=== PATIENT | male | born 2000 | race African-American/Black ===

== ENCOUNTER 2023-04-14 23:00 | Emergency (ER) | payer OTHER ==
--- OUTSIDE RECORDS SUMMARY | 2023-04-14 23:26 | XMS REPORT | Continuity of Care Document ---
:2000 Author Organization [facility] [place] [facility] t Address [address] [facility]. [address] [place] [address] Care Team Providers Name Role Phone Latia Gates PA-C Primary Care Physician [phone] LAURY CHAVEZ Attending Clinician Unavailable Laury Chavez MD Attending Clinician GALE WINCHESTER Attending Clinician Unavailable YOLY JACOBO Attending Clinician Unavailable Yoly Worrell Attending Clinician TALI HAMILTON Attending Clinician Unavailable Tali Hamilton NP Attending Clinician Gale Hinojosa Attending Clinician Lab, Ang - Db Attending Clinician Unavailable Doctor Unassigned, [place] Attending Clinician Unavailable RICARDO MONREAL Attending Clinician Unavailable Ricardo Monreal MD Attending Clinician LATIA GATES Attending Clinician Unavailable Kody MIRANDA, Latia Bermudez Attending Clinician Samir Recio Attending Clinician Tyler Sanders MD Attending Clinician Augusto Aviles DO Attending Clinician ANDRAE THOMAS Attending Clinician Unavailable Lisa BOND, Danii Ozuna Attending Clinician Vega MASTERS, Davon Ronquillo Attending Clinician Colby BOND, Landy Attending Clinician Latoya Pacheco MD Attending Clinician Aj Maldonado DO Attending Clinician CHERYLE ALVAREZ Attending Clinician Unavailable Provider, [facility] Attending Clinician Unavailable LANDY QUIGLEY Attending Clinician Unavailable Provider, Urgent Care Day Attending Clinician Unavailable Pob, [facility] Main Attending Clinician Unavailable LIANA PAIGE Attending Clinician Unavailable Liana Paige MD Attending Clinician Pob1, Acute [facility] Attending Clinician Unavailable New DUNN, Kwadwo Attending Clinician Unavailable Sandra Hopper PA-C Attending Clinician María Davis Attending Clinician MARÍA JEREZ Attending Clinician Unavailable NINA BAUMAN Attending Clinician Unavailable TALI HAMILTON Admitting Clinician Unavailable GALE WINCHESTER Admitting Clinician Unavailable RICARDO MONREAL Admitting Clinician Unavailable Tyler Sanders MD Admitting Clinician Payers Payer Name Policy Type Policy Number Effective Date Expiration Date Marysol MIRAMONTES [id number] 2019 HEALTH 00:00:00 Problems Condition Condition Condition Status Onset Resolution Last Treating Co mments Source Name Details Category Date Date Treatment Clinician Date Irritable Irritable Disease Active 2021-06 Uni vers bowel bowel 2-29 [place] syndrome[place] 00 Me dical d type d type Branch Pneumomedi Pneumomedi Disease Active U nivers astinum astinum 7- ity of 00:00: Medical Branch Obesity Obesity Disease Active Univers (BMI (BMI 7-20 ity of 30-39.9) 30-39.9) 00:00: Medical Branch Smoker Smoker Disease Active Overview: Univer s 12-21 Formattin ity of 00:00: g of this note Medical might be Branch different from the original. Smokes cigarette s and vapes Asthma Asthma Disease Active Univers 3 ity of 00:00: Medical Branch GERD GERD Disease Active Univers (gastroeso (gastroeso 08-22 it y of phageal phageal 00:00: [place] reflux reflux 00 Medical disease) disease) Branch Constipati Constipati Disease Active U nivers on on 08-22 ity of 00:00: Medical Branch Allergic Allergic Disease Active Unive rs rhinitis rhinitis 08-22 ity of 00:00: Medical Branch ADHD ADHD Disease Active Univers (attention (attention 3 it y of deficit deficit 00:00: [place] hyperactiv hyperactiv 00 Me dical ity ity Branch disorder), disorder), combined combined type type Allergies, Adverse Reactions, Alerts Allergy Allergy Status Severity Reaction(s) Onset Inactive Treating Comm ents Source Name Type Date Date Clinician NO KNOWN Drug Active Univers ALLERGIE Class ity of S [facility] Social History Social Habit Start Date Stop Date Quantity Comments Source History of tobacco 2018-11-30 Cigarette Smoker University of use 00:00:00 [facility] History SDOH University o f Alcohol Binge [place] [facility] History SDOH University o f Alcohol Comment [place] Med ical [facility] Gender identity Universit y of [facility] Sexual orientation Univer sity of [facility] Exposure to 2022-08-13 2022-08-23 Not sure University of SARS-CoV-2 (event) 00:00:00 19:38:00 [place] [facility] History of Social 2022-05-30 2022-05-30 Univers ity of function 00:00:00 00:00:00 [facility] Cigarettes smoked 2020-12-19 2020-12-19 Univers ity of current (pack per 00:00:00 00:00:00 [facility] ) - Reported Branch Tobacco use and 2020-12-19 2020-12-19 Smokeless Universit y of exposure 00:00:00 00:00:00 tobacco non-user [facility] dical Branch Alcohol intake 2020-12-19 2020-12-19 Current University of 00:00:00 00:00:00 non-drinker of [facility] alcohol Branch (finding) History SDOH 2020-12-19 2020-12-19 2 University o f Alcohol Frequency 00:00:00 [facility]:00:00 [facility] SDOH 2020-12-19 2020-12-19 98 University o f Alcohol Std Drinks 00:00:00 00:00:00 [facility] Education 2020-12-19 2020-12-19 10 University of 00:00:00 00:00:00 [facility] Sex Assigned At [birth year] Universit y of 00:00:00 00:00:00 [facility] Smoking Status Start Date Stop Date Source Smokes tobacco daily 2020-12-19 00:00:00 [facility] ity of [facility] Medications Ordered Filled Start Stop Current Ordering Indication Dosage Frequency Signature Comments Components Source Medication Medication Date Date Medication? Clinician (SIG) Name Name NaCl 0.9% 2022- No 1000mL at 999 Uni vers (NS) IV 08-24 03-25 mL/hr, ity of infusion 01:45[place] 02:20 [place] 1,000 mL 00 :00 s, ONCE, 1 Medic al dose, On Branch 08/23/22 at 2045, CATHERINE iopamidol 2022- No [id number] 100mL 100 mL, Univers (ISOVUE 08-24-24 Intravenou ity o f 370-500 mL) 00:30: 23:22 s, ONCE, 1 [place] injection 00 :00 dose, On Medica l 100 mL Fri Branch 08/23/22 at 1930, Routine ketorolac 2022- No 30mg 30 mg, Unive rs (TORADOL) 08-23 Slow IV ity of injection 23:45: 23:05 Push, [place] 30 mg 00 :00 ONCE, 1 Medical dose, On Branch 08/23/22 at 1845, Routine dicyclomine 2022-0 2022- No 20mg 20 mg, Uni vers (BENTYL) 08-23 Intramuscu ity of injection 23:45: 23:14 lar, ONCE, [place] 20 mg 00 :00 1 dose, On Medical Fri Branch 08/23/22 at 1845, Routine pantoprazol 2022- No 40mg 40 mg, Uni vers e 08-23 Slow IV ity of (PROTONIX) 22:45: 23:06 Push, [place] injection 00 :00 ONCE, 1 Medical 40 mg dose, On Branch 08/23/22 at 1745 dicyclomine 3-0 Yes [id number] 20mg Take 1 Univers 20 mg 3-24 tablet by ity of tablet 00:00: mouth 4 (four) Medical times Branch daily as needed for Abdominal pain. ondansetron 3-0 Yes [id number] 4mg Take 1 Univers 4 mg 3-24 tablet by ity of disintegrat 00:00: mouth [place] ing tablet 00 every 8 Medica l (eight) Branch hours as needed for Nausea and Vomiting (N/V). dicyclomine 2023-0 Yes [id number] 20mg Take 1 Univers 20 mg 3-24 tablet by ity of tablet 00:00: mouth 4 (four) Medical times Branch daily as needed for Abdominal pain. ondansetron 2023-0 Yes [id number] 4mg Take 1 Univers 4 mg 3-24 tablet by ity of disintegrat 00:00: mouth [place] ing tablet 00 every 8 Medica l (eight) Branch hours as needed for Nausea and Vomiting (N/V). dicyclomine 2023-0 Yes [id number] 20mg Take 1 Univers 20 mg 3-24 tablet by ity of tablet 00:00: mouth 4 [place] 00 (four) Medical times Branch daily as needed for Abdominal pain. ondansetron 2023-0 Yes [id number] 4mg Take 1 Univers 4 mg 3-24 tablet by ity of disintegrat 00:00: mouth [place] ing tablet 00 every 8 Medica l (eight) Branch hours as needed for Nausea and Vomiting (N/V). dicyclomine 3-0 Yes [id number] 10mg Take 1 Univers 10 mg 1-24 capsule by ity of capsule 00:00: mouth in [place] 00 the Medical morning Branch and 1 capsule at noon and 1 capsule in the evening. dicyclomine 3-0 Yes [id number] 10mg Take 1 Univers 10 mg 1-24 capsule by ity of capsule 00:00: mouth in [place] 00 the Medical morning Branch and 1 capsule at noon and 1 capsule in the evening. dicyclomine 3-0 Yes [id number] 10mg Take 1 Univers 10 mg 1-24 capsule by ity of capsule 00:00: mouth in [place] 00 the Medical morning Branch and 1 capsule at noon and 1 capsule in the evening. dicyclomine 3-0 Yes [id number] 10mg Take 1 Univers 10 mg 1-24 capsule by ity of capsule 00:00: mouth in [place] 00 the Medical morning Branch and 1 capsule at noon and 1 capsule in the evening. cetirizine 2021-06 Yes [id number] 10mg Take 1 Univers (ZYRTEC) 10 2-29 tablet by [facility] mg tablet [facility] Branch albuterol 2021-06 Yes [id number] 2{puff} Inhale 2 Univers 90 2-29 Puffs ity of mcg/actuati 00:00: every 6 [place] on inhaler 00 (six) Medical hours as Branch needed for Wheezing or Shortness of Breath. fluticasone 2021-06 Yes [id number] 2{puff} Inhale 2 Univers propionate 2-29 Puffs ity of 110 00:00: every 12 [place] mcg/actuati 00 (twelve) Medi luiz on inhaler hours. Branch hydrOXYzine 2021-06 Yes [id number] 50mg Take 1 Univers 50 mg 2-29 tablet by ity of tablet 00:00: mouth 3 [place] 00 (three) Medical times Branch daily as needed for Itching. cetirizine 2021-06 Yes [id number] 10mg Take 1 Univers (ZYRTEC) 10 2-29 tablet by ity of mg tablet 00:00: mouth [place] 00 the Medical morning. Branch albuterol 2021-06 Yes [id number] 2{puff} Inhale 2 Univers 90 2-29 Puffs ity of mcg/actuati 00:00: every 6 [place] on inhaler 00 (six) Medical hours as Branch needed for Wheezing or Shortness of Breath. fluticasone 2021-06 Yes [id number] 2{puff} Inhale 2 Univers propionate 2-29 Puffs ity of 110 00:00: every 12 [place] mcg/actuati 00 (twelve) Medi luiz on inhaler hours. Branch hydrOXYzine 2021-06 Yes [id number] 50mg Take 1 Univers 50 mg 2-29 tablet by ity of tablet 00:00: mouth 3 00 (three) Medical times Branch daily as needed for Itching. cetirizine 2021-06 Yes [id number] 10mg Take 1 Univers (ZYRTEC) 10 2-29 tablet by ity of mg tablet 00:00: [place] 00 the Medical morning. Branch albuterol 2021-06 Yes [id number] 2{puff} Inhale 2 Univers 90 2-29 Puffs ity of mcg/actuati 00:00: every 6 [place] on inhaler 00 (six) Medical hours as Branch needed for Wheezing or Shortness of Breath. fluticasone 2021-06 Yes [id number] 2{puff} Inhale 2 Univers propionate 2-29 Puffs ity of 110 00:00: every 12 [place] mcg/actuati 00 (twelve) Medi luiz on inhaler hours. Branch hydrOXYzine 2021-06 Yes [id number] 50mg Take 1 Univers 50 mg 2-29 tablet by ity of tablet 00:00: mouth 3 [place] 00 (three) Medical times Branch daily as needed for Itching. cetirizine 2021-06 Yes [id number] 10mg Take 1 Univers (ZYRTEC) 10 2-29 tablet by ity of mg tablet 00:00: mouth [place] 00 the Medical morning. Branch albuterol 2021-06 Yes [id number] 2{puff} Inhale 2 Univers 90 2-29 Puffs ity of mcg/actuati 00:00: every 6 [place] on inhaler 00 (six) Medical hours as Branch needed for Wheezing or Shortness of Breath. fluticasone 2021-06 Yes [id number] 2{puff} Inhale 2 Univers propionate 2-29 Puffs ity of 110 00:00: every 12 [place] mcg/actuati 00 (twelve) Medi luiz on inhaler hours. Branch hydrOXYzine 2021-06 Yes [id number] 50mg Take 1 Univers 50 mg 2-29 tablet by ity of tablet 00:00: mouth 3 [place] 00 (three) Medical times Branch daily as needed for Itching. cetirizine 2021-06 Yes [id number] 10mg Take 1 Univers (ZYRTEC) 10 2-29 tablet by ity of mg tablet 00:00: mouth [place] 00 the Medical morning. Branch albuterol 2021-06 Yes [id number] 2{puff} Inhale 2 Univers 90 2-29 Puffs ity of mcg/actuati 00:00: every 6 [place] on inhaler 00 (six) Medical hours as Branch needed for Wheezing or Shortness of Breath. fluticasone 2021-06 Yes [id number] 2{puff} Inhale 2 Univers propionate 2-29 Puffs ity of 110 00:00: every 12 [place] mcg/actuati 00 (twelve) Medi luiz on inhaler hours. Branch hydrOXYzine 2021-06 Yes [id number] 50mg Take 1 Univers 50 mg 2-29 tablet by ity of tablet 00:00: mouth 3 [place] 00 (three) Medical times Branch daily as needed for Itching. cetirizine 2021-06 Yes [id number] 10mg Take 1 Univers (ZYRTEC) 10 2-29 tablet by ity of mg tablet 00:00: mouth [place] 00 the Medical morning. Branch albuterol 2021-06 Yes [id number] 2{puff} Inhale 2 Univers 90 2-29 Puffs ity of mcg/actuati 00:00: every 6 [place] on inhaler 00 (six) Medical hours as Branch needed for Wheezing or Shortness of Breath. fluticasone 2021-06 Yes [id number] 2{puff} Inhale 2 Univers propionate 2-29 Puffs ity of 110 00:00: every 12 [place] mcg/actuati 00 (twelve) Medi luiz on inhaler hours. Branch hydrOXYzine 2021-06 Yes [id number] 50mg Take 1 Univers 50 mg 2-29 tablet by ity of tablet 00:00: mouth 3 00 (three) Medical times Branch daily as needed for Itching. cetirizine 2021-06 Yes [id number] 10mg Take 1 Univers (ZYRTEC) 10 2-29 tablet by ity of mg tablet 00:00: mouth [place] 00 the Medical morning. Branch albuterol 2021-06 Yes [id number] 2{puff} Inhale 2 Univers 90 2-29 Puffs ity of mcg/actuati 00:00: every 6 [place] on inhaler 00 (six) Medical hours as Branch needed for Wheezing or Shortness of Breath. fluticasone 2021-06 Yes [id number] 2{puff} Inhale 2 Univers propionate 2-29 Puffs ity of 110 00:00: every 12 [place] mcg/actuati 00 (twelve) Medi luiz on inhaler hours. Branch hydrOXYzine 2021-06 Yes [id number] 50mg Take 1 Univers 50 mg 2-29 tablet by ity of tablet 00:00: mouth 3 00 (three) Medical times Branch daily as needed for Itching. cetirizine 2021-06 Yes [id number] 10mg Take 1 Univers (ZYRTEC) 10 2-29 tablet by ity of mg tablet 00:00: mouth [place] 00 the Medical morning. Branch albuterol 2021-06 Yes [id number] 2{puff} Inhale 2 Univers 90 2-29 Puffs ity of mcg/actuati 00:00: every 6 [place] on inhaler 00 (six) Medical hours as Branch needed for Wheezing or Shortness of Breath. fluticasone 2021-06 Yes [id number] 2{puff} Inhale 2 Univers propionate 2-29 Puffs ity of 110 00:00: every 12 [place] mcg/actuati 00 (twelve) Medi luiz on inhaler hours. Branch hydrOXYzine 2021-06 Yes [id number] 50mg Take 1 Univers 50 mg 2-29 tablet by ity of tablet 00:00: mouth 3 00 (three) Medical times Branch daily as needed for Itching. amoxicillin 2021-06- No 1{tbl} 1 tablet, Univers -clavulanat 2-17 12-17 Oral, ONCE i ty of e 02:45: 02:13 NOW, 1 [place] (AUGMENTIN) 00 :00 dose, On Medi luiz 875-125 mg Fri Branch per tablet 05/17/22 1 tablet at 2044, Routine
Reason for Anti-Infec tive: Empiric Non-Surgic al Prophylaxi s
Durat ion of therapy: 72 hours ibuprofen 2021-06- No 800mg 800 mg, Uni vers (IBU) -17 05-18 Oral, ity of tablet 800 02:00: 02:13 ONCE, 1 [place] mg 00 :00 dose, On Medical Fri Branch 05/17/22 at 1999, CATHERINE amoxicillin 2021-06 Yes [id number] 1{tbl} Take 1 Univers -clavulanat 2-16 tablet by ity of e 875-125 00:00: mouth [place] mg per 00 every 12 Medical tablet (twelve) Branch hours. ibuprofen 2021-06 Yes [id number] 800mg Take 1 Univers 800 mg 2-16 tablet by ity of tablet 00:00: mouth [place] 00 every 8 Medical (eight) Branch hours as needed for Pain (scale 4-6). amoxicillin 2021-06 Yes [id number] 1{tbl} Take 1 Univers -clavulanat 2-16 tablet by ity of e 875-125 00:00: mouth [place] mg per 00 every 12 Medical tablet (twelve) Branch hours. ibuprofen 2021-06 Yes [id number] 800mg Take 1 Univers 800 mg 2-16 tablet by ity of tablet 00:00: mouth [place] 00 every 8 Medical (eight) Branch hours as needed for Pain (scale 4-6). ibuprofen 2021-06 Yes [id number] 800mg Take 1 Univers 800 mg 2-16 tablet by ity of tablet 00:00: mouth [place] 00 every 8 Medical (eight) Branch hours as needed for Pain (scale 4-6). ibuprofen 2021-06 Yes [id number] 800mg Take 1 Univers 800 mg 2-16 tablet by ity of tablet 00:00: mouth [place] 00 every 8 Medical (eight) Branch hours as needed for Pain (scale 4-6). ibuprofen 2021-06 Yes [id number] 800mg Take 1 Univers 800 mg 2-16 tablet by ity of tablet 00:00: mouth [place] 00 every 8 Medical (eight) Branch hours as needed for Pain (scale 4-6). ibuprofen 2021-06 Yes [id number] 800mg Take 1 Univers 800 mg 2-16 tablet by ity of tablet 00:00: mouth [place] 00 every 8 Medical (eight) Branch hours as needed for Pain (scale 4-6). ibuprofen 2021-06 Yes [id number] 800mg Take 1 Univers 800 mg 2-16 tablet by ity of tablet 00:00: mouth [place] 00 every 8 Medical (eight) Branch hours as needed for Pain (scale 4-6). ibuprofen 2021-06 Yes [id number] 800mg Take 1 Univers 800 mg 2-16 tablet by ity of tablet 00:00: mouth [place] 00 every 8 Medical (eight) Branch hours as needed for Pain (scale 4-6). ibuprofen 2021-06 Yes [id number] 800mg Take 1 Univers 800 mg 2-16 tablet by ity of tablet 00:00: mouth [place] 00 every 8 Medical (eight) Branch hours as needed for Pain (scale 4-6). ibuprofen 2021-06 Yes [id number] 800mg Take 1 Univers 800 mg 2-16 tablet by ity of tablet 00:00: mouth [place] 00 every 8 Medical (eight) Branch hours as needed for Pain (scale 4-6). amoxicillin 2021-06- No [id number] 1{tbl} Take 1 Univers -clavulanat 2-16 12-29 tablet by it y of e 875-125 00:00: 00:00 mouth [place] mg per 00 :00 every 12 Medical tablet (twelve) Branch hours. amoxicillin 2021-06- No [id number] 1{tbl} Take 1 Univers -clavulanat 2-16 12-29 tablet by it y of e 875-125 00:00: 00:00 mouth [place] mg per 00 :00 every 12 Medical tablet (twelve) Branch hours. fluticasone Yes [id number] 2{puff} Inhale 2 Univers propionate 9-29 Puffs ity of 110 00:00: every 12 [place] mcg/actuati 00 (twelve) Medi luiz on inhaler hours. Branch dicyclomine Yes [id number] 10mg Take 1 Univers 10 mg 9-29 capsule by ity of capsule 00:00: mouth 3 [place] 00 (three) Medical times Branch daily. albuterol Yes [id number] 2{puff} Inhale 2 Univers 90 9-29 Puffs ity of mcg/actuati 00:00: every 6 [place] on inhaler 00 (six) Medical hours as Branch needed for Wheezing or Shortness of Breath. cetirizine Yes [id number] 10mg Take 1 U nivers (ZYRTEC) 10 9-29 tablet by ity of mg tablet 00:00: mouth 00 daily. Medical Branch fluticasone Yes [id number] 2{puff} Inhale 2 Univers propionate 9-29 Puffs ity of 110 00:00: every 12 [place] mcg/actuati 00 (twelve) Medi luiz on inhaler hours. Branch dicyclomine Yes [id number] 10mg Take 1 Univers 10 mg 9-29 capsule by ity of capsule 00:00: mouth (three) Medical times Branch daily. albuterol Yes [id number] 2{puff} Inhale 2 Univers 90 9-29 Puffs ity of mcg/actuati 00:00: every 6 [place] on inhaler 00 (six) Medical hours as Branch needed for Wheezing or Shortness of Breath. cetirizine Yes [id number] 10mg Take 1 U nivers (ZYRTEC) 10 9-29 tablet by ity of mg tablet 00:00: mouth daily. Medical Branch fluticasone Yes [id number] 2{puff} Inhale 2 Univers propionate 9-29 Puffs ity of 110 00:00: every 12 [place] mcg/actuati 00 (twelve) Medi luiz on inhaler hours. Branch dicyclomine Yes [id number] 10mg Take 1 Univers 10 mg 9-29 capsule by ity of capsule 00:00: mouth 3 (three) Medical times Branch daily. albuterol Yes [id number] 2{puff} Inhale 2 Univers 90 9-29 Puffs ity of mcg/actuati 00:00: every 6 [place] on inhaler 00 (six) Medical hours as Branch needed for Wheezing or Shortness of Breath. cetirizine Yes [id number] 10mg Take 1 U nivers (ZYRTEC) 10 9-29 tablet by ity of mg tablet 00:00: mouth [place] 00 daily. Medical Branch fluticasone Yes [id number] 2{puff} Inhale 2 Univers propionate 9-29 Puffs ity of 110 00:00: every 12 [place] mcg/actuati 00 (twelve) Medi luiz on inhaler hours. Branch dicyclomine Yes [id number] 10mg Take 1 Univers 10 mg 9-29 capsule by ity of capsule 00:00: mouth 3 [place] 00 (three) Medical times Branch daily. albuterol Yes [id number] 2{puff} Inhale 2 Univers 90 9-29 Puffs ity of mcg/actuati 00:00: every 6 [place] on inhaler 00 (six) Medical hours as Branch needed for Wheezing or Shortness of Breath. cetirizine Yes [id number] 10mg Take 1 U nivers (ZYRTEC) 10 9-29 tablet by ity of mg tablet 00:00: mouth [place] 00 daily. Medical Branch dicyclomine Yes [id number] 10mg Take 1 Univers 10 mg 9-29 capsule by ity of capsule 00:00: mouth 3 [place] 00 (three) Medical times Branch daily. dicyclomine Yes [id number] 10mg Take 1 Univers 10 mg 9-29 capsule by ity of capsule 00:00: mouth 3 [place] 00 (three) Medical times Branch daily. dicyclomine Yes [id number] 10mg Take 1 Univers 10 mg 9-29 capsule by ity of capsule 00:00: mouth 3 [place] 00 (three) Medical times Branch daily. dicyclomine Yes [id number] 10mg Take 1 Univers 10 mg 9-29 capsule by ity of capsule 00:00: mouth 3 [place] 00 (three) Medical times Branch daily. dicyclomine 2022- No [id number] 10mg Take 1 Univers 10 mg 9-29 01-24 capsule by ity of capsule 00:00: 00:00 mouth 3 [place] 00 :00 (three) Medical times Branch daily. fluticasone 2021- No [id number] 2{puff} Inhale 2 Univers propionate 9-29 12-29 Puffs ity of 110 00:00: 00:00 every 12 [place] mcg/actuati 00 :00 (twelve) Medi luiz on inhaler hours. Branch albuterol 2021- No [id number] 2{puff} Inhale 2 Univers 90 9-29 12-29 Puffs ity of mcg/actuati 00:00: 00:00 every 6 [place] on inhaler 00 :00 (six) Medical hours as Branch needed for Wheezing or Shortness of Breath. cetirizine 2021- No [id number] 10mg Take 1 Univers (ZYRTEC) 10 9- 12-29 tablet by it y of mg tablet 00:00: 00:00 mouth [place] 00 :00 daily. Medical Branch fluticasone 2021- No [id number] 2{puff} Inhale 2 Univers propionate 9- 12-29 Puffs ity of 110 00:00: 00:00 every 12 [place] mcg/actuati 00 :00 (twelve) Medi luiz on inhaler hours. Branch albuterol 2021- No [id number] 2{puff} Inhale 2 Univers 90 9- 12-29 Puffs ity of mcg/actuati 00:00: 00:00 every 6 [place] on inhaler 00 :00 (six) Medical hours as Branch needed for Wheezing or Shortness of Breath. cetirizine 2021- No [id number] 10mg Take 1 Univers (ZYRTEC) 10 9- 12-29 tablet by it y of mg tablet 00:00: 00:00 mouth [place] 00 :00 daily. Medical Branch polyethylen Yes [id number] Give 1-2 Univers e glycol 9-07 capfuls ity of 3350 00:00: once to [place] (MIRALAX) 00 twice Medical 17 daily with Branch gram/dose 8-16 oz of powder water to produce soft BM polyethylen Yes [id number] Give 1-2 Univers e glycol 9-07 capfuls ity of 3350 00:00: once to [place] (MIRALAX) 00 twice Medical 17 daily with Branch gram/dose 8-16 oz of powder water to produce soft BM polyethylen Yes [id number] Give 1-2 Univers e glycol 9-07 capfuls ity of 3350 00:00: once to [place] (MIRALAX) 00 twice Medical 17 daily with Branch gram/dose 8-16 oz of powder water to produce soft BM polyethylen 2021-0 Yes [id number] Give 1-2 Univers e glycol 9-07 capfuls ity of 3350 00:00: once to [place] (MIRALAX) 00 twice Medical 17 daily with Branch gram/dose 8-16 oz of powder water to produce soft BM polyethylen 2021-0 Yes [id number] Give 1-2 Univers e glycol 9-07 capfuls ity of 3350 00:00: once to [place] (MIRALAX) 00 twice Medical 17 daily with Branch gram/dose 8-16 oz of powder water to produce soft BM polyethylen 2021-0 Yes [id number] Give 1-2 Univers e glycol 9-07 capfuls ity of 3350 00:00: once to [place] (MIRALAX) 00 twice Medical 17 daily with Branch gram/dose 8-16 oz of powder water to produce soft BM polyethylen 2021-0 Yes [id number] Give 1-2 Univers e glycol 9-07 capfuls ity of 3350 00:00: once to [place] (MIRALAX) 00 twice Medical 17 daily with Branch gram/dose 8-16 oz of powder water to produce soft BM polyethylen 2021-0 Yes [id number] Give 1-2 Univers e glycol 9-07 capfuls ity of 3350 00:00: once to [place] (MIRALAX) 00 twice Medical 17 daily with Branch gram/dose 8-16 oz of powder water to produce soft BM polyethylen 2021-0 Yes [id number] Give 1-2 Univers e glycol 9-07 capfuls ity of 3350 00:00: once to [place] (MIRALAX) 00 twice Medical 17 daily with Branch gram/dose 8-16 oz of powder water to produce soft BM polyethylen 2021-0 Yes [id number] Give 1-2 Univers e glycol 9-07 capfuls ity of 3350 00:00: once to [place] (MIRALAX) 00 twice Medical 17 daily with Branch gram/dose 8-16 oz of powder water to produce soft BM polyethylen 2021-0 Yes [id number] Give 1-2 Univers e glycol 9-07 capfuls ity of 3350 00:00: once to [place] (MIRALAX) 00 twice Medical 17 daily with Branch gram/dose 8-16 oz of powder water to produce soft BM polyethylen Yes [id number] Give 1-2 Univers e glycol 02-06 capfuls ity of 3350 00:00: once to [place] (MIRALAX) 00 twice Medical 17 daily with Branch gram/dose 8-16 oz of powder water to produce soft BM fluticasone 2020- No [id number] 2{puff} Inhale 2 [facility] propionate 02-06 Puffs ity of 110 00:00: 00:00 every 12 [place] mcg/actuati 00 :00 (twelve) Medi luiz on inhaler hours. Branch dicyclomine 2020- No [id number] 10mg Take 1 [facility] 10 mg 02-06 capsule by ity of capsule 00:00: 00:00 mouth 3 [place] 00 :00 (three) Medical times Branch daily. cetirizine 2020- No [id number] 10mg Take 1 Univers (ZYRTEC) 10 02-06 tablet by it y of mg tablet 00:00: 00:00 mouth [place] 00 :00 daily. Medical Branch albuterol 2020- No [id number] 2{puff} Inhale 2 [facility] 90 02-06 Puffs ity of mcg/actuati 00:00: 00:00 every 6 [place] on inhaler 00 :00 (six) Medical hours as Branch needed for Wheezing or Shortness of Breath. fluticasone 2020- No [id number] 2{puff} Inhale 2 [facility] propionate 02-06 Puffs ity of 110 00:00: 00:00 every 12 [place] mcg/actuati 00 :00 (twelve) Medi luiz on inhaler hours. Branch dicyclomine 2020- No [id number] 10mg Take 1 [facility] 10 mg 02-06 capsule by ity of capsule 00:00: 00:00 mouth 3 [place] 00 :00 (three) Medical times Branch daily. cetirizine 2020- No [id number] 10mg Take 1 [facility] (ZYRTEC) 10 02-06 tablet by it y of mg tablet 00:00: 00:00 mouth [place] 00 :00 daily. Medical Branch albuterol 2020- No [id number] 2{puff} Inhale 2 [facility] 90 02-06 Puffs ity of mcg/actuati 00:00: 00:00 every 6 [place] inhaler 00 :00 (six) Medical hours as Branch needed for Wheezing or Shortness of Breath. bisacodyL Yes [id number] Take 1-2 [facility] (DULCOLAX, 7-22 tabs once ity of BISACODYL,) 00:00: to twice [place] 5 mg EC 00 daily for Medical tablet constipati Branch on bisacodyL Yes [id number] Take 1-2 [facility] (DULCOLAX, 7-22 tabs once ity of BISACODYL,) 00:00: to twice [place] 5 mg EC 00 daily for Medical tablet constipati Branch on bisacodyL Yes [id number] Take 1-2 [facility] (DULCOLAX, 7-22 tabs once ity of BISACODYL,) 00:00: to twice [place] 5 mg EC 00 daily for Medical tablet constipati Branch on bisacodyL Yes [id number] Take 1-2 [facility] (DULCOLAX, 7-22 tabs once ity of BISACODYL,) 00:00: to twice [place] 5 mg EC 00 daily for Medical tablet constipati Branch on bisacodyL Yes [id number] Take 1-2 [facility] (DULCOLAX, 7-22 tabs once ity of BISACODYL,) 00:00: to twice [place] 5 mg EC 00 daily for Medical tablet constipati Branch on bisacodyL Yes [id number] Take 1-2 [facility] (DULCOLAX, 7-22 tabs once ity of BISACODYL,) 00:00: to twice [place] 5 mg EC 00 daily for Medical tablet constipati Branch on bisacodyL Yes [id number] Take 1-2 [facility] (DULCOLAX, 7-22 tabs once ity of BISACODYL,) 00:00: to twice [place] 5 mg EC 00 daily for Medical tablet constipati Branch on bisacodyL Yes [id number] Take 1-2 [facility] (DULCOLAX, 7-22 tabs once ity of BISACODYL,) 00:00: to twice [place] 5 mg EC 00 daily for Medical tablet constipati Branch on bisacodyL Yes [id number] Take 1-2 [facility] (DULCOLAX, 7-22 tabs once ity of BISACODYL,) 00:00: to twice [place] 5 mg EC 00 daily for Medical tablet constipati Branch on bisacodyL Yes [id number] Take 1-2 [facility] (DULCOLAX, 7-22 tabs once ity of BISACODYL,) 00:00: to twice [place] 5 mg EC 00 daily for Medical tablet constipati Branch on bisacodyL Yes [id number] Take 1-2 [facility] (DULCOLAX, 7-22 tabs once ity of BISACODYL,) 00:00: to twice [place] 5 mg EC 00 daily for Medical tablet constipati Branch on bisacodyL Yes [id number] Take 1-2 [facility] (DULCOLAX, 7-22 tabs once ity of BISACODYL,) 00:00: to twice [place] 5 mg EC 00 daily for Medical tablet constipati Branch on bisacodyL Yes [id number] Take 1-2 [facility] (DULCOLAX, 7-22 tabs once ity of BISACODYL,) 00:00: to twice [place] 5 mg EC 00 daily for Medical tablet constipati Branch on Immunizations Ordered Immunization Filled Date Status Comments Sour ce Name Immunization Name Td 2022-05-17 Completed University of 00:00:00 [facility] TD, NOS 2022-05-17 Completed University of 00:00:00 [facility] TD, NOS 2022-05-17 Completed University of 00:00:00 [facility] TD, NOS 2022-05-17 Completed University of 00:00:00 [facility] TD, NOS 2022-05-17 Completed University of 00:00:00 [facility] TD, NOS 2022-05-17 Completed University of 00:00:00 [facility] TD, NOS 2022-05-17 Completed University of 00:00:00 [facility] TD, NOS 2022-05-17 Completed University of 00:00:00 [facility] TD, NOS 2022-05-17 Completed University of 00:00:00 [facility] TD, NOS 2022-05-17 Completed University of 00:00:00 [facility] Influenza Virus 2018-03-16 Completed Universit y of Vaccine Quad .5 mL 00:00:00 [facility] 6+ MO Branch Influenza Virus 2018-03-16 Completed Universit y of Vaccine 00:00:00 [facility] Influenza Virus 2018-03-16 Completed Universit y of Vaccine Quad .5 mL 00:00:00 [facility] 6+ MO Branch Influenza Virus 2018-03-16 Completed Universit y of Vaccine 00:00:00 [facility] Influenza Virus 2018-03-16 Completed Universit y of Vaccine Quad .5 mL 00:00:00 [facility] 6+ MO Branch Influenza Virus 2018-03-16 Completed Universit y of Vaccine 00:00:00 [facility] Influenza Virus 2018-03-16 Completed Universit y of Vaccine Quad .5 mL 00:00:00 [facility] 6+ MO Branch Influenza Virus 2018-03-16 Completed Universit y of Vaccine 00:00:00 [facility] Influenza Virus 2018-03-16 Completed Universit y of Vaccine Quad .5 mL 00:00:00 [facility] 6+ MO Branch Influenza Virus 2018-03-16 Completed Universit y of Vaccine 00:00:00 [facility] Influenza Virus 2018-03-16 Completed Universit y of Vaccine Quad .5 mL 00:00:00 [facility] 6+ MO Branch Influenza Virus 2018-03-16 Completed Universit y of Vaccine 00:00:00 [facility] Influenza Virus 2018-03-16 Completed Universit y of Vaccine Quad .5 mL 00:00:00 [facility] 6+ MO Branch Influenza Virus 2018-03-16 Completed Universit y of Vaccine 00:00:00 [facility] Influenza Virus 2018-03-16 Completed Universit y of Vaccine Quad .5 mL 00:00:00 [facility] 6+ MO Branch Influenza Virus 2018-03-16 Completed Universit y of Vaccine 00:00:00 [facility] Influenza Virus 2018-03-16 Completed Universit y of Vaccine Quad .5 mL 00:00:00 [facility] IM 6+ MO Branch Influenza Virus 2018-03-16 Completed Universit y of Vaccine 00:00:00 [facility] Influenza Virus 2018-03-16 Completed Universit y of Vaccine Quad .5 mL 00:00:00 [place] [facility] 6+ MO Branch Influenza Virus 2018-03-16 Completed Universit y of Vaccine 00:00:00 [facility] Influenza Virus 2018-03-16 Completed Universit y of Vaccine Quad .5 mL 00:00:00 [place] [facility] 6+ MO Branch Influenza Virus 2018-03-16 Completed Universit y of Vaccine 00:00:00 [facility] Influenza Virus 2018-03-16 Completed Universit y of Vaccine Quad .5 mL 00:00:00 [facility] 6+ MO Branch Influenza Virus 2018-03-16 Completed Universit y of Vaccine 00:00:00 [facility] Branch HPV9 2017-11-03 Completed University of 00:00:00 [facility] Branch HPV9 2017-11-03 Completed University of 00:00:00 [facility] Branch HPV9 2017-11-03 Completed University of 00:00:00 [place] [facility] HPV9 2017-11-03 Completed University of 00:00:00 [facility] Branch HPV9 2017-11-03 Completed University of 00:00:00 [place] [facility] HPV9 2017-11-03 Completed University of 00:00:00 [place] [facility] HPV9 2017-11-03 Completed University of 00:00:00 [place] [facility] HPV9 2017-11-03 Completed University of 00:00:00 [place] [facility] HPV9 2017-11-03 Completed University of 00:00:00 [place] [facility] HPV9 2017-11-03 Completed University of 00:00:00 [place] [facility] HPV9 2017-11-03 Completed University of 00:00:00 [place] [facility] HPV9 2017-11-03 Completed University of 00:00:00 [facility] Branch HPV 2017-01-16 Completed University of 00:00:00 [place] [facility] HPV 2017-01-16 Completed University of 00:00:00 [place] [facility] HPV 2017-01-16 Completed University of 00:00:00 [place] [facility] HPV 2017-01-16 Completed University of 00:00:00 [place] [facility] HPV 2017-01-16 Completed University of 00:00:00 [place] [facility] HPV9 2017-01-16 Completed University of 00:00:00 [facility] Branch HPV 2017-01-16 Completed University of 00:00:00 [place] [facility] HPV9 2017-01-16 Completed University of 00:00:00 [place] [facility] HPV 2017-01-16 Completed University of 00:00:00 [place] [facility] HPV9 2017-01-16 Completed University of 00:00:00 [facility] Branch HPV 2017-01-16 Completed University of 00:00:00 [place] [facility] HPV9 2017-01-16 Completed University of 00:00:00 [place] [facility] HPV 2017-01-16 Completed University of 00:00:00 [place] [facility] HPV9 2017-01-16 Completed University of 00:00:00 [place] [facility] HPV 2017-01-16 Completed University of 00:00:00 [place] [facility] HPV9 2017-01-16 Completed University of 00:00:00 [facility] Branch HPV 2017-01-16 Completed University of 00:00:00 [facility] Branch HPV9 2017-01-16 Completed University of 00:00:00 [facility] Branch HPV 2017-01-16 Completed University of 00:00:00 [facility] Branch HPV9 2017-01-16 Completed University of 00:00:00 [facility] Meningococcal 2015-01-16 Completed University of Vaccine 00:00:00 [facility] Meningococcal 2015-01-16 Completed University of Vaccine 00:00:00 [facility] Meningococcal 2015-01-16 Completed University of Vaccine 00:00:00 [facility] Meningococcal 2015-01-16 Completed University of Vaccine 00:00:00 [facility] Meningococcal 2015-01-16 Completed University of Vaccine 00:00:00 [facility] Meningococcal 2015-01-16 Completed University of Polysaccharide 00:00:00 [place] [facility] (groups A, C, Y and Branc h W-135) conjugate vaccine (MCV4P) Meningococcal 2015-01-16 Completed University of Vaccine 00:00:00 [facility] Branch Meningococcal 2015-01-16 Completed University of Polysaccharide 00:00:00 [place] [facility] (groups A, C, Y and Branc h W-135) conjugate vaccine (MCV4P) Meningococcal 2015-01-16 Completed University of Vaccine 00:00:00 [facility] Branch Meningococcal 2015-01-16 Completed University of Polysaccharide 00:00:00 [place] [facility] (groups A, C, Y and Branc h W-135) conjugate vaccine (MCV4P) Meningococcal 2015-01-16 Completed University of Vaccine 00:00:00 [facility] Meningococcal 2015-01-16 Completed University of Polysaccharide 00:00:00 [place] [facility] (groups A, C, Y and Branc h W-135) conjugate vaccine (MCV4P) Meningococcal 2015-01-16 Completed University of Vaccine 00:00:00 [facility] Meningococcal 2015-01-16 Completed University of Polysaccharide 00:00:00 [place] [facility] (groups A, C, Y and Branc h W-135) conjugate vaccine (MCV4P) Meningococcal 2015-01-16 Completed University of Vaccine 00:00:00 [facility] Meningococcal 2015-01-16 Completed University of Polysaccharide 00:00:00 [place] [facility] (groups A, C, Y and Branc h W-135) conjugate vaccine (MCV4P) Meningococcal 2015-01-16 Completed University of Vaccine 00:00:00 [facility] Meningococcal 2015-01-16 Completed University of Polysaccharide 00:00:00 [place] [facility] (groups A, C, Y and Branc h W-135) conjugate vaccine (MCV4P) Meningococcal 2015-01-16 Completed University of Vaccine 00:00:00 [facility] Meningococcal 2015-01-16 Completed University of Polysaccharide 00:00:00 [place] [facility] (groups A, C, Y and Branc h W-135) conjugate vaccine (MCV4P) TDAP (ADACEL) 2014-06-08 Completed University of VACCINE 00:00:00 [facility] TDAP (ADACEL) 2014-06-08 Completed University of VACCINE 00:00:00 [facility] TDAP (ADACEL) 2014-06-08 Completed University of VACCINE 00:00:00 [facility] TDAP (ADACEL) 2014-06-08 Completed University of VACCINE 00:00:00 [facility] TDAP (ADACEL) 2014-06-08 Completed University of VACCINE 00:00:00 [facility] TDAP (ADACEL) 2014-06-08 Completed University of VACCINE 00:00:00 [facility] TDAP (ADACEL) 2014-06-08 Completed University of VACCINE 00:00:00 [facility] TDAP (ADACEL) 2014-06-08 Completed University of VACCINE 00:00:00 [facility] TDAP (ADACEL) 2014-06-08 Completed University of VACCINE 00:00:00 [facility] TDAP (ADACEL) 2014-06-08 Completed University of VACCINE 00:00:00 [facility] TDAP (ADACEL) 2014-06-08 Completed University of VACCINE 00:00:00 [facility] TDAP (ADACEL) 2014-06-08 Completed University of VACCINE 00:00:00 [facility] Influenza Virus 2013-03-31 Completed Universit y of Vaccine 00:00:00 [facility] Influenza Virus 2013-03-31 Completed Universit y of Vaccine 00:00:00 [facility] Influenza Virus 2013-03-31 Completed Universit y of Vaccine 00:00:00 [facility] Influenza Virus 2013-03-31 Completed Universit y of Vaccine 00:00:00 [facility] Influenza Virus 2013-03-31 Completed Universit y of Vaccine 00:00:00 [facility] Influenza Virus 2013-03-31 Completed Universit y of Vaccine Quad .5 mL 00:00:00 [facility] 6+ MO Branch Influenza Virus 2013-03-31 Completed Universit y of Vaccine 00:00:00 [facility] Influenza Virus 2013-03-31 Completed Universit y of Vaccine Quad .5 mL 00:00:00 [facility] 6+ MO Branch Influenza Virus 2013-03-31 Completed Universit y of Vaccine 00:00:00 [facility] Influenza Virus 2013-03-31 Completed Universit y of Vaccine Quad .5 mL 00:00:00 [facility] 6+ MO Branch Influenza Virus 2013-03-31 Completed Universit y of Vaccine 00:00:00 [facility] Influenza Virus 2013-03-31 Completed Universit y of Vaccine Quad .5 mL 00:00:00 [facility] 6+ MO Branch Influenza Virus 2013-03-31 Completed Universit y of Vaccine 00:00:00 [facility] Influenza Virus 2013-03-31 Completed Universit y of Vaccine Quad .5 mL 00:00:00 [place] [facility] 6+ MO Branch Influenza Virus 2013-03-31 Completed Universit y of Vaccine 00:00:00 [facility] Influenza Virus 2013-03-31 Completed Universit y of Vaccine Quad .5 mL 00:00:00 [facility] 6+ MO Branch Influenza Virus 2013-03-31 Completed Universit y of Vaccine 00:00:00 [facility] Influenza Virus 2013-03-31 Completed Universit y of Vaccine Quad .5 mL 00:00:00 [facility] 6+ MO Branch Influenza Virus 2013-03-31 Completed Universit y of Vaccine 00:00:00 [facility] Influenza Virus 2013-03-31 Completed Universit y of Vaccine Quad .5 mL 00:00:00 [facility] 6+ MO Branch Influenza Virus 2012-05-04 Completed Universit y of Vaccine 00:00:00 [facility] Influenza Virus 2012-05-04 Completed Universit y of Vaccine 00:00:00 [facility] Influenza Virus 2012-05-04 Completed Universit y of Vaccine 00:00:00 [facility] Influenza Virus 2012-05-04 Completed Universit y of Vaccine 00:00:00 [facility] Influenza Virus 2012-05-04 Completed Universit y of Vaccine 00:00:00 [facility] Influenza Virus 2012-05-04 Completed Universit y of Vaccine - Whole 00:00:00 [facility] Influenza Virus 2012-05-04 Completed Universit y of Vaccine 00:00:00 [facility] Influenza Virus 2012-05-04 Completed Universit y of Vaccine - Whole 00:00:00 [facility] Influenza Virus 2012-05-04 Completed Universit y of Vaccine 00:00:00 [facility] Influenza Virus 2012-05-04 Completed Universit y of Vaccine - Whole 00:00:00 [facility] Influenza Virus 2012-05-04 Completed Universit y of Vaccine 00:00:00 [facility] Influenza Virus 2012-05-04 Completed Universit y of Vaccine - Whole 00:00:00 [facility] Influenza Virus 2012-05-04 Completed Universit y of Vaccine 00:00:00 [facility] Influenza Virus 2012-05-04 Completed Universit y of Vaccine - Whole 00:00:00 [facility] Influenza Virus 2012-05-04 Completed Universit y of Vaccine 00:00:00 [facility] Influenza Virus 2012-05-04 Completed Universit y of Vaccine - Whole 00:00:00 [facility] Influenza Virus 2012-05-04 Completed Universit y of Vaccine 00:00:00 [facility] Influenza Virus 2012-05-04 Completed Universit y of Vaccine - Whole 00:00:00 [facility] Influenza Virus 2012-05-04 Completed Universit y of Vaccine 00:00:00 [facility] Influenza Virus 2012-05-04 Completed Universit y of Vaccine - Whole 00:00:00 [facility] Influenza Virus 2008-03-16 Completed Universit y of Vaccine 00:00:00 [facility] Influenza Virus 2008-03-16 Completed Universit y of Vaccine 00:00:00 [facility] Influenza Virus 2008-03-16 Completed Universit y of Vaccine 00:00:00 [facility] Influenza Virus 2008-03-16 Completed Universit y of Vaccine 00:00:00 [facility] Influenza Virus 2008-03-16 Completed Universit y of Vaccine 00:00:00 [facility] Influenza Virus 2008-03-16 Completed Universit y of Vaccine - Whole 00:00:00 [facility] Influenza Virus 2008-03-16 Completed Universit y of Vaccine 00:00:00 [facility] Influenza Virus 2008-03-16 Completed Universit y of Vaccine - Whole 00:00:00 [facility] Influenza Virus 2008-03-16 Completed Universit y of Vaccine 00:00:00 [facility] Influenza Virus 2008-03-16 Completed Universit y of Vaccine - Whole 00:00:00 [facility] Influenza Virus 2008-03-16 Completed Universit y of Vaccine 00:00:00 [facility] Influenza Virus 2008-03-16 Completed Universit y of Vaccine - Whole 00:00:00 [facility] Influenza Virus 2008-03-16 Completed Universit y of Vaccine 00:00:00 [facility] Influenza Virus 2008-03-16 Completed Universit y of Vaccine - Whole 00:00:00 [facility] Influenza Virus 2008-03-16 Completed Universit y of Vaccine 00:00:00 [facility] Influenza Virus 2008-03-16 Completed Universit y of Vaccine - Whole 00:00:00 [facility] Influenza Virus 2008-03-16 Completed Universit y of Vaccine 00:00:00 [facility] Influenza Virus 2008-03-16 Completed Universit y of Vaccine - Whole 00:00:00 [facility] Influenza Virus 2008-03-16 Completed Universit y of Vaccine 00:00:00 [facility] Influenza Virus 2008-03-16 Completed Universit y of Vaccine - Whole 00:00:00 [facility] DTAP 2006-09-22 Completed University of 00:00:00 [facility] MMR 2006-09-22 Completed University of 00:00:00 [place] [facility] Polio (IPV/OPV) 2006-09-22 Completed Universit y of 00:00:00 [facility] Varicella 2006-09-22 Completed University of (varivax)(chicken 00:00:00 [place] [facility] pox) Branch DTAP 2006-09-22 Completed University of 00:00:00 [facility] MMR 2006-09-22 Completed University of 00:00:00 [facility] Polio (IPV/OPV) 2006-09-22 Completed Universit y of 00:00:00 [facility] Varicella 2006-09-22 Completed University of (varivax)(chicken 00:00:00 [place] [facility] ed[facility] pox) Branch DTAP 2006-09-22 Completed University of 00:00:00 [facility] MMR 2006-09-22 Completed University of 00:00:00 [facility] Polio (IPV/OPV) 2006-09-22 Completed Universit y of 00:00:00 [facility] Varicella 2006-09-22 Completed University of (varivax)(chicken 00:00:00 [place] [facility] pox) Branch DTAP 2006-09-22 Completed University of 00:00:00 [facility] MMR 2006-09-22 Completed University of 00:00:00 [facility] Polio (IPV/OPV) 2006-09-22 Completed Universit y of 00:00:00 [facility] Varicella 2006-09-22 Completed University of (varivax)(chicken 00:00:00 [place] [facility] pox) Branch DTAP 2006-09-22 Completed University of 00:00:00 [facility] MMR 2006-09-22 Completed University of 00:00:00 [facility] Polio (IPV/OPV) 2006-09-22 Completed Universit y of 00:00:00 [facility] Varicella 2006-09-22 Completed University of (varivax)(chicken 00:00:00 [place] [facility] pox) Branch DTaP, Unspecified 2006-09-22 Completed Univers ity of Formulation 00:00:00 [facility] Proquad 2006-09-22 Completed University of (MMR/VARICELLA) 00:00:00 [facility] ical Branch IPV 2006-09-22 Completed University of 00:00:00 [facility] DTAP 2006-09-22 Completed University of 00:00:00 [facility] MMR 2006-09-22 Completed University of 00:00:00 [facility] Polio (IPV/OPV) 2006-09-22 Completed Universit y of 00:00:00 [facility] Varicella 2006-09-22 Completed University of (varivax)(chicken 00:00:00 [place] [facility] pox) Branch DTaP, Unspecified 2006-09-22 Completed Univers ity of Formulation 00:00:00 [facility] Proquad 2006-09-22 Completed University of (MMR/VARICELLA) 00:00:00 [facility]V 2006-09-22 Completed University of 00:00:00 [facility] DTAP 2006-09-22 Completed University of 00:00:00 [facility] MMR 2006-09-22 Completed University of 00:00:00 [facility] Polio (IPV/OPV) 2006-09-22 Completed Universit y of 00:00:00 [facility] Varicella 2006-09-22 Completed University of (varivax)(chicken 00:00:00 [place] [facility] ed[facility] pox) Branch DTaP, Unspecified 2006-09-22 Completed Univers ity of Formulation 00:00:00 [facility] Proquad 2006-09-22 Completed University of (MMR/VARICELLA) 00:00:00 [facility] Branch IPV 2006-09-22 Completed University of 00:00:00 [facility] DTAP 2006-09-22 Completed University of 00:00:00 [facility] MMR 2006-09-22 Completed University of 00:00:00 [facility] Polio (IPV/OPV) 2006-09-22 Completed Universit y of 00:00:00 [facility] Varicella 2006-09-22 Completed University of (varivax)(chicken 00:00:00 [place] [facility] pox) Branch DTaP, Unspecified 2006-09-22 Completed Univers ity of Formulation 00:00:00 [facility] Proquad 2006-09-22 Completed University of (MMR/VARICELLA) 00:00:00 [facility] Branch IPV 2006-09-22 Completed University of 00:00:00 [facility] DTAP 2006-09-22 Completed University of 00:00:00 [facility] MMR 2006-09-22 Completed [facility] 00:00:00 [facility] Polio (IPV/OPV) 2006-09-22 Completed [facility]it [facility] 00:00:00 [facility] Varicella 2006-09-22 Completed University of (varivax)(chicken 00:00:00 [place] [facility] pox) [facility] DTaP, Unspecified 2006-09-22 Completed Univers ity of Formulation 00:00:00 [facility] Proquad 2006-09-22 Completed University of (MMR/VARICELLA) 00:00:00 [facility] IPV 2006-09-22 Completed [facility] of 00:00:00 [facility] DTAP 2006-09-22 Completed [facility] of 00:00:00 [facility] MMR 2006-09-22 Completed [facility] of 00:00:00 [facility] Polio (IPV/OPV) 2006-09-22 Completed [facility]it [facility] of 00:00:00 [facility] Varicella 2006-09-22 Completed [facility] of (varivax)(chicken 00:00:00 [place] [facility] pox) [facility] DTaP, Unspecified 2006-09-22 Completed Univers ity of Formulation 00:00:00 [facility] Proquad 2006-09-22 Completed University of (MMR/VARICELLA) 00:00:00 [facility] IPV 2006-09-22 Completed [facility] of 00:00:00 [facility] DTAP 2006-09-22 Completed [facility] of 00:00:00 [facility] MMR 2006-09-22 Completed [facility] of 00:00:00 [facility] Polio (IPV/OPV) 2006-09-22 Completed [facility]it [facility] of 00:00:00 [facility] Varicella 2006-09-22 Completed [facility] of (varivax)(chicken 00:00:00 [place] [facility] pox) [facility] DTaP, Unspecified 2006-09-22 Completed Univers ity of Formulation 00:00:00 [facility] Proquad 2006-09-22 Completed [facility] of (MMR/VARICELLA) 00:00:00 [facility] IPV 2006-09-22 Completed [facility] of 00:00:00 [facility] DTAP 2006-09-22 Completed [facility] of 00:00:00 [facility] MMR 2006-09-22 Completed [facility] of 00:00:00 [facility] Polio (IPV/OPV) 2006-09-22 Completed [facility]it [facility] 00:00:00 [facility] Varicella 2006-09-22 Completed [facility] of (varivax)(chicken 00:00:00 [place] [facility] pox) [facility] DTaP, Unspecified 2006-09-22 Completed Univers ity of Formulation 00:00:00 [facility] Proquad 2006-09-22 Completed [facility] of (MMR/VARICELLA) 00:00:00 [facility] ical Branch IPV 2006-09-22 Completed University of 00:00:00 [facility] HEPATITIS A 2005-01-28 Completed [facility] of 00:00:00 [facility] HEPATITIS A 2005-01-28 Completed [facility] of 00:00:00 [facility] HEPATITIS A 2005-01-28 Completed [facility] of 00:00:00 [facility] HEPATITIS A 2005-01-28 Completed [facility] of 00:00:00 [facility] HEPATITIS A 2005-01-28 Completed [facility] of 00:00:00 [facility] HEPATITIS A 2005-01-28 Completed [facility] of 00:00:00 [facility] HEPATITIS A 2005-01-28 Completed [facility] of 00:00:00 [facility] HEPATITIS A 2005-01-28 Completed [facility] of 00:00:00 [facility] HEPATITIS A 2005-01-28 Completed [facility] of 00:00:00 [facility] HEPATITIS A 2005-01-28 Completed [facility] of 00:00:00 [facility] HEPATITIS A 2005-01-28 Completed [facility] of 00:00:00 [facility] HEPATITIS A 2005-01-28 Completed [facility] of 00:00:00 [facility] DTAP 2004-03-05 Completed [facility] of 00:00:00 [facility] HIB 4 Dose Schedule 2004-03-05 Completed Unive rsity of 00:00:00 [facility] Polio (IPV/OPV) 2004-03-05 Completed [facility]it [facility] of 00:00:00 [facility] DTAP 2004-03-05 Completed [facility] of 00:00:00 [facility] HIB 4 Dose Schedule 2004-03-05 Completed Unive rsity of 00:00:00 [facility] Polio (IPV/OPV) 2004-03-05 Completed [facility]it [facility] of 00:00:00 [facility] DTAP 2004-03-05 Completed [facility] of 00:00:00 [facility] HIB 4 Dose Schedule 2004-03-05 Completed Unive rsity of 00:00:00 [facility] Polio (IPV/OPV) 2004-03-05 Completed [facility]it [facility] of 00:00:00 [facility] DTAP 2004-03-05 Completed [facility] of 00:00:00 [facility] HIB 4 Dose Schedule 2004-03-05 Completed Unive rsity of 00:00:00 [facility] Polio (IPV/OPV) 2004-03-05 Completed Universit [facility] of 00:00:00 [facility] Branch DTAP 2004-03-05 Completed [facility] of 00:00:00 [facility] HIB 4 Dose Schedule 2004-03-05 Completed Unive rsity of 00:00:00 [facility] Polio (IPV/OPV) 2004-03-05 Completed [facility]it [facility] of 00:00:00 [facility] Branch DTaP, Unspecified 2004-03-05 Completed Univers ity of Formulation 00:00:00 [facility] IPV 2004-03-05 Completed [facility] of 00:00:00 [facility] DTAP 2004-03-05 Completed [facility] of 00:00:00 [facility] HIB 4 Dose Schedule 2004-03-05 Completed Unive rsity of 00:00:00 [facility] Polio (IPV/OPV) 2004-03-05 Completed [facility] of 00:00:00 [facility] DTaP, Unspecified 2004-03-05 Completed Univers ity of Formulation 00:00:00 [facility] IPV 2004-03-05 Completed [facility] of 00:00:00 [facility] DTAP 2004-03-05 Completed [facility] of 00:00:00 [facility] HIB 4 Dose Schedule 2004-03-05 Completed Unive rsity of 00:00:00 [facility] Polio (IPV/OPV) 2004-03-05 Completed [facility]it [facility] of 00:00:00 [facility] DTaP, Unspecified 2004-03-05 Completed Univers ity of Formulation 00:00:00 [facility] IPV 2004-03-05 Completed [facility] of 00:00:00 [facility] DTAP 2004-03-05 Completed [facility] of 00:00:00 [facility] HIB 4 Dose Schedule 2004-03-05 Completed Unive rsity of 00:00:00 [facility] Polio (IPV/OPV) 2004-03-05 Completed [facility] of 00:00:00 [facility] Branch DTaP, Unspecified 2004-03-05 Completed Univers ity of Formulation 00:00:00 [facility] IPV 2004-03-05 Completed [facility] of 00:00:00 [facility] DTAP 2004-03-05 Completed [facility] of 00:00:00 [facility] HIB 4 Dose Schedule 2004-03-05 Completed Unive rsity of 00:00:00 [facility] Polio (IPV/OPV) 2004-03-05 Completed [facility]it [facility] of 00:00:00 [facility] DTaP, Unspecified 2004-03-05 Completed Univers ity of Formulation 00:00:00 [facility] IPV 2004-03-05 Completed [facility] of 00:00:00 [facility] DTAP 2004-03-05 Completed [facility] of 00:00:00 [facility] HIB 4 Dose Schedule 2004-03-05 Completed Unive rsity of 00:00:00 [facility] Polio (IPV/OPV) 2004-03-05 Completed [facility] of 00:00:00 [facility] DTaP, Unspecified 2004-03-05 Completed Univers ity of Formulation 00:00:00 [facility] IPV 2004-03-05 Completed [facility] of 00:00:00 [facility] DTAP 2004-03-05 Completed [facility] of 00:00:00 [facility] HIB 4 Dose Schedule 2004-03-05 Completed Unive rsity of 00:00:00 [facility] Polio (IPV/OPV) 2004-03-05 Completed [facility]it [facility] of 00:00:00 [facility] DTaP, Unspecified 2004-03-05 Completed Univers ity of Formulation 00:00:00 [facility] IPV 2004-03-05 Completed [facility] of 00:00:00 [facility] DTAP 2004-03-05 Completed [facility] of 00:00:00 [facility] HIB 4 Dose Schedule 2004-03-05 Completed Unive rsity of 00:00:00 [facility] Polio (IPV/OPV) 2004-03-05 Completed [facility]it [facility] of 00:00:00 [facility] DTaP, Unspecified 2004-03-05 Completed Univers ity of Formulation 00:00:00 [facility] IPV 2004-03-05 Completed [facility] of 00:00:00 [facility] Influenza Virus 2003-05-04 Completed Universit y of Vaccine 00:00:00 [facility] Influenza Virus 2003-05-04 Completed Universit y of Vaccine 00:00:00 [facility] Influenza Virus 2003-05-04 Completed Universit y of Vaccine 00:00:00 [facility] Influenza Virus 2003-05-04 Completed [facility]it y of Vaccine 00:00:00 [facility] Influenza Virus 2003-05-04 Completed [facility]it y of Vaccine 00:00:00 [facility] Influenza Virus 2003-05-04 Completed Universit y of Vaccine - Whole 00:00:00 [facility] Influenza Virus 2003-05-04 Completed Universit y of Vaccine 00:00:00 [facility] Influenza Virus 2003-05-04 Completed Universit y of Vaccine - Whole 00:00:00 [facility] Influenza Virus 2003-05-04 Completed Universit y of Vaccine 00:00:00 [facility] Influenza Virus 2003-05-04 Completed Universit y of Vaccine - Whole 00:00:00 [facility] Influenza Virus 2003-05-04 Completed Universit y of Vaccine 00:00:00 [facility] Influenza Virus 2003-05-04 Completed Universit y of Vaccine - Whole 00:00:00 [facility] Influenza Virus 2003-05-04 Completed Universit y of Vaccine 00:00:00 [facility] Influenza Virus 2003-05-04 Completed Universit y of Vaccine - Whole 00:00:00 [facility] Influenza Virus 2003-05-04 Completed Universit y of Vaccine 00:00:00 [facility] Influenza Virus 2003-05-04 Completed Universit y of Vaccine - Whole 00:00:00 [facility] Influenza Virus 2003-05-04 Completed Universit y of Vaccine 00:00:00 [facility] Influenza Virus 2003-05-04 Completed Universit y of Vaccine - Whole 00:00:00 [facility] Influenza Virus 2003-05-04 Completed [facility]it y of Vaccine 00:00:00 [facility] Influenza Virus 2003-05-04 Completed Universit y of Vaccine - Whole 00:00:00 [facility] Influenza Virus 2003-04-07 Completed Universit y of Vaccine 00:00:00 [facility] MMR 2003-04-07 Completed [facility] of 00:00:00 [facility] Varicella 2003-04-07 Completed [facility] of (varivax)(chicken 00:00:00 [place] [facility] pox) [facility] Influenza Virus 2003-04-07 Completed Universit [facility] of Vaccine 00:00:00 [facility] MMR 2003-04-07 Completed [facility] of 00:00:00 [facility] Varicella 2003-04-07 Completed [facility] of (varivax)(chicken 00:00:00 [place] [facility] pox) [facility] Influenza Virus 2003-04-07 Completed Universit [facility] of Vaccine 00:00:00 [facility] MMR 2003-04-07 Completed [facility] of 00:00:00 [facility] Varicella 2003-04-07 Completed [facility] of (varivax)(chicken 00:00:00 [place] [facility] pox) [facility] Influenza Virus 2003-04-07 Completed Universit [facility] of Vaccine 00:00:00 [facility] MMR 2003-04-07 Completed [facility] of 00:00:00 [facility] Varicella 2003-04-07 Completed [facility] of (varivax)(chicken 00:00:00 [place] [facility] pox) [place] Influenza Virus 2003-04-07 Completed Universit y of Vaccine 00:00:00 [facility] MMR 2003-04-07 Completed [facility] of 00:00:00 [facility] Varicella 2003-04-07 Completed [facility] of (varivax)(chicken 00:00:00 [place] [facility] pox) [place] Flu Trivalent 2003-04-07 Completed University of 00:00:00 [facility] Pneumococcal 7 2003-04-07 Completed University of Conjugate, PCV7 00:00:00 [place] [facility] (Prevnar7) [place] Influenza Virus 2003-04-07 Completed Universit [facility] of Vaccine 00:00:00 [facility] MMR 2003-04-07 Completed University of 00:00:00 [facility] Varicella 2003-04-07 Completed University of (varivax)(chicken 00:00:00 [facility] edical pox) [place] Flu Trivalent 2003-04-07 Completed University of 00:00:00 [facility] Pneumococcal 7 2003-04-07 Completed University of Conjugate, PCV7 00:00:00 [place] [facility] (Prevnar7) Branch Influenza Virus 2003-04-07 Completed Universit y of Vaccine 00:00:00 [facility] MMR 2003-04-07 Completed University of 00:00:00 [facility] Varicella 2003-04-07 Completed University of (varivax)(chicken 00:00:00 [facility] edical pox) [place] Flu Trivalent 2003-04-07 Completed University of 00:00:00 [facility] Pneumococcal 7 2003-04-07 Completed University of Conjugate, PCV7 00:00:00 [place] [facility] (Prevnar7) [place] Influenza Virus 2003-04-07 Completed Universit y of Vaccine 00:00:00 [facility] MMR 2003-04-07 Completed [facility] of 00:00:00 [facility] Varicella 2003-04-07 Completed [facility] of (varivax)(chicken 00:00:00 [place] [facility] pox) Branch Flu Trivalent 2003-04-07 Completed [facility] of 00:00:00 [facility] Pneumococcal 7 2003-04-07 Completed University of Conjugate, PCV7 00:00:00 [place] [facility] (Prevnar7) Branch Influenza Virus 2003-04-07 Completed Universit y of Vaccine 00:00:00 [facility] MMR 2003-04-07 Completed University of 00:00:00 [facility] Varicella 2003-04-07 Completed [facility] of (varivax)(chicken 00:00:00 [place] [facility] pox) Branch Flu Trivalent 2003-04-07 Completed [facility] of 00:00:00 [facility] Pneumococcal 7 2003-04-07 Completed University of Conjugate, PCV7 00:00:00 [place] [facility] (Prevnar7) [place] Influenza Virus 2003-04-07 Completed Universit [facility] of Vaccine 00:00:00 [facility] MMR 2003-04-07 Completed [facility] of 00:00:00 [facility] Varicella 2003-04-07 Completed [facility] of (varivax)(chicken 00:00:00 [place] [facility] pox) Branch Flu Trivalent 2003-04-07 Completed [facility] of 00:00:00 [facility] Pneumococcal 7 2003-04-07 Completed University of Conjugate, PCV7 00:00:00 [place] [facility] (Prevnar7) Branch Influenza Virus 2003-04-07 Completed Universit [facility] of Vaccine 00:00:00 [facility] MMR 2003-04-07 Completed [facility] of 00:00:00 [facility] Varicella 2003-04-07 Completed [facility] of (varivax)(chicken 00:00:00 [place] [facility] pox) Branch Flu Trivalent 2003-04-07 Completed [facility] of 00:00:00 [facility] Pneumococcal 7 2003-04-07 Completed University of Conjugate, PCV7 00:00:00 [place] [facility] (Prevnar7) Branch Influenza Virus 2003-04-07 Completed Universit [facility] of Vaccine 00:00:00 [facility] MMR 2003-04-07 Completed [facility] of 00:00:00 [facility] Varicella 2003-04-07 Completed [facility] of (varivax)(chicken 00:00:00 [place] [facility] pox) Branch Flu Trivalent 2003-04-07 Completed [facility] of 00:00:00 [facility] Pneumococcal 7 2003-04-07 Completed University of Conjugate, PCV7 00:00:00 [place] [facility] (Prevnar7) Branch DTAP 2002 Completed University of 00:00:00 [facility] HIB 4 Dose Schedule 2002 Completed Unive rsity of 00:00:00 [facility] Hep B, Adol or Pedi 2002 Completed Unive rsity of Dosage 00:00:00 [facility] DTAP 2002 Completed [facility] of 00:00:00 [facility] HIB 4 Dose Schedule 2002 Completed Unive rsity of 00:00:00 [facility] Hep B, Adol or Pedi 2002 Completed Unive rsity of Dosage 00:00:00 [facility] DTAP 2002 Completed [facility] of 00:00:00 [facility] HIB 4 Dose Schedule 2002 Completed Unive rsity of 00:00:00 [facility] Hep B, Adol or Pedi 2002 Completed Unive rsity of Dosage 00:00:00 [facility] DTAP 2002 Completed University of 00:00:00 [facility] HIB 4 Dose Schedule 2002 Completed Unive rsity of 00:00:00 [facility] Hep B, Adol or Pedi 2002 Completed Unive rsity of Dosage 00:00:00 [facility] DTAP 2002 Completed [facility] of 00:00:00 [facility] HIB 4 Dose Schedule 2002 Completed Unive rsity of 00:00:00 [facility] Hep B, Adol or Pedi 2002 Completed Unive rsity of Dosage 00:00:00 [facility] DTaP, Unspecified 2002 Completed Univers ity of Formulation 00:00:00 [facility] Hib-HbOC 2002 Completed University of 00:00:00 [facility] Pneumococcal 7 2002 Completed University of Conjugate, PCV7 00:00:00 [place] [facility] (Prevnar7) Branch DTAP 2002 Completed [facility] of 00:00:00 [facility] HIB 4 Dose Schedule 2002 Completed Unive rsity of 00:00:00 [facility] Hep B, Adol or Pedi 2002 Completed Unive rsity of Dosage 00:00:00 [facility] DTaP, Unspecified 2002 Completed Univers ity of Formulation 00:00:00 [facility] Hib-HbOC 2002 Completed [facility] of 00:00:00 [facility] Pneumococcal 7 2002 Completed University of Conjugate, PCV7 00:00:00 [place] [facility] (Prevnar7) Branch DTAP 2002 Completed [facility] of 00:00:00 [facility] HIB 4 Dose Schedule 2002 Completed Unive rsity of 00:00:00 [facility] Hep B, Adol or Pedi 2002 Completed Unive rsity of Dosage 00:00:00 [facility] DTaP, Unspecified 2002 Completed Univers ity of Formulation 00:00:00 [facility] Hib-HbOC 2002 Completed University of 00:00:00 [facility] Pneumococcal 7 2002 Completed University of Conjugate, PCV7 00:00:00 [place] [facility] (Prevnar7) Branch DTAP 2002 Completed [facility] of 00:00:00 [facility] HIB 4 Dose Schedule 2002 Completed Unive rsity of 00:00:00 [facility] Hep B, Adol or Pedi 2002 Completed Unive rsity of Dosage 00:00:00 [facility] DTaP, Unspecified 2002 Completed Univers ity of Formulation 00:00:00 [facility] Hib-HbOC 2002 Completed [facility] of 00:00:00 [facility] Pneumococcal 7 2002 Completed University of Conjugate, PCV7 00:00:00 [place] [facility] (Prevnar7) Branch DTAP 2002 Completed [facility] of 00:00:00 [facility] HIB 4 Dose Schedule 2002 Completed Unive rsity of 00:00:00 [facility] Hep B, Adol or Pedi 2002 Completed Unive rsity of Dosage 00:00:00 [facility] DTaP, Unspecified 2002 Completed Univers ity of Formulation 00:00:00 [facility] Hib-HbOC 2002 Completed [facility] of 00:00:00 [facility] Pneumococcal 7 2002 Completed [facility] of Conjugate, PCV7 00:00:00 [place] [facility] (Prevnar7) Branch DTAP 2002 Completed [facility] of 00:00:00 [facility] HIB 4 Dose Schedule 2002 Completed Unive rsity of 00:00:00 [facility] Hep B, Adol or Pedi 2002 Completed Unive rsity of Dosage 00:00:00 [facility] DTaP, Unspecified 2002 Completed Univers ity of Formulation 00:00:00 [facility] Hib-HbOC 2002 Completed [facility] of 00:00:00 [facility] Pneumococcal 7 2002 Completed [facility] of Conjugate, PCV7 00:00:00 [place] [facility] (Prevnar7) Branch DTAP 2002 Completed [facility] 00:00:00 [facility] HIB 4 Dose Schedule 2002 Completed Unive rsity of 00:00:00 [facility] Hep B, Adol or Pedi 2002 Completed Unive rsity of Dosage 00:00:00 [facility] DTaP, Unspecified 2002 Completed Univers ity of Formulation 00:00:00 [facility] Hib-HbOC 2002 Completed [facility] of 00:00:00 [facility] Pneumococcal 7 2002 Completed University of Conjugate, PCV7 00:00:00 [place] [facility] (Prevnar7) Branch DTAP 2002 Completed [facility] of 00:00:00 [facility] HIB 4 Dose Schedule 2002 Completed Unive rsity of 00:00:00 [facility] Hep B, Adol or Pedi 2002 Completed Unive rsity of Dosage 00:00:00 [facility] DTaP, Unspecified 2002 Completed Univers ity of Formulation 00:00:00 [facility] Hib-HbOC 2002 Completed [facility] of 00:00:00 [facility] Pneumococcal 7 2002 Completed University of Conjugate, PCV7 00:00:00 [place] [facility] (Prevnar7) Branch DTAP 2002 Completed [facility] of 00:00:00 [facility] HIB 4 Dose Schedule 2002 Completed Unive rsity of 00:00:00 [facility] Polio (IPV/OPV) 2002 Completed Univers[facility] of 00:00:00 [facility] DTAP 2002 Completed [facility] of 00:00:00 [facility] HIB 4 Dose Schedule 2002 Completed Unive rsity of 00:00:00 [facility] Polio (IPV/OPV) 2002 Completed Univers[facility] of 00:00:00 [facility] DTAP 2002 Completed [facility] of 00:00:00 [facility] HIB 4 Dose Schedule 2002 Completed Unive rsity of 00:00:00 [facility] Polio (IPV/OPV) 2002 Completed Univers[facility] of 00:00:00 [facility] DTAP 2002 Completed [facility] of 00:00:00 [facility] HIB 4 Dose Schedule 2002 Completed Unive rsity of 00:00:00 [facility] Polio (IPV/OPV) 2002 Completed [facility] 00:00:00 [facility] DTAP 2002 Completed [facility] of 00:00:00 [facility] HIB 4 Dose Schedule 2002 Completed Unive rsity of 00:00:00 [facility] Polio (IPV/OPV) 2002 Completed [facility] of 00:00:00 [facility] DTaP, Unspecified 2002 Completed Univers ity of Formulation 00:00:00 [facility] Hib-HbOC 2002 Completed [facility] of 00:00:00 [facility] Pneumococcal 7 2002 Completed [facility] of Conjugate, PCV7 00:00:00 [place] [facility] (Prevnar7) Branch IPV 2002 Completed [facility] 00:00:00 [facility] DTAP 2002 Completed [facility] of 00:00:00 [facility] HIB 4 Dose Schedule 2002 Completed Unive rsity of 00:00:00 [facility] Polio (IPV/OPV) 2002 Completed [facility] 00:00:00 [facility] DTaP, Unspecified 2002 Completed Univers ity of Formulation 00:00:00 [facility] Hib-HbOC 2002 Completed [facility] of 00:00:00 [facility] Pneumococcal 7 2002 Completed [facility] of Conjugate, PCV7 00:00:00 [place] [facility] (Prevnar7) Branch IPV 2002 Completed [facility] 00:00:00 [facility] DTAP 2002 Completed [facility] of 00:00:00 [facility] HIB 4 Dose Schedule 2002 Completed Unive rsity of 00:00:00 [facility] Polio (IPV/OPV) 2002 Completed Universit y of 00:00:00 [facility] DTaP, Unspecified 2002 Completed Univers ity of Formulation 00:00:00 [facility] Hib-HbOC 2002 Completed University of 00:00:00 [facility] Pneumococcal 7 2002 Completed University of Conjugate, PCV7 00:00:00 [place] [facility] (Prevnar7) [facility] IPV 2002 Completed University of 00:00:00 [facility] DTAP 2002 Completed University of 00:00:00 [facility] HIB 4 Dose Schedule 2002 Completed Unive rsity of 00:00:00 [facility] Polio (IPV/OPV) 2002 Completed Universit y of 00:00:00 [facility] DTaP, Unspecified 2002 Completed Univers ity of Formulation 00:00:00 [facility] Hib-HbOC 2002 Completed University of 00:00:00 [facility] Pneumococcal 7 2002 Completed University of Conjugate, PCV7 00:00:00 [place] [facility] (Prevnar7) [facility] IPV 2002 Completed University of 00:00:00 [facility] DTAP 2002 Completed University of 00:00:00 [facility] HIB 4 Dose Schedule 2002 Completed Unive rsity of 00:00:00 [facility] Polio (IPV/OPV) 2002 Completed Universit y of 00:00:00 [facility] DTaP, Unspecified 2002 Completed Univers ity of Formulation 00:00:00 [facility] Hib-HbOC 2002 Completed University of 00:00:00 [facility] Pneumococcal 7 2002 Completed University of Conjugate, PCV7 00:00:00 [place] [facility] (Prevnar7) [facility] IPV 2002 Completed University of 00:00:00 [facility] DTAP 2002 Completed University of 00:00:00 [facility] HIB 4 Dose Schedule 2002 Completed Unive rsity of 00:00:00 [facility] Polio (IPV/OPV) 2002 Completed Universit y of 00:00:00 [facility] DTaP, Unspecified 2002 Completed Univers ity of Formulation 00:00:00 [facility] Hib-HbOC 2002 Completed University of 00:00:00 [facility] Pneumococcal 7 2002 Completed University of Conjugate, PCV7 00:00:00 [place] [facility] (Prevnar7) [facility] IPV 2002 Completed University of 00:00:00 [facility] DTAP 2002 Completed University of 00:00:00 [facility] HIB 4 Dose Schedule 2002 Completed Unive rsity of 00:00:00 [facility] Polio (IPV/OPV) 2002 Completed Universit y of 00:00:00 [facility] DTaP, Unspecified 2002 Completed Univers ity of Formulation 00:00:00 [facility] Hib-HbOC 2002 Completed University of 00:00:00 [facility] Pneumococcal 7 2002 Completed University of Conjugate, PCV7 00:00:00 [place] [facility] (Prevnar7) [facility] IPV 2002 Completed University of 00:00:00 [facility] DTAP 2002 Completed University of 00:00:00 [facility] HIB 4 Dose Schedule 2002 Completed Unive rsity of 00:00:00 [facility] Polio (IPV/OPV) 2002 Completed Universit y of 00:00:00 [facility] DTaP, Unspecified 2002 Completed Univers ity of Formulation 00:00:00 [facility] Hib-HbOC 2002 Completed University of 00:00:00 [facility] Pneumococcal 7 2002 Completed University of Conjugate, PCV7 00:00:00 [place] [facility] (Prevnar7) [facility] IPV 2002 Completed University of 00:00:00 [facility] Hib-HbOC 2002 Completed University of 00:00:00 [facility] Pneumococcal 7 2002 Completed University of Conjugate, PCV7 00:00:00 [place] [facility] (Prevnar7) [facility] IPV 2002 Completed University of 00:00:00 [facility] DTAP 2002 Completed University of 00:00:00 [facility] HIB 4 Dose Schedule 2002 Completed Unive rsity of 00:00:00 [facility] Hep B, Adol or Pedi 2002 Completed Unive rsity of Dosage 00:00:00 [facility] Polio (IPV/OPV) 2002 Completed Universit y of 00:00:00 [facility] DTaP, Unspecified 2002 Completed Univers ity of Formulation 00:00:00 [facility] Hib-HbOC 2002 Completed University of 00:00:00 [facility] Pneumococcal 7 2002 Completed University of Conjugate, PCV7 00:00:00 [place] [facility] (Prevnar7) [facility] IPV 2002 Completed University of 00:00:00 [facility] DTAP 2002 Completed University of 00:00:00 [facility] HIB 4 Dose Schedule 2002 Completed Unive rsity of 00:00:00 [facility] Hep B, Adol or Pedi 2002 Completed Unive rsity of Dosage 00:00:00 [facility] Polio (IPV/OPV) 2002 Completed Universit y of 00:00:00 [facility] DTaP, Unspecified 2002 Completed Univers ity of Formulation 00:00:00 [facility] Hib-HbOC 2002 Completed University of 00:00:00 [facility] Pneumococcal 7 2002 Completed University of Conjugate, PCV7 00:00:00 [place] [facility] (Prevnar7) [facility] IPV 2002 Completed University of 00:00:00 [facility] DTAP 2002 Completed University of 00:00:00 [facility] HIB 4 Dose Schedule 2002 Completed Unive rsity of 00:00:00 [facility] Hep B, Adol or Pedi 2002 Completed Unive rsity of Dosage 00:00:00 [facility] Polio (IPV/OPV) 2002 Completed Universit y of 00:00:00 [facility] DTaP, Unspecified 2002 Completed Univers ity of Formulation 00:00:00 [facility] Hib-HbOC 2002 Completed University of 00:00:00 [facility] Pneumococcal 7 2002 Completed University of Conjugate, PCV7 00:00:00 [place] [facility] (Prevnar7) [facility] IPV 2002 Completed University of 00:00:00 [facility] DTAP 2002 Completed University of 00:00:00 [facility] HIB 4 Dose Schedule 2002 Completed Unive rsity of 00:00:00 [facility] Hep B, Adol or Pedi 2002 Completed Unive rsity of Dosage 00:00:00 [facility] Polio (IPV/OPV) 2002 Completed Universit y of 00:00:00 [facility] DTaP, Unspecified 2002 Completed Univers ity of Formulation 00:00:00 [facility] Hib-HbOC 2002 Completed University of 00:00:00 [facility] Pneumococcal 7 2002 Completed University of Conjugate, PCV7 00:00:00 [place] [facility] (Prevnar7) [facility] IPV 2002 Completed University of 00:00:00 [facility] DTAP 2002 Completed University of 00:00:00 [facility] HIB 4 Dose Schedule 2002 Completed Unive rsity of 00:00:00 [facility] Hep B, Adol or Pedi 2002 Completed Unive rsity of Dosage 00:00:00 [facility] Polio (IPV/OPV) 2002 Completed Universit y of 00:00:00 [facility] DTaP, Unspecified 2002 Completed Univers ity of Formulation 00:00:00 [facility] Hib-HbOC 2002 Completed University of 00:00:00 [facility] Pneumococcal 7 2002 Completed University of Conjugate, PCV7 00:00:00 [place] [facility] (Prevnar7) [facility] IPV 2002 Completed University of 00:00:00 [facility] DTAP 2002 Completed University of 00:00:00 [facility] HIB 4 Dose Schedule 2002 Completed Unive rsity of 00:00:00 [facility] Hep B, Adol or Pedi 2002 Completed Unive rsity of Dosage 00:00:00 [facility] Polio (IPV/OPV) 2002 Completed Universit y of 00:00:00 [facility] DTaP, Unspecified 2002 Completed Univers ity of Formulation 00:00:00 [facility] Hib-HbOC 2002 Completed University of 00:00:00 [facility] Pneumococcal 7 2002 Completed University of Conjugate, PCV7 00:00:00 [facility] ical (Prevnar7) Branch IPV 2002 Completed University of 00:00:00 [facility] DTAP 2002 Completed University of 00:00:00 [facility] HIB 4 Dose Schedule 2002 Completed Unive rsity of 00:00:00 [facility] Hep B, Adol or Pedi 2002 Completed Unive rsity of Dosage 00:00:00 [facility] Polio (IPV/OPV) 2002 Completed Universit y of 00:00:00 [facility] DTAP 2002 Completed University of 00:00:00 [facility] HIB 4 Dose Schedule 2002 Completed Unive rsity of 00:00:00 [facility] Hep B, Adol or Pedi 2002 Completed Unive rsity of Dosage 00:00:00 [facility] Polio (IPV/OPV) 2002 Completed Universit y of 00:00:00 [facility] DTAP 2002 Completed University of 00:00:00 [facility] HIB 4 Dose Schedule 2002 Completed Unive rsity of 00:00:00 [facility] Hep B, Adol or Pedi 2002 Completed Unive rsity of Dosage 00:00:00 [facility] Polio (IPV/OPV) 2002 Completed Universit y of 00:00:00 [facility] DTAP 2002 Completed University of 00:00:00 [facility] HIB 4 Dose Schedule 2002 Completed Unive rsity of 00:00:00 [facility] Hep B, Adol or Pedi 2002 Completed Unive rsity of Dosage 00:00:00 [facility] Polio (IPV/OPV) 2002 Completed Universit y of 00:00:00 [facility] DTAP 2002 Completed University of 00:00:00 [facility] HIB 4 Dose Schedule 2002 Completed Unive rsity of 00:00:00 [facility] Hep B, Adol or Pedi 2002 Completed Unive rsity of Dosage 00:00:00 [facility] Polio (IPV/OPV) 2002 Completed Universit y of 00:00:00 [facility] DTaP, Unspecified 2002 Completed Univers ity of Formulation 00:00:00 [facility] Hib-HbOC 2002 Completed University of 00:00:00 [facility] Pneumococcal 7 2002 Completed University of Conjugate, PCV7 00:00:00 [facility] ical (Prevnar7) Branch IPV 2002 Completed University of 00:00:00 [facility] DTAP 2002 Completed University of 00:00:00 [facility] HIB 4 Dose Schedule 2002 Completed Unive rsity of 00:00:00 [facility] Hep B, Adol or Pedi 2002 Completed Unive rsity of Dosage 00:00:00 [facility] Polio (IPV/OPV) 2002 Completed Universit y of 00:00:00 [facility] DTaP, Unspecified 2002 Completed Univers ity of Formulation 00:00:00 [facility] Hep B, Adol or Pedi 2002 Completed Unive rsity of Dosage 00:00:00 [facility] Hep B, Adol or Pedi 2002 Completed Unive rsity of Dosage 00:00:00 [facility] Hep B, Adol or Pedi 2002 Completed Unive rsity of Dosage 00:00:00 [facility] Hep B, Adol or Pedi 2002 Completed Unive rsity of Dosage 00:00:00 [facility] Hep B, Adol or Pedi 2002 Completed Unive rsity of Dosage 00:00:00 [facility] Hep B, Adol or Pedi 2002 Completed Unive rsity of Dosage 00:00:00 [facility] Hep B, Adol or Pedi 2002 Completed Unive rsity of Dosage 00:00:00 [facility] Hep B, Adol or Pedi 2002 Completed Unive rsity of Dosage 00:00:00 [facility] Hep B, Adol or Pedi 2002 Completed Unive rsity of Dosage 00:00:00 [facility] Hep B, Adol or Pedi 2002 Completed Unive rsity of Dosage 00:00:00 [facility] Hep B, Adol or Pedi 2002 Completed Unive rsity of Dosage 00:00:00 [facility] Hep B, Adol or Pedi 2002 Completed Unive rsity of Dosage 00:00:00 [facility] HPV9 Unknown Completed [facility] Influenza Virus Unknown Completed Universit y of Vaccine Quad .5 mL [facility] 6+ MO [place] (FLUZONE/FLULAVAL/FL UARIX) DTAP Unknown Completed [facility] HPV Unknown Completed [facility] TDAP (ADACEL) Unknown Completed [facility] DTAP Unknown Completed [facility] DTAP Unknown Completed [facility] DTAP Unknown Completed [facility] DTAP Unknown Completed [facility] HIB 4 Dose Schedule Unknown [facility] D[facility] D[facility] Dose [facility] HEPATITIS A Unknown Completed [facility] Hep B, Adol or Pedi Unknown Completed Unive rsity of Dosage [facility] Hep B, Adol or Pedi Unknown Completed Unive rsity of Dosage [facility] Hep B, Adol or Pedi Unknown Completed Unive rsity of Dosage [facility] Influenza Virus Unknown Completed Universit y of [facility] Influenza Virus Unknown Completed Universit y of [facility] Influenza Virus Unknown Completed Universit y of [facility] Influenza Virus Unknown Completed Universit y of Vaccine [facility] Influenza Virus Unknown Completed Universit y of Vaccine [facility] Influenza Virus Unknown Completed Universit y of Vaccine [facility] Meningococcal Unknown Completed University [facility] MMR Unknown Completed [facility] MMR Unknown Completed [facility] Polio (IPV/OPV) Unknown Completed Universit y [facility] Polio (IPV/OPV) Unknown Completed Universit y [facility] Polio (IPV/OPV) Unknown Completed Universit y [facility] Polio (IPV/OPV) Unknown Completed Universit y [facility] Varicella Unknown Completed University (varivax)(chicken [place] [facility] pox) Branch Varicella Unknown Completed University (varivax)(chicken [place] [facility] pox) Branch DTaP, Unspecified Unknown Completed Univers ity of Formulation [facility] DTaP, Unspecified Unknown Completed Univers ity of Formulation [facility] DTaP, Unspecified Unknown Completed Univers ity of Formulation [facility] DTaP, Unspecified Unknown Completed Univers ity of Formulation [facility] DTaP, Unspecified Unknown Completed Univers ity of Formulation [facility] Influenza Virus Unknown Completed Universit y of Vaccine Quad .5 mL [facility] 6+ MO Branch (FLUZONE/FLULAVAL/FL UARIX) Flu Trivalent Unknown Completed [facility] Influenza Virus Unknown Completed Universit y of Vaccine - Whole [facility] Influenza Virus Unknown Completed Universit y of Vaccine - Whole [facility] Influenza Virus Unknown Completed Universit y of Vaccine - Whole [facility] Hib-HbOC Unknown Completed [facility] Hib-HbOC Unknown Completed [facility] Hib-HbOC Unknown Completed [facility] HPV9 Unknown Completed [facility] Meningococcal Unknown Completed [facility] (groups A, C, Y and Branc h W-135) conjugate vaccine (MCV4P) Proquad Unknown Completed University (MMR/VARICELLA) [facility] Pneumococcal 7 Unknown Completed [facility] Conjugate, PCV7 [facility] (Prevnar7) Branch Pneumococcal 7 Unknown Completed [facility] Conjugate, PCV7 [facility] (Prevnar7) Branch Pneumococcal 7 Unknown Completed [facility] Conjugate, PCV7 [facility] (Prevnar7) Branch Pneumococcal 7 Unknown Completed [facility] Conjugate, PCV7 [facility] (Prevnar7) Branch IPV Unknown Completed [facility] IPV Unknown Completed [facility] IPV Unknown Completed [facility] IPV Unknown Completed [facility] Vital Signs Vital Name Observation Time Observation Value Comments Source Systolic blood 2023-01-24 00:57:00 142 mm[Hg] Univer sity of pressure [facility] Diastolic blood 2023-01-24 00:57:00 80 mm[Hg] Unive rsity of pressure [facility] Heart rate 2023-01-24 00:57:00 87 /min Universi ty of [facility] Body temperature 2023-01-24 00:57:00 37.72 Gladis Univ ers[facility] of [facility] Respiratory rate 2023-01-24 00:57:00 16 /min Univ ers[facility] of [facility] Body height 2023-01-24 00:57:00 185.4 cm [facility] Body weight 2023-01-24 00:57:00 80.287 kg [facility] BMI 2023-01-24 00:57:00 23.35 kg/m2 [facility] Oxygen saturation in 2023-01-24 00:57:00 100 /min University of Arterial blood by [place] [employer] Pulse oximetry Branch Systolic blood 2022-11-22 19:01:00 129 mm[Hg] Univer sity of pressure [facility] Diastolic blood 2022-11-22 19:01:00 77 mm[Hg] Unive rsity of pressure [facility] Heart rate 2022-11-22 19:01:00 57 /min [facility] Body temperature 2022-11-22 19:01:00 36.78 Gladis Univ [facility] Respiratory rate 2022-11-22 19:01:00 20 /min Univ [facility] Body height 2022-11-22 19:01:00 182.9 cm [facility] Body weight 2022-11-22 19:01:00 80.151 kg [facility] BMI 2022-11-22 19:01:00 23.96 kg/m2 [facility] Oxygen saturation in 2022-11-22 19:01:00 100 /min University of Arterial blood by [place] [employer] Pulse oxim[facility] Branch Systolic blood 2022-08-24 01:00:00 117 mm[Hg] Univer sity of pressure [facility] Diastolic blood 2022-08-24 01:00:00 69 mm[Hg] Unive rsity of pressure [facility] Heart rate 2022-08-24 01:00:00 58 /min [facility] Respiratory rate 2022-08-24 01:00:00 18 /min Univ ers[facility] of [facility] Oxygen saturation in 2022-08-24 01:00:00 100 /min University of Arterial blood by [facility] Pulse oximetry Branch Body temperature 2022-08-23 22:09:00 37.22 Gladis Univ [facility] Body height 2022-08-23 22:09:00 182.9 cm Universi ty [facility] Body weight 2022-08-23 22:09:00 83.915 kg [facility] BMI 2022-08-23 22:09:00 25.09 kg/m2 [facility] Systolic blood 2022-05-30 19:05:00 115 mm[Hg] Univer sity of pressure [facility] Diastolic blood 2022-05-30 19:05:00 68 mm[Hg] Unive rsity of pressure [facility] Heart rate 2022-05-30 19:05:00 64 /min [facility] Body height 2022-05-30 19:05:00 185.4 cm [facility] Body weight 2022-05-30 19:05:00 85.866 kg [facility] BMI 2022-05-30 19:05:00 24.98 kg/m2 [facility] Oxygen saturation in 2022-05-30 19:05:00 99 /min University of Arterial blood by [facility] Pulse oximetry Branch Systolic blood 2022-05-18 00:43:00 142 mm[Hg] Univer sity of pressure [facility] Diastolic blood 2022-05-18 00:43:00 84 mm[Hg] Unive rsity of pressure [facility] Heart rate 2022-05-18 00:43:00 71 /min [facility] Body temperature 2022-05-18 00:43:00 37.39 Gladis [facility] Respiratory rate 2022-05-18 00:43:00 16 /min Univ [facility] Body height 2022-05-18 00:43:00 185.4 cm [facility] Body weight 2022-05-18 00:43:00 86.183 kg Universi ty [facility] Branch BMI 2022-05-18 00:43:00 25.07 kg/m2 Universi ty [facility] Oxygen saturation in 2022-05-18 00:43:00 96 /min University of Arterial blood by [facility] Pulse oximetry Branch Systolic blood 2021-02-28 18:32:00 111 mm[Hg] Univer sity of pressure [facility] Diastolic blood 2021-02-28 18:32:00 71 mm[Hg] Unive rsity of pressure [facility] Heart rate 2021-02-28 18:32:00 61 /min Universi ty [facility] Body temperature 2021-02-28 18:32:00 36.33 Gladis [facility] 2021-02-28 18:32:00 17 /min [facility] Body weight 2021-02-28 18:32:00 107.502 kg Universi ty [facility] Oxygen saturation in 2021-02-28 18:32:00 99 /min University of Arterial blood by [facility] Pulse oximetry Branch Procedures Procedure Date / Time Performed Performing Clinician Sour e NOTICE OF PRIVACY 2023-01-24 00:53:33 [facility] CONSENT/REFUSAL FOR 2023-01-24 00:52:38 Doctor Unassigned, No [facility] [place] DI[facility]NOS[facility] AND Name Medical Branch TREATMENT CONSENT/REFUSAL FOR 2022-11-22 18:48:45 Doctor Unassigned, No [facility] [place] DI[facility]NOSIS AND Name Medical Branch TREATMENT CT ABDOMEN PELVIS W 2022-08-23 23:34:41 Tali Hamilton [facility] CONTRAST [facility] Branch LIPASE 2022-08-23 23:04:00 Tali Hamilton [facility] COMP. METABOLIC PANEL 2022-08-23 23:04:00 [facility] ([id number]) Medical Branch CBC WITH DIFF 2022-08-23 23:04:00 Tali Hamilton [facility] CONSENT/REFUSAL FOR 2022-08-23 22:05:15 Doctor Unassigned, No [facility] [place] DIAGNOSIS AND Name Medical Branch TREATMENT US ABDOMEN LIMITED 2022-06-10 19:33:16 Gale W[place]ster [facility] ASSIGNMENT OF BENEFITS 2022-05-30 18:53:18 Doctor Unassigned, No [facility] Branch XR ANKLE 3+ VW LEFT 2022-05-18 02:08:06 Ricardo Monreal [facility] NOTICE OF PRIVACY 2022-05-18 00:23:38 Doctor Unassigned, No Univ [facility] Name Medical Branch CONSENT/REFUSAL FOR 2022-05-18 00:23:11 [facility]igned, [facility] Name [facility] Branch TREATMENT Encounters Start End Encounter Admission Attending Care Care Encounter Source Date/Time Date/Time Type Type Clinicians Facility Department ID 2021-04-02 Emergency [facility] [id number] Univers 09:17:37 ity [facility] 2021-04-02 Emergency [facility] [id number] Univers 06:42:54 ity [facility] 2023-01-23 2023-01-23 Emergency X [facility] ERT [id number] Univers 20:01:00 21:14:00 LAURY [facility] 2023-01-23 2023-01-23 [facility] [id number] Univers 20:01:00 21:14:00 Laury HARTLEY [id number] i ty of [place] [id number] [facility] [id number] [place] [id number] Branch 2022-11-29 2022-11-29 Outpatient R ANNABELLA [facility] [id number] Univers 11:30:00 11:30:00 GALE [facility] 2022-11-22 2022-11-22 [facility] [id number] Univers 14:03:00 17:17:00 YOLY [facility] 2022-11-22 2022-11-22 [facility] [id number] Univers 14:03:00 17:17:00 Yoly HARTLEY [id number] i ty of [facility] 4.2.7.2.686 [facility] [phone] [place] 88[address]84 [place] 2022-10-16 2022-10-16 Outpatient SFA [facility] [id number] Price 14:39:30 14:39:30 0517 F Jai 2022-08-23 2022-08-23 Emergency X [facility] ERT [id number] Univers 17:11:00 21:25:00 TALI maciecristela [facility] 2022-08-23 2022-08-23 Emergency [place] 1.2.162.480 [id number] Univers 17:11:00 21:25:00 Tali Wilian ODILIA 350.1.13.10 ity of [place] 4.2.7.2.686 [facility] [phone] [place] 887584 [place] 2022-06-21 2022-06-21 [facility] 1.2.840.114 [id number] Univers 00:00:00 00:00:00 Gale HEALTH 350.1.13.10 it y of [facility] 4.2.7.2.686 Gilberto as TRES?BLEA [phone] Ar shala SCOTT [address] [place] [address] MEDICAL OFFICE BUILDING 2022-06-10 2022-06-10 [facility] [id number] Univers 12:23:58 23:59:00 GALE maciecristela [facility] 2022-06-10 2022-06-10 [facility] 1.2.840.114 [id number] Univers 12:23:58 23:59:00 Encounter Gale HARTLEY 350.1.13.10 ity of [facility] 4.2.7.2.686 [facility] [phone] [facility] [address] [place] 2022-05-30 2022-05-30 Piano Mover Lab, Ang - Brannon [facility] 1.2.840.1 14 [id number] Univers 14:00:00 14:15:00 Visit Gale [place] [facility] 350.1.13.10 ity of [facility] 4.2.7.2.686 Gilberto as TRES?BLEA [phone] Ar shala SCOTT [address] MEDICAL OFFICE BUILDING 2022-05-30 2022-05-30 [facility] [id number] Univers 13:00:00 13:56:17 GALE quijanoy of [facility] 2022-05-30 2022-05-30 Office [facility] 1.2.840.114 [id number] Univers 13:00:00 13:56:17 Visit Gale [facility] 350.1.13.10 it y of [place] 4.2.7.2.686 Gilberto as TRES?BLEA [phone] Ar shala [facility] [address] [place] MEDICAL OFFICE BUILDING 2022-05-30 2022-05-30 Orders Doctor VIRGILIO 1.2.840.114 [id number] Univers 00:00:00 00:00:00 Only Unassigned, MARYJANE 350.1.13.10 ity of [place] [facility] 4.2.7.2.686 Gilberto as [phone] [facility] [address] [place] 2022-05-17 2022-05-17 Emergency X [facility] ERT [id number] Univers 18:45:00 21:00:00 DCDIAZ ashby [facility] 2022-05-17 2022-05-17 Emergency [facility] 1.2.486.596 [id number] Univers 18:45:00 21:00:00 Ricardo HARTLEY 350.1.13.10 ity of [place] 4.2.7.2.686 [place] [id number] [facility] [address] [place] 2021-02-28 2021-02-28 Outpatient R [facility] [id number] Univers 13:30:00 14:18:46 , LATIA ashby of [facility] 2021-02-28 2021-02-28 Office [facility] 1.2.840.114 [id number] Univers 13:26:24 14:18:46 Visit , Latia Soto 350.1.13.10 it y of [facility] 4.2.7.2.686 [facility] [phone] [facility] [address] [place] 2021-02-06 2021-02-06 Office [facility] 1.2.840.114 [id number] Univers 12:52:59 13:41:58 Visit , Latia Soto 350.1.13.10 it y of Pediatric 4.2.7.2.686 [facility] [phone] [facility] [address] [place] 2021-02-06 2021-02-06 Outpatient R [facility] [id number] Univers 12:50:00 12:50:00 , LATIA ashby [facility] 2021-01-02 2021-01-02 Office [facility] 1.2.840.114 [id number] Univers 09:33:54 10:28:19 Visit , Latia Soto 350.1.13.10 it y of Pediatric 4.2.7.2.686 [facility] [phone] [address] 2021-01-02 2021-01-02 Outpatient R [facility] [id number] Univers 09:50:00 09:50:00 , LATIA ashby [facility] 2020-12-26 2020-12-26 Patient Doctor VIRGILIO 1.2.840.114 [id number] Univers 00:00:00 00:00:00 Secure Msg UnassMARYJANE mata 350.1.13.10 ity of [place] [facility] 4.2.7.2.686 Gilberto as [phone] [facility] [address] 2020-12-19 2020-12-21 [facility] Samir Suh 1.2.840.1 14 [id number] Univers 01:54:00 15:30:00 Encounter Tyler Sanders 350.1.13 .10 ity of [place] Ramana [facility] 4.2.7.2.68 6 [place] [phone] [facility] [address] 2020-12-19 2020-12-19 Outpatient [facility] [id number] Univers 09:20:00 09:20:00 ANDRAE ashby [facility] 2020-12-17 2020-12-17 Telephone [facility] 1.2.443.432 [id number] Univers 00:00:00 00:00:00 [facility] 350.1.13.10 ity of [place] 4.2.7.2.686 Gilberto as Professio [phone] [address] One 2020-12-17 2020-12-17 Telephone VIRGILIO Ferrari 1.2.535.712 [id number] Univers 00:00:00 00:00:00 Davon H MARYJANE 350.1.13.10 i ty of [facility] 4.2.7.2.686 Gilberto as [id number] [facility] [address] [place] 2020-12-17 2020-12-17 Refill Doctor [facility] 1.2.400.911 [id number] Univers 00:00:00 00:00:00 UnassCharles mata 350.1.13.10 ity of [place] [facility] 4.2.7.2.686 [facility] [phone] [address] 2020-12-17 2020-12-17 Refill Colby PADWIGHT 1.2.840.114 [id number] Univers 00:00:00 00:00:00 [facility] 350.1.13.10 it y of [place] 4.2.7.2.686 [place]to as Professio [phone] [address] One 2020-12-16 2020-12-16 Telephone Lisa PADWIGHT 1.2.184.889 [id number] Univers 00:00:00 00:00:00 [facility] 350.1.13.10 ity of [place] 4.2.7.2.686 [place]to as Professio [phone] [address] One 2020-12-16 2020-12-16 Refill Kody [facility] 1.2.840.114 [id number] Univers 00:00:00 00:00:00 , Latia Soto 350.1.13.10 it y of Pediatric 4.2.7.2.686 [facility] [phone] [address] 2020-12-15 2020-12-15 Urgent Danii Gonzalez [facility] 1.2.840 .114 [id number] Univers 16:47:03 17:07:03 Care Junior [facility] 350.1.13.10 ity of [place] 4.2.7.2.686 Gilberto as Professio [phone] [address] Office Building One 2020-12-15 2020-12-15 Outpatient R [facility] [id number] Univers 17:00:00 17:00:00 ity of [facility] 2020-12-15 2020-12-15 Orders Doctor VIRGILIO 1.2.840.114 [id number] Univers 00:00:00 00:00:00 Only Unassigned, MARYJANE 350.1.13.10 ity of [place] [facility] 4.2.7.2.686 Gilberto as [phone] [facility] [address] [place] 2020-12-06 2020-12-06 Emergency [facility] 1.2.927.297 [id number] Univers 20:21:00 22:35:00 Aj Hartley 350.1.13.10 i ty [facility] [place].2.7.2.686 [place] [phone] [facility] [address] [place] 2020-10-10 2020-10-10 Outpatient R KIM [facility] [id number] Univers 10:00:00 10:00:00 CHERYLE itcristela [facility] 2020-09-17 2020-09-17 Urgent Provider, [facility] Urgent Care [facility] 1.2.840.114 [id number] Univers 16:43:20 17:20:[address] [facility] 350.1.13.10 ity of [place] 4.2.7.2.686 [place] as Professio [phone] [address] Office Building One 2020-09-17 2020-09-17 Outpatient R COLBY [facility] [id number] Univers 16:40:00 16:40:00 [facility] 2020-09-17 2020-09-17 Letter Provider, [facility] 1.2.863.715 [id number] Univers 00:00:00 00:00:00 (Out) Urgent Care [facility] 350.1.13.10 ity of [place] 4.2.7.2.686 Gilberto as Professio [phone] Ar dical nal [address] Office Building One 2020-09-12 2020-09-12 Telephone [facility] 1.2.840.11 [id number] Univers 00:00:00 00:00:00 , Latia Soto 350.1.13.10 it y of Pediatric 4.2.7.2.686 [facility] [phone] [facility] [address] [place] 2020-09-08 2020-09-08 Outpatient R [facility] [id number] Univers 13:30:00 13:30:00 , LATIA ashby [facility] 2020-09-08 2020-09-08 Piano Mover Emiliana, [facility] Main [facility] 1.2.8 40.114 [id number] Univers 12:55:40 13:10:40 Visit Latia Gates 350.1.13.1 0 ity of [place].2.7.2.686 [place] [phone] Ar dical nal 353 [facility] 2020-09-08 2020-09-08 Orders Doctor VIRGILIO 1.2.840.114 [id number] Univers 00:00:00 00:00:00 Only Unassigned, MARYJANE 350.1.13.10 ity of [place] [facility] 4.2.7.2.686 Gilberto as [phone] [facility] [address] 2020-09-06 2020-09-06 Office [facility] 1.2.840.114 [id number] Univers 15:12:55 16:13:47 Visit , Latia Soto 350.1.13.10 it y of [place] 4.2.7.2.686 [facility] [phone] [facility] [address] 2020-09-06 2020-09-06 Outpatient R [facility] [id number] Univers 14:50:00 14:50:00 , LATIA ashby [facility] 2020-09-06 2020-09-06 Letter [facility] 1.2.840.114 [id number] Univers 00:00:00 00:00:00 (Out) , Latia Soto 350.1.13.10 it y of Pediatric 4.2.7.2.686 [facility] [phone] [facility] [address] 2020-08-25 2020-08-25 [facility] [id number] Univers 15:30:00 15:30:00 [facility] 2020-06-16 2020-06-16 Outpatient [facility] [id number] Univers 13:30:00 13:30:00 [facility] 2020-04-14 2020-04-14 [facility] 1.2.840.114 [id number] Univers 14:35:00 23:59:00 Encounter Liana Hartley 350.1.13.10 ity of [place] 4.2.7.2.686 [facility] [phone] [facility] [address] 2020-04-14 2020-04-14 [facility] [id number] Univers 13:00:00 13:00:00 [facility] 2020-04-14 2020-04-14 Outpatient [facility] [id number] Univers 00:00:00 00:00:00 [facility] 2020-04-14 2020-04-14 Orders Doctor POOLE 1.2.840.114 [id number] Univers 00:00:00 00:00:00 Only Unassigned, MARYJANE 350.1.13.10 ity of [place] [facility] 4.2.7.2.686 Gilberto [phone] [facility] [address] 2020-04-07 2020-04-07 Out[facility] [id number] Univers 14:00:00 14:00:00 [facility] 2020-03-10 2020-03-10 Office [facility] 1.2.840.114 [id number] Univers 15:04:54 15:45:36 Visit Liana MULTISPEC 350.1.13.10 ity of [place] 4.2.7.2.686 [facility] [phone] [facility] AND [address] [facility] 2020-03-10 2020-03-10 Outpatient [facility] [id number] Univers 15:00:00 15:00:00 SALTYR ity of [facility] 2020-03-10 2020-03-10 Letter [facility] 1.2.840.114 [id number] Univers 00:00:00 00:00:00 (Out) Liana MULTISPEC 350.1.13.10 ity of [place] 4.2.7.2.686 [facility] [phone] [address] [facility] 2020-03-01 2020-03-01 Office [facility] 1.2.840.114 [id number] Univers 13:10:02 14:00:30 Visit , Latia Soto 350.1.13.10 it y of [place] 4.2.7.2.686 [place] [facility] [phone] [facility] [address] 2020-03-01 2020-03-01 Outpatient R [facility] [id number] Univers 13:10:00 13:10:00 , LATIA ity of [facility] 2020-02-16 2020-02-16 Office [facility] 1.2.840.114 [id number] Univers 14:00:12 15:05:02 Visit , Latia Soto 350.1.13.10 it y of [place] 4.2.7.2.686 [place] [facility] [phone] [facility] [address] 2020-02-16 2020-02-16 Outpatient R [facility] [id number] Univers 13:50:00 13:50:00 , LATIA ity of [facility] 2020-01-24 2020-01-24 Urgent Pob1, Acute Care Clinic [facility] 1. 2.840.114 [id number] Univers 12:59:13 13:25:38 Martha Winchester Gale [facility] 350.1.13.10 ity of [place] 4.2.7.2.686 Gilberto as Professio [phone] [address] Office Building One 2020-01-24 2020-01-24 Outpatient R ANNABELLA, [facility] [id number] Univers 13:00:00 13:00:00 GALE ashby of [facility] 2020-01-18 2020-01-18 Telephone [facility] 1.2.840.11 [id number] [facility] 00:00:00 00:00:00 , Latia Soto 350.1.13.10 it y of [place] 4.2.7.2.686 [place] [facility] [phone] [address] 2020-01-18 2020-01-18 Refill [facility] 1.2.840.114 [id number] Univers 00:00:00 00:00:00 , Latia Soto 350.1.13.10 it y of Pediatric 4.2.7.2.686 Te [facility] [phone] [address] 2019-12-27 2019-12-27 Telephone VIRGILIO Wolff 1.2.840.114 [id number] Univers 00:00:00 00:00:00 Kwadwo WESLEY 350.1.13.10 it y of HOSPITAL 4.2.7.2.686 Gilberto as [phone] [address] 2019-12-24 2019-12-24 Telephone Sandra Hopper 1.2.840.114 [id number] Univers 00:00:00 00:00:00 Huyen WESLEY 350.1.13.10 it y of HOSPITAL 4.2.7.2.686 Gil[place]to as [phone] [address] 2019-12-24 2019-12-24 [facility] POOLE 1.2.840.114 [id number] Univers 00:00:00 00:00:00 , Latia WESLEY 350.1.13.10 it y of HOSPITAL 4.2.7.2.686 Gilberto as [phone] [address] 2019-12-22 2019-12-22 Urgent Pob1, Acute Care Clinic [facility] 1. 2.840.114 [id number] Univers 15:38:07 16:29:51 [facility] 350.1.13. 10 ity of [place] 4.2.7.2.686 Gilberto as Samia [phone] Ar dical [address] Office Building One 2019-12-22 2019-12-22 Office de [facility] 1.2.253.865 [id number] Univers 14:14:46 14:34:46 Visit Charles Michael 350.1.13.10 ity [facility] Pediatric 4.2.7.2.686 [facility] [phone] [address] 2019-12-22 2019-12-22 Outpatient R DE [facility] [id number] Univers 14:00:00 14:00:00 symone MICHAEL [facility] 2019-11-19 2019-11-19 Outpatient R MERNA, [facility] [id number] Univers 13:00:00 13:00:00 NINA ashby [facility] 2019-11-05 2019-11-05 Telephone [facility] 1.2.840.11 [id number] Univers 00:00:00 00:00:00 , Latia Soto 350.1.13.10 it y of Pediatric 4.2.7.2.686 [facility] [phone] [address] 2019-08-23 2019-08-23 Outpatient R LAIRD-RAMSAY [facility] [id number] Univers 13:10:00 13:10:00 , LATIA ashby [facility] 2019-08-05 2019-08-05 Outpatient R WILLIAM [facility] [id number] Univers 15:00:00 15:00:00 ANDRAE ashby [facility] 2019-08-02 2019-08-02 Outpatient R LAIRD-RAMSAY [facility] [id number] Univers 14:30:00 14:30:00 , LATIA ashby [facility] 2019-07-19 2019-07-19 Office [facility] 1.2.840.114 [id number] Univers 15:23:01 16:03:09 Visit , Latia Soto 350.1.13.10 it y of Pediatric 4.2.7.2.686 [facility] [id number] [address] 2019-07-19 2019-07-19 Orders Doctor POOLE 1.2.840.114 [id number] Univers 00:00:00 00:00:00 Only Unassigned, MARYJANE 350.1.13.10 ity of [place] HOSPITAL 4.2.7.2.686 Gilberto as [phone] [facility] [address] 2019-07-06 2019-07-06 Telephone [facility] 1.2.840.11 [id number] Univers 00:00:00 00:00:00 , Latia Soto 350.1.13.10 it y of Pediatric 4.2.7.2.686 [facility] [phone] [facility] [address] 2019-07-05 2019-07-05 Hospital [facility] 1.2.840.114 [id number] Univers 12:30:00 23:59:00 Encounter Latia 350.1.13.10 ity of [place].2.[place] [phone] [facility] [address] 2019-07-05 2019-07-05 Piano Mover Emiliana, Jose Lab Main [facility] 1.2.8 40.114 [id number] Univers 12:28:35 12:43:35 [facility] garcia 350.1.13.1 0 ity of [place].2.7.2.[place] [phone] Ar dical nal 353 [facility] 2019-07-05 2019-07-05 Orders Doctor VIRGILIO 1.2.840.114 [id number] Univers 00:00:00 00:00:00 Only Unassigned, MARYJANE 350.1.13.10 ity of [place] HOSPITAL 4.2.7.2.686 Gilberto as [phone] [facility] [address] 2019-06-18 2019-06-18 Emergency Samir Suh [facility] 1.2.840.114 [id number] Univers 19:26:54 21:07:00 Soo Hartley 350.1.13.10 i ty of [place] 4.2.7.2.686 [place] [phone] [facility] [address] 2019-06-15 2019-06-15 Office [facility] 1.2.840.114 [id number] Univers 11:04:09 11:50:23 Visit , Latia Soto 350.1.13.10 it y of Pediatric 4.2.7.2.686 [facility] [phone] [address] 2019-06-15 2019-06-15 Letter [facility] 1.2.840.114 [id number] Univers 00:00:00 00:00:00 (Out) , Latia Soto 350.1.13.10 it y of Pediatric 4.2.7.2.686 [facility] [phone] [address] 2019-05-31 2019-05-31 Orders Doctor VIRGILIO 1.2.840.114 [id number] Univers 00:00:00 00:00:00 Only Unassigned, MARYJANE 350.1.13.10 ity of [place] HOSPITAL 4.2.7.2.686 Gilberto as [phone] [address] 2019-02-09 2019-02-09 Office [facility] 1.2.840.114 [id number] [facility] 14:51:32 15:56:10 Visit , Latia Soto 350.1.13.10 it y of Pediatric 4.2.7.2.686 [facility] [phone] [address] 2019-02-09 2019-02-09 Telephone [facility] 1.2.840.11 [id number] Univers 00:00:00 00:00:00 , Latia Soto 350.1.13.10 it y of Pediatric 4.2.7.2.686 [facility] [phone] [address] 2019-02-09 2019-02-09 Orders Doctor VIRGILIO 1.2.840.114 [id number] Univers 00:00:00 00:00:00 Only Unassigned, MARYJANE 350.1.13.10 ity of [place] HOSPITAL 4.2.7.2.686 Gilberto as [phone] [address] 2019-02-09 2019-02-09 Letter [facility] 1.2.840.114 [id number] Univers 00:00:00 00:00:00 (Out) , Latia Soto 350.1.13.10 it y of Pediatric 4.2.7.2.686 Te [facility] [phone] [address] 2019-01-14 2019-01-14 Telephone [facility] 1.2.840.11 [id number] Univers 00:00:00 00:00:00 , Latia Bermudez Charles 350.1.13.10 it y of Pediatric 4.2.7.2.686 [facility] [phone] [address] 2019-01-01 2019-01-01 Telephone [facility] 1.2.840.11 [id number] Univers 00:00:00 00:00:00 , Latia Bermudez Charles 350.1.13.10 it y of Pediatric 4.2.7.2.686 [facility] [phone] [address] Results Test Description Test Time Test Comments Results Result Comments Source COMP. METABOLIC PANEL (61591) 2022-08-23 23:48:07 Test Item Value Reference Range Interpretation Comme nts NA (test code = 6413277648) 141 mmol/L 135-145 K (test code = 8852320661) 4.3 mmol/L 3.5-5.0 CL (test code = 4540329278) 106 mmol/L 98-108 CO2 TOTAL (test code = 26 mmol/L 23-31 1712358461) AGAP (test code = 1819420112) 9 2-16 BUN (test code = 7521919129) 12 mg/dL 7-23 GLUCOSE (test code = 8958412693) 80 mg/dL 70-110 CREATININE (test code = 0.83 mg/dL 0.60-1.25 1905297893) TOTAL BILI (test code = 0.6 mg/dL 0.1-1.0 0145055413) CALCIUM (test code = 8718855476) 9.2 mg/dL 8.6-10.6 T PROTEIN (test code = 7.7 g/dL 6.3-8.2 4466360797) ALBUMIN (test code = 9477350119) 4.6 g/dL 3.5-5.0 ALK PHOS (test code = 5996275559) 56 U/L 34-122 ALTv (test code = 1742-6) 34 U/L 5-50 AST(SGOT) (test code = 30 U/L 13-40 6339269061) eGFR (test code = 4764272728) 118.1 mL/min/1.73m2 KENNY (test code = KENNY) Association of Glomerular Filtration Rate (GFR) and Staging of Kidney Disease* + +--------- + ----+| GFR (mL/min/1.73 m2) ?| With Kidney Damage ?| ?Without Kidney Damage+ +--- + +| ?>90 ?| ?Stage one ?| ? Normal ?+ +-------- + -----+| ?60-89 ?| ?Stage two ?| ? Decreased GFR ? + +--------- + ----+| ?30-59 ?| ?Stage three ?| ? Stage three ? + +--------- + ----+| ?15-29 ?| ?Stage four ? | ? Stage four ?+ +-------- + -----+| ?<15 (or dialysis) ? ?| ?Stage five ? | ? Stage five ?+ +-------- + -----+ *Each stage assumes the associated GFR level has been in effect for at least three months. ?Stages 1 to 5, with or without kidney disease, indicate chronic kidney disease. Notes: Determination of stages one and two (with eGFR >59mL/min/1.73 m2) requires estimation of kidney damage for at least three months as defined by structural or functional abnormalities of the kidney, manifested by either:Pathological abnormalities or Markers of kidney damage (including abnormalities in the composition of the blood or urine or abnormalities in imaging tests). [facility]47[facility]26 Test Item Value Reference Range Interpretation Comments LIPASE (test code = 8396734021) 60 U/L 0-220 Lab Interpretation (test code = Normal 32690-5) [facility] [id number] 23:29:23 Test Item Value Reference Range Interpretation Comments WBC (test code = 12.00 See_Comment H [Automated 6490-2) message] The sy stem which generated this result transmitted reference range : 4.20 - 10.70 10*3/?L. The reference range was not used to interpret this result as normal/abnormal . RBC (test code = 5.31 See_Comment [Automated 789-8) message] The sy stem which generated this result transmitted reference range : 4.26 - 5.52 10*6/?L. The reference range was not used to interpret this result as normal/abnormal . HGB (test code = 14.8 g/dL 12.2-16.4 718-7) HCT (test code = 45.4 % 38.4-49.3 4544-3) MCV (test code = 85.5 fL 81.7-95.6 787-2) MCH (test code = 27.9 pg 26.1-32.7 785-6) MCHC (test code = 32.6 g/dL 31.2-35.0 786-4) RDW-SD (test code = 42.5 fL 38.5-51.6 31965-8) RDW-CV (test code = 13.6 % 12.1-15.4 788-0) PLT (test code = 269 See_Comment [Automated 777-3) message] The sy stem which generated this result transmitted reference range : 150 - 328 10*3/ ?L. The reference r danika was not used to interpret this result as normal/abnormal . MPV (test code = 10.3 fL 9.8-13.0 60050-5) NRBC/100 WBC (test 0.0 See_Comment [Automat ed code = [id number]) message] The system which generated this result transmitted reference range : 0.0 - 10.0 /100 WBCs. The refer ence range was not u sed to interpret th is result as normal/abnormal . NRBC x10^3 (test code See_Comment [Auto mated = [id number]) message] The s ystem which generated this result transmitted reference range : 10*3/?L. The reference range was not used to interpret this result as normal/abnormal . GRAN MAT (NEUT) % 72.2 % (test code = 770-8) IMM GRAN % (test code 0.70 % = [id number]) LYMPH % (test code = 18.6 % 736-9) MONO % (test code = 6.9 % 5905-5) EOS % (test code = 1.3 % 713-8) BASO % (test code = 0.3 % 706-2) GRAN MAT x10^3(ANC) 8.67 10*3/uL 1.99-6.95 H (test code = [id number]) IMM GRAN x10^3 (test 0.08 10*3/uL 0.00-0.06 H code = [id number]) LYMPH x10^3 (test code 2.23 10*3/uL 1.09-3.23 = 731-0) MONO x10^3 (test code 0.83 10*3/uL 0.36-1.02 = 742-7) EOS x10^3 (test code = 0.16 10*3/uL 0.06-0.53 711-2) BASO x10^3 (test code 0.03 10*3/uL 0.01-0.09 = 704-7) Lab Interpretation Abnormal (test code = 60466-7) [facility]"
[2023-04-14] MEDS ORDERED: KETOROLAC 30 MG/ML INJ ONE (23:58)
[2023-04-14] MEDS ORDERED: NA CHLORIDE 0.9% 1,000 ML ONE (23:58)
[2023-04-15 00:15] LABS: Absolute Lymphocytes (CBC) 3.4 K/uL (0.7-4.9); Hematocrit 44.7 % (39.6-49.0); Lymphocytes % 33.1 % (15.3-44.8); MCV 85.2 fL (80-100); MPV 8.7 fL (7.6-11.3); Platelets 235 thou/uL (152-406); RBC Red Blood Cell Count 5.24 M/uL (4.33-5.43)
[2023-04-15 00:24] LABS: Specific Gravity 1.028 (1.005-1.030); Urine Bilirubin NEGATIVE (Negative); Urine Blood Negative (Negative); Urine Clarity Clear (Clear); Urine Color Light-Yellow (Yellow); Urine Glucose NEGATIVE (Negative); Urine Protein NEGATIVE (Negative); Urine Urobilinogen Normal (Normal)
[2023-04-15 00:38] LABS: Albumin 4.4 g/dL (3.4-5.0); Bilirubin Total 0.6 mg/dL (0.2-1.0); Potassium 3.8 mEq/L (3.5-5.1); Protein, Total 8.4 g/dL (6.4-8.2)
--- NOTE | 2023-04-15 03:24 | ER ---
Nurse's Notes [facility] Name: Yoni Perry Age: 23 yrs Sex: Male : 2000 Arrival Date: 04/14/2023 Time: 23:00 Bed 11 Private MD: Diagnosis: Abdominal pain, unspecified Presentation: 04/14 23:24 Chief complaint: Patient states: Right lower and left upper abdominal pain. The right vc1 lower has been going on for a year. Coronavirus screen: Vaccine status: Patient reports being unvaccinated. At this time, the client does not indicate any symptoms associated with coronavirus-19. Ebola Screen: Patient negative for fever greater than or equal to 101.5 degrees Fahrenheit, and additional compatible Ebola Virus Disease symptoms Patient denies exposure to infectious person. Patient denies travel to an Ebola-affected area in the 21 days before illness onset. No symptoms or risks identified at this time. Initial Sepsis Screen: Does the patient meet any 2 criteria? No. Patient's initial sepsis screen is negative. Does the patient have a suspected source of infection? No. Patient's initial sepsis screen is negative. Risk Assessment: Do you want to hurt yourself or someone else? Patient reports no desire to harm self or others. Onset of symptoms is unknown. 23:24 Method Of Arrival: Ambulatory vc1 23:24 Acuity: MARIANA 3 vc1 Triage Assessment: 23:27 General: Appears in no apparent distress. Behavior is calm, cooperative, appropriate vc1 for age. Pain: Complains of pain in left upper quadrant and right lower quadrant Pain does not radiate. Pain currently is 5 out of 10 on a pain scale. at worst was 10 out of 10 on a pain scale. Quality of pain is described as sharp, stabbing, Aggravated by "sleeping". EENT: No deficits noted. No signs and/or symptoms were reported regarding the EENT system. Neuro: No deficits noted. Cardiovascular: No deficits noted. Respiratory: No deficits noted. GI: Reports lower abdominal pain, upper abdominal pain, nausea. Historical: - Allergies: 23:26 No Known Allergies; vc1 - Home Meds: 23:26 None [Active]; vc1 - PMHx: 23:26 scoliosis; Asthma; vc1 - PSHx: 23:26 None; vc1 - Immunization history:: Client reports having NOT received the Covid vaccine. - Social history:: Smoking status: Patient reports the use of cigarette tobacco products, denies chronic smoking, but will smoke occasionally, Reported history of juuling and/or vaping. Patient uses street drugs, marijuana. Screenin:59 [facility] ED Fall Risk Assessment (Adult) History of falling in the last 3 months, cm10 including since admission No falls in past 3 months (0 pts) Confusion or Disorientation No (0 pts) Intoxicated or Sedated No (0 pts) Impaired Gait No (0 pts) Mobility Assist Device Used No (0 pt) Altered Elimination No (0 pt) Score/Fall Risk Level 0 - 2 = Low Risk Oriented to surroundings, Maintained a safe environment, Hourly rounding (assess needs \\T\\ fall precautionary measures) done. Abuse screen: Denies threats or abuse. Denies injuries from another. Nutritional screening: No deficits noted. Tuberculosis screening: No symptoms or risk factors identified. Assessment: 04/15 00:00 General: Appears in no apparent distress. comfortable, Behavior is calm, cooperative. cm10 Pain: Complains of pain in abdomen and right lower quadrant and left upper quadrant. Neuro: No deficits noted. Farris Agitation-Sedation Scale (RASS): 0 - Alert and Calm Level of Consciousness is awake, alert, obeys commands, Oriented to person, place, time, situation. Cardiovascular: No deficits noted. Patient's skin is warm and dry. Respiratory: No deficits noted. Airway is patent Respiratory effort is even, unlabored, Respiratory pattern is regular, symmetrical. GI:. GI: Reports lower abdominal pain, upper abdominal pain. : No deficits noted. No signs and/or symptoms were reported regarding the genitourinary system. EENT: No deficits noted. No signs and/or symptoms were reported regarding the EENT system. Derm: No deficits noted. No signs and/or symptoms reported regarding the dermatologic system. Skin is intact, Skin is pink, warm \\T\\ dry. Musculoskeletal: No deficits noted. No signs and/or symptoms reported regarding the musculoskeletal system. Range of motion: intact in all extremities. 01:00 Reassessment: Patient appears in no apparent distress at this time. Patient is alert, kl oriented x 3, equal unlabored respirations, skin warm/dry/pink. Patient states feeling better. Patient states symptoms have improved. Vital Signs: 04/14 23:24 BP 131 / 74; Pulse 71; Resp 18; Temp 98.6; Pulse Ox 100% ; Weight 90.72 kg; Height 6 vc1 ft. 1 in. ; Pain 10/09; 04/15 02:34 BP 114 / 58; Pulse 60; Resp 15; Pulse Ox 98% on R/A; kl 04/14 23:24 Body Mass Index 26.39 (90.72 kg, 185.42 cm) vc1 04/14 23:24 Pain Scale: Adult vc1 ED Course: 04/14 23:03 Patient arrived in ED. [id number] 23:07 Kwadwo Elizalde PA is PHCP. cp 23:07 Tracie Elmore MD is Attending Physician. cp 23:26 Triage completed. vc1 23:26 Arm band placed on left wrist. vc1 23:53 CBC with Diff Sent. cm10 23:53 CMP Sent. cm10 23:53 Lipase Sent. cm10 23:53 Urinalysis w/ reflexes Sent. cm10 04/15 00:01 Patient has correct armband on for positive identification. Bed in low position. Call cm10 light in reach. Side rails up X 1. Provided Education on: ER process and procedures. . 00:01 Initial lab(s) drawn, by ED staff, sent to lab. Inserted saline lock: 20 gauge in right cm10 antecubital area, using aseptic technique. Blood collected. 02:00 No apparent distress. Resting quietly. Appears to be sleeping. kl 02:19 Grady De Paz MD is Referral Physician. cp 02:34 No provider procedures requiring assistance completed. IV discontinued, intact, kl bleeding controlled, No redness/swelling at site. Pressure dressing applied. 03:24 CT Abd/Pelvis - IV Contrast Only In Process Unspecified. EDMS 06:43 PHCP role handed off by Kwadwo Elizalde PA kl Administered Medications: 04/14 23:53 Drug: Ketorolac IVP 15 mg IVP once Route: IVP; Site: right antecubital; cm10 04/15 00:43 Follow up: Response: No adverse reaction 04/14 23:53 Drug: NS 0.9% IV 1000 ml IV at 1 bolus Per protocol; 1000 mL bolus Route: IV; Rate: 1 cm10 bolus; Site: right antecubital; 04/15 00:43 Follow up: IV Status: Completed infusion; IV Intake: 1000ml Medication: 04/14 23:59 VIS not applicable for this client. cm10 Intake: 04/15 00:43 IV: 1000ml; Total: 1000ml. kl Outcome: 02:20 Discharge ordered by MD. cp 02:35 Discharged to home ambulatory, kl 02:35 Condition: improved 02:35 Discharge instructions given to patient, Instructed on discharge instructions, follow up and referral plans. medication usage, Demonstrated understanding of instructions, follow-up care, medications, Prescriptions given X 2, 02:35 Patient left the ED. kl 06:44 Patient left the ED. kl Signatures: Dispatcher [employer] EDMS Danii Garza RN RN Kwadwo Claros PA PA cp Jeffries, Jennifer [id number] Karlene Lehman RN RN vc1 Lashon Kelly RN RN cm10
--- NOTE | 2023-04-15 03:24 | EDPHYS ---
Physician Documentation [facility] Name: Yoni Perry Age: 23 yrs Sex: Male : 2000 Arrival Date: 04/14/2023 Time: 23:00 Bed 11 Private MD: ED Physician Tracie Elmore HPI: 04/14 23:35 This 23 yrs old Black Male presents to ER via Ambulatory with complaints of Abdominal cp Pain. 23:35 The patient presents with abdominal pain right side of abdomen. Onset: The cp symptoms/episode began/occurred 1 year(s) ago, and became worse 1 week(s) ago. The symptoms do not radiate. Associated signs and symptoms: Pertinent negatives: blood in stools, constipation, diarrhea, dysuria, fever, testicular pain, vomiting. The symptoms are described as constant. Severity of pain: in the emergency department the pain is unchanged despite home interventions. Historical: - Allergies: 23:26 No Known Allergies; vc1 - Home Meds: 23:26 None [Active]; vc1 - PMHx: 23:26 scoliosis; Asthma; vc1 - PSHx: 23:26 None; vc1 - Immunization history:: Client reports having NOT received the Covid vaccine. - Social history:: Smoking status: Patient reports the use of cigarette tobacco products, denies chronic smoking, but will smoke occasionally, Reported history of juuling and/or vaping. Patient uses street drugs, marijuana. ROS: 23:40 Constitutional: Negative for body aches, chills, fever, poor PO intake, cp 23:40 Eyes: Negative for injury, pain, redness, and discharge, cp 23:40 Respiratory: Negative for cough, shortness of breath, wheezing, 23:40 Abdomen/GI: Positive for abdominal pain, Negative for vomiting, diarrhea, constipation, black/tarry stool, rectal bleeding, 23:40 Back: Negative for radiated pain, 23:40 : Negative for urinary symptoms, testicular pain 23:40 All other systems are negative, Exam: 23:45 Constitutional: The patient appears in no acute distress, alert, awake, non-toxic, well cp developed, well nourished, 23:45 Head/Face: Normocephalic, atraumatic. cp 23:45 Eyes: Periorbital structures: appear normal, Conjunctiva: normal, no exudate, no injection, Sclera: no appreciated abnormality, Lids and lashes: appear normal, bilaterally, 23:45 ENT: External ear(s): are unremarkable, Nose: is normal, Mouth: Lips: moist, Oral mucosa: pink and intact, moist, Posterior pharynx: Airway: no evidence of obstruction, patent, 23:45 Chest/axilla: Inspection: normal, 23:45 Cardiovascular: Rate: normal, Rhythm: regular, 23:45 Respiratory: the patient does not display signs of respiratory distress, Respirations: normal, no use of accessory muscles, no retractions, labored breathing, is not present, Breath sounds: are clear throughout, no decreased breath sounds, no stridor, no wheezing, 23:45 Abdomen/GI: Inspection: abdomen appears normal, Palpation: soft, in all quadrants, moderate abdominal tenderness, in the right upper quadrant and right lower quadrant, rebound tenderness, is not appreciated, involuntary guarding, is not appreciated, 23:45 Back: pain, is absent, ROM is normal, Vital Signs: 23:24 BP 131 / 74; Pulse 71; Resp 18; Temp 98.6; Pulse Ox 100% ; Weight 90.72 kg; Height 6 vc1 ft. 1 in. ; Pain /10; 04/15 02:34 BP 114 / 58; Pulse 60; Resp 15; Pulse Ox 98% on R/A; kl 04/14 23:24 Body Mass Index 26.39 (90.72 kg, 185.42 cm) vc1 04/14 23:24 Pain Scale: Adult vc1 MDM: 04/14 23:23 Patient medically screened. 04/15 00:00 Differential diagnosis: appendicitis, cholecystitis, Cholelithiasis, Pyelonephritis, cp Testicular Torsion, Ureterolithiasis, urinary tract infection, colitis. 03:00 Data reviewed: vital signs, nurses notes, lab test result(s), radiologic studies, CT cp scan, and as a result, I will discharge patient. 03:00 I considered the following discharge prescriptions or medication management in the emergency department Medications were administered in the Emergency Department. See MAR. Counseling: I had a detailed discussion with the patient and/or guardian regarding the historical points, exam findings, and any diagnostic results supporting the discharge/admit diagnosis, lab results, radiology results, the need for outpatient follow up, a blow off worker, to return to the emergency department if symptoms worsen or persist or if there are any questions or concerns that arise at home. Special discussion: Based on the patient's Hx, exam, and Dx evaluation, there is no indication for emergent surgery or inpatient Tx. It is understood by the patient/guardian that if the Sx's persist or worsen they need to return immediately for re-evaluation. 04/14 23:32 Order name: CBC with Diff; Complete Time: 00:48 04/15 00:48 Interpretation: Reviewed. 04/14 23:32 Order name: CMP cp 04/14 23:32 Order name: Lipase cp 04/14 23:32 Order name: Urinalysis w/ reflexes; Complete Time: 00:48 cp 04/15 00:48 Interpretation: Reviewed. 04/14 23:32 Order name: CT Abd/Pelvis - IV Contrast Only 04/14 23:32 Order name: IV Saline Lock; Complete Time: 23:53 04/14 23:32 Order name: Labs collected and sent; Complete Time: 23:53 cp Administered Medications: 04/14 23:53 Drug: Ketorolac IVP 15 mg IVP once Route: IVP; Site: right antecubital; cm10 04/15 00:43 Follow up: Response: No adverse reaction 04/14 23:53 Drug: NS 0.9% IV 1000 ml IV at 1 bolus Per protocol; 1000 mL bolus Route: IV; Rate: 1 cm10 bolus; Site: right antecubital; 04/15 00:43 Follow up: IV Status: Completed infusion; IV Intake: 1000ml Disposition Summary: 04/15/23 02:20 Discharge Ordered Notes: Location: Home cp Problem: an ongoing problem cp Symptoms: have improved cp Condition: Stable cp Diagnosis - Abdominal pain, unspecified cp Followup: cp - With: Grady De Paz MD - When: 2 - 3 days - Reason: Recheck today's complaints Discharge Instructions: - Discharge Summary Sheet cp - Abdominal Pain, Adult cp Forms: - Work release form kl - Medication Reconciliation Form cp - Thank You Letter cp - Antibiotic Education cp - Prescription Opioid Use cp - Patient Portal Instructions cp - Leadership Thank You Letter cp Prescriptions: - Zofran 4 mg Oral Tablet - take 1 tablet ORAL route every 12 hours As needed; 20 tablet; Refills: 0, cp Product Selection Permitted - dicyclomine 20 mg Oral tablet - take 1 tablet ORAL route 4 times per day; 30 tablet; Refills: 0, Product cp Selection Permitted Signatures: Dispatcher [employer] Kwadwo Jauregui PA PA cp Calcote, Vanessa RN RN vc1 Lashon Kelly RN RN cm10 Danii Garza RN kl
[2023-04-15 04:55] VITALS: TEMP 98.6
[2023-04-15 04:56] VITALS: BP 114/58; O2SAT 98
--- NOTE | 2023-04-15 13:17 | RAD REPORT ---
EXAM DESCRIPTION: CT - Abdomen Pelvis W Contrast - 04/15/2023 3:16 am CLINICAL HISTORY: The patient is 23 years old and is Male; right side abdomen pain TECHNIQUE: Axial computed tomography images of the abdomen and pelvis with intravenous contrast. S agittal and coronal reformatted images were created and reviewed. This CT exam was performed using one or more of the following dose reduction techniques: automated exposure control, adjustment of t he mA and/or kV according to patient size, and/or use of iterative reconstruction technique. COMPARISON: No relevant prior studies available. FINDINGS: Lung bases: Unremarkable. No mass. No consolidation. ABDOMEN: Liver: Unremarkable. No mass. Gallbladder and bile ducts: Unremarkable. No calcified stones. No ductal dilation. Pancreas: Unremarkable. No mass. No ductal dilation. Spleen: Unremarkable. No splenomegaly. Adrenals: Unremarkable. No mass. Kidneys and ureters: Unremarkable. No solid mass. No hydronephrosis. Stomach and bowel: Sigmoid diverticula. No obstruction. No mucosal thickening. PELVIS: Appendix: The appendix is normal. Bladder: Unremarkable. Reproductive: Unremarkable as visualized. ABDOMEN and PELVIS: Intraperitoneal space: Unremarkable. No free air. No significant fluid collection. Bones/joints: No acute fracture. No dislocation. Soft tissues: Unremarkable. Vasculature: Unremarkable. No abdominal aortic aneurysm. Lymph nodes: Unremarkable. No enlarged lymph nodes. IMPRESSION: No acute finding in the abdomen/pelvis. Electronically signed by: Brodie Seaman MD 04/15/2023 02:13 AM NURSE CARE MANAGER Due to temporary technical issues with the PACS/Fluency reporting system, reports are being signed by the in house radiologist without review as a courtesy to ensure prompt reporting. The interpreting r adiologist is fully responsible for the content of the report.
== END 2023-04-15 06:44 | disposition home or self-care (01) ==
LOC: ER 23:00
DX: R10.11 Right upper quadrant pain (principal); R10.31 Right lower quadrant pain; F17.210 Nicotine dependence, cigarettes, uncomplicated
CPT/HCPCS: 96361; 85025; 36415; 81003; 83690; 80053; 74177; 96374; 99284; Q9967; J7030

== ENCOUNTER → 2023-08-27 | Emergency (ER) | payer OTHER ==
--- OUTSIDE RECORDS SUMMARY | 2023-08-27 17:08 | XMS REPORT | Continuity of Care Document ---
Author Name Unknown Address [address] [place] [address] [facility] Address [address] [place] [address] Care Team Providers Care Tile Erector Name Role Phone Latia Gates PA-C Primary Care Physician + MIGDALIA STRONG Attending Clinician Unavailable HILARY CASTILLO Attending Clinician Unavailable UNIQUE HUANG Attending Clinician Unavailable LAURY CHAVEZ Attending Clinician Unavailable Laury Chavez MD Attending Clinician [phone] GALE WINCHESTER Attending Clinician Unavailable JACOBO, YOLY S Attending Clinician Unavailable Jacobo PAC, Yoly S Attending Clinician [phone] TALI HAMILTON Attending Clinician Unavailable [facility] TRANSPORTATION SOLUTIONS MANAGER, Tali Cedeno Attending Clinician [phone] Annabella TISSUE COORDINATOR, Gale Attending Clinician [phone] Lab, Ang - Db Attending Clinician Unavailable Doctor Unassigned, [place] Attending Clinician U navailable RICARDO MONREAL Attending Clinician Unavailable Ricardo Monreal MD Attending Clinician [phone] LATIA GATES Attending Clinician Unavailab Latia Martell PA-C Attending Clinician [phone] Samir Recio Attending Clinician [phone] Tyler Sanders MD Attending Clinician [phone] Augusto Aviles DO Attending Clinician [phone] ANDRAE THOMAS Attending Clinician Unavail able Danii Stringer Attending Clinician + [phone] Davon Ferrari MD Attending Clinician [phone] Landy Wilkinson Attending Clinician [phone] Latoya Pacheco MD Attending Clinician [phone] Aj Maldonado DO Attending Clinician [phone] CHERYLE ALVAREZ Attending Clinician Unavailable Provider, [facility] Attending Clinician Un available LANDY QUIGLEY Attending Clinician Unavailable Provider, Urgent Care Day Attending Clinician Un available Pob, Ad[facility] Main Attending Clinician UnavailLIANA Valle Attending Clinician Unavailpedro Paige MD, Liana Attending Clinician [phone] [facility], [facility] Attending Clinician Rossiv bairon Wolff RN, Kwadwo Attending Clinician Unavailab Sandra Dutton PA-C Attending Clinician [phone] María Davis Attending Clinician + [phone] MARÍA JEREZ Attending Clinician Unavail able NINA BAUMAN M Attending Clinician Unavailable TALI HAMILTON Admitting Clinician Unavailable GALE WINCHESTER Admitting Clinician Unavailable RICARDO MONREAL Admitting Clinician Unavailable Tyler Sanders MD Admitting Clinician [phone] Payers Payer Name Policy Type Policy Number Effective Date Expirati on Date Source [facility] [id number] 2019 00:00:00 [employer] 5 O SEXOLOGIST 94 ON 9 [id number] 2023 00:00:00 Problems Condition Name Condition Details Condition Category Status Onset Date Resolution Date Last Treatment Date Treating Clinician Comments Source Bipolar affective disorder, currently depressed, moderate (multi HCC) Bipolar affective disorder, currently depressed, moderate (multi HCC) Disease Active 07-14 00:00: 00 [facility] - Externdarrion l Irritable bowel syndrome, unspecifie d type Irritable bowel syndrome, unspecifie d type Disease Active 2021-06 00:00: 00 [facility] Pneumomedi astinum Pneumomedi astinum Disease Active 12-20 00:00: 00 [facility] Obesity (BMI 30-39.9) Obesity (BMI 30-39.9) Disease Active 12-19 00:00: 00 [facility] Smoker Smoker Disease Active 12-21 00:00: 00 Overview: Formattin g of this note might be different from the original. Smokes cigarette s and vapes [facility] Asthma Asthma Disease Active 08-22 00:00: 00 [facility] GERD (gastroeso phageal reflux disease) GERD (gastroeso phageal reflux disease) Disease Active 08-22 00:00: 00 [facility] Constipati on Constipati on Disease Active 08-22 00:00: 00 [facility] Allergic rhinitis Allergic rhinitis Disease Active 08-22 00:00: 00 [facility] ADHD (attention deficit hyperactiv ity disorder), combined type ADHD (attention deficit hyperactiv ity disorder), combined type Disease Active 08-22 00:00: 00 [facility] Allergies, Adverse Reactions, Alerts Allergy Name Allergy Type Status Severity Reaction(s) Onset Date Inactive Date Treating Clinician Comments Source NO KNOWN ALLERGIE S Drug Class Active [facility] Social History Social Habit Start Date Stop Date Quantity Comments Source History of tobacco use Cigarette Smoker [facility] shahid - External Sexual orientation Samir hui Garrett - External History SDOH Alcohol Binge [facility] Gender identity [facility] Alcohol intake 2023-07-25 00:00:00 2023-07-25 00:00:00 Current drinker of alcohol (finding) [facility] - External History of Social function 2023-07-25 00:00:00 2023-07-25 00:00:00 [facility] Tucker - External Alcohol Comment 2023-07-25 00:00:00 2023-07-25 00:00:00 socially [facility] Tucker - External Exposure to SARS-CoV-2 (event) 2022-08-13 00:00:00 2022-08-23 19:38:00 Not sure [facility] Cigarettes smoked current (pack per day) - Reported 2020-12-19 00:00:00 2020-12-19 00:00:00 [facility] Tobacco use and exposure 2020-12-19 00:00:00 2020-12-19 00:00:00 Smokeless tobacco non-user [facility] History SDOH Alcohol Frequency 2020-12-19 00:00:00 2020-12-19 00:00:00 2 [facility] History SDOH Alcohol Std Drinks 2020-12-19 00:00:00 2020-12-19 00:00:00 98 [facility] Education 2020-12-19 00:00:00 2020-12-19 00:00:00 10 [facility] Sex Assigned At 2002 00:00:00 2000 00:00:00 [facility] Tucker - External Smoking Status Start Date Stop Date Source Smokes tobacco daily 2023-07-25 00:00:00 [facility] Tucker - External Tobacco smoking consumption unknown [facility] Tucker - Ext ernal Medications Ordered Medication Name Filled Medication Name Start Date Stop Date Current Medication? Ordering Clinician Indication Dosage Frequency Signature (SIG) Comments Components Source Amoxicillin -Pot Clavulanate 875-125 MG oral Tablet 07-25 00:00: 00 Yes [id number] 1{tbl} Take 1 tablet by mouth 2 times daily. [facility] gordillo Guaifenesin (Mucinex) 600 MG oral Tablet 12 Hour Sustained Release 07-25 00:00: 00 Yes [id number] 1200mg Take 2 tablets (1,200 mg total) by mouth 2 times daily. [facility] gordillo Cetirizine HCl (ZyrTEC Allergy) 10 MG oral TABLET DISPERSIBLE 07-25 00:00: 00 Yes [id number] 1{tbl} Take 1 tablet by mouth daily. [facility] gordillo Rizatriptan Benzoate 10 MG oral TABLET DISPERSIBLE 07-25 00:00: 00 Yes [id number] 10mg Take 1 tablet (10 mg total) by mouth once as needed for migraine (May repeat in 2 hours if unresolved . Do not exceed 30 mg in 24 hours.). [facility] gordillo Rizatriptan Benzoate 10 MG oral TABLET DISPERSIBLE 07-25 00:00: 00 07-25 00:00 :00 No [id number] 10mg Take 1 tablet (10 mg total) by mouth once as needed for migraine (May repeat in 2 hours if unresolved . Do not exceed 30 mg in 24 hours.). [facility] gordillo Rizatriptan Benzoate 10 MG oral TABLET DISPERSIBLE 07-14 00:00: 00 Yes [id number] 10mg Take 1 tablet (10 mg total) by mouth once as needed for migraine (May repeat in 2 hours if unresolved . Do not exceed 30 mg in 24 hours.). [facility] gordillo Aripiprazol e 5 MG oral Tablet 07-14 00:00: 00 Yes [id number] 5mg Take 1 tablet (5 mg total) by mouth daily. [facility] gordillo Dicyclomine HCl 10 MG oral Capsule 2023-0 07-14 00:00: 00 Yes [id number] 20mg Take 2 capsules (20 mg total) by mouth 4 times daily (before meals and nightly). [facility] gordillo Albuterol HFA 108 (90 Base) MCG/ACT IN AERS 07-14 00:00: 00 Yes [id number] 2{puff} Q4H Inhale 2 puffs into the lungs every 4 hours as needed for wheezing. [facility] gordillo Aripiprazol e 5 MG oral Tablet 07-14 00:00: 00 Yes [id number] 5mg Take 1 tablet (5 mg total) by mouth daily. [facility] gordillo Dicyclomine HCl 10 MG oral Capsule 07-14 00:00: 00 Yes [id number] 20mg Take 2 capsules (20 mg total) by mouth 4 times daily (before meals and nightly). [facility] gordillo Albuterol HFA 108 (90 Base) MCG/ACT IN AERS 07-14 00:00: 00 Yes [id number] 2{puff} Q4H Inhale 2 puffs into the lungs every 4 hours as needed for wheezing. [facility] gordillo Rizatriptan Benzoate 10 MG oral TABLET DISPERSIBLE 07-14 00:00: 00 07-25 00:00 :00 No [id number] 10mg Take 1 tablet (10 mg total) by mouth once as needed for migraine (May repeat in 2 hours if unresolved . Do not exceed 30 mg in 24 hours.). [facility] gordillo NaCl 0.9% (NS) IV infusion 1,000 mL 08-24 01:45: 00 08-24 02:20 :00 No 1000mL at 999 mL/hr, Intravenou s, ONCE, 1 dose, On Fri08/23/22 at 2045, CATHERINE [facility] iopamidol (ISOVUE 370-500 mL) injection 100 mL 08-24 00:30: 00 08-23 23:22 :00 No [id number] 100mL 100 mL, Intravenou s, ONCE, 1 dose, On Fri08/23/22 at 1930, Routine [facility] ketorolac (TORADOL) injection 30 mg 08-23 23:45: 00 08-23 23:05 :00 No 30mg 30 mg, Slow IV Push, ONCE, 1 dose, On Fri08/23/22 at 1845, [facility]ine [facility] dicycl[facility] (BENTYL) injection 20 mg 08-23 23:45: 00 08-23 23:14 :00 No 20mg 20 mg, Intramuscu lar, ONCE, 1 dose, On Fri08/23/22 at 1845, Routine [facility] pantoprazol e (PROTONIX) injection 40 mg 08-23 22:45: 00 08-23 23:06 :00 No 40mg 40 mg, Slow IV Push, ONCE, 1 dose, On Fri08/23/22 at 1745 [facility] dicyclomine 20 mg tablet 08-23 00:00: 00 Yes [id number] 20mg Take 1 tablet by mouth 4 (four) times daily as needed for Abdominal pain. [facility] ondansetron 4 mg disintegrat ing tablet 08-23 00:00: 00 Yes [id number] 4mg Take 1 tablet by mouth every 8 (eight) hours as needed for Nausea and Vomiting (N/V). [facility] dicyclomine 20 mg tablet 08-23 00:00: 00 Yes [id number] 20mg Take 1 tablet by mouth 4 (four) times daily as needed for Abdominal pain. [facility] ondansetron 4 mg disintegrat ing tablet 08-23 00:00: 00 Yes [id number] 4mg Take 1 tablet by mouth every 8 (eight) hours as needed for Nausea and Vomiting (N/V). [facility] dicyclomine 20 mg tablet 08-23 00:00: 00 Yes [id number] 20mg Take 1 tablet by mouth 4 (four) times daily as needed for Abdominal pain. [facility] ondansetron 4 mg disintegrat ing tablet 08-23 00:00: 00 Yes [id number] 4mg Take 1 tablet by mouth every 8 (eight) hours as needed for Nausea and Vomiting (N/V). [facility] Dicyclomine HCl 20 MG oral Tablet 08-23 00:00: 00 07-14 00:00 :00 No 20mg Q.25D Take 1 tablet (20 mg total) by mouth 4 times daily as needed (IBS flare). [facility] gordillo dicyclomine 10 mg capsule 06-25 00:00: 00 Yes [id number] 10mg Take 1 capsule by mouth in the morning and 1 capsule at noon and 1 capsule in the evening. [facility] dicyclomine 10 mg capsule 06-25 00:00: 00 Yes [id number] 10mg Take 1 capsule by mouth in the morning and 1 capsule at noon and 1 capsule in the evening. [facility] dicyclomine 10 mg capsule 06-25 00:00: 00 Yes [id number] 10mg Take 1 capsule by mouth in the morning and 1 capsule at noon and 1 capsule in the evening. [facility] dicyclomine 10 mg capsule 06-25 00:00: 00 Yes [id number] 10mg Take 1 capsule by mouth in the morning and 1 capsule at noon and 1 capsule in the evening. [facility] cetirizine (ZYRTEC) 10 mg tablet 2021-06 00:00: 00 Yes [id number] 10mg Take 1 tablet by mouth in the morning. [facility] albuterol 90 mcg/actuati on inhaler 2021-06 00:00: 00 Yes [id number] 2{puff} Inhale 2 Puffs every 6 (six) hours as needed for Wheezing or Shortness of Breath. [facility] fluticasone propionate 110 mcg/actuati on inhaler 2021-06 00:00: 00 Yes [id number] 2{puff} Inhale 2 Puffs every 12 (twelve) hours. [facility] hydrOXYzine 50 mg tablet 2021-06 00:00: 00 Yes [id number] 50mg Take 1 tablet by mouth 3 (three) times daily as needed for Itching. [facility] cetirizine (ZYRTEC) 10 mg tablet 2021-06 00:00: 00 Yes [id number] 10mg Take 1 tablet by mouth in the morning. [facility] albuterol 90 mcg/actuati on inhaler 2021-06 00:00: 00 Yes [id number] 2{puff} Inhale 2 Puffs every 6 (six) hours as needed for Wheezing or Shortness of Breath. [facility] fluticasone propionate 110 mcg/actuati on inhaler 2021-06 00:00: 00 Yes [id number] 2{puff} Inhale 2 Puffs every 12 (twelve) hours. [facility] hydrOXYzine 50 mg tablet 2021-06 00:00: 00 Yes [id number] 50mg Take 1 tablet by mouth 3 (three) times daily as needed for Itching. [facility] cetirizine (ZYRTEC) 10 mg tablet 2021-06 00:00: 00 Yes [id number] 10mg Take 1 tablet by mouth in the morning. [facility] albuterol 90 mcg/actuati on inhaler 2021-06 00:00: 00 Yes [id number] 2{puff} Inhale 2 Puffs every 6 (six) hours as needed for Wheezing or Shortness of Breath. [facility] fluticasone propionate 110 mcg/actuati on inhaler 2021-06 00:00: 00 Yes [id number] 2{puff} Inhale 2 Puffs every 12 (twelve) hours. [facility] hydrOXYzine 50 mg tablet 2021-06 00:00: 00 Yes [id number] 50mg Take 1 tablet by mouth 3 (three) times daily as needed for Itching. [facility] cetirizine (ZYRTEC) 10 mg tablet 2021-06 00:00: 00 Yes [id number] 10mg Take 1 tablet by mouth in the morning. [facility] albuterol 90 mcg/actuati on inhaler 2021-06 00:00: 00 Yes [id number] 2{puff} Inhale 2 Puffs every 6 (six) hours as needed for Wheezing or Shortness of Breath. [facility] fluticasone propionate 110 mcg/actuati on inhaler 2021-06 00:00: 00 Yes [id number] 2{puff} Inhale 2 Puffs every 12 (twelve) hours. [facility] hydrOXYzine 50 mg tablet 2021-06 00:00: 00 Yes [id number] 50mg Take 1 tablet by mouth 3 (three) times daily as needed for Itching. [facility] cetirizine (ZYRTEC) 10 mg tablet 2021-06 00:00: 00 Yes [id number] 10mg Take 1 tablet by mouth in the morning. [facility] albuterol 90 mcg/actuati on inhaler 2021-06 00:00: 00 Yes [id number] 2{puff} Inhale 2 Puffs every 6 (six) hours as needed for Wheezing or Shortness of Breath. [facility] fluticasone propionate 110 mcg/actuati on inhaler 2021-06 00:00: 00 Yes [id number] 2{puff} Inhale 2 Puffs every 12 (twelve) hours. [facility] hydrOXYzine 50 mg tablet 2021-06 00:00: 00 Yes [id number] 50mg Take 1 tablet by mouth 3 (three) times daily as needed for Itching. [facility] cetirizine (ZYRTEC) 10 mg tablet 2021-06 00:00: 00 Yes [id number] 10mg Take 1 tablet by mouth in the morning. [facility] albuterol 90 mcg/actuati on inhaler 2021-06 00:00: 00 Yes [id number] 2{puff} Inhale 2 Puffs every 6 (six) hours as needed for Wheezing or Shortness of Breath. [facility] fluticasone propionate 110 mcg/actuati on inhaler 2021-06 00:00: 00 Yes [id number] 2{puff} Inhale 2 Puffs every 12 (twelve) hours. [facility] hydrOXYzine 50 mg tablet 2021-06 00:00: 00 Yes [id number] 50mg Take 1 tablet by mouth 3 (three) times daily as needed for Itching. [facility] cetirizine (ZYRTEC) 10 mg tablet 2021-06 00:00: 00 Yes [id number] 10mg Take 1 tablet by mouth in the morning. [facility] albuterol 90 mcg/actuati on inhaler 2021-06 00:00: 00 Yes [id number] 2{puff} Inhale 2 Puffs every 6 (six) hours as needed for Wheezing or Shortness of Breath. [facility] fluticasone propionate 110 mcg/actuati on inhaler 2021-06 00:00: 00 Yes [id number] 2{puff} Inhale 2 Puffs every 12 (twelve) hours. [facility] hydrOXYzine 50 mg tablet 2021-06 00:00: 00 Yes [id number] 50mg Take 1 tablet by mouth 3 (three) times daily as needed for Itching. [facility] cetirizine (ZYRTEC) 10 mg tablet 2021-06 00:00: 00 Yes [id number] 10mg Take 1 tablet by mouth in the morning. [facility] albuterol 90 mcg/actuati on inhaler 2021-06 00:00: 00 Yes [id number] 2{puff} Inhale 2 Puffs every 6 (six) hours as needed for Wheezing or Shortness of Breath. [facility] fluticasone propionate 110 mcg/actuati on inhaler 2021-06 00:00: 00 Yes [id number] 2{puff} Inhale 2 Puffs every 12 (twelve) hours. [facility] hydrOXYzine 50 mg tablet 2021-06 00:00: 00 Yes [id number] 50mg Take 1 tablet by mouth 3 (three) times daily as needed for Itching. [facility] amoxicillin -clavulanat e (AUGMENTIN) 875-125 mg per tablet 1 tablet 2021-06 02:45: 00 05-18 02:13 :00 No 1{tbl} 1 tablet, Oral, ONCE NOW, 1 dose, On Fri05/17/22 at 2045, Routine
Reason for Anti-Infec tive: Empiric Non-Surgic al Prophylaxi s
Durat ion of therapy: 72 hours [facility] ibuprofen (IBU) tablet 800 mg 2021-06 02:00: 00 05-18 02:13 :00 No 800mg 800 mg, Oral, ONCE, 1 dose, On Fri05/17/22 at 2000, CATHERINE [facility] amoxicillin -clavulanat e 875-125 mg per tablet 2021-06 00:00: 00 Yes [id number] 1{tbl} Take 1 tablet by mouth every 12 (twelve) hours. [facility] ibuprofen 800 mg tablet 2021-06 00:00: 00 Yes [id number] 800mg Take 1 tablet by mouth every 8 (eight) hours as needed for Pain (scale 4-6). [facility] amoxicillin -clavulanat e 875-125 mg per tablet 2021-06 00:00: 00 Yes [id number] 1{tbl} Take 1 tablet by mouth every 12 (twelve) hours. [facility] ibuprofen 800 mg tablet 2021-06 00:00: 00 Yes [id number] 800mg Take 1 tablet by mouth every 8 (eight) hours as needed for Pain (scale 4-6). [facility] ibuprofen 800 mg tablet 2021-06 00:00: 00 Yes [id number] 800mg Take 1 tablet by mouth every 8 (eight) hours as needed for Pain (scale 4-6). [facility] ibuprofen 800 mg tablet 2021-06 00:00: 00 Yes [id number] 800mg Take 1 tablet by mouth every 8 (eight) hours as needed for Pain (scale 4-6). [facility] ibuprofen 800 mg tablet 2022-1 2-16 00:00: 00 Yes [id number] 800mg Take 1 tablet by mouth every 8 (eight) hours as needed for Pain (scale 4-6). [facility] ibuprofen 800 mg tablet 2021-0616 00:00: 00 Yes [id number] 800mg Take 1 tablet by mouth every 8 (eight) hours as needed for Pain (scale 4-6). [facility] ibuprofen 800 mg tablet 2021-06 00:00: 00 Yes [id number] 800mg Take 1 tablet by mouth every 8 (eight) hours as needed for Pain (scale 4-6). [facility] ibuprofen 800 mg tablet 2021-06 00:00: 00 Yes [id number] 800mg Take 1 tablet by mouth every 8 (eight) hours as needed for Pain (scale 4-6). [facility] ibuprofen 800 mg tablet 2021-06 00:00: 00 Yes [id number] 800mg Take 1 tablet by mouth every 8 (eight) hours as needed for Pain (scale 4-6). [facility] ibuprofen 800 mg tablet 2021-06 00:00: 00 Yes [id number] 800mg Take 1 tablet by mouth every 8 (eight) hours as needed for Pain (scale 4-6). [facility] amoxicillin -clavulanat e 875-125 mg per tablet 2021-06 00:00: 00 05-30 00:00 :00 No [id number] 1{tbl} Take 1 tablet by mouth every 12 (twelve) hours. [facility] amoxicillin -clavulanat e 875-125 mg per tablet 2021-06 00:00: 00 05-30 00:00 :00 No [id number] 1{tbl} Take 1 tablet by mouth every 12 (twelve) hours. [facility] fluticasone propionate 110 mcg/actuati on inhaler 02-28 00:00: 00 Yes [id number] 2{puff} Inhale 2 Puffs every 12 (twelve) hours. [facility] dicyclomine 10 mg capsule 02-28 00:00: 00 Yes [id number] 10mg Take 1 capsule by mouth 3 (three) times daily. [facility] albuterol 90 mcg/actuati on inhaler 02-28 00:00: 00 Yes [id number] 2{puff} Inhale 2 Puffs every 6 (six) hours as needed for Wheezing or Shortness of Breath. [facility] cetirizine (ZYRTEC) 10 mg tablet 02-28 00:00: 00 Yes [id number] 10mg Take 1 tablet by mouth daily. [facility] fluticasone propionate 110 mcg/actuati on inhaler 02-28 00:00: 00 Yes [id number] 2{puff} Inhale 2 Puffs every 12 (twelve) hours. [facility] dicyclomine 10 mg capsule 02-28 00:00: 00 Yes [id number] 10mg Take 1 capsule by mouth 3 (three) times daily. [facility] albuterol 90 mcg/actuati on inhaler 02-28 00:00: 00 Yes [id number] 2{puff} Inhale 2 Puffs every 6 (six) hours as needed for Wheezing or Shortness of Breath. [facility] cetirizine (ZYRTEC) 10 mg tablet 02-28 00:00: 00 Yes [id number] 10mg Take 1 tablet by mouth daily. [facility] fluticasone propionate 110 mcg/actuati on inhaler 02-28 00:00: 00 Yes [id number] 2{puff} Inhale 2 Puffs every 12 (twelve) hours. [facility] dicyclomine 10 mg capsule 02-28 00:00: 00 Yes [id number] 10mg Take 1 capsule by mouth 3 (three) times daily. [facility] albuterol 90 mcg/actuati on inhaler 02-28 00:00: 00 Yes [id number] 2{puff} Inhale 2 Puffs every 6 (six) hours as needed for Wheezing or Shortness of Breath. [facility] cetirizine (ZYRTEC) 10 mg tablet 02-28 00:00: 00 Yes [id number] 10mg Take 1 tablet by mouth daily. [facility] fluticasone propionate 110 mcg/actuati on inhaler 02-28 00:00: 00 Yes [id number] 2{puff} Inhale 2 Puffs every 12 (twelve) hours. [facility] dicyclomine 10 mg capsule 02-28 00:00: 00 Yes [id number] 10mg Take 1 capsule by mouth 3 (three) times daily. [facility] albuterol 90 mcg/actuati on inhaler 02-28 00:00: 00 Yes [id number] 2{puff} Inhale 2 Puffs every 6 (six) hours as needed for Wheezing or Shortness of Breath. [facility] cetirizine (ZYRTEC) 10 mg tablet 02-28 00:00: 00 Yes [id number] 10mg Take 1 tablet by mouth daily. [facility] dicyclomine 10 mg capsule 02-28 00:00: 00 Yes [id number] 10mg Take 1 capsule by mouth 3 (three) times daily. [facility] dicyclomine 10 mg capsule 02-28 00:00: 00 Yes [id number] 10mg Take 1 capsule by mouth 3 (three) times daily. [facility] dicyclomine 10 mg capsule 02-28 00:00: 00 Yes [id number] 10mg Take 1 capsule by mouth 3 (three) times daily. [facility] dicyclomine 10 mg capsule 02-28 00:00: 00 Yes [id number] 10mg Take 1 capsule by mouth 3 (three) times daily. [facility] dicyclomine 10 mg capsule 02-28 00:00: 00 06-25 00:00 :00 No [id number] 10mg Take 1 capsule by mouth 3 (three) times daily. [facility] fluticasone propionate 110 mcg/actuati on inhaler 02-28 00:00: 05-30 00:00 :00 No [id number] 2{puff} Inhale 2 Puffs every 12 (twelve) hours. [facility] albuterol 90 mcg/actuati on inhaler 02-28 00:00: 00 05-30 00:00 :00 No [id number] 2{puff} Inhale 2 Puffs every 6 (six) hours as needed for Wheezing or Shortness of Breath. [facility] cetirizine (ZYRTEC) 10 mg tablet 02-28 00:00: 00 05-30 00:00 :00 No [id number] 10mg Take 1 tablet by mouth daily. [facility] fluticasone propionate 110 mcg/actuati on inhaler 02-28 00:00: 00 05-30 00:00 :00 No [id number] 2{puff} Inhale 2 Puffs every 12 (twelve) hours. [facility] albuterol 90 mcg/actuati on inhaler 02-28 00:00: 00 05-30 00:00 :00 No [id number] 2{puff} Inhale 2 Puffs every 6 (six) hours as needed for Wheezing or Shortness of Breath. [facility] cetirizine (ZYRTEC) 10 mg tablet 02-28 00:00: 00 05-30 00:00 :00 No [id number] 10mg Take 1 tablet by mouth daily. [facility] polyethylen e glycol 3350 (MIRALAX) 17 gram/dose powder 02-06 00:00: 00 Yes [id number] Give 1-2 capfuls once to twice daily with 8-16 oz of water to produce soft BM [facility] polyethylen e glycol 3350 (MIRALAX) 17 gram/dose powder 02-06 00:00: 00 Yes [id number] Give 1-2 capfuls once to twice daily with 8-16 oz of water to produce soft BM [facility] polyethylen e glycol 3350 (MIRALAX) 17 gram/dose powder 02-06 00:00: 00 Yes [id number] Give 1-2 capfuls once to twice daily with 8-16 oz of water to produce soft BM [facility] polyethylen e glycol 3350 (MIRALAX) 17 gram/dose powder 02-06 00:00: 00 Yes [id number] Give 1-2 capfuls once to twice daily with 8-16 oz of water to produce soft BM [facility] polyethylen e glycol 3350 (MIRALAX) 17 gram/dose powder 02-06 00:00: 00 Yes [id number] Give 1-2 capfuls once to twice daily with 8-16 oz of water to produce soft BM [facility] [facility] polyethylen e glycol 3350 (MIRALAX) 17 gram/dose powder 02-06 00:00: 00 Yes [id number] Give 1-2 capfuls once to twice daily with 8-16 oz of water to produce soft BM [facility] polyethylen e glycol 3350 (MIRALAX) 17 gram/dose powder 02-06 00:00: 00 Yes [id number] Give 1-2 capfuls once to twice daily with 8-16 oz of water to produce soft BM [facility] polyethylen e glycol 3350 (MIRALAX) 17 gram/dose powder 02-06 00:00: 00 Yes [id number] Give 1-2 capfuls once to twice daily with 8-16 oz of water to produce soft BM [facility] polyethylen e glycol 3350 (MIRALAX) 17 gram/dose powder 02-06 00:00: 00 Yes [id number] Give 1-2 capfuls once to twice daily with 8-16 oz of water to produce soft BM [facility] polyethylen e glycol 3350 (MIRALAX) 17 gram/dose powder 02-06 00:00: 00 Yes [id number] Give 1-2 capfuls once to twice daily with 8-16 oz of water to produce soft BM [facility] polyethylen e glycol 3350 (MIRALAX) 17 gram/dose powder 02-06 00:00: 00 Yes [id number] Give 1-2 capfuls once to twice daily with 8-16 oz of water to produce soft BM [facility] polyethylen e glycol 3350 (MIRALAX) 17 gram/dose powder 02-06 00:00: 00 Yes [id number] Give 1-2 capfuls once to twice daily with 8-16 oz of water to produce soft BM [facility] fluticasone propionate 110 mcg/actuati on inhaler 02-06 00:00: 00 02-28 00:00 :00 No [id number] 2{puff} Inhale 2 Puffs every 12 (twelve) hours. [facility] dicyclomine 10 mg capsule 02-06 00:00: 00 02-28 00:00 :00 No [id number] 10mg Take 1 capsule by mouth 3 (three) times daily. [facility] cetirizine (ZYRTEC) 10 mg tablet 02-06 00:00: 00 02-28 00:00 :00 No [id number] 10mg Take 1 tablet by mouth daily. [facility] albuterol 90 mcg/actuati on inhaler 02-06 00:00: 00 02-28 00:00 :00 No [id number] 2{puff} Inhale 2 Puffs every 6 (six) hours as needed for Wheezing or Shortness of Breath. [facility] fluticasone propionate 110 mcg/actuati on inhaler 02-06 00:00: 00 02-28 00:00 :00 No [id number] 2{puff} Inhale 2 Puffs every 12 (twelve) hours. [facility] dicyclomine 10 mg capsule 02-06 00:00: 00 02-28 00:00 :00 No [id number] 10mg Take 1 capsule by mouth 3 (three) times daily. [facility] cetirizine (ZYRTEC) 10 mg tablet 02-06 00:00: 00 02-28 00:00 :00 No [id number] 10mg Take 1 tablet by mouth daily. [facility] albuterol 90 mcg/actuati on inhaler 02-06 00:00: 00 02-28 00:00 :00 No [id number] 2{puff} Inhale 2 Puffs every 6 (six) hours as needed for Wheezing or Shortness of Breath. [facility] bisacodyL (DULCOLAX, BISACODYL,) 5 mg EC tablet 12-21 00:00: 00 Yes [id number] Take 1-2 tabs once to twice daily for constipati on [facility] bisacodyL (DULCOLAX, BISACODYL,) 5 mg EC tablet 12-21 00:00: 00 Yes [id number] Take 1-2 tabs once to twice daily for constipati on [facility] bisacodyL (DULCOLAX, BISACODYL,) 5 mg EC tablet 12-21 00:00: 00 Yes [id number] Take 1-2 tabs once to twice daily for constipati on [facility] bisacodyL (DULCOLAX, BISACODYL,) 5 mg EC tablet 12-21 00:00: 00 Yes [id number] Take 1-2 tabs once to twice daily for constipati on [facility] bisacodyL (DULCOLAX, BISACODYL,) 5 mg EC tablet 12-21 00:00: 00 Yes [id number] Take 1-2 tabs once to twice daily for constipati on [facility] bisacodyL (DULCOLAX, BISACODYL,) 5 mg EC tablet 12-21 00:00: 00 Yes [id number] Take 1-2 tabs once to twice daily for constipati on [facility] bisacodyL (DULCOLAX, BISACODYL,) 5 mg EC tablet 12-21 00:00: 00 Yes [id number] Take 1-2 tabs once to twice daily for constipati on [facility] bisacodyL (DULCOLAX, BISACODYL,) 5 mg EC tablet 12-21 00:00: 00 Yes [id number] Take 1-2 tabs once to twice daily for constipati on [facility] bisacodyL (DULCOLAX, BISACODYL,) 5 mg EC tablet 12-21 00:00: 00 Yes [id number] Take 1-2 tabs once to twice daily for constipati on [facility] bisacodyL (DULCOLAX, BISACODYL,) 5 mg EC tablet 12-21 00:00: 00 Yes [id number] Take 1-2 tabs once to twice daily for constipati on [facility] bisacodyL (DULCOLAX, BISACODYL,) 5 mg EC tablet 12-21 00:00: 00 Yes [id number] Take 1-2 tabs once to twice daily for constipati on [facility] bisacodyL (DULCOLAX, BISACODYL,) 5 mg EC tablet 12-21 00:00: 00 Yes [id number] Take 1-2 tabs once to twice daily for constipati on [facility] bisacodyL (DULCOLAX, BISACODYL,) 5 mg EC tablet 12-21 00:00: 00 Yes [id number] Take 1-2 tabs once to twice daily for constipati on [facility] Immunizations Ordered Immunization Name Filled Immunization Name Date Status Comments Source Td 2022-05-17 00:00:00 Completed [facility] TD, NOS 2022-05-17 00:00:00 Completed [facility] TD, NOS 2022-05-17 00:00:00 Completed [facility] TD, NOS 2022-05-17 00:00:00 Completed [facility] TD, NOS 2022-05-17 00:00:00 Completed [facility] TD, NOS 2022-05-17 00:00:00 Completed [facility] TD, NOS 2022-05-17 00:00:00 Completed [facility] TD, NOS 2022-05-17 00:00:00 Completed [facility] TD, NOS 2022-05-17 00:00:00 Completed [facility] TD, NOS 2022-05-17 00:00:00 Completed [facility] Influenza Virus Vaccine Quad .5 mL IM 6+ MO 2018-03-16 00:00:00 Completed [facility] Influenza Virus Vaccine 2018-03-16 00:00:00 Completed [facility] Influenza Virus Vaccine Quad .5 mL IM 6+ MO 2018-03-16 00:00:00 Completed [facility] Influenza Virus Vaccine 2018-03-16 00:00:00 Completed [facility] Influenza Virus Vaccine Quad .5 mL IM 6+ MO 2018-03-16 00:00:00 Completed [facility] Influenza Virus Vaccine 2018-03-16 00:00:00 Completed [facility] Influenza Virus Vaccine Quad .5 mL IM 6+ MO 2018-03-16 00:00:00 Completed [facility] Influenza Virus Vaccine 2018-03-16 00:00:00 Completed [facility] Influenza Virus Vaccine Quad .5 mL IM 6+ MO 2018-03-16 00:00:00 Completed [facility] Influenza Virus Vaccine 2018-03-16 00:00:00 Completed [facility] Influenza Virus Vaccine Quad .5 mL IM 6+ MO 2018-03-16 00:00:00 Completed [facility] Influenza Virus Vaccine 2018-03-16 00:00:00 Completed [facility] Influenza Virus Vaccine Quad .5 mL IM 6+ MO 2018-03-16 00:00:00 Completed [facility] Influenza Virus Vaccine 2018-03-16 00:00:00 Completed [facility] Influenza Virus Vaccine Quad .5 mL IM 6+ MO 2018-03-16 00:00:00 Completed [facility] Influenza Virus Vaccine 2018-03-16 00:00:00 Completed [facility] Influenza Virus Vaccine Quad .5 mL IM 6+ MO 2018-03-16 00:00:00 Completed [facility] Influenza Virus Vaccine 2018-03-16 00:00:00 Completed [facility] Influenza Virus Vaccine Quad .5 mL IM 6+ MO 2018-03-16 00:00:00 Completed [facility] Influenza Virus Vaccine 2018-03-16 00:00:00 Completed [facility] Influenza Virus Vaccine Quad .5 mL IM 6+ MO 2018-03-16 00:00:00 Completed [facility] Influenza Virus Vaccine 2018-03-16 00:00:00 Completed [facility] Influenza Virus Vaccine Quad .5 mL IM 6+ MO 2018-03-16 00:00:00 Completed [facility] Influenza Virus Vaccine 2018-03-16 00:00:00 Completed [facility] HPV9 2017-11-03 00:00:00 Completed [facility] HPV9 2017-11-03 00:00:00 Completed [facility] HPV9 2017-11-03 00:00:00 Completed [facility] HPV9 2017-11-03 00:00:00 Completed [facility] HPV9 2017-11-03 00:00:00 Completed [facility] HPV9 2017-11-03 00:00:00 Completed [facility] HPV9 2017-11-03 00:00:00 Completed [facility] HPV9 2017-11-03 00:00:00 Completed [facility] HPV9 2017-11-03 00:00:00 Completed [facility] HPV9 2017-11-03 00:00:00 Completed [facility] HPV9 2017-11-03 00:00:00 Completed [facility] HPV9 2017-11-03 00:00:00 Completed [facility] HPV 2017-01-16 00:00:00 Completed [facility] HPV 2017-01-16 00:00:00 Completed [facility] HPV 2017-01-16 00:00:00 Completed [facility] HPV 2017-01-16 00:00:00 Completed [facility] HPV 2017-01-16 00:00:00 Completed [facility] HPV9 2017-01-16 00:00:00 Completed [facility] HPV 2017-01-16 00:00:00 Completed [facility] HPV9 2017-01-16 00:00:00 Completed [facility] HPV 2017-01-16 00:00:00 Completed [facility] HPV9 2017-01-16 00:00:00 Completed [facility] HPV 2017-01-16 00:00:00 Completed [facility] HPV9 2017-01-16 00:00:00 Completed [facility] HPV 2017-01-16 00:00:00 Completed [facility] HPV9 2017-01-16 00:00:00 Completed [facility] HPV 2017-01-16 00:00:00 Completed [facility] HPV9 2017-01-16 00:00:00 Completed [facility] HPV 2017-01-16 00:00:00 Completed [facility] HPV9 2017-01-16 00:00:00 Completed [facility] HPV 2017-01-16 00:00:00 Completed [facility] HPV9 2017-01-16 00:00:00 Completed [facility] Meningococcal Vaccine 2015-01-16 00:00:00 Completed [facility] Meningococcal Vaccine 2015-01-16 00:00:00 Completed [facility] Meningococcal Vaccine 2015-01-16 00:00:00 Completed [facility] Meningococcal Vaccine 2015-01-16 00:00:00 Completed [facility] Meningococcal Vaccine 2015-01-16 00:00:00 Completed [facility] Meningococcal Polysaccharide (groups A, C, Y and W-135) conjugate vaccine (MCV4P) 2015-01-16 00:00:00 Completed [facility] Meningococcal Vaccine 2015-01-16 00:00:00 Completed [facility] Meningococcal Polysaccharide (groups A, C, Y and W-135) conjugate vaccine (MCV4P) 2015-01-16 00:00:00 Completed [facility] Meningococcal Vaccine 2015-01-16 00:00:00 Completed [facility] Meningococcal Polysaccharide (groups A, C, Y and W-135) conjugate vaccine (MCV4P) 2015-01-16 00:00:00 Completed [facility] Meningococcal Vaccine 2015-01-16 00:00:00 Completed [facility] Meningococcal Polysaccharide (groups A, C, Y and W-135) conjugate vaccine (MCV4P) 2015-01-16 00:00:00 Completed [facility] Meningococcal Vaccine 2015-01-16 00:00:00 Completed [facility] Meningococcal Polysaccharide (groups A, C, Y and W-135) conjugate vaccine (MCV4P) 2015-01-16 00:00:00 Completed [facility] Meningococcal Vaccine 2015-01-16 00:00:00 Completed [facility] Meningococcal Polysaccharide (groups A, C, Y and W-135) conjugate vaccine (MCV4P) 2015-01-16 00:00:00 Completed [facility] Meningococcal Vaccine 2015-01-16 00:00:00 Completed [facility] Meningococcal Polysaccharide (groups A, C, Y and W-135) conjugate vaccine (MCV4P) 2015-01-16 00:00:00 Completed [facility] Meningococcal Vaccine 2015-01-16 00:00:00 Completed [facility] Meningococcal Polysaccharide (groups A, C, Y and W-135) conjugate vaccine (MCV4P) 2015-01-16 00:00:00 Completed [facility] TDAP (ADACEL) VACCINE 2014-06-08 00:00:00 Completed [facility] TDAP (ADACEL) VACCINE 2014-06-08 00:00:00 Completed [facility] TDAP (ADACEL) VACCINE 2014-06-08 00:00:00 Completed [facility] TDAP (ADACEL) VACCINE 2014-06-08 00:00:00 Completed [facility] TDAP (ADACEL) VACCINE 2014-06-08 00:00:00 Completed [facility] TDAP (ADACEL) VACCINE 2014-06-08 00:00:00 Completed [facility] TDAP (ADACEL) VACCINE 2014-06-08 00:00:00 Completed [facility] TDAP (ADACEL) VACCINE 2014-06-08 00:00:00 Completed [facility] TDAP (ADACEL) VACCINE 2014-06-08 00:00:00 Completed [facility] TDAP (ADACEL) VACCINE 2014-06-08 00:00:00 Completed [facility] TDAP (ADACEL) VACCINE 2014-06-08 00:00:00 Completed [facility] TDAP (ADACEL) VACCINE 2014-06-08 00:00:00 Completed [facility] Influenza Virus Vaccine 2013-03-31 00:00:00 Completed [facility] Influenza Virus Vaccine 2013-03-31 00:00:00 Completed [facility] Influenza Virus Vaccine 2013-03-31 00:00:00 Completed [facility] Influenza Virus Vaccine 2013-03-31 00:00:00 Completed [facility] Influenza Virus Vaccine 2013-03-31 00:00:00 Completed [facility] Influenza Virus Vaccine Quad .5 mL IM 6+ MO 2013-03-31 00:00:00 Completed [facility] Influenza Virus Vaccine 2013-03-31 00:00:00 Completed [facility] Influenza Virus Vaccine Quad .5 mL IM 6+ MO 2013-03-31 00:00:00 Completed [facility] Influenza Virus Vaccine 2013-03-31 00:00:00 Completed [facility] Influenza Virus Vaccine Quad .5 mL IM 6+ MO 2013-03-31 00:00:00 Completed [facility] Influenza Virus Vaccine 2013-03-31 00:00:00 Completed [facility] Influenza Virus Vaccine Quad .5 mL IM 6+ MO 2013-03-31 00:00:00 Completed [facility] Influenza Virus Vaccine 2013-03-31 00:00:00 Completed [facility] Influenza Virus Vaccine Quad .5 mL IM 6+ MO 2013-03-31 00:00:00 Completed [facility] Influenza Virus Vaccine 2013-03-31 00:00:00 Completed [facility] Influenza Virus Vaccine Quad .5 mL IM 6+ MO 2013-03-31 00:00:00 Completed [facility] Influenza Virus Vaccine 2013-03-31 00:00:00 Completed [facility] Influenza Virus Vaccine Quad .5 mL IM 6+ MO 2013-03-31 00:00:00 Completed [facility] Influenza Virus Vaccine 2013-03-31 00:00:00 Completed [facility] Influenza Virus Vaccine Quad .5 mL IM 6+ MO 2013-03-31 00:00:00 Completed [facility] Influenza Virus Vaccine 2012-05-04 00:00:00 Completed [facility] Influenza Virus Vaccine 2012-05-04 00:00:00 Completed [facility] Influenza Virus Vaccine 2012-05-04 00:00:00 Completed [facility] Influenza Virus Vaccine 2012-05-04 00:00:00 Completed [facility] Influenza Virus Vaccine 2012-05-04 00:00:00 Completed [facility] Influenza Virus Vaccine - Whole 2012-05-04 00:00:00 Completed [facility] Influenza Virus Vaccine 2012-05-04 00:00:00 Completed [facility] Influenza Virus Vaccine - Whole 2012-05-04 00:00:00 Completed [facility] Influenza Virus Vaccine 2012-05-04 00:00:00 Completed [facility] Influenza Virus Vaccine - Whole 2012-05-04 00:00:00 Completed [facility] Influenza Virus Vaccine 2012-05-04 00:00:00 Completed [facility] Influenza Virus Vaccine - Whole 2012-05-04 00:00:00 Completed [facility] Influenza Virus Vaccine 2012-05-04 00:00:00 Completed [facility] Influenza Virus Vaccine - Whole 2012-05-04 00:00:00 Completed [facility] Influenza Virus Vaccine 2012-05-04 00:00:00 Completed [facility] Influenza Virus Vaccine - Whole 2012-05-04 00:00:00 Completed [facility] Influenza Virus Vaccine 2012-05-04 00:00:00 Completed [facility] Influenza Virus Vaccine - Whole 2012-05-04 00:00:00 Completed [facility] Influenza Virus Vaccine 2012-05-04 00:00:00 Completed [facility] Influenza Virus Vaccine - Whole 2012-05-04 00:00:00 Completed [facility] Influenza Virus Vaccine 2008-03-16 00:00:00 Completed [facility] Influenza Virus Vaccine 2008-03-16 00:00:00 Completed [facility] Influenza Virus Vaccine 2008-03-16 00:00:00 Completed [facility] Influenza Virus Vaccine 2008-03-16 00:00:00 Completed [facility] Influenza Virus Vaccine 2008-03-16 00:00:00 Completed [facility] Influenza Virus Vaccine - Whole 2008-03-16 00:00:00 Completed [facility] Influenza Virus Vaccine 2008-03-16 00:00:00 Completed [facility] Influenza Virus Vaccine - Whole 2008-03-16 00:00:00 Completed [facility] Influenza Virus Vaccine 2008-03-16 00:00:00 Completed [facility] Influenza Virus Vaccine - Whole 2008-03-16 00:00:00 Completed [facility] Influenza Virus Vaccine 2008-03-16 00:00:00 Completed [facility] Influenza Virus Vaccine - Whole 2008-03-16 00:00:00 Completed [facility] Influenza Virus Vaccine 2008-03-16 00:00:00 Completed [facility] Influenza Virus Vaccine - Whole 2008-03-16 00:00:00 Completed [facility] Influenza Virus Vaccine 2008-03-16 00:00:00 Completed [facility] Influenza Virus Vaccine - Whole 2008-03-16 00:00:00 Completed [facility] Influenza Virus Vaccine 2008-03-16 00:00:00 Completed [facility] Influenza Virus Vaccine - Whole 2008-03-16 00:00:00 Completed [facility] Influenza Virus Vaccine 2008-03-16 00:00:00 Completed [facility] Influenza Virus Vaccine - Whole 2008-03-16 00:00:00 Completed [facility] DTAP 2006-09-22 00:00:00 Completed [facility] MMR 2006-09-22 00:00:00 Completed [facility] Polio (IPV/OPV) 2006-09-22 00:00:00 Completed [facility] Varicella (varivax)(chicken pox) 2006-09-22 00:00:00 Completed [facility] DTAP 2006-09-22 00:00:00 Completed [facility] MMR 2006-09-22 00:00:00 Completed [facility] Polio (IPV/OPV) 2006-09-22 00:00:00 Completed [facility] Varicella (varivax)(chicken pox) 2006-09-22 00:00:00 Completed [facility] DTAP 2006-09-22 00:00:00 Completed [facility] MMR 2006-09-22 00:00:00 Completed [facility] Polio (IPV/OPV) 2006-09-22 00:00:00 Completed [facility] Varicella (varivax)(chicken pox) 2006-09-22 00:00:00 Completed [facility] DTAP 2006-09-22 00:00:00 Completed [facility] MMR 2006-09-22 00:00:00 Completed [facility] Polio (IPV/OPV) 2006-09-22 00:00:00 Completed [facility] Varicella (varivax)(chicken pox) 2006-09-22 00:00:00 Completed [facility] DTAP 2006-09-22 00:00:00 Completed [facility] MMR 2006-09-22 00:00:00 Completed [facility] Polio (IPV/OPV) 2006-09-22 00:00:00 Completed [facility] Varicella (varivax)(chicken pox) 2006-09-22 00:00:00 Completed [facility] DTaP, Unspecified Formulation 2006-09-22 00:00:00 Completed [facility] Proquad (MMR/VARICELLA) 2006-09-22 00:00:00 Completed [facility] IPV 2006-09-22 00:00:00 Completed [facility] DTAP 2006-09-22 00:00:00 Completed [facility] MMR 2006-09-22 00:00:00 Completed [facility] Polio (IPV/OPV) 2006-09-22 00:00:00 Completed [facility] Varicella (varivax)(chicken pox) 2006-09-22 00:00:00 Completed [facility] DTaP, Unspecified Formulation 2006-09-22 00:00:00 Completed [facility] Proquad (MMR/VARICELLA) 2006-09-22 00:00:00 Completed [facility] IPV 2006-09-22 00:00:00 Completed [facility] DTAP 2006-09-22 00:00:00 Completed [facility] MMR 2006-09-22 00:00:00 Completed [facility] Polio (IPV/OPV) 2006-09-22 00:00:00 Completed [facility] Varicella (varivax)(chicken pox) 2006-09-22 00:00:00 Completed [facility] DTaP, Unspecified Formulation 2006-09-22 00:00:00 Completed [facility] Proquad (MMR/VARICELLA) 2006-09-22 00:00:00 Completed [facility] IPV 2006-09-22 00:00:00 Completed [facility] DTAP 2006-09-22 00:00:00 Completed [facility] MMR 2006-09-22 00:00:00 Completed [facility] Polio (IPV/OPV) 2006-09-22 00:00:00 Completed [facility] Varicella (varivax)(chicken pox) 2006-09-22 00:00:00 Completed [facility] DTaP, Unspecified Formulation 2006-09-22 00:00:00 Completed [facility] Proquad (MMR/VARICELLA) 2006-09-22 00:00:00 Completed [facility] IPV 2006-09-22 00:00:00 Completed [facility] DTAP 2006-09-22 00:00:00 Completed [facility] MMR 2006-09-22 00:00:00 Completed [facility] Polio (IPV/OPV) 2006-09-22 00:00:00 Completed [facility] Varicella (varivax)(chicken pox) 2006-09-22 00:00:00 Completed [facility] DTaP, Unspecified Formulation 2006-09-22 00:00:00 Completed [facility] Proquad (MMR/VARICELLA) 2006-09-22 00:00:00 Completed [facility] IPV 2006-09-22 00:00:00 Completed [facility] DTAP 2006-09-22 00:00:00 Completed [facility] MMR 2006-09-22 00:00:00 Completed [facility] Polio (IPV/OPV) 2006-09-22 00:00:00 Completed [facility] Varicella (varivax)(chicken pox) 2006-09-22 00:00:00 Completed [facility] DTaP, Unspecified Formulation 2006-09-22 00:00:00 Completed [facility] Proquad (MMR/VARICELLA) 2006-09-22 00:00:00 Completed [facility] IPV 2006-09-22 00:00:00 Completed [facility] DTAP 2006-09-22 00:00:00 Completed [facility] MMR 2006-09-22 00:00:00 Completed [facility] Polio (IPV/OPV) 2006-09-22 00:00:00 Completed [facility] Varicella (varivax)(chicken pox) 2006-09-22 00:00:00 Completed [facility] DTaP, Unspecified Formulation 2006-09-22 00:00:00 Completed [facility] Proquad (MMR/VARICELLA) 2006-09-22 00:00:00 Completed [facility] IPV 2006-09-22 00:00:00 Completed [facility] DTAP 2006-09-22 00:00:00 Completed [facility] MMR 2006-09-22 00:00:00 Completed [facility] Polio (IPV/OPV) 2006-09-22 00:00:00 Completed [facility] Varicella (varivax)(chicken pox) 2006-09-22 00:00:00 Completed [facility] DTaP, Unspecified Formulation 2006-09-22 00:00:00 Completed [facility] Proquad (MMR/VARICELLA) 2006-09-22 00:00:00 Completed [facility] IPV 2006-09-22 00:00:00 Completed [facility] HEPATITIS A 2005-01-28 00:00:00 Completed [facility] HEPATITIS A 2005-01-28 00:00:00 Completed [facility] HEPATITIS A 2005-01-28 00:00:00 Completed [facility] HEPATITIS A 2005-01-28 00:00:00 Completed [facility] HEPATITIS A 2005-01-28 00:00:00 Completed [facility] HEPATITIS A 2005-01-28 00:00:00 Completed [facility] HEPATITIS A 2005-01-28 00:00:00 Completed [facility] HEPATITIS A 2005-01-28 00:00:00 Completed [facility] HEPATITIS A 2005-01-28 00:00:00 Completed [facility] HEPATITIS A 2005-01-28 00:00:00 Completed [facility] HEPATITIS A 2005-01-28 00:00:00 Completed [facility] HEPATITIS A 2005-01-28 00:00:00 Completed [facility] DTAP 2004-03-05 00:00:00 Completed [facility] HIB 4 Dose Schedule 2004-03-05 00:00:00 Completed [facility] Polio (IPV/OPV) 2004-03-05 00:00:00 Completed [facility] DTAP 2004-03-05 00:00:00 Completed [facility] HIB 4 Dose Schedule 2004-03-05 00:00:00 Completed [facility] Polio (IPV/OPV) 2004-03-05 00:00:00 Completed [facility] DTAP 2004-03-05 00:00:00 Completed [facility] HIB 4 Dose Schedule 2004-03-05 00:00:00 Completed [facility] Polio (IPV/OPV) 2004-03-05 00:00:00 Completed [facility] DTAP 2004-03-05 00:00:00 Completed [facility] HIB 4 Dose Schedule 2004-03-05 00:00:00 Completed [facility] Polio (IPV/OPV) 2004-03-05 00:00:00 Completed [facility] DTAP 2004-03-05 00:00:00 Completed [facility] HIB 4 Dose Schedule 2004-03-05 00:00:00 Completed [facility] Polio (IPV/OPV) 2004-03-05 00:00:00 Completed [facility] DTaP, Unspecified Formulation 2004-03-05 00:00:00 Completed [facility] IPV 2004-03-05 00:00:00 Completed [facility] DTAP 2004-03-05 00:00:00 Completed [facility] HIB 4 Dose Schedule 2004-03-05 00:00:00 Completed [facility] Polio (IPV/OPV) 2004-03-05 00:00:00 Completed [facility] DTaP, Unspecified Formulation 2004-03-05 00:00:00 Completed [facility] IPV 2004-03-05 00:00:00 Completed [facility] DTAP 2004-03-05 00:00:00 Completed [facility] HIB 4 Dose Schedule 2004-03-05 00:00:00 Completed [facility] Polio (IPV/OPV) 2004-03-05 00:00:00 Completed [facility] DTaP, Unspecified Formulation 2004-03-05 00:00:00 Completed [facility] IPV 2004-03-05 00:00:00 Completed [facility] DTAP 2004-03-05 00:00:00 Completed [facility] HIB 4 Dose Schedule 2004-03-05 00:00:00 Completed [facility] Polio (IPV/OPV) 2004-03-05 00:00:00 Completed [facility] DTaP, Unspecified Formulation 2004-03-05 00:00:00 Completed [facility] IPV 2004-03-05 00:00:00 Completed [facility] DTAP 2004-03-05 00:00:00 Completed [facility] HIB 4 Dose Schedule 2004-03-05 00:00:00 Completed [facility] Polio (IPV/OPV) 2004-03-05 00:00:00 Completed [facility] DTaP, Unspecified Formulation 2004-03-05 00:00:00 Completed [facility] IPV 2004-03-05 00:00:00 Completed [facility] DTAP 2004-03-05 00:00:00 Completed [facility] HIB 4 Dose Schedule 2004-03-05 00:00:00 Completed [facility] Polio (IPV/OPV) 2004-03-05 00:00:00 Completed [facility] DTaP, Unspecified Formulation 2004-03-05 00:00:00 Completed [facility] IPV 2004-03-05 00:00:00 Completed [facility] DTAP 2004-03-05 00:00:00 Completed [facility] HIB 4 Dose Schedule 2004-03-05 00:00:00 Completed [facility] Polio (IPV/OPV) 2004-03-05 00:00:00 Completed [facility] DTaP, Unspecified Formulation 2004-03-05 00:00:00 Completed [facility] IPV 2004-03-05 00:00:00 Completed [facility] DTAP 2004-03-05 00:00:00 Completed [facility] HIB 4 Dose Schedule 2004-03-05 00:00:00 Completed [facility] Polio (IPV/OPV) 2004-03-05 00:00:00 Completed [facility] DTaP, Unspecified Formulation 2004-03-05 00:00:00 Completed [facility] IPV 2004-03-05 00:00:00 Completed [facility] Influenza Virus Vaccine 2003-05-04 00:00:00 Completed [facility] Influenza Virus Vaccine 2003-05-04 00:00:00 Completed [facility] Influenza Virus Vaccine 2003-05-04 00:00:00 Completed [facility] Influenza Virus Vaccine 2003-05-04 00:00:00 Completed [facility] Influenza Virus Vaccine 2003-05-04 00:00:00 Completed [facility] Influenza Virus Vaccine - Whole 2003-05-04 00:00:00 Completed [facility] Influenza Virus Vaccine 2003-05-04 00:00:00 Completed [facility] Influenza Virus Vaccine - Whole 2003-05-04 00:00:00 Completed [facility] Influenza Virus Vaccine 2003-05-04 00:00:00 Completed [facility] Influenza Virus Vaccine - Whole 2003-05-04 00:00:00 Completed [facility] Influenza Virus Vaccine 2003-05-04 00:00:00 Completed [facility] Influenza Virus Vaccine - Whole 2003-05-04 00:00:00 Completed [facility] Influenza Virus Vaccine 2003-05-04 00:00:00 Completed [facility] Influenza Virus Vaccine - Whole 2003-05-04 00:00:00 Completed [facility] Influenza Virus Vaccine 2003-05-04 00:00:00 Completed [facility] Influenza Virus Vaccine - Whole 2003-05-04 00:00:00 Completed [facility] Influenza Virus Vaccine 2003-05-04 00:00:00 Completed [facility] Influenza Virus Vaccine - Whole 2003-05-04 00:00:00 Completed [facility] Influenza Virus Vaccine 2003-05-04 00:00:00 Completed [facility] Influenza Virus Vaccine - Whole 2003-05-04 00:00:00 Completed [facility] Influenza Virus Vaccine 2003-04-07 00:00:00 Completed [facility] MMR 2003-04-07 00:00:00 Completed [facility] Varicella (varivax)(chicken pox) 2003-04-07 00:00:00 Completed [facility] Influenza Virus Vaccine 2003-04-07 00:00:00 Completed [facility] MMR 2003-04-07 00:00:00 Completed [facility] Varicella (varivax)(chicken pox) 2003-04-07 00:00:00 Completed [facility] Influenza Virus Vaccine 2003-04-07 00:00:00 Completed [facility] MMR 2003-04-07 00:00:00 Completed [facility] Varicella (varivax)(chicken pox) 2003-04-07 00:00:00 Completed [facility] Influenza Virus Vaccine 2003-04-07 00:00:00 Completed [facility] MMR 2003-04-07 00:00:00 Completed [facility] Varicella (varivax)(chicken pox) 2003-04-07 00:00:00 Completed [facility] Influenza Virus Vaccine 2003-04-07 00:00:00 Completed [facility] MMR 2003-04-07 00:00:00 Completed [facility] Varicella (varivax)(chicken pox) 2003-04-07 00:00:00 Completed [facility] Flu Trivalent 2003-04-07 00:00:00 Completed [facility] Pneumococcal 7 Conjugate, PCV7 (Prevnar7) 2003-04-07 00:00:00 Completed [facility] Influenza Virus Vaccine 2003-04-07 00:00:00 Completed [facility] MMR 2003-04-07 00:00:00 Completed [facility] Varicella (varivax)(chicken pox) 2003-04-07 00:00:00 Completed [facility] Flu Trivalent 2003-04-07 00:00:00 Completed [facility] Pneumococcal 7 Conjugate, PCV7 (Prevnar7) 2003-04-07 00:00:00 Completed [facility] Influenza Virus Vaccine 2003-04-07 00:00:00 Completed [facility] MMR 2003-04-07 00:00:00 Completed [facility] Varicella (varivax)(chicken pox) 2003-04-07 00:00:00 Completed [facility] Flu Trivalent 2003-04-07 00:00:00 Completed [facility] Pneumococcal 7 Conjugate, PCV7 (Prevnar7) 2003-04-07 00:00:00 Completed [facility] Influenza Virus Vaccine 2003-04-07 00:00:00 Completed [facility] MMR 2003-04-07 00:00:00 Completed [facility] Varicella (varivax)(chicken pox) 2003-04-07 00:00:00 Completed [facility] Flu Trivalent 2003-04-07 00:00:00 Completed [facility] Pneumococcal 7 Conjugate, PCV7 (Prevnar7) 2003-04-07 00:00:00 Completed [facility] Influenza Virus Vaccine 2003-04-07 00:00:00 Completed [facility] MMR 2003-04-07 00:00:00 Completed [facility] Varicella (varivax)(chicken pox) 2003-04-07 00:00:00 Completed [facility] Flu Trivalent 2003-04-07 00:00:00 Completed [facility] Pneumococcal 7 Conjugate, PCV7 (Prevnar7) 2003-04-07 00:00:00 Completed [facility] Influenza Virus Vaccine 2003-04-07 00:00:00 Completed [facility] MMR 2003-04-07 00:00:00 Completed [facility] Varicella (varivax)(chicken pox) 2003-04-07 00:00:00 Completed [facility] Flu Trivalent 2003-04-07 00:00:00 Completed [facility] Pneumococcal 7 Conjugate, PCV7 (Prevnar7) 2003-04-07 00:00:00 Completed [facility] Influenza Virus Vaccine 2003-04-07 00:00:00 Completed [facility] MMR 2003-04-07 00:00:00 Completed [facility] Varicella (varivax)(chicken pox) 2003-04-07 00:00:00 Completed [facility] Flu Trivalent 2003-04-07 00:00:00 Completed [facility] Pneumococcal 7 Conjugate, PCV7 (Prevnar7) 2003-04-07 00:00:00 Completed [facility] Influenza Virus Vaccine 2003-04-07 00:00:00 Completed [facility] MMR 2003-04-07 00:00:00 Completed [facility] Varicella (varivax)(chicken pox) 2003-04-07 00:00:00 Completed [facility] Flu Trivalent 2003-04-07 00:00:00 Completed [facility] Pneumococcal 7 Conjugate, PCV7 (Prevnar7) 2003-04-07 00:00:00 Completed [facility] DTAP 2002 00:00:00 Completed [facility] HIB 4 Dose Schedule 2002 00:00:00 Completed [facility] Hep B, Adol or Pedi Dosage 2002 00:00:00 Completed [facility] DTAP 2002 00:00:00 Completed [facility] HIB 4 Dose Schedule 2002 00:00:00 Completed [facility] Hep B, Adol or Pedi Dosage 2002 00:00:00 Completed [facility] DTAP 2002 00:00:00 Completed [facility] HIB 4 Dose Schedule 2002 00:00:00 Completed [facility] Hep B, Adol or Pedi Dosage 2002 00:00:00 Completed [facility] DTAP 2002 00:00:00 Completed [facility] HIB 4 Dose Schedule 2002 00:00:00 Completed [facility] Hep B, Adol or Pedi Dosage 2002 00:00:00 Completed [facility] DTAP 2002 00:00:00 Completed [facility] HIB 4 Dose Schedule 2002 00:00:00 Completed [facility] Hep B, Adol or Pedi Dosage 2002 00:00:00 Completed [facility] DTaP, Unspecified Formulation 2002 00:00:00 Completed [facility] Hib-HbOC 2002 00:00:00 Completed [facility] Pneumococcal 7 Conjugate, PCV7 (Prevnar7) 2002 00:00:00 Completed [facility] DTAP 2002 00:00:00 Completed [facility] HIB 4 Dose Schedule 2002 00:00:00 Completed [facility] Hep B, Adol or Pedi Dosage 2002 00:00:00 Completed [facility] DTaP, Unspecified Formulation 2002 00:00:00 Completed [facility] Hib-HbOC 2002 00:00:00 Completed [facility] Pneumococcal 7 Conjugate, PCV7 (Prevnar7) 2002 00:00:00 Completed [facility] DTAP 2002 00:00:00 Completed [facility] HIB 4 Dose Schedule 2002 00:00:00 Completed [facility] Hep B, Adol or Pedi Dosage 2002 00:00:00 Completed [facility] DTaP, Unspecified Formulation 2002 00:00:00 Completed [facility] Hib-HbOC 2002 00:00:00 Completed [facility] Pneumococcal 7 Conjugate, PCV7 (Prevnar7) 2002 00:00:00 Completed [facility] DTAP 2002 00:00:00 Completed [facility] HIB 4 Dose Schedule 2002 00:00:00 Completed [facility] Hep B, Adol or Pedi Dosage 2002 00:00:00 Completed [facility] DTaP, Unspecified Formulation 2002 00:00:00 Completed [facility] Hib-HbOC 2002 00:00:00 Completed [facility] Pneumococcal 7 Conjugate, PCV7 (Prevnar7) 2002 00:00:00 Completed [facility] DTAP 2002 00:00:00 Completed [facility] HIB 4 Dose Schedule 2002 00:00:00 Completed [facility] Hep B, Adol or Pedi Dosage 2002 00:00:00 Completed [facility] DTaP, Unspecified Formulation 2002 00:00:00 Completed [facility] Hib-HbOC 2002 00:00:00 Completed [facility] Pneumococcal 7 Conjugate, PCV7 (Prevnar7) 2002 00:00:00 Completed [facility] DTAP 2002 00:00:00 Completed [facility] HIB 4 Dose Schedule 2002 00:00:00 Completed [facility] Hep B, Adol or Pedi Dosage 2002 00:00:00 Completed [facility] DTaP, Unspecified Formulation 2002 00:00:00 Completed [facility] Hib-HbOC 2002 00:00:00 Completed [facility] Pneumococcal 7 Conjugate, PCV7 (Prevnar7) 2002 00:00:00 Completed [facility] DTAP 2002 00:00:00 Completed [facility] HIB 4 Dose Schedule 2002 00:00:00 Completed [facility] Hep B, Adol or Pedi Dosage 2002 00:00:00 Completed [facility] DTaP, Unspecified Formulation 2002 00:00:00 Completed [facility] Hib-HbOC 2002 00:00:00 Completed [facility] Pneumococcal 7 Conjugate, PCV7 (Prevnar7) 2002 00:00:00 Completed [facility] DTAP 2002 00:00:00 Completed [facility] HIB 4 Dose Schedule 2002 00:00:00 Completed [facility] Hep B, Adol or Pedi Dosage 2002 00:00:00 Completed [facility] DTaP, Unspecified Formulation 2002 00:00:00 Completed [facility] Hib-HbOC 2002 00:00:00 Completed [facility] Pneumococcal 7 Conjugate, PCV7 (Prevnar7) 2002 00:00:00 Completed [facility] DTAP 2002 00:00:00 Completed [facility] HIB 4 Dose Schedule 2002 00:00:00 Completed [facility] Polio (IPV/OPV) 2002 00:00:00 Completed [facility] DTAP 2002 00:00:00 Completed [facility] HIB 4 Dose Schedule 2002 00:00:00 Completed [facility] Polio (IPV/OPV) 2002 00:00:00 Completed [facility] DTAP 2002 00:00:00 Completed [facility] HIB 4 Dose Schedule 2002 00:00:00 Completed [facility] Polio (IPV/OPV) 2002 00:00:00 Completed [facility] DTAP 2002 00:00:00 Completed [facility] HIB 4 Dose Schedule 2002 00:00:00 Completed [facility] Polio (IPV/OPV) 2002 00:00:00 Completed [facility] DTaP, Unspecified Formulation 2002 00:00:00 Completed [facility] Hib-HbOC 2002 00:00:00 Completed [facility] Pneumococcal 7 Conjugate, PCV7 (Prevnar7) 2002 00:00:00 Completed [facility] IPV 2002 00:00:00 Completed [facility] DTAP 2002 00:00:00 Completed [facility] HIB 4 Dose Schedule 2002 00:00:00 Completed [facility] Polio (IPV/OPV) 2002 00:00:00 Completed [facility] DTaP, Unspecified Formulation 2002 00:00:00 Completed [facility] Hib-HbOC 2002 00:00:00 Completed [facility] Pneumococcal 7 Conjugate, PCV7 (Prevnar7) 2002 00:00:00 Completed [facility] IPV 2002 00:00:00 Completed [facility] DTAP 2002 00:00:00 Completed [facility] HIB 4 Dose Schedule 2002 00:00:00 Completed [facility] Polio (IPV/OPV) 2002 00:00:00 Completed [facility] DTaP, Unspecified Formulation 2002 00:00:00 Completed [facility] Hib-HbOC 2002 00:00:00 Completed [facility] Pneumococcal 7 Conjugate, PCV7 (Prevnar7) 2002 00:00:00 Completed [facility] IPV 2002 00:00:00 Completed [facility] DTAP 2002 00:00:00 Completed [facility] HIB 4 Dose Schedule 2002 00:00:00 Completed [facility] Polio (IPV/OPV) 2002 00:00:00 Completed [facility] DTaP, Unspecified Formulation 2002 00:00:00 Completed [facility] Hib-HbOC 2002 00:00:00 Completed [facility] Pneumococcal 7 Conjugate, PCV7 (Prevnar7) 2002 00:00:00 Completed [facility] IPV 2002 00:00:00 Completed [facility] DTAP 2002 00:00:00 Completed [facility] HIB 4 Dose Schedule 2002 00:00:00 Completed [facility] Polio (IPV/OPV) 2002 00:00:00 Completed [facility] DTaP, Unspecified Formulation 2002 00:00:00 Completed [facility] Hib-HbOC 2002 00:00:00 Completed [facility] Pneumococcal 7 Conjugate, PCV7 (Prevnar7) 2002 00:00:00 Completed [facility] IPV 2002 00:00:00 Completed [facility] DTAP 2002 00:00:00 Completed [facility] HIB 4 Dose Schedule 2002 00:00:00 Completed [facility] Polio (IPV/OPV) 2002 00:00:00 Completed [facility] DTaP, Unspecified Formulation 2002 00:00:00 Completed [facility] Hib-HbOC 2002 00:00:00 Completed [facility] Pneumococcal 7 Conjugate, PCV7 (Prevnar7) 2002 00:00:00 Completed [facility] IPV 2002 00:00:00 Completed [facility] DTAP 2002 00:00:00 Completed [facility] HIB 4 Dose Schedule 2002 00:00:00 Completed [facility] Polio (IPV/OPV) 2002 00:00:00 Completed [facility] DTaP, Unspecified Formulation 2002 00:00:00 Completed [facility] Hib-HbOC 2002 00:00:00 Completed [facility] Pneumococcal 7 Conjugate, PCV7 (Prevnar7) 2002 00:00:00 Completed [facility] IPV 2002 00:00:00 Completed [facility] DTAP 2002 00:00:00 Completed [facility] HIB 4 Dose Schedule 2002 00:00:00 Completed [facility] Polio (IPV/OPV) 2002 00:00:00 Completed [facility] DTaP, Unspecified Formulation 2002 00:00:00 Completed [facility] Hib-HbOC 2002 00:00:00 Completed [facility] Pneumococcal 7 Conjugate, PCV7 (Prevnar7) 2002 00:00:00 Completed [facility] IPV 2002 00:00:00 Completed [facility] DTAP 2002 00:00:00 Completed [facility] HIB 4 Dose Schedule 2002 00:00:00 Completed [facility] Polio (IPV/OPV) 2002 00:00:00 Completed [facility] DTAP 2002 00:00:00 Completed [facility] HIB 4 Dose Schedule 2002 00:00:00 Completed [facility] Hep B, Adol or Pedi Dosage 2002 00:00:00 Completed [facility] Polio (IPV/OPV) 2002 00:00:00 Completed [facility] DTAP 2002 00:00:00 Completed [facility] HIB 4 Dose Schedule 2002 00:00:00 Completed [facility] Hep B, Adol or Pedi Dosage 2002 00:00:00 Completed [facility] Polio (IPV/OPV) 2002 00:00:00 Completed [facility] DTAP 2002 00:00:00 Completed [facility] HIB 4 Dose Schedule 2002 00:00:00 Completed [facility] Hep B, Adol or Pedi Dosage 2002 00:00:00 Completed [facility] Polio (IPV/OPV) 2002 00:00:00 Completed [facility] DTAP 2002 00:00:00 Completed [facility] HIB 4 Dose Schedule 2002 00:00:00 Completed [facility] Hep B, Adol or Pedi Dosage 2002 00:00:00 Completed [facility] Polio (IPV/OPV) 2002 00:00:00 Completed [facility] DTAP 2002 00:00:00 Completed [facility] HIB 4 Dose Schedule 2002 00:00:00 Completed [facility] Hep B, Adol or Pedi Dosage 2002 00:00:00 Completed [facility] Polio (IPV/OPV) 2002 00:00:00 Completed [facility] DTaP, Unspecified Formulation 2002 00:00:00 Completed [facility] Hib-HbOC 2002 00:00:00 Completed [facility] Pneumococcal 7 Conjugate, PCV7 (Prevnar7) 2002 00:00:00 Completed [facility] IPV 2002 00:00:00 Completed [facility] DTAP 2002 00:00:00 Completed [facility] HIB 4 Dose Schedule 2002 00:00:00 Completed [facility] Hep B, Adol or Pedi Dosage 2002 00:00:00 Completed [facility] Polio (IPV/OPV) 2002 00:00:00 Completed [facility] DTaP, Unspecified Formulation 2002 00:00:00 Completed [facility] Hib-HbOC 2002 00:00:00 Completed [facility] Pneumococcal 7 Conjugate, PCV7 (Prevnar7) 2002 00:00:00 Completed [facility] IPV 2002 00:00:00 Completed [facility] DTAP 2002 00:00:00 Completed [facility] HIB 4 Dose Schedule 2002 00:00:00 Completed [facility] Hep B, Adol or Pedi Dosage 2002 00:00:00 Completed [facility] Polio (IPV/OPV) 2002 00:00:00 Completed [facility] DTaP, Unspecified Formulation 2002 00:00:00 Completed [facility] Hib-HbOC 2002 00:00:00 Completed [facility] Pneumococcal 7 Conjugate, PCV7 (Prevnar7) 2002 00:00:00 Completed [facility] IPV 2002 00:00:00 Completed [facility] DTAP 2002 00:00:00 Completed [facility] HIB 4 Dose Schedule 2002 00:00:00 Completed [facility] Hep B, Adol or Pedi Dosage 2002 00:00:00 Completed [facility] Polio (IPV/OPV) 2002 00:00:00 Completed [facility] DTaP, Unspecified Formulation 2002 00:00:00 Completed [facility] Hib-HbOC 2002 00:00:00 Completed [facility] Pneumococcal 7 Conjugate, PCV7 (Prevnar7) 2002 00:00:00 Completed [facility] IPV 2002 00:00:00 Completed [facility] DTAP 2002 00:00:00 Completed [facility] HIB 4 Dose Schedule 2002 00:00:00 Completed [facility] Hep B, Adol or Pedi Dosage 2002 00:00:00 Completed [facility] Polio (IPV/OPV) 2002 00:00:00 Completed [facility] DTaP, Unspecified Formulation 2002 00:00:00 Completed [facility] Hib-HbOC 2002 00:00:00 Completed [facility] Pneumococcal 7 Conjugate, PCV7 (Prevnar7) 2002 00:00:00 Completed [facility] IPV 2002 00:00:00 Completed [facility] DTAP 2002 00:00:00 Completed [facility] HIB 4 Dose Schedule 2002 00:00:00 Completed [facility] Hep B, Adol or Pedi Dosage 2002 00:00:00 Completed [facility] Polio (IPV/OPV) 2002 00:00:00 Completed [facility] DTaP, Unspecified Formulation 2002 00:00:00 Completed [facility] Hib-HbOC 2002 00:00:00 Completed [facility] Pneumococcal 7 Conjugate, PCV7 (Prevnar7) 2002 00:00:00 Completed [facility] IPV 2002 00:00:00 Completed [facility] DTAP 2002 00:00:00 Completed [facility] HIB 4 Dose Schedule 2002 00:00:00 Completed [facility] Hep B, Adol or Pedi Dosage 2002 00:00:00 Completed [facility] Polio (IPV/OPV) 2002 00:00:00 Completed [facility] DTaP, Unspecified Formulation 2002 00:00:00 Completed [facility] Hib-HbOC 2002 00:00:00 Completed [facility] Pneumococcal 7 Conjugate, PCV7 (Prevnar7) 2002 00:00:00 Completed [facility] IPV 2002 00:00:00 Completed [facility] DTAP 2002 00:00:00 Completed [facility] HIB 4 Dose Schedule 2002 00:00:00 Completed [facility] Hep B, Adol or Pedi Dosage 2002 00:00:00 Completed [facility] Polio (IPV/OPV) 2002 00:00:00 Completed [facility] DTaP, Unspecified Formulation 2002 00:00:00 Completed [facility] Hib-HbOC 2002 00:00:00 Completed [facility] Pneumococcal 7 Conjugate, PCV7 (Prevnar7) 2002 00:00:00 Completed [facility] IPV 2002 00:00:00 Completed [facility] Hep B, Adol or Pedi Dosage 2002 00:00:00 Completed [facility] Hep B, Adol or Pedi Dosage 2002 00:00:00 Completed [facility] Hep B, Adol or Pedi Dosage 2002 00:00:00 Completed [facility] Hep B, Adol or Pedi Dosage 2002 00:00:00 Completed [facility] Hep B, Adol or Pedi Dosage 2002 00:00:00 Completed [facility] Hep B, Adol or Pedi Dosage 2002 00:00:00 Completed [facility] Hep B, Adol or Pedi Dosage 2002 00:00:00 Completed [facility] Hep B, Adol or Pedi Dosage 2002 00:00:00 Completed [facility] Hep B, Adol or Pedi Dosage 2002 00:00:00 Completed [facility] Hep B, Adol or Pedi Dosage 2002 00:00:00 Completed [facility] Hep B, Adol or Pedi Dosage 2002 00:00:00 Completed [facility] Hep B, Adol or Pedi Dosage 2002 00:00:00 Completed [facility] Polio Vaccine Unknown Completed [facility] Collinsold - External Polio Vaccine Unknown Completed Glen[facility] Collinsold - External MMR/Varicella (ProQuad) Unknown Completed Glenis Ferraraybold - External Tdap- (Boostrix, Adacel) Unknown Completed Glen[facility] Tucker - External Varicella Vaccine Unknown Completed Jovanny newberryey Seybold - External Varicella Vaccine Unknown Completed Jovanny lsey Seybold - External Hepatitis B, Adolescent Or Pediatric Unknown Completed Glenis Seybold - External Hepatitis B, Adolescent Or Pediatric Unknown Completed Glenis Seybold - External Hepatitis B, Adolescent Or Pediatric Unknown Completed Glenis Ferraraybold - External HEPATITIS A- PEDI/ADOL Unknown Completed [facility] Ferraraybold - External Tetanus Toxoid/HIB Unknown Completed Samir elsey Seybold - External Tetanus Toxoid/HIB Unknown Completed Samir hui Seybold - External Tetanus Toxoid/HIB Unknown Completed Samir hui Seybold - External HPV9 Unknown Completed [facility] Influenza Virus Vaccine Quad .5 mL IM 6+ MO (FLUZONE/FLULAVAL/FL UARIX) Unknown Completed [facility] DTAP Unknown Completed [facility] HPV Unknown Completed [facility] TDAP (ADACEL) VACCINE Unknown Completed [facility] DTAP Unknown Completed [facility] DTAP Unknown Completed [facility] DTAP Unknown Completed [facility] DTAP Unknown Completed [facility] HIB 4 Dose Schedule Unknown Completed [facility] HIB 4 Dose Schedule Unknown Completed [facility] HIB 4 Dose Schedule Unknown Completed [facility] HIB 4 Dose Schedule Unknown Completed [facility] HEPATITIS A Unknown Completed [facility] Hep B, Adol or Pedi Dosage Unknown Completed [facility] Hep B, Adol or Pedi Dosage Unknown Completed [facility] Hep B, Adol or Pedi Dosage Unknown Completed [facility] Influenza Virus Vaccine Unknown Completed [facility] Influenza Virus Vaccine Unknown Completed [facility] Influenza Virus Vaccine Unknown Completed [facility] Influenza Virus Vaccine Unknown Completed [facility] Influenza Virus Vaccine Unknown Completed [facility] Influenza Virus Vaccine Unknown Completed [facility] Meningococcal Vaccine Unknown Completed [facility] MMR Unknown Completed [facility] MMR Unknown Completed [facility] Polio (IPV/OPV) Unknown [facility]V) [facility] (IPV/OPV) Unknown [facility] (IPV/OPV) Unknown [facility] Varicella (varivax)(chicken pox) Unknown Completed [facility] Varicella (varivax)(chicken pox) Unknown Completed [facility] DTaP, Unspecified Formulation Unknown Completed [facility] DTaP, Unspecified Formulation Unknown Completed [facility] DTaP, Unspecified Formulation Unknown Completed [facility] DTaP, Unspecified Formulation Unknown Completed [facility] DTaP, Unspecified Formulation Unknown Completed [facility] Influenza Virus Vaccine Quad .5 mL IM 6+ MO (FLUZONE/FLULAVAL/FL UARIX) Unknown Completed [facility] Flu Trivalent Unknown Completed [facility] Influenza Virus Vaccine - Whole Unknown Completed [facility] Influenza Virus Vaccine - Whole Unknown Completed [facility] Influenza Virus Vaccine - Whole Unknown Completed [facility] Hib-HbOC Unknown Completed [facility] Hib-HbOC Unknown Completed [facility] Hib-HbOC Unknown Completed [facility] HPV9 Unknown Completed [facility] Meningococcal Polysaccharide (groups A, C, Y and W-135) conjugate vaccine (MCV4P) Unknown Completed [facility] Proquad (MMR/VARICELLA) Unknown Completed [facility] Pneumococcal 7 Conjugate, PCV7 (Prevnar7) Unknown Completed [facility] Pneumococcal 7 Conjugate, PCV7 (Prevnar7) Unknown Completed [facility] Pneumococcal 7 Conjugate, PCV7 (Prevnar7) Unknown Completed [facility] Pneumococcal 7 Conjugate, PCV7 (Prevnar7) Unknown Completed [facility] IPV Unknown Completed [facility] IPV Unknown Completed [facility] IPV Unknown Completed [facility] IPV Unknown Completed [facility] Tetanus Toxoid/HIB Unknown Completed Samir hui Seybold - External DTaP Unknown Completed Gleins Ferraray bold - External DTaP Unknown Completed Glenis Ferraray bold - External DTaP Unknown Completed Glenis Ferraray bold - External DTaP Unknown Completed Glenis Sey bold - External DTaP Unknown Completed Glenis Ferraray bold - External DTaP,5 pertussis antigens- Diphtheria,Tetanus& Acellular Pertussis (age < 7 years) Unknown Completed Glenis Ferraraybo ld - External DTaP,5 pertussis antigens- Diphtheria,Tetanus& Acellular Pertussis (age < 7 years) Unknown Completed Glenis Ferraraybo ld - External DTaP,5 pertussis antigens- Diphtheria,Tetanus& Acellular Pertussis (age < 7 years) Unknown Completed Glenis Ferraraybo ld - External DTaP,5 pertussis antigens- Diphtheria,Tetanus& Acellular Pertussis (age < 7 years) Unknown Completed Glenis Seybo ld - External DTaP,5 pertussis antigens- Diphtheria,Tetanus& Acellular Pertussis (age < 7 years) Unknown Completed Glenis Collinso ld - External Influenza Virus Vaccine, No Preserv, age 6 months and up Unknown Completed Glenis S eybold - External Influenza Virus Vaccine, No Preserv, age 6 months and up Unknown Completed Glenis S eybold - External Influenza Virus Vaccine, No Preserv, age 6 months and up Unknown Completed Glenis S eybold - External HIB- Haemophilus Influenzae Type B Unknown Completed Glenis Shook bold - External HIB- Haemophilus Influenzae Type B Unknown Completed Glenis Ferraray bold - External HIB- Haemophilus Influenzae Type B Unknown Completed Glenis Ferraray bold - External Td (adult) Unknown Completed Glenis Se ybold - External HPV 4 (Human Papillomavirus) Unknown Completed Glenis Seybo ld - External HPV 9 (Human Papillomavirus) Unknown Completed Glenis Seybo ld - External HPV 9 (Human Papillomavirus) Unknown Completed Glenis Seybo ld - External Influenza Virus Vaccine, Unspecified Formulation Unknown Completed Glenis Seybold - External Influenza Virus Vaccine, Unspecified Formulation Unknown Completed Glenis Seybold - External Influenza Virus Vaccine, Unspecified Formulation Unknown Completed Glenis Seybold - External Influenza Virus Vaccine, Unspecified Formulation Unknown Completed Glenis Seybold - External Influenza Virus Vaccine, Unspecified Formulation Unknown Completed Glenis Seybold - External Influenza Virus Vaccine, Unspecified Formulation Unknown Completed Glenis Seybold - External Influenza, Seasonal, Injectable Unknown Completed Glenis Seybold - External Influenza, Seasonal, Injectable Unknown Completed Glenis Seybold - External Influenza, Seasonal, Injectable Unknown Completed Glenis Seybold - External IPV- Inactivated Polio Vaccine Unknown Completed Glenis Seybold - External IPV- Inactivated Polio Vaccine Unknown Completed Glenis Seybold - External IPV- Inactivated Polio Vaccine Unknown Completed Glenis Seybold - External IPV- Inactivated Polio Vaccine Unknown Completed Glenis Seybold - External Meningococcal Vaccine- Conjugate(Menactra) Unknown Completed Glenis Gregg eybold - External Meningococcal Vaccine Polysaccharide Unknown Completed Glenis Collinsol d - External MMR- Measles, Mumps, Rubella Unknown Completed Glenis Seybold - External MMR- Measles, Mumps, Rubella Unknown Completed Glenis Seybold - External Pneumococcal Vaccine, Conjugate 7 Unknown Completed Glenis Seybold - External Pneumococcal Vaccine, Conjugate 7 Unknown Completed Glenis Seybold - External Pneumococcal Vaccine, Conjugate 7 Unknown Completed Glenis Seybold - External Pneumococcal Vaccine, Conjugate 7 Unknown Completed Glenis Seybold - External Polio Vaccine Unknown Completed Glenis Seybold - External Polio Vaccine Unknown Completed Glenis Seybold - External Vital Signs Vital Name Observation Time Observation Value Comments S ource Systolic blood pressure 2023-07-25 16:21:00 112 mm[Hg] Glenis Collinso ld - External Diastolic blood pressure 2023-07-25 16:21:00 52 mm[Hg] Glenis Collinso ld - External Heart rate 2023-07-25 16:21:00 95 /min Fox y ybold - External Body temperature 2023-07-25 16:21:00 36.33 Gladis Glenis Ferraraybold - External Respiratory rate 2023-07-25 16:21:00 14 /min Glenis Ferraraybold - External Body height 2023-07-25 16:21:00 185.4 cm [place] man Seybold - External Body weight 2023-07-25 16:21:00 82.555 kg [place] ey Seybold - External BMI 2023-07-25 16:21:00 24.01 kg/m2 [place] ey Seybold - External Systolic blood pressure 2023-01-24 00:57:00 142 mm[Hg] [facility] Diastolic blood pressure 2023-01-24 00:57:00 80 mm[Hg] [facility] Heart rate 2023-01-24 00:57:00 87 /min [facility] Body temperature 2023-01-24 00:57:00 37.72 Gladis [facility] Respiratory rate 2023-01-24 00:57:00 16 /min [facility] Body height 2023-01-24 00:57:00 185.4 cm [facility] Body weight 2023-01-24 00:57:00 80.287 kg [facility] BMI 2023-01-24 00:57:00 23.35 kg/m2 [facility] Oxygen saturation in Arterial blood by Pulse oximetry 2023-01-24 00:57:00 100 /min [facility] Systolic blood pressure 2022-11-22 19:01:00 129 mm[Hg] [facility] Diastolic blood pressure 2022-11-22 19:01:00 77 mm[Hg] [facility] Heart rate 2022-11-22 19:01:00 57 /min [facility] Body temperature 2022-11-22 19:01:00 36.78 Gladis [facility] Respiratory rate 2022-11-22 19:01:00 20 /min [facility] Body height 2022-11-22 19:01:00 182.9 cm [facility] Body weight 2022-11-22 19:01:00 80.151 kg [facility] BMI 2022-11-22 19:01:00 23.96 kg/m2 [facility] Oxygen saturation in Arterial blood by Pulse oximetry 2022-11-22 19:01:00 100 /min [facility] Systolic blood pressure 2022-08-24 01:00:00 117 mm[Hg] [facility] Diastolic blood pressure 2022-08-24 01:00:00 69 mm[Hg] [facility] Heart rate 2022-08-24 01:00:00 58 /min [facility] Respiratory rate 2022-08-24 01:00:00 18 /min [facility] Oxygen saturation in Arterial blood by Pulse oximetry 2022-08-24 01:00:00 100 /min [facility] Body temperature 2022-08-23 22:09:00 37.22 Gladis [facility] Body height 2022-08-23 22:09:00 182.9 cm [facility] Body weight 2022-08-23 22:09:00 83.915 kg [facility] BMI 2022-08-23 22:09:00 25.09 kg/m2 [facility] Systolic blood pressure 2022-05-30 19:05:00 115 mm[Hg] [facility] Diastolic blood pressure 2022-05-30 19:05:00 68 mm[Hg] [facility] Heart rate 2022-05-30 19:05:00 64 /min [facility] Body height 2022-05-30 19:05:00 185.4 cm [facility] Body weight 2022-05-30 19:05:00 85.866 kg [facility] BMI 2022-05-30 19:05:00 24.98 kg/m2 [facility] Oxygen saturation in Arterial blood by Pulse oximetry 2022-05-30 19:05:00 99 /min [facility] Systolic blood pressure 2022-05-18 00:43:00 142 mm[Hg] [facility] Diastolic blood pressure 2022-05-18 00:43:00 84 mm[Hg] [facility] Heart rate 2022-05-18 00:43:00 71 /min [facility] Body temperature 2022-05-18 00:43:00 37.39 Gladis [facility] Respiratory rate 2022-05-18 00:43:00 16 /min [facility] Body height 2022-05-18 00:43:00 185.4 cm [facility] Body weight 2022-05-18 00:43:00 86.183 kg [facility] BMI 2022-05-18 00:43:00 25.07 kg/m2 [facility] Oxygen saturation in Arterial blood by Pulse oximetry 2022-05-18 00:43:00 96 /min [facility] Systolic blood pressure 2021-02-28 18:32:00 111 mm[Hg] [facility] Diastolic blood pressure 2021-02-28 18:32:00 71 mm[Hg] [facility] Heart rate 2021-02-28 18:32:00 61 /min [facility] Body temperature 2021-02-28 18:32:00 36.33 Gladis [facility] Respiratory rate 2021-02-28 18:32:00 17 /min [facility] Body weight 2021-02-28 18:32:00 107.502 kg [facility] Oxygen saturation in Arterial blood by Pulse oximetry 2021-02-28 18:32:00 99 /min [facility] Procedures Procedure Date / Time Performed Performing Clinicia n Source LS RAPID STREP ASSAY-LAB TEST 2023-07-25 17:06:00 Migdalia Strong - External NOTICE OF PRIVACY PRACTICES 2023-01-24 00:53:33 Doctor Unassigned, [place] [facility] CONSENT/REFUSAL FOR DIAGNOSIS AND TREATMENT 2023-01-24 00:52:38 Doctor Unassigned, [place] [facility] CONSENT/REFUSAL FOR DIAGNOSIS AND TREATMENT 2022-11-22 18:48:45 Doctor Unassigned, [place] [facility] CT ABDOMEN PELVIS W CONTRAST 2022-08-23 23:34:41 Tali Hamilton [facility] LIPASE 2022-08-23 23:04:00 Tali Hamilton [facility] COMP. METABOLIC PANEL ([id number]) 2022-08-23 23:04:00 Tali Hamilton [facility] CBC WITH DIFF 2022-08-23 23:04:00 Tali Hamilton [facility] CONSENT/REFUSAL FOR DIAGNOSIS AND TREATMENT 2022-08-23 22:05:15 Doctor Unassigned, [place] [facility] US ABDOMEN LIMITED 2022-06-10 19:33:16 Gale Winchester [facility] ASSIGNMENT OF BENEFITS 2022-05-30 18:53:18 Docto r Unassigned, [place] [facility] XR ANKLE 3+ VW LEFT 2022-05-18 02:08:06 Ricardo Monreal [facility] NOTICE OF PRIVACY PRACTICES 2022-05-18 00:23:38 Doctor Unassigned, [place] [facility] CONSENT/REFUSAL FOR DIAGNOSIS AND TREATMENT 2022-05-18 00:23:11 Doctor Unassigned, [place] [facility] Encounters Start Date/Time End Date/Time Encounter Type Admission Type Attending Clinicians Care Facility Care Department Encounter ID Source 2021-04-02 09:17:37 Emergency [facility] [id number] [facility] 2021-04-02 06:42:54 Emergency [facility] [id number] [facility] 2023-08-20 11:00:00 2023-08-20 11:00:00 Outpatient MIGDALIA STRONG [id number] [facility] Tucker 2023-08-14 00:00:00 2023-08-14 00:00:00 Outpatient MIGDALIA STRONG [id number] [facility] Tucker 2023-08-14 00:00:00 2023-08-14 00:00:00 Outpatient HILARY CASTILLO [facility] GLENIS [id number] [facility] 2023-08-11 00:00:00 2023-08-11 00:00:00 Outpatient MIGDALIA STRONG [facility] [id number] [facility] 2023-07-25 10:30:00 2023-07-25 10:30:00 Outpatient MIGDALIA STRONG [place] [id number] [facility] 2023-07-14 14:15:00 2023-07-14 14:15:00 Outpatient UNIQUE HUANG [place] [place] [id number] [facility] 2023-01-23 20:01:00 2023-01-23 21:14:00 Emergency X LAURY CHAVEZ [facility] ERT [id number] [facility] 2023-01-23 20:01:00 2023-01-23 21:14:00 Emergency Laury Chavez [facility] [id number] [facility] 2022-11-29 11:30:00 2022-11-29 11:30:00 Outpatient GALE GARCIA [facility] [id number] [facility] 2022-11-22 14:03:00 2022-11-22 17:17:00 Emergency X YOLY JACOBO [facility] ERT [id number] [facility] 2022-11-22 14:03:00 2022-11-22 17:17:00 Emergency Yoly Jacobo S [facility] [id number] [facility] 2022-10-16 14:39:30 2022-10-16 14:39:30 Outpatient MERLE BLOOM [id number] [facility] 2022-08-23 17:11:00 2022-08-23 21:25:00 Emergency X TALI HAMILTON [facility] ERT [id number] [facility] 2022-08-23 17:11:00 2022-08-23 21:25:00 Emergency Tali Hamilton [facility] [id number] [facility] 2022-06-21 00:00:00 2022-06-21 00:00:00 [facility] [id number] [facility] 2022-06-10 12:23:58 2022-06-10 23:59:00 Outpatient R VERONICA WINCHESTERTHIA [facility] [id number] [facility] 2022-06-10 12:23:58 2022-06-10 23:59:00 Hospital Encounter Veronica Winchesterthia [facility] [id number] [facility] 2022-05-30 14:00:00 2022-05-30 14:15:00 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 Visit Lab, [place] - Brannon Annabella [facility] MEDICAL OFFICE BUILDING 1.2.840.114 350.1.13.10 4.2.7.2.686 [id number] [facility] 2022-05-30 13:00:00 2022-05-30 13:56:17 Outpatient R GALE [facility] [id number] [facility] 2022-05-30 13:00:00 2022-05-30 13:56:17 [facility] MEDICAL OFF[facility] BUILDING 1.2.840.114 350.1.13.10 4.2.7.2.686 [id number] [facility] 2022-05-30 00:00:00 2022-05-30 00:00:00 Orders Only Doctor Unassigned, [place] [facility] 1.2.840.114 350.1.13.10 4.2.7.2.686 [id number] [facility] 2022-05-17 18:45:00 2022-05-17 21:00:00 Emergency X NORBERTO MONREALANASTASIAIMER [facility] ERT [id number] [facility] 2022-05-17 18:45:00 2022-05-17 21:00:00 Emergency Ricardo Monreal [place] [facility] 1.2.840.114 350.1.13.10 4.2.7.2.686 [id number] [facility] 2021-02-28 13:30:00 2021-02-28 14:18:46 Outpatient R LATIA [facility]ATES [facility] [id number] [facility] 2021-02-28 13:26:24 2021-02-28 14:18:46 Office Visit Latia Gates [facility] 1.2.840.114 350.1.13.10 4.2.7.2.686 [id number] [facility] 2021-02-06 12:52:59 2021-02-06 13:41:58 Office Visit Latai Gates [facility] 1.2.840.114 350.1.13.10 4.2.7.2.686 [id number] [facility] 2021-02-06 12:50:00 2021-02-06 12:50:00 Outpatient R [facility]IA [facility] [id number] [facility] 2021-01-02 09:33:54 2021-01-02 10:28:19 Office Visit Latia Gates [facility] 1.114 350.1.13.10 4.2.7.2.686 [id number] [facility] 2021-01-02 09:50:00 2021-01-02 09:50:00 Outpatient R [facility] [id number] [facility] 2020-12-26 00:00:00 2020-12-26 00:00:00 Patient Secure Msg Doctor Unassigned, [place] [facility] 1.114 350.1.13.10 4.2.7.2.686 [id number] [id number] [facility] 2020-12-19 01:54:00 2020-12-21 15:30:00 Hospital Encounter Samir Suh, Tyler Aviles, Augusto Boles [facility] 1.114 350.1.13.10 4.2.7.2.686 [id number] [facility] 2020-12-19 09:20:00 2020-12-19 09:20:00 Outpatient R ANDRAE [facility] [id number] [facility] 2020-12-17 00:00:00 2020-12-17 00:00:00 [facility] One 1..114 350.1.13.10 4.2.7.2.686 [id number] [facility] 2020-12-17 00:00:00 2020-12-17 00:00:00 Telephone Davon Ferrari [facility] 1.114 350.1.13.10 4.2.7.2.686 [id number] [id number] [facility] 2020-12-17 00:00:00 2020-12-17 00:00:00 Refill Doctor Unassigned, [place] [facility] 1.114 350.1.13.10 4.2.7.2.686 [id number] [facility] 2020-12-17 00:00:00 2020-12-17 00:00:00 Refill Landy Quigley [facility] Office Building One 1..114 350.1.13.10 4.2.7.2.686 [id number] 044 [id number] [facility] 2020-12-16 00:00:00 2020-12-16 00:00:00 Telephone Danii Gonzalez [facility] Office Building One 1.114 350.1.13.10 4.2.7.2.686 [id number] [id number] [facility] 2020-12-16 00:00:00 2020-12-16 00:00:00 Refill Latia Gates [facility] 1.114 350.1.13.10 4.2.7.2.686 [id number] [facility] 2020-12-15 16:47:03 2020-12-15 17:07:03 Urgent Care Danii Gonzalez Amanda [facility] Office Building One 1.114 350.1.13.10 4.2.7.2.686 [id number] [facility] 2020-12-15 17:00:00 2020-12-15 17:00:00 Outpatient R [facility] [id number] [facility] 2020-12-15 00:00:00 2020-12-15 00:00:00 Orders Only Doctor Unassigned, [place] [facility] 1.114 350.1.13.10 4.2.7.2.686 [id number] [id number] [facility] 2020-12-06 20:21:00 2020-12-06 22:35:00 Emergency Aj Maldonado [facility] 1.0.114 350.1.13.10 4.2.7.2.686 [id number] [facility] 2020-10-10 10:00:00 2020-10-10 10:00:00 Outpatient CHERYLE MARTINEZ [facility] [id number] [facility] 2020-09-17 16:43:20 2020-09-17 17:20:29 Urgent Care Provider, [facility] [address] One 1..114 350.1.13.10 4.2.7.2.686 [id number] [facility] 2020-09-17 16:40:00 2020-09-17 16:40:00 Outpatient Geri QUIGLEY LANDY [facility] [id number] [facility] 2020-09-17 00:00:00 2020-09-17 00:00:00 Letter (Out) Provider, Urgent Care Day [facility] Office Building One 1.84.114 350.1.13.10 4.2.7.2.686 [id number] [facility] 2020-09-12 00:00:00 2020-09-12 00:00:00 Telephone Latia Gates [facility] 1.114 350.1.13.10 4.2.7.2.686 [id number] [facility] 2020-09-08 13:30:00 2020-09-08 13:30:00 Outpatient LATIA AREVALO [facility] [id number] [facility] 2020-09-08 12:55:40 2020-09-08 13:10:40 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 Visit Pob, Adc Lab Main [facility] Building 1..114 350.1.13.10 4.2.7.2.686 [id number] [facility] 2020-09-08 00:00:00 2020-09-08 00:00:00 Orders Only Doctor Unassigned, [place] [facility] 1.2.114 350.1.13.10 4.2.7.2.686 [id number] [facility] 2020-09-06 15:12:55 2020-09-06 16:13:47 Office Visit Latia Gates [facility] 1..114 350.1.13.10 4.2.7.2.686 [id number] [facility] 2020-09-06 14:50:00 2020-09-06 14:50:00 Outpatient R LATIA [facility]ATES [facility] [id number] [facility] 2020-09-06 00:00:00 2020-09-06 00:00:00 Letter (Out) Latia Gates [facility] 1.114 350.1.13.10 4.2.7.2.686 [id number] [facility] 2020-08-25 15:30:00 2020-08-25 15:30:00 Outpatient R LIANA PAIGE [facility] [id number] [facility] 2020-06-16 13:30:00 2020-06-16 13:30:00 Outpatient R LIANA PAIGE [facility] [id number] [facility] 2020-04-14 14:35:00 2020-04-14 23:59:00 Hospital Encounter Liana Paige [facility] 1.2.114 350.1.13.10 4.2.7.2.686 [id number] [facility] 2020-04-14 13:00:00 2020-04-14 13:00:00 Outpatient Geri MCINTOSHSHARRI JimenezKYLIEGeri [facility] [id number] [facility] 2020-04-14 00:00:00 2020-04-14 00:00:00 [facility] [id number] [facility] 2020-04-14 00:00:00 2020-04-14 00:00:00 Orders Only Doctor Unassigned, [place] [facility] 1.114 350..13.10 4.2.7.2.686 [id number] [facility] 2020-04-07 14:00:00 2020-04-07 14:00:00 Outpatient [facility] [id number] [facility] 2020-03-10 15:04:54 2020-03-10 15:45:36 Office [facility] 1.114 350..13.10 4.2.7.2.686 [id number] [facility] 2020-03-10 15:00:00 2020-03-10 15:00:00 Outpatient Ger[facility] [id number] [facility] 2020-03-10 00:00:00 2020-03-10 00:00:00 Letter (Out) Elvin [facility] IALTY [facility] 1.114 350.1.13.10 4.2.7.2.686 [id number] [facility] 2020-03-01 13:10:02 2020-03-01 14:00:30 Office Visit Latia Gates [facility] 1.2.840.114 350.1.13.10 4.2.7.2.686 [id number] [facility] 2020-03-01 13:10:00 2020-03-01 13:10:00 Outpatient R [facility]IA [facility] [id number] [facility] 2020-02-16 14:00:12 2020-02-16 15:05:02 Office Visit Latia Gates [facility] 1.2.840.114 350.1.13.10 4.2.7.2.686 [id number] [facility] 2020-02-16 13:50:00 2020-02-16 13:50:00 Outpatient R [facility]IA [facility] [id number] [facility] 2020-01-24 12:59:13 2020-01-24 13:25:38 Urgent Care Pob1, Acute Care Clinic Annabella [facility] Office Building One 1.2840.114 350.1.13.10 4.2.7.2.686 [id number] [facility] 2020-01-24 13:00:00 2020-01-24 13:00:00 Outpatient R ANNABELLA [facility] [id number] [facility] 2020-01-18 00:00:00 2020-01-18 00:00:00 Telephone Latia Gates [facility] 1.2840.114 350.1.13.10 4.2.7.2.686 [id number] [facility] 2020-01-18 00:00:00 2020-01-18 00:00:00 Refill Latia Gates [facility] 1.2840.114 350.1.13.10 4.2.7.2.686 [id number] [facility] 2019-12-27 00:00:00 2019-12-27 00:00:00 Telephone Kwadwo Wolff [facility] 1.2.840.114 350.1.13.10 4.2.7.2.686 [id number] [facility] 2019-12-24 00:00:00 2019-12-24 00:00:00 Telephone Sandra Hopper [facility] 1.2.840.114 350.1.13.10 4.2.7.2.686 [id number] [facility] 2019-12-24 00:00:00 2019-12-24 00:00:00 Telephone Latia Gates [facility] 1.2.840.114 350.1.13.10 4.2.7.2.686 [id number] [id number] [facility] 2019-12-22 15:38:07 2019-12-22 16:29:51 [facility] 1.2.840.114 350.1.13.10 4.2.7.2.686 [id number] [facility] 2019-12-22 14:14:46 2019-12-22 14:34:46 [facility] 1.2.840.114 350.1.13.10 4.2.7.2.686 [id number] [facility] 2019-12-22 14:00:00 2019-12-22 14:00:00 Outpatient Geri JEREZ [facility] [id number] [facility] 2019-11-19 13:00:00 2019-11-19 13:00:00 Outpatient NINA CHAMPION [facility] [id number] [facility] 2019-11-05 00:00:00 2019-11-05 00:00:00 Telephone Latia Gates [facility] 1.2.840.114 350.1.13.10 4.2.7.2.686 [id number] [facility] 2019-08-23 13:10:00 2019-08-23 13:10:00 Outpatient R LATIA [facility]ATES [facility] [id number] [facility] 2019-08-05 15:00:00 2019-08-05 15:00:00 Outpatient R ANDRAE THOMAS [facility] [id number] [facility] 2019-08-02 14:30:00 2019-08-02 14:30:00 Outpatient R LATIA GATES [facility] [id number] [facility] 2019-07-19 15:23:01 2019-07-19 16:03:09 Office Visit Latia Gates [facility] 1.2.840.114 350.1.13.10 4.2.7.2.686 [id number] [facility] 2019-07-19 00:00:00 2019-07-19 00:00:00 Orders Only Doctor Unassigned, [place] [facility] 1.2.840.114 350.1.13.10 4.2.7.2.686 [id number] [facility] 2019-07-06 00:00:00 2019-07-06 00:00:00 Telephone Latia Gates [facility] 1.2.840.114 350.1.13.10 4.2.7.2.686 [id number] [facility] 2019-07-05 12:30:00 2019-07-05 23:59:00 Hospital Encounter Latia Gates [facility] 1.2.840.114 350.1.13.10 4.2.7.2.686 [id number] [facility] 2019-07-05 12:28:35 2019-07-05 12:43:35 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 Visit Pob, Adc Lab Main [facility] 1.2840.114 350.1.13.10 4.2.7.2.686 [id number] [facility] 2019-07-05 00:00:00 2019-07-05 00:00:00 Orders Only Doctor Unassigned, [place] [facility] 1.2840.114 350.1.13.10 4.2.7.2.686 [id number] [facility] 2019-06-18 19:26:54 2019-06-18 21:07:00 Emergency VikashSamir farris [facility] 1.2840.114 350.1.13.10 4.2.7.2.686 [id number] [facility] 2019-06-15 11:04:09 2019-06-15 11:50:23 Office Visit Latia Gates [facility] 1.2840.114 350.1.13.10 4.2.7.2.686 [id number] [facility] 2019-06-15 00:00:00 2019-06-15 00:00:00 Letter (Out) Latia Gates [facility] 1.2840.114 350.1.13.10 4.2.7.2.686 [id number] [facility] 2019-05-31 00:00:00 2019-05-31 00:00:00 Orders Only Doctor Unassigned, [place] [facility] 1.2840.114 350.1.13.10 4.2.7.2.686 [id number] [facility] 2019-02-09 14:51:32 2019-02-09 15:56:10 Office Visit Latia Gates [facility] 1.2840.114 350.1.13.10 4.2.7.2.686 [id number] [facility] 2019-02-09 00:00:00 2019-02-09 00:00:00 Telephone Latia Gates [facility] 1.2.840.114 350.1.13.10 4.2.7.2.686 [id number] [facility] 2019-02-09 00:00:00 2019-02-09 00:00:00 Orders Only Doctor Unassigned, [place] [facility] 1.2.840.114 350.1.13.10 4.2.7.2.686 [id number] [facility] 2019-02-09 00:00:00 2019-02-09 00:00:00 Letter (Out) Latia Gates [facility] 1.2.840.114 350.1.13.10 4.2.7.2.686 [id number] [facility] 2019-01-14 00:00:00 2019-01-14 00:00:00 Telephone Latia Gates [facility] 1.2.840.114 350.1.13.10 4.2.7.2.686 [id number] [facility] 2019-01-01 00:00:00 2019-01-01 00:00:00 Telephone Latia Gates [facility] 1.2.840.114 350.1.13.10 4.2.7.2.686 [id number] 225 [id number] [facility] Results Test Description Test Time Test Comments Results Result Co mments Source [facility]:47:26* Test Item Value Reference Range Interpretation Comme nts LIPASE (test code = 8161642466) 60 U/L 0-220 Lab Interpretation (test cod e = 66886-0) Normal [facility] WITH GONF0870-27-52 23:29:23* Test Item Value Reference Range Interpretation Comme nts WBC (test code = 6690-2) 12.00 See_Comment H [Automated messa ge] The system which generated this result transmitted reference range: 4.20 - 10.70 10*3/?L. The reference range was not used to interpret this result as normal/abnormal. RBC (test code = 789-8) 5.31 See_Comment [Automated messa ge] The system which generated this result transmitted reference range: 4.26 - 5.52 10*6/?L. The reference range was not used to interpret this result as normal/abnormal. HGB (test code = 718-7) 14.8 g/dL 12.2-16.4 HCT (test code = 4544-3) 45.4 % 38.4-49.3 MCV (test code = 787-2) 85.5 fL 81.7-95.6 MCH (test code = 785-6) 27.9 pg 26.1-32.7 MCHC (test code = 786-4) 32.6 g/dL 31.2-35.0 RDW-SD (test code = 40449-0) 42.5 fL 38.5-51.6 RDW-CV (test code = 788-0) 13.6 % 12.1-15.4 PLT (test code = 777-3) 269 See_Comment [Automated messa ge] The system which generated this result transmitted reference range: 150 - 328 10*3/?L. The reference range was not used to interpret this result as normal/abnormal. MPV (test code = 44909-6) 10.3 fL 9.8-13.0 NRBC/100 WBC (test code = 9124216688) 0.0 See_Comment [Automated Urgent.ly ssage] The system which generated this result transmitted reference range: 0.0 - 10.0 /100 WBCs. The reference range was not used to interpret this result as normal/abnormal. NRBC x10^3 (test code = 4245140904) See_Comment [Automated messa ge] The system which generated this result transmitted reference range: 10*3/?L. The reference range was not used to interpret this result as normal/abnormal. GRAN MAT (NEUT) % (test code = 770-8) 72.2 % IMM GRAN % (test code = 3822020075) 0.70 % LYMPH % (test code = 736-9) 18.6 % MONO % (test code = 5905-5) 6.9 % EOS % (test code = 713-8) 1.3 % BASO % (test code = 706-2) 0.3 % GRAN MAT x10^3(ANC) (test code = 6154185078) 8.67 10*3/uL 1.99-6.95 H IMM GRAN x10^3 (test code = 9746449709) 0.08 10*3/uL 0.00-0.06 H LYMPH x10^3 (test code = 731-0) 2.23 10*3/uL 1.09-3.23 MONO x10^3 (test code = 742-7) 0.83 10*3/uL 0.36-1.02 EOS x10^3 (test code = 711-2) 0.16 10*3/uL 0.06-0.53 BASO x10^3 (test code = 704-7) 0.03 10*3/uL 0.01-0.09 Lab Interpretation (test code = 83855-0) Abnormal [facility] Notes Date/Time Note Provider Source 2023-07-25 12:57:17 Y5JMtCa1cHodEuKtWkoE S/v5ipPkxEfqh+ yO1/87tc0ApBESoM0+WFUrHRuBnPDa6032 -02-23T12:57:17 Results reviewed and released to [facility]. Please let the patient know his strep test was positive. Previously given Augmentin 37923-2Kflyvnha ttwvKR1146-93-73P30:57:17Progress noteTXT1.2.840.000848.1.13.131.2.7 .2.098257|[id number] for patient ztfe06635-3IlkwAADGYPFFCZJGngqudbi d C-CDA narrative text[id number] ARS5961-89-61H74:57:171.2.840.1143 50.1.72.3.15|1.2.840.958970.1.13.1 31.2.7.2.727879_[id number] [facility] 2023-07-25 10:26:51 2OGdpo7n/GlNzhvSPWKc ygmBT8N4xobygI p5dJYy7PDgJQ/FPek7NYljT2xDv6Wl6770 -02-23T10:26:51 Chief ComplaintPatient presents withEstablish CareLast wellness over a year ago.Sinus ProblemGreen sinus drainage with some blood, sore throat, [place] [address]-4Ptift IkzhIX7561-05-66B86:29:33Nurse NoteTXT1.2.840.248656.1.13.131.2.7 .2.710054|[id number] for patient becs04374-1Olrht NoteLNNARRATIVEFormatted C-CDA narrative text[id number] TMV4739-59-65J22:29:331.2.840.1143 50.1.72.3.15|1.2.840.970394.1.13.1 31.2.7.2.727879_[id number] [facility] 2023-01-23 21:11:57 AVKat4QqICPMqrLwjoTU kc0TjslGt4cIUV lmm4e7LIPZ9kUHWCRV7YxAZK/fDW2u3699 -08-24T21:11:57 Patient leaving AMA/without final disposition/eloped.Dr. Laury Chavez MD aware and notified of patient's decision. Patient encouraged to seek medical attention for any new/prolonged/worsening of symptoms and stressed importance of follow up with a medical provider as soon as possible.Patient leaving ambulatory with steady gait, appears in good condition. 97371-9Ksdisidzt department PfjeET9577-93-95M74:13:49[facility] department NoteTXT1.2.840.686978.1.13.104.2.7 .2.412376|[id number] for patient ofot38342-0FkgeOT696515589Lnsqei L Williams RN[address]Gal[address]onGalvestonTXTX77555775 58NLBSKBOSUUCPXOOSLHIBXY6957-60-05 T21:13:491.2.840.036118.1.72.3.15| 1.2.840.911501.1.13.104.2.7.2.7278 [id number] Latoya Drake RN [facility] 2023-01-23 19:56:08 hr8lkxPp9t94BwCwrBxF r9HFJ2wuTOz0Cd V3obBni1rrvVKGGhIpkR+nGZsqagYo2200 -08-24T19:56:08 Pt presents with headache after head [place] a dog [place] the [place]. Pt c/o right forehead pain. 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 56307-6Bkrkiewbt department Triage uskiTX5570-32-11X52:01:09[facility] department Triage noteTXT1.2.840.082699.1.13.104.2.7 .2.093150|[id number] for patient nfcz91787-6Bvynomxmo department [id number] E Linkes RN[address] JvjmZitsoyrbyFzzbffhclWUUC81782187 84IAUWRARLUZVQQVPJIYFIQW6919-11-75 T20:01:091.2.840.213315.1.72.3.15| 1.2.840.552980.1.13.104.2.7.2.7278 [id number] Tarsha Montez RN [facility]"
--- NOTE | 2023-08-27 17:59 | RAD REPORT ---
EXAM DESCRIPTION: RAD - Hand Right 3 View - 08/27/2023 5:48 pm CLINICAL HISTORY: Right hand pain status post injury FINDINGS: No fracture or dislocation is seen.
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
[2023-08-27 19:52] VITALS: BP 131/70; TEMP 97.7; O2SAT 100
== END ==
LOC: ER 17:00
DX: S60.221A Contusion of right hand, initial encounter (principal)

== ENCOUNTER 2023-12-21 11:27 | Emergency (ER) | payer OTHER ==
--- OUTSIDE RECORDS SUMMARY | 2023-12-21 11:36 | XMS REPORT | Continuity of Care Document ---
Author Name Unknown Address [address] [facility] [address] [place] [address] [facility] Address [address] [facility] [address] [place] [address] Care Team Providers Care Document Preparation Specialist Name Role Phone Latia Gates PA-C Primary Care Physician + MIGDALIA STRONG Attending Clinician Unavailable HILARY CASTILLO Attending Clinician Unavailable UNIQUE HUANG Attending Clinician Unavailable LEAH JARRETT Attending Clinician Unavailable ROSEMARY PRO Attending Clinician Unavailable ALYSSA TRAN Attending Clinician Unavailab ADEOLA Cortes Attending Clinician Unavailable ISHJAY Attending Clinician Unavailable LAURY CHAVEZ Attending Clinician Unavailable Laury Chavez MD Attending Clinician [phone] GALE WINCHESTER Attending Clinician Unavailable YOLY CARRASCO Attending Clinician Unavailable Carrasco PAC, Yoly S Attending Clinician [phone] TALI HAMILTON Attending Clinician Unavailable Migue [employer] SAL[employer], Tali Cedeno Attending Clinician [phone] Annabella DEHORNER, Gale Attending Clinician [phone] Lab, Ang - Db Attending Clinician Unavailable Doctor Unassigned, [place] Attending Clinician U ezequielailRICARDO Hughes Attending Clinician Unavailable Ricardo Monreal MD Attending Clinician [phone] LATIA GATES Attending Clinician Unavailab Latia Martell PA-C Attending Clinician Samir Recio Attending Clinician [phone] Tyler Sanders MD Attending Clinician Augusto Aviles DO Attending Clinician [phone] ANDRAE THOMAS Attending Clinician Unavail able Danii Stringer Attending Clinician [phone] Davon Ferrari MD Attending Clinician [phone] Landy Wilkinson Attending Clinician [phone] Latoya Pacheco MD Attending Clinician [phone] Aj Maldonado DO Attending Clinician [phone] CHERYLE ALVAREZ Attending Clinician Unavailable Provider, [facility] Attending Clinician Un available LANDY BOWMAN Attending Clinician Unavailable Provider, Urgent Care Day Attending Clinician Un available Pob, [facility] Main Attending Clinician UnavailLIANA Valle Attending Clinician Unavailpedro Oconnor MD, Liana Attending Clinician [phone] [facility], [facility] Attending Clinician Josefa Wolff RN, Kwadwo Attending Clinician Unavailab Sandra Dutton PA-C Attending Clinician [phone] María Davis Attending Clinician [phone] MARÍA JEREZ Attending Clinician Unavail able NINA BAUMAN Attending Clinician Unavailable TALI HAMILTON Admitting Clinician Unavailable GALE WINCHESTER Admitting Clinician Unavailable RICARDO MONREAL Admitting Clinician Unavailable Tyler Sanders MD Admitting Clinician Payers Payer Name Policy Type Policy Number Effective Date Expirati on Date Source [facility] [id number] 2019 00:00:00 [employer] H[employer] HELPER 94 ON 9 [id number] 2023 00:00:00 Problems Condition Name Condition Details Condition Category Status Onset Date Resolution Date Last Treatment Date Treating Clinician Comments Source 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 11-23 00:00: 00 [facility] Seybold - Externa l Attention deficit hyperactiv ity disorder (ADHD), combined type Attention deficit hyperactiv ity disorder (ADHD), combined type Disease Active 11-23 00:00: 00 Glen[facility] Seybold - Externa l Anxiety, generalize d Anxiety, generalize d Disease Active 11-23 00:00: 00 [facility] Seybold - Externa l Bipolar affective disorder, currently depressed, moderate (multi HCC) Bipolar affective disorder, currently depressed, moderate (multi HCC) Disease Active - 00:00: 00 [facility] Seybold - Externa l Irritable bowel syndrome, unspecifie d type Irritable bowel syndrome, unspecifie d type Disease Active 2021-06 00:00: 00 [facility] Pneumomedi astinum Pneumomedi astinum Disease Active 12-20 00:00: 00 [facility] Obesity (BMI 30-39.9) Obesity (BMI 30-39.9) Disease Active 12-19 00:00: 00 [facility] Smoker Smoker Disease Active 12-21 00:00: 00 Overview: Formattin g of this note might be different from the original. Smokes cigarette s and vapes [facility] Asthma Asthma Disease Active 08-22 00:00: 00 [facility] GERD (gastroeso phageal reflux disease) GERD (gastroeso phageal reflux disease) Disease Active 08-22 00:00: 00 [facility] Constipati on Constipati on Disease Active 08-22 00:00: 00 [facility] Allergic rhinitis Allergic rhinitis Disease Active 08-22 00:00: 00 [facility] ADHD (attention deficit hyperactiv ity disorder), combined type ADHD (attention deficit hyperactiv ity disorder), combined type Disease Active 08-22 00:00: 00 [facility] Allergies, Adverse Reactions, Alerts Allergy Name Allergy Type Status Severity Reaction(s) Onset Date Inactive Date Treating Clinician Comments Source NO KNOWN ALLERGIE S Drug Class Active [facility] Social History Social Habit Start Date Stop Date Quantity Comments Source History of tobacco use Cigarette Smoker Glen[facility] shahid - External Sexual orientation K korina Tucker - External History SDOH Alcohol Binge [facility] Gender identity [facility] Alcoholic beverage intake 2023-11-24 00:00:00 2023-11-24 00:00:00 Current drinker of alcohol (finding) Glenis Tucker - External Alcohol intake 2023-07-25 00:00:00 2023-07-25 00:00:00 Current drinker of alcohol (finding) Glen[facility] Tucker - External History of Social function 2023-07-25 00:00:00 2023-07-25 00:00:00 Glenis Tucker - External Alcohol Comment 2023-07-25 00:00:00 2023-07-25 00:00:00 socially Glenis Tucker - External Exposure to SARS-CoV-2 (event) 2022-08-13 00:00:00 2022-08-23 19:38:00 Not sure [facility] Cigarettes smoked current (pack per day) - Reported 2020-12-19 00:00:00 2020-12-19 00:00:00 [facility] Tobacco use and exposure 2020-12-19 00:00:00 2020-12-19 00:00:00 Smokeless tobacco non-user [facility] History SDOH Alcohol Frequency 2020-12-19 00:00:00 2020-12-19 00:00:00 2 [facility] History SDOH Alcohol Std Drinks 2020-12-19 00:00:00 2020-12-19 00:00:00 98 [facility] Education 2020-12-19 00:00:00 2020-12-19 00:00:00 10 [facility] Sex assigned at 2002 00:00:00 2000 00:00:00 [facility] Fitzgerald Smoking Status Start Date Stop Date Source Smokes tobacco daily 2023-07-25 00:00:00 [facility] Fitzgerald Tobacco smoking consumption unknown [facility] Amaya Ext ernal Medications Ordered Medication Name Filled Medication Name Start Date Stop Date Current Medication? Ordering Clinician Indication Dosage Frequency Signature (SIG) Comments Components Source Albuterol HFA 108 (90 Base) MCG/ACT IN AERS 11-23 00:00: 00 Yes [id number] 2{puff} Q4H Inhale 2 puffs into the lungs every 4 hours as needed for wheezing. [facility]is gordillo Dicyclomine HCl 10 MG oral Capsule 11-23 00:00: 00 Yes [id number] 20mg Take 2 capsules (20 mg total) by mouth 4 times daily (before meals and nightly). [facility]is gordillo Rizatriptan Benzoate 10 MG oral TABLET DISPERSIBLE 11-23 00:00: 00 Yes [id number] 10mg Take 1 tablet (10 mg total) by mouth once as needed for migraine (May repeat in 2 hours if unresolved . Do not exceed 30 mg in 24 hours.). Glenis gordillo hydrOXYzine HCl 50 MG oral Tablet 11-23 00:00: 00 Yes [id number] TAKE 1 TABLET BY MOUTH EVERY NIGHT AT BEDTIME AND TAKE 1/2 TO 1 TABLET EVERY 8 HOURS NEEDED FOR ANXIETY. [facility] gordillo Aripiprazol e 5 MG oral Tablet 11-23 00:00: 00 Yes [id number] 10mg Take 2 tablets (10 mg total) by mouth daily. [facility]is gordillo hydrOXYzine HCl 50 MG oral Tablet 6-04 00:00: 00 11-23 00:00 :00 No [id number] TAKE 1 TABLET BY MOUTH EVERY NIGHT AT BEDTIME AND TAKE 1/2 TO 1 TABLET EVERY 8 HOURS NEEDED FOR ANXIETY. [facility] gordillo Amoxicillin -Pot Clavulanate 875-125 MG oral Tablet -30 00:00: 00 Yes [id number] 1{tbl} Take 1 tablet by mouth 2 times daily. [facility] gordillo Cetirizine HCl (ZyrTEC Allergy) 10 MG oral TABLET DISPERSIBLE 10-19 00:00: 00 Yes [id number] 1{tbl} Take 1 tablet by mouth daily. [facility]is gordillo Azelastine HCl 0.1 % nasal Solution 10-19 00:00: 00 11-23 00:00 :00 No [id number] One or two sprays in each nostril twice daily. Glenis gordillo Pseudoeph-B romphen-DM 30-2-10 MG/5ML oral Syrup 10-19 00:00: 00 11-23 00:00 :00 No [id number] 10mL Take 10 mL by mouth 4 times daily. Glenis gordillo Ipratropium Gallagher 0.03 % nasal Solution 20 00:00: 00 11-23 00:00 :00 No [id number] 2{spray } Use 2 sprays in each nostril every 12 hours. [facility] gordillo hydrOXYzine HCl 50 MG oral Tablet 5-04 00:00: 00 Yes [id number] Take 1 pill at bedtime and 1/2-1 pill every 8 hours as needed for anxiety.. [facility]is gordillo Rizatriptan Benzoate 10 MG oral TABLET DISPERSIBLE 3-14 00:00: 00 11-23 00:00 :00 No [id number] TAKE 1 TABLET BY MOUTH AT ONSET OF HEADACHE; MAY REPEAT 1 TABLET IN 2 HOURS IF NEEDED. NOT TO EXCEED 30 MG IN 24 HOURS Glen[facility] gordillo Aripiprazol e 5 MG oral Tablet 08-13 00:00: 00 11-23 00:00 :00 No [id number] 5mg Take 1 tablet (5 mg total) by mouth daily. [facility] gordillo Cetirizine HCl (ZyrTEC Allergy) 10 MG oral TABLET DISPERSIBLE 08-13 00:00: 00 10-19 00:00 :00 No [id number] 1{tbl} Take 1 tablet by mouth daily. [facility]is gordillo Cetirizine HCl (ZyrTEC Allergy) 10 MG oral TABLET DISPERSIBLE 07-25 00:00: 00 Yes [id number] 1{tbl} Take 1 tablet by mouth daily. Glenis gordillo Guaifenesin (Mucinex) 600 MG oral Tablet 12 Hour Sustained Release 07-25 00:00: 00 11-23 00:00 :00 No [id number] 1200mg Take 2 tablets (1,200 mg total) by mouth 2 times daily. Glenis gordillo Amoxicillin -Pot Clavulanate 875-125 MG oral Tablet 07-25 00:00: 00 10-19 00:00 :00 No [id number] 1{tbl} Take 1 tablet by mouth 2 times daily. [facility]is gordillo Rizatriptan Benzoate 10 MG oral TABLET DISPERSIBLE 07-25 00:00: 00 07-25 00:00 :00 No [id number] 10mg Take 1 tablet (10 mg total) by mouth once as needed for migraine (May repeat in 2 hours if unresolved . Do not exceed 30 mg in 24 hours.). Glenis gordillo Rizatriptan Benzoate 10 MG oral TABLET DISPERSIBLE 07-14 00:00: 00 Yes [id number] 10mg Take 1 tablet (10 mg total) by mouth once as needed for migraine (May repeat in 2 hours if unresolved . Do not exceed 30 mg in 24 hours.). Glenis gordillo Aripiprazol e 5 MG oral Tablet 07-14 00:00: 00 Yes [id number] 5mg Take 1 tablet (5 mg total) by mouth daily. [facility]is gordillo Dicyclomine HCl 10 MG oral Capsule 12 00:00: 00 11-23 00:00 :00 No [id number] 20mg Take 2 capsules (20 mg total) by mouth 4 times daily (before meals and nightly). Glenis gordillo Albuterol HFA 108 (90 Base) MCG/ACT IN AERS 07-14 00:00: 00 11-23 00:00 :00 No [id number] 2{puff} Q4H Inhale 2 puffs into the lungs every 4 hours as needed for wheezing. Glenis gordillo NaCl 0.9% (NS) IV infusion 1,000 mL 08-24 01:45: 00 08-24 02:20 :00 No 1000mL at 999 mL/hr, Intravenou s, ONCE, 1 dose, On Fri08/23/22 at 2045, CATHERINE [facility] iopamidol (ISOVUE 370-500 mL) injection 100 mL 08-24 00:30: 00 08-23 23:22 :00 No [id number] 100mL 100 mL, Intravenou s, ONCE, 1 dose, On Fri08/23/22 at 1930, Routine [facility] ketorolac (TORADOL) injection 30 mg 08-23 23:45: 00 08-23 23:05 :00 No 30mg 30 mg, Slow IV Push, ONCE, 1 dose, On Fri08/23/22 at 1845, Routine [facility] dicyclomine (BENTYL) injection 20 mg 08-23 23:45: 00 08-23 23:14 :00 No 20mg 20 mg, Intramuscu lar, ONCE, 1 dose, On Fri08/23/22 at 1845, Routine [facility] pantoprazol e (PROTONIX) injection 40 mg 08-23 22:45: 00 08-23 23:06 :00 No 40mg 40 mg, Slow IV Push, ONCE, 1 dose, On Fri08/23/[address] [facility] ondansetron 4 mg disintegrat ing tablet 08-23 00:00: 00 Yes [id number] 4mg Take 1 tablet by mouth every 8 (eight) hours as needed for Nausea and Vomiting (N/V). [facility] Dicyclomine HCl 20 MG oral Tablet 08-23 00:00: 00 07-14 00:00 :00 No 20mg Q.25D Take 1 tablet (20 mg total) by mouth 4 times daily as needed (IBS flare). Glenis gordillo dicyclomine 10 mg capsule 06-25 00:00: 00 Yes [id number] 10mg Take 1 capsule by mouth in the morning and 1 capsule at noon and 1 capsule in the evening. [facility] cetirizine (ZYRTEC) 10 mg tablet 2021-06 00:00: 00 Yes [id number] 10mg Take 1 tablet by mouth in the morning. [facility] albuterol 90 mcg/actuati on inhaler 2021-06 00:00: 00 Yes [id number] 2{puff} Inhale 2 Puffs every 6 (six) hours as needed for Wheezing or Shortness of Breath. [facility] fluticasone propionate 110 mcg/actuati on inhaler 2021-06 00:00: 00 Yes [id number] 2{puff} Inhale 2 Puffs every 12 (twelve) hours. [facility] hydrOXYzine 50 mg tablet 2021-06 00:00: 00 Yes [id number] 50mg Take 1 tablet by mouth 3 (three) times daily as needed for Itching. [facility] amoxicillin -clavulanat e (AUGMENTIN) 875-125 mg per tablet 1 tablet 2021-06 02:45: 00 05-18 02:13 :00 No 1{tbl} 1 tablet, Oral, ONCE NOW, 1 dose, On Fri05/17/22 at 2045, Routine
Reason for Anti-Infec tive: Empiric Non-Surgic al Prophylaxi s
Durat ion of therapy: [address] [facility] ibuprofen (IBU) tablet 800 mg 2021-06 02:00: 00 05-18 02:13 :00 No 800mg 800 mg, Oral, ONCE, 1 dose, On Fri05/17/22 at 2000, [facility]INE [facility] ibuprofen 800 mg tablet 2021-06 00:00: 00 Yes [id number] 800mg Take 1 tablet by mouth every 8 (eight) hours as needed for Pain (scale 4-6). [facility] amoxicillin -clavulanat e 875-125 mg per tablet 2021-06 00:00: 00 05-30 00:00 :00 No [id number] 1{tbl} Take 1 tablet by mouth every 12 (twelve) hours. [facility] dicyclomine 10 mg capsule 02-28 00:00: 00 06-25 00:00 :00 No [id number] 10mg Take 1 capsule by mouth 3 (three) times daily. [facility] fluticasone propionate 110 mcg/actuati on inhaler 02-28 00:00: 00 05-30 00:00 :00 No [id number] 2{puff} Inhale 2 Puffs every 12 (twelve) hours. [facility] albuterol 90 mcg/actuati on inhaler 02-28 00:00: 00 05-30 00:00 :00 No [id number] 2{puff} Inhale 2 Puffs every 6 (six) hours as needed for Wheezing or Shortness of Breath. [facility] cetirizine (ZYRTEC) 10 mg tablet 02-28 00:00: 00 05-30 00:00 :00 No [id number] 10mg Take 1 tablet by mouth daily. [facility] polyethylen e glycol 3350 (MIRALAX) 17 gram/dose powder 02-06 00:00: 00 Yes [id number] Give 1-2 capfuls once to twice daily with 8-16 oz of water to produce soft BM [facility] fluticasone propionate 110 mcg/actuati on inhaler 02-06 00:00: 00 02-28 00:00 :00 No [id number] 2{puff} Inhale 2 Puffs every 12 (twelve) hours. [facility] dicyclomine 10 mg capsule 02-06 00:00: 00 02-28 00:00 :00 No [id number] 10mg Take 1 capsule by mouth 3 (three) times daily. [facility] cetirizine (ZYRTEC) 10 mg tablet 02-06 00:00: 00 02-28 00:00 :00 No [id number] 10mg Take 1 tablet by mouth daily. [facility] albuterol 90 mcg/actuati on inhaler 02-06 00:00: 00 02-28 00:00 :00 No [id number] 2{puff} Inhale 2 Puffs every 6 (six) hours as needed for Wheezing or Shortness of Breath. [facility] bisacodyL (DULCOLAX, BISACODYL,) 5 mg EC tablet 12-21 00:00: 00 Yes [id number] Take 1-2 tabs once to twice daily for constipati on [facility] Immunizations Ordered Immunization Name Filled Immunization Name Date Status Comments Source Td 2022-05-17 00:00:00 Completed [facility] TD, NOS 2022-05-17 00:00:00 Completed [facility] TD, NOS 2022-05-17 00:00:00 Completed [facility] TD, NOS 2022-05-17 00:00:00 Completed [facility] TD, NOS 2022-05-17 00:00:00 Completed [facility] TD, NOS 2022-05-17 00:00:00 Completed [facility] TD, NOS 2022-05-17 00:00:00 Completed [facility] TD, NOS 2022-05-17 00:00:00 Completed [facility] TD, NOS 2022-05-17 00:00:00 Completed [facility] TD, NOS 2022-05-17 00:00:00 Completed [facility] Influenza Virus Vaccine Quad .5 mL IM 6+ MO 2018-03-16 00:00:00 Completed [facility] Influenza Virus Vaccine 2018-03-16 00:00:00 Completed [facility] Influenza Virus Vaccine Quad .5 mL IM 6+ MO 2018-03-16 00:00:00 Completed [facility] Influenza Virus Vaccine 2018-03-16 00:00:00 Completed [facility] Influenza Virus Vaccine Quad .5 mL IM 6+ MO 2018-03-16 00:00:00 Completed [facility] Influenza Virus Vaccine 2018-03-16 00:00:00 Completed [facility] Influenza Virus Vaccine Quad .5 mL IM 6+ MO 2018-03-16 00:00:00 Completed [facility] Influenza Virus Vaccine 2018-03-16 00:00:00 Completed [facility] Influenza Virus Vaccine Quad .5 mL IM 6+ MO 2018-03-16 00:00:00 Completed [facility] Influenza Virus Vaccine 2018-03-16 00:00:00 Completed [facility] Influenza Virus Vaccine Quad .5 mL IM 6+ MO 2018-03-16 00:00:00 Completed [facility] Influenza Virus Vaccine 2018-03-16 00:00:00 Completed [facility] Influenza Virus Vaccine Quad .5 mL IM 6+ MO 2018-03-16 00:00:00 Completed [facility] Influenza Virus Vaccine 2018-03-16 00:00:00 Completed [facility] Influenza Virus Vaccine Quad .5 mL IM 6+ MO 2018-03-16 00:00:00 Completed [facility] Influenza Virus Vaccine 2018-03-16 00:00:00 Completed [facility] Influenza Virus Vaccine Quad .5 mL IM 6+ MO 2018-03-16 00:00:00 Completed [facility] Influenza Virus Vaccine 2018-03-16 00:00:00 Completed [facility] Influenza Virus Vaccine Quad .5 mL IM 6+ MO 2018-03-16 00:00:00 Completed [facility] Influenza Virus Vaccine 2018-03-16 00:00:00 Completed [facility] Influenza Virus Vaccine Quad .5 mL IM 6+ MO 2018-03-16 00:00:00 Completed [facility] Influenza Virus Vaccine 2018-03-16 00:00:00 Completed [facility] Influenza Virus Vaccine Quad .5 mL IM 6+ MO 2018-03-16 00:00:00 Completed [facility] Influenza Virus Vaccine 2018-03-16 00:00:00 Completed [facility] HPV9 2017-11-03 00:00:00 Completed [facility] HPV9 2017-11-03 00:00:00 Completed [facility] HPV9 2017-11-03 00:00:00 Completed [facility] HPV9 2017-11-03 00:00:00 Completed [facility] HPV9 2017-11-03 00:00:00 Completed [facility] HPV9 2017-11-03 00:00:00 Completed [facility] HPV9 2017-11-03 00:00:00 Completed [facility] HPV9 2017-11-03 00:00:00 Completed [facility] HPV9 2017-11-03 00:00:00 Completed [facility] HPV9 2017-11-03 00:00:00 Completed [facility] HPV9 2017-11-03 00:00:00 Completed [facility] HPV9 2017-11-03 00:00:00 Completed [facility] HPV 2017-01-16 00:00:00 Completed [facility] HPV 2017-01-16 00:00:00 Completed [facility] HPV 2017-01-16 00:00:00 Completed [facility] HPV 2017-01-16 00:00:00 Completed [facility] HPV 2017-01-16 00:00:00 Completed [facility] HPV9 2017-01-16 00:00:00 Completed [facility] HPV 2017-01-16 00:00:00 Completed [facility] HPV9 2017-01-16 00:00:00 Completed [facility] HPV 2017-01-16 00:00:00 Completed [facility] HPV9 2017-01-16 00:00:00 Completed [facility] HPV 2017-01-16 00:00:00 Completed [facility] HPV9 2017-01-16 00:00:00 Completed [facility] HPV 2017-01-16 00:00:00 Completed [facility] HPV9 2017-01-16 00:00:00 Completed [facility] HPV 2017-01-16 00:00:00 Completed [facility] HPV9 2017-01-16 00:00:00 Completed [facility] HPV 2017-01-16 00:00:00 Completed [facility] HPV9 2017-01-16 00:00:00 Completed [facility] HPV 2017-01-16 00:00:00 Completed [facility] HPV9 2017-01-16 00:00:00 Completed [facility] Meningococcal Vaccine 2015-01-16 00:00:00 Completed [facility] Meningococcal Vaccine 2015-01-16 00:00:00 Completed [facility] Meningococcal Vaccine 2015-01-16 00:00:00 Completed [facility] Meningococcal Vaccine 2015-01-16 00:00:00 Completed [facility] Meningococcal Vaccine 2015-01-16 00:00:00 Completed [facility] Meningococcal Polysaccharide (groups A, C, Y and W-135) conjugate vaccine (MCV4P) 2015-01-16 00:00:00 Completed [facility] Meningococcal Vaccine 2015-01-16 00:00:00 Completed [facility] Meningococcal Polysaccharide (groups A, C, Y and W-135) conjugate vaccine (MCV4P) 2015-01-16 00:00:00 Completed [facility] Meningococcal Vaccine 2015-01-16 00:00:00 Completed [facility] Meningococcal Polysaccharide (groups A, C, Y and W-135) conjugate vaccine (MCV4P) 2015-01-16 00:00:00 Completed [facility] Meningococcal Vaccine 2015-01-16 00:00:00 Completed [facility] Meningococcal Polysaccharide (groups A, C, Y and W-135) conjugate vaccine (MCV4P) 2015-01-16 00:00:00 Completed [facility] Meningococcal Vaccine 2015-01-16 00:00:00 Completed [facility] Meningococcal Polysaccharide (groups A, C, Y and W-135) conjugate vaccine (MCV4P) 2015-01-16 00:00:00 Completed [facility] Meningococcal Vaccine 2015-01-16 00:00:00 Completed [facility] Meningococcal Polysaccharide (groups A, C, Y and W-135) conjugate vaccine (MCV4P) 2015-01-16 00:00:00 Completed [facility] Meningococcal Vaccine 2015-01-16 00:00:00 Completed [facility] Meningococcal Polysaccharide (groups A, C, Y and W-135) conjugate vaccine (MCV4P) 2015-01-16 00:00:00 Completed [facility] Meningococcal Vaccine 2015-01-16 00:00:00 Completed [facility] Meningococcal Polysaccharide (groups A, C, Y and W-135) conjugate vaccine (MCV4P) 2015-01-16 00:00:00 Completed [facility] TDAP (ADACEL) VACCINE 2014-06-08 00:00:00 Completed [facility] TDAP (ADACEL) VACCINE 2014-06-08 00:00:00 Completed [facility] TDAP (ADACEL) VACCINE 2014-06-08 00:00:00 Completed [facility] TDAP (ADACEL) VACCINE 2014-06-08 00:00:00 Completed [place] [facility] TDAP (ADACEL) VACCINE 2014-06-08 00:00:00 Completed [facility] TDAP (ADACEL) VACCINE 2014-06-08 00:00:00 Completed [facility] TDAP (ADACEL) VACCINE 2014-06-08 00:00:00 Completed [facility] TDAP (ADACEL) VACCINE 2014-06-08 00:00:00 Completed [facility] TDAP (ADACEL) VACCINE 2014-06-08 00:00:00 Completed [facility] TDAP (ADACEL) VACCINE 2014-06-08 00:00:00 Completed [facility] TDAP (ADACEL) VACCINE 2014-06-08 00:00:00 Completed [facility] TDAP (ADACEL) VACCINE 2014-06-08 00:00:00 Completed [facility] Influenza Virus Vaccine 2013-03-31 00:00:00 Completed [facility] Influenza Virus Vaccine 2013-03-31 00:00:00 Completed [facility] Influenza Virus Vaccine 2013-03-31 00:00:00 Completed [facility] Influenza Virus Vaccine 2013-03-31 00:00:00 Completed [facility] Influenza Virus Vaccine 2013-03-31 00:00:00 Completed [facility] Influenza Virus Vaccine Quad .5 mL IM 6+ MO 2013-03-31 00:00:00 Completed [facility] Influenza Virus Vaccine 2013-03-31 00:00:00 Completed [facility] Influenza Virus Vaccine Quad .5 mL IM 6+ MO 2013-03-31 00:00:00 Completed [facility] Influenza Virus Vaccine 2013-03-31 00:00:00 Completed [facility] Influenza Virus Vaccine Quad .5 mL IM 6+ MO 2013-03-31 00:00:00 Completed [facility] Influenza Virus Vaccine 2013-03-31 00:00:00 Completed [facility] Influenza Virus Vaccine Quad .5 mL IM 6+ MO 2013-03-31 00:00:00 Completed [facility] Influenza Virus Vaccine 2013-03-31 00:00:00 Completed [facility] Influenza Virus Vaccine Quad .5 mL IM 6+ MO 2013-03-31 00:00:00 Completed [facility] Influenza Virus Vaccine 2013-03-31 00:00:00 Completed [facility] Influenza Virus Vaccine Quad .5 mL IM 6+ MO 2013-03-31 00:00:00 Completed [facility] Influenza Virus Vaccine 2013-03-31 00:00:00 Completed [facility] Influenza Virus Vaccine Quad .5 mL IM 6+ MO 2013-03-31 00:00:00 Completed [facility] Influenza Virus Vaccine 2013-03-31 00:00:00 Completed [facility] Influenza Virus Vaccine Quad .5 mL IM 6+ MO 2013-03-31 00:00:00 Completed [facility] Influenza Virus Vaccine 2012-05-04 00:00:00 Completed [facility] Influenza Virus Vaccine 2012-05-04 00:00:00 Completed [facility] Influenza Virus Vaccine 2012-05-04 00:00:00 Completed [facility] Influenza Virus Vaccine 2012-05-04 00:00:00 Completed [facility] Influenza Virus Vaccine 2012-05-04 00:00:00 Completed [facility] Influenza Virus Vaccine - Whole 2012-05-04 00:00:00 Completed [facility] Influenza Virus Vaccine 2012-05-04 00:00:00 Completed [facility] Influenza Virus Vaccine - Whole 2012-05-04 00:00:00 Completed [facility] Influenza Virus Vaccine 2012-05-04 00:00:00 Completed [facility] Influenza Virus Vaccine - Whole 2012-05-04 00:00:00 Completed [facility] Influenza Virus Vaccine 2012-05-04 00:00:00 Completed [facility] Influenza Virus Vaccine - Whole 2012-05-04 00:00:00 Completed [facility] Influenza Virus Vaccine 2012-05-04 00:00:00 Completed [facility] Influenza Virus Vaccine - Whole 2012-05-04 00:00:00 Completed [facility] Influenza Virus Vaccine 2012-05-04 00:00:00 Completed [facility] Influenza Virus Vaccine - Whole 2012-05-04 00:00:00 Completed [facility] Influenza Virus Vaccine 2012-05-04 00:00:00 Completed [facility] Influenza Virus Vaccine - Whole 2012-05-04 00:00:00 Completed [facility] Influenza Virus Vaccine 2012-05-04 00:00:00 Completed [facility] Influenza Virus Vaccine - Whole 2012-05-04 00:00:00 Completed [facility] Influenza Virus Vaccine 2008-03-16 00:00:00 Completed [facility] Influenza Virus Vaccine 2008-03-16 00:00:00 Completed [facility] Influenza Virus Vaccine 2008-03-16 00:00:00 Completed [facility] Influenza Virus Vaccine 2008-03-16 00:00:00 Completed [facility] Influenza Virus Vaccine 2008-03-16 00:00:00 Completed [facility] Influenza Virus Vaccine - Whole 2008-03-16 00:00:00 Completed [facility] Influenza Virus Vaccine 2008-03-16 00:00:00 Completed [facility] Influenza Virus Vaccine - Whole 2008-03-16 00:00:00 Completed [facility] Influenza Virus Vaccine 2008-03-16 00:00:00 Completed [facility] Influenza Virus Vaccine - Whole 2008-03-16 00:00:00 Completed [facility] Influenza Virus Vaccine 2008-03-16 00:00:00 Completed [facility] Influenza Virus Vaccine - Whole 2008-03-16 00:00:00 Completed [facility] Influenza Virus Vaccine 2008-03-16 00:00:00 Completed [facility] Influenza Virus Vaccine - Whole 2008-03-16 00:00:00 Completed [facility] Influenza Virus Vaccine 2008-03-16 00:00:00 Completed [facility] Influenza Virus Vaccine - Whole 2008-03-16 00:00:00 Completed [facility] Influenza Virus Vaccine 2008-03-16 00:00:00 Completed [facility] Influenza Virus Vaccine - Whole 2008-03-16 00:00:00 Completed [facility] Influenza Virus Vaccine 2008-03-16 00:00:00 Completed [facility] Influenza Virus Vaccine - Whole 2008-03-16 00:00:00 Completed [facility] DTAP 2006-09-22 00:00:00 Completed [facility] MMR 2006-09-22 00:00:00 Completed [facility] Polio (IPV/OPV) 2006-09-22 00:00:00 Completed [facility] Varicella (varivax)(chicken pox) 2006-09-22 00:00:00 Completed [facility] DTAP 2006-09-22 00:00:00 Completed [facility] MMR 2006-09-22 00:00:00 Completed [facility] Polio (IPV/OPV) 2006-09-22 00:00:00 Completed [facility] Varicella (varivax)(chicken pox) 2006-09-22 00:00:00 Completed [facility] DTAP 2006-09-22 00:00:00 Completed [facility] MMR 2006-09-22 00:00:00 Completed [facility] Polio (IPV/OPV) 2006-09-22 00:00:00 Completed [facility] Varicella (varivax)(chicken pox) 2006-09-22 00:00:00 Completed [facility] DTAP 2006-09-22 00:00:00 Completed [facility] MMR 2006-09-22 00:00:00 Completed [facility] Polio (IPV/OPV) 2006-09-22 00:00:00 Completed [facility] Varicella (varivax)(chicken pox) 2006-09-22 00:00:00 Completed [facility] DTAP 2006-09-22 00:00:00 Completed [facility] MMR 2006-09-22 00:00:00 Completed [facility] Polio (IPV/OPV) 2006-09-22 00:00:00 Completed [facility] Varicella (varivax)(chicken pox) 2006-09-22 00:00:00 Completed [facility] DTaP, Unspecified Formulation 2006-09-22 00:00:00 Completed [facility] Proquad (MMR/VARICELLA) 2006-09-22 00:00:00 Completed [facility] IPV 2006-09-22 00:00:00 Completed [facility] DTAP 2006-09-22 00:00:00 Completed [facility] MMR 2006-09-22 00:00:00 Completed [facility] Polio (IPV/OPV) 2006-09-22 00:00:00 Completed [facility] Varicella (varivax)(chicken pox) 2006-09-22 00:00:00 Completed [facility] DTaP, Unspecified Formulation 2006-09-22 00:00:00 Completed [facility] Proquad (MMR/VARICELLA) 2006-09-22 00:00:00 Completed [facility] IPV 2006-09-22 00:00:00 Completed [facility] DTAP 2006-09-22 00:00:00 Completed [facility] MMR 2006-09-22 00:00:00 Completed [facility] Polio (IPV/OPV) 2006-09-22 00:00:00 Completed [facility] Varicella (varivax)(chicken pox) 2006-09-22 00:00:00 Completed [facility] DTaP, Unspecified Formulation 2006-09-22 00:00:00 Completed [facility] Proquad (MMR/VARICELLA) 2006-09-22 00:00:00 Completed [facility] IPV 2006-09-22 00:00:00 Completed [facility] DTAP 2006-09-22 00:00:00 Completed [facility] MMR 2006-09-22 00:00:00 Completed [facility] Polio (IPV/OPV) 2006-09-22 00:00:00 Completed [facility] Varicella (varivax)(chicken pox) 2006-09-22 00:00:00 Completed [facility] DTaP, Unspecified Formulation 2006-09-22 00:00:00 Completed [facility] Proquad (MMR/VARICELLA) 2006-09-22 00:00:00 Completed [facility] IPV 2006-09-22 00:00:00 Completed [facility] DTAP 2006-09-22 00:00:00 Completed [facility] MMR 2006-09-22 00:00:00 Completed [facility] Polio (IPV/OPV) 2006-09-22 00:00:00 Completed [facility] Varicella (varivax)(chicken pox) 2006-09-22 00:00:00 Completed [facility] DTaP, Unspecified Formulation 2006-09-22 00:00:00 Completed [facility] Proquad (MMR/VARICELLA) 2006-09-22 00:00:00 Completed [facility] IPV 2006-09-22 00:00:00 Completed [facility] DTAP 2006-09-22 00:00:00 Completed [facility] MMR 2006-09-22 00:00:00 Completed [facility] Polio (IPV/OPV) 2006-09-22 00:00:00 Completed [facility] Varicella (varivax)(chicken pox) 2006-09-22 00:00:00 Completed [facility] DTaP, Unspecified Formulation 2006-09-22 00:00:00 Completed [facility] Proquad (MMR/VARICELLA) 2006-09-22 00:00:00 Completed [facility] IPV 2006-09-22 00:00:00 Completed [facility] DTAP 2006-09-22 00:00:00 Completed [facility] MMR 2006-09-22 00:00:00 Completed [facility] Polio (IPV/OPV) 2006-09-22 00:00:00 Completed [facility] Varicella (varivax)(chicken pox) 2006-09-22 00:00:00 Completed [facility] DTaP, Unspecified Formulation 2006-09-22 00:00:00 Completed [facility] Proquad (MMR/VARICELLA) 2006-09-22 00:00:00 Completed [facility] IPV 2006-09-22 00:00:00 Completed [facility] DTAP 2006-09-22 00:00:00 Completed [facility] MMR 2006-09-22 00:00:00 Completed [facility] Polio (IPV/OPV) 2006-09-22 00:00:00 Completed [facility] Varicella (varivax)(chicken pox) 2006-09-22 00:00:00 Completed [facility] DTaP, Unspecified Formulation 2006-09-22 00:00:00 Completed [facility] Proquad (MMR/VARICELLA) 2006-09-22 00:00:00 Completed [facility] IPV 2006-09-22 00:00:00 Completed [facility] HEPATITIS A 2005-01-28 00:00:00 Completed [facility] HEPATITIS A 2005-01-28 00:00:00 Completed [facility] HEPATITIS A 2005-01-28 00:00:00 Completed [facility] HEPATITIS A 2005-01-28 00:00:00 Completed [facility] HEPATITIS A 2005-01-28 00:00:00 Completed [facility] HEPATITIS A 2005-01-28 00:00:00 Completed [facility] HEPATITIS A 2005-01-28 00:00:00 Completed [facility] HEPATITIS A 2005-01-28 00:00:00 Completed [facility] HEPATITIS A 2005-01-28 00:00:00 Completed [facility] HEPATITIS A 2005-01-28 00:00:00 Completed [facility] HEPATITIS A 2005-01-28 00:00:00 Completed [facility] HEPATITIS A 2005-01-28 00:00:00 Completed [facility] DTAP 2004-03-05 00:00:00 Completed [facility] HIB 4 Dose Schedule 2004-03-05 00:00:00 Completed [facility] Polio (IPV/OPV) 2004-03-05 00:00:00 Completed [facility] DTAP 2004-03-05 00:00:00 Completed [facility] HIB 4 Dose Schedule 2004-03-05 00:00:00 Completed [facility] Polio (IPV/OPV) 2004-03-05 00:00:00 Completed [facility] DTAP 2004-03-05 00:00:00 Completed [facility] HIB 4 Dose Schedule 2004-03-05 00:00:00 Completed [facility] Polio (IPV/OPV) 2004-03-05 00:00:00 Completed [facility] DTAP 2004-03-05 00:00:00 Completed [facility] HIB 4 Dose Schedule 2004-03-05 00:00:00 Completed [facility] Polio (IPV/OPV) 2004-03-05 00:00:00 Completed [facility] DTAP 2004-03-05 00:00:00 Completed [facility] HIB 4 Dose Schedule 2004-03-05 00:00:00 Completed [facility] Polio (IPV/OPV) 2004-03-05 00:00:00 Completed [facility] DTaP, Unspecified Formulation 2004-03-05 00:00:00 Completed [facility] IPV 2004-03-05 00:00:00 Completed [facility] DTAP 2004-03-05 00:00:00 Completed [facility] HIB 4 Dose Schedule 2004-03-05 00:00:00 Completed [facility] Polio (IPV/OPV) 2004-03-05 00:00:00 Completed [facility] DTaP, Unspecified Formulation 2004-03-05 00:00:00 Completed [facility] IPV 2004-03-05 00:00:00 Completed [facility] DTAP 2004-03-05 00:00:00 Completed [facility] HIB 4 Dose Schedule 2004-03-05 00:00:00 Completed [facility] Polio (IPV/OPV) 2004-03-05 00:00:00 Completed [facility] DTaP, Unspecified Formulation 2004-03-05 00:00:00 Completed [facility] IPV 2004-03-05 00:00:00 Completed [facility] DTAP 2004-03-05 00:00:00 Completed [facility] HIB 4 Dose Schedule 2004-03-05 00:00:00 Completed [facility] Polio (IPV/OPV) 2004-03-05 00:00:00 Completed [facility] DTaP, Unspecified Formulation 2004-03-05 00:00:00 Completed [facility] IPV 2004-03-05 00:00:00 Completed [facility] DTAP 2004-03-05 00:00:00 Completed [facility] HIB 4 Dose Schedule 2004-03-05 00:00:00 Completed [facility] Polio (IPV/OPV) 2004-03-05 00:00:00 Completed [facility] DTaP, Unspecified Formulation 2004-03-05 00:00:00 Completed [facility] IPV 2004-03-05 00:00:00 Completed [facility] DTAP 2004-03-05 00:00:00 Completed [facility] HIB 4 Dose Schedule 2004-03-05 00:00:00 Completed [facility] Polio (IPV/OPV) 2004-03-05 00:00:00 Completed [facility] DTaP, Unspecified Formulation 2004-03-05 00:00:00 Completed [facility] IPV 2004-03-05 00:00:00 Completed [facility] DTAP 2004-03-05 00:00:00 Completed [facility] HIB 4 Dose Schedule 2004-03-05 00:00:00 Completed [facility] Polio (IPV/OPV) 2004-03-05 00:00:00 Completed [facility] DTaP, Unspecified Formulation 2004-03-05 00:00:00 Completed [facility] IPV 2004-03-05 00:00:00 Completed [facility] DTAP 2004-03-05 00:00:00 Completed [facility] HIB 4 Dose Schedule 2004-03-05 00:00:00 Completed [facility] Polio (IPV/OPV) 2004-03-05 00:00:00 Completed [facility] DTaP, Unspecified Formulation 2004-03-05 00:00:00 Completed [facility] IPV 2004-03-05 00:00:00 Completed [facility] Influenza Virus Vaccine 2003-05-04 00:00:00 Completed [facility] Influenza Virus Vaccine 2003-05-04 00:00:00 Completed [facility] Influenza Virus Vaccine 2003-05-04 00:00:00 Completed [facility] Influenza Virus Vaccine 2003-05-04 00:00:00 Completed [facility] Influenza Virus Vaccine 2003-05-04 00:00:00 Completed [facility] Influenza Virus Vaccine - Whole 2003-05-04 00:00:00 Completed [facility] Influenza Virus Vaccine 2003-05-04 00:00:00 Completed [facility] Influenza Virus Vaccine - Whole 2003-05-04 00:00:00 Completed [facility] Influenza Virus Vaccine 2003-05-04 00:00:00 Completed [facility] Influenza Virus Vaccine - Whole 2003-05-04 00:00:00 Completed [facility] Influenza Virus Vaccine 2003-05-04 00:00:00 Completed [facility] Influenza Virus Vaccine - Whole 2003-05-04 00:00:00 Completed [facility] Influenza Virus Vaccine 2003-05-04 00:00:00 Completed [facility] Influenza Virus Vaccine - Whole 2003-05-04 00:00:00 Completed [facility] Influenza Virus Vaccine 2003-05-04 00:00:00 Completed [facility] Influenza Virus Vaccine - Whole 2003-05-04 00:00:00 Completed [facility] Influenza Virus Vaccine 2003-05-04 00:00:00 Completed [facility] Influenza Virus Vaccine - Whole 2003-05-04 00:00:00 Completed [facility] Influenza Virus Vaccine 2003-05-04 00:00:00 Completed [facility] Influenza Virus Vaccine - Whole 2003-05-04 00:00:00 Completed [facility] Influenza Virus Vaccine 2003-04-07 00:00:00 Completed [facility] MMR 2003-04-07 00:00:00 Completed [facility] Varicella (varivax)(chicken pox) 2003-04-07 00:00:00 Completed [facility] Influenza Virus Vaccine 2003-04-07 00:00:00 Completed [facility] MMR 2003-04-07 00:00:00 Completed [facility] Varicella (varivax)(chicken pox) 2003-04-07 00:00:00 Completed [facility] Influenza Virus Vaccine 2003-04-07 00:00:00 Completed [facility] MMR 2003-04-07 00:00:00 Completed [facility] Varicella (varivax)(chicken pox) 2003-04-07 00:00:00 Completed [facility] Influenza Virus Vaccine 2003-04-07 00:00:00 Completed [facility] MMR 2003-04-07 00:00:00 Completed [facility] Varicella (varivax)(chicken pox) 2003-04-07 00:00:00 Completed [facility] Influenza Virus Vaccine 2003-04-07 00:00:00 Completed [facility] MMR 2003-04-07 00:00:00 Completed [facility] Varicella (varivax)(chicken pox) 2003-04-07 00:00:00 Completed [facility] Flu Trivalent 2003-04-07 00:00:00 Completed [facility] Pneumococcal 7 Conjugate, PCV7 (Prevnar7) 2003-04-07 00:00:00 Completed [facility] Influenza Virus Vaccine 2003-04-07 00:00:00 Completed [facility] MMR 2003-04-07 00:00:00 Completed [facility] Varicella (varivax)(chicken pox) 2003-04-07 00:00:00 Completed [facility] Flu Trivalent 2003-04-07 00:00:00 Completed [facility] Pneumococcal 7 Conjugate, PCV7 (Prevnar7) 2003-04-07 00:00:00 Completed [facility] Influenza Virus Vaccine 2003-04-07 00:00:00 Completed [facility] MMR 2003-04-07 00:00:00 Completed [facility] Varicella (varivax)(chicken pox) 2003-04-07 00:00:00 Completed [facility] Flu Trivalent 2003-04-07 00:00:00 Completed [facility] Pneumococcal 7 Conjugate, PCV7 (Prevnar7) 2003-04-07 00:00:00 Completed [facility] Influenza Virus Vaccine 2003-04-07 00:00:00 Completed [facility] MMR 2003-04-07 00:00:00 Completed [facility] Varicella (varivax)(chicken pox) 2003-04-07 00:00:00 Completed [facility] Flu Trivalent 2003-04-07 00:00:00 Completed [facility] Pneumococcal 7 Conjugate, PCV7 (Prevnar7) 2003-04-07 00:00:00 Completed [facility] Influenza Virus Vaccine 2003-04-07 00:00:00 Completed [facility] MMR 2003-04-07 00:00:00 Completed [facility] Varicella (varivax)(chicken pox) 2003-04-07 00:00:00 Completed [facility] Flu Trivalent 2003-04-07 00:00:00 Completed [facility] Pneumococcal 7 Conjugate, PCV7 (Prevnar7) 2003-04-07 00:00:00 Completed [facility] Influenza Virus Vaccine 2003-04-07 00:00:00 Completed [facility] MMR 2003-04-07 00:00:00 Completed [facility] Varicella (varivax)(chicken pox) 2003-04-07 00:00:00 Completed [facility] Flu Trivalent 2003-04-07 00:00:00 Completed [facility] Pneumococcal 7 Conjugate, PCV7 (Prevnar7) 2003-04-07 00:00:00 Completed [facility] Influenza Virus Vaccine 2003-04-07 00:00:00 Completed [facility] MMR 2003-04-07 00:00:00 Completed [facility] Varicella (varivax)(chicken pox) 2003-04-07 00:00:00 Completed [facility] Flu Trivalent 2003-04-07 00:00:00 Completed [facility] Pneumococcal 7 Conjugate, PCV7 (Prevnar7) 2003-04-07 00:00:00 Completed [facility] Influenza Virus Vaccine 2003-04-07 00:00:00 Completed [facility] MMR 2003-04-07 00:00:00 Completed [facility] Varicella (varivax)(chicken pox) 2003-04-07 00:00:00 Completed [facility] Flu Trivalent 2003-04-07 00:00:00 Completed [facility] Pneumococcal 7 Conjugate, PCV7 (Prevnar7) 2003-04-07 00:00:00 Completed [facility] DTAP 2002 00:00:00 Completed [facility] HIB 4 Dose Schedule 2002 00:00:00 Completed [facility] Hep B, Adol or Pedi Dosage 2002 00:00:00 Completed [facility] DTAP 2002 00:00:00 Completed [facility] HIB 4 Dose Schedule 2002 00:00:00 Completed [facility] Hep B, Adol or Pedi Dosage 2002 00:00:00 Completed [facility] DTAP 2002 00:00:00 Completed [facility] HIB 4 Dose Schedule 2002 00:00:00 Completed [facility] Hep B, Adol or Pedi Dosage 2002 00:00:00 Completed [facility] DTAP 2002 00:00:00 Completed [facility] HIB 4 Dose Schedule 2002 00:00:00 Completed [facility] Hep B, Adol or Pedi Dosage 2002 00:00:00 Completed [facility] DTAP 2002 00:00:00 Completed [facility] HIB 4 Dose Schedule 2002 00:00:00 Completed [facility] Hep B, Adol or Pedi Dosage 2002 00:00:00 Completed [facility] DTaP, Unspecified Formulation 2002 00:00:00 Completed [facility] Hib-HbOC 2002 00:00:00 Completed [facility] Pneumococcal 7 Conjugate, PCV7 (Prevnar7) 2002 00:00:00 Completed [facility] DTAP 2002 00:00:00 Completed [facility] HIB 4 Dose Schedule 2002 00:00:00 Completed [facility] Hep B, Adol or Pedi Dosage 2002 00:00:00 Completed [facility] DTaP, Unspecified Formulation 2002 00:00:00 Completed [facility] Hib-HbOC 2002 00:00:00 Completed [facility] Pneumococcal 7 Conjugate, PCV7 (Prevnar7) 2002 00:00:00 Completed [facility] DTAP 2002 00:00:00 Completed [facility] HIB 4 Dose Schedule 2002 00:00:00 Completed [facility] Hep B, Adol or Pedi Dosage 2002 00:00:00 Completed [facility] DTaP, Unspecified Formulation 2002 00:00:00 Completed [facility] Hib-HbOC 2002 00:00:00 Completed [facility] Pneumococcal 7 Conjugate, PCV7 (Prevnar7) 2002 00:00:00 Completed [facility] DTAP 2002 00:00:00 Completed [facility] HIB 4 Dose Schedule 2002 00:00:00 Completed [facility] Hep B, Adol or Pedi Dosage 2002 00:00:00 Completed [facility] DTaP, Unspecified Formulation 2002 00:00:00 Completed [facility] Hib-HbOC 2002 00:00:00 Completed [facility] Pneumococcal 7 Conjugate, PCV7 (Prevnar7) 2002 00:00:00 Completed [facility] DTAP 2002 00:00:00 Completed [facility] HIB 4 Dose Schedule 2002 00:00:00 Completed [facility] Hep B, Adol or Pedi Dosage 2002 00:00:00 Completed [facility] DTaP, Unspecified Formulation 2002 00:00:00 Completed [facility] Hib-HbOC 2002 00:00:00 Completed [facility] Pneumococcal 7 Conjugate, PCV7 (Prevnar7) 2002 00:00:00 Completed [facility] DTAP 2002 00:00:00 Completed [facility] HIB 4 Dose Schedule 2002 00:00:00 Completed [facility] Hep B, Adol or Pedi Dosage 2002 00:00:00 Completed [facility] DTaP, Unspecified Formulation 2002 00:00:00 Completed [facility] Hib-HbOC 2002 00:00:00 Completed [facility] Pneumococcal 7 Conjugate, PCV7 (Prevnar7) 2002 00:00:00 Completed [facility] DTAP 2002 00:00:00 Completed [facility] HIB 4 Dose Schedule 2002 00:00:00 Completed [facility] Hep B, Adol or Pedi Dosage 2002 00:00:00 Completed [facility] DTaP, Unspecified Formulation 2002 00:00:00 Completed [facility] Hib-HbOC 2002 00:00:00 Completed [facility] Pneumococcal 7 Conjugate, PCV7 (Prevnar7) 2002 00:00:00 Completed [facility] DTAP 2002 00:00:00 Completed [facility] HIB 4 Dose Schedule 2002 00:00:00 Completed [facility] Hep B, Adol or Pedi Dosage 2002 00:00:00 Completed [facility] DTaP, Unspecified Formulation 2002 00:00:00 Completed [facility] Hib-HbOC 2002 00:00:00 Completed [facility] Pneumococcal 7 Conjugate, PCV7 (Prevnar7) 2002 00:00:00 Completed [facility] DTAP 2002 00:00:00 Completed [facility] HIB 4 Dose Schedule 2002 00:00:00 Completed [facility] Polio (IPV/OPV) 2002 00:00:00 Completed [facility] DTAP 2002 00:00:00 Completed [facility] HIB 4 Dose Schedule 2002 00:00:00 Completed [facility] Polio (IPV/OPV) 2002 00:00:00 Completed [facility] DTAP 2002 00:00:00 Completed [facility] HIB 4 Dose Schedule 2002 00:00:00 Completed [facility] Polio (IPV/OPV) 2002 00:00:00 Completed [facility] DTAP 2002 00:00:00 Completed [facility] HIB 4 Dose Schedule 2002 00:00:00 Completed [facility] Polio (IPV/OPV) 2002 00:00:00 Completed [facility] DTAP 2002 00:00:00 Completed [facility] HIB 4 Dose Schedule 2002 00:00:00 Completed [facility] Polio (IPV/OPV) 2002 00:00:00 Completed [facility] DTaP, Unspecified Formulation 2002 00:00:00 Completed [facility] Hib-HbOC 2002 00:00:00 Completed [facility] Pneumococcal 7 Conjugate, PCV7 (Prevnar7) 2002 00:00:00 Completed [facility] IPV 2002 00:00:00 Completed [facility] DTAP 2002 00:00:00 Completed [facility] HIB 4 Dose Schedule 2002 00:00:00 Completed [facility] Polio (IPV/OPV) 2002 00:00:00 Completed [facility] DTaP, Unspecified Formulation 2002 00:00:00 Completed [facility] Hib-HbOC 2002 00:00:00 Completed [facility] Pneumococcal 7 Conjugate, PCV7 (Prevnar7) 2002 00:00:00 Completed [facility] IPV 2002 00:00:00 Completed [facility] DTAP 2002 00:00:00 Completed [facility] HIB 4 Dose Schedule 2002 00:00:00 Completed [facility] Polio (IPV/OPV) 2002 00:00:00 Completed [facility] DTaP, Unspecified Formulation 2002 00:00:00 Completed [facility] Hib-HbOC 2002 00:00:00 Completed [facility] Pneumococcal 7 Conjugate, PCV7 (Prevnar7) 2002 00:00:00 Completed [facility] IPV 2002 00:00:00 Completed [facility] DTAP 2002 00:00:00 Completed [facility] HIB 4 Dose Schedule 2002 00:00:00 Completed [facility] Polio (IPV/OPV) 2002 00:00:00 Completed [facility] DTaP, Unspecified Formulation 2002 00:00:00 Completed [facility] Hib-HbOC 2002 00:00:00 Completed [facility] Pneumococcal 7 Conjugate, PCV7 (Prevnar7) 2002 00:00:00 Completed [facility] IPV 2002 00:00:00 Completed [facility] DTAP 2002 00:00:00 Completed [facility] HIB 4 Dose Schedule 2002 00:00:00 Completed [facility] Polio (IPV/OPV) 2002 00:00:00 Completed [facility] DTaP, Unspecified Formulation 2002 00:00:00 Completed [facility] Hib-HbOC 2002 00:00:00 Completed [facility] Pneumococcal 7 Conjugate, PCV7 (Prevnar7) 2002 00:00:00 Completed [facility] IPV 2002 00:00:00 Completed [facility] DTAP 2002 00:00:00 Completed [facility] HIB 4 Dose Schedule 2002 00:00:00 Completed [facility] Polio (IPV/OPV) 2002 00:00:00 Completed [facility] DTaP, Unspecified Formulation 2002 00:00:00 Completed [facility] Hib-HbOC 2002 00:00:00 Completed [facility] Pneumococcal 7 Conjugate, PCV7 (Prevnar7) 2002 00:00:00 Completed [facility] IPV 2002 00:00:00 Completed [facility] DTAP 2002 00:00:00 Completed [facility] HIB 4 Dose Schedule 2002 00:00:00 Completed [facility] Polio (IPV/OPV) 2002 00:00:00 Completed [facility] DTaP, Unspecified Formulation 2002 00:00:00 Completed [facility] Hib-HbOC 2002 00:00:00 Completed [facility] Pneumococcal 7 Conjugate, PCV7 (Prevnar7) 2002 00:00:00 Completed [facility] IPV 2002 00:00:00 Completed [facility] DTAP 2002 00:00:00 Completed [facility] HIB 4 Dose Schedule 2002 00:00:00 Completed [facility] Polio (IPV/OPV) 2002 00:00:00 Completed [facility] DTaP, Unspecified Formulation 2002 00:00:00 Completed [facility] Hib-HbOC 2002 00:00:00 Completed [facility] Pneumococcal 7 Conjugate, PCV7 (Prevnar7) 2002 00:00:00 Completed [facility] IPV 2002 00:00:00 Completed [facility] DTAP 2002 00:00:00 Completed [facility] HIB 4 Dose Schedule 2002 00:00:00 Completed [facility] Hep B, Adol or Pedi Dosage 2002 00:00:00 Completed [facility] Polio (IPV/OPV) 2002 00:00:00 Completed [facility] DTAP 2002 00:00:00 Completed [facility] HIB 4 Dose Schedule 2002 00:00:00 Completed [facility] Hep B, Adol or Pedi Dosage 2002 00:00:00 Completed [facility] Polio (IPV/OPV) 2002 00:00:00 Completed [facility] DTAP 2002 00:00:00 Completed [facility] HIB 4 Dose Schedule 2002 00:00:00 Completed [facility] Hep B, Adol or Pedi Dosage 2002 00:00:00 Completed [facility] Polio (IPV/OPV) 2002 00:00:00 Completed [facility] DTAP 2002 00:00:00 Completed [facility] HIB 4 Dose Schedule 2002 00:00:00 Completed [facility] Hep B, Adol or Pedi Dosage 2002 00:00:00 Completed [facility] Polio (IPV/OPV) 2002 00:00:00 Completed [facility] DTAP 2002 00:00:00 Completed [facility] HIB 4 Dose Schedule 2002 00:00:00 Completed [facility] Hep B, Adol or Pedi Dosage 2002 00:00:00 Completed [facility] Polio (IPV/OPV) 2002 00:00:00 Completed [facility] DTaP, Unspecified Formulation 2002 00:00:00 Completed [facility] Hib-HbOC 2002 00:00:00 Completed [facility] Pneumococcal 7 Conjugate, PCV7 (Prevnar7) 2002 00:00:00 Completed [facility] IPV 2002 00:00:00 Completed [facility] DTAP 2002 00:00:00 Completed [facility] HIB 4 Dose Schedule 2002 00:00:00 Completed [facility] Hep B, Adol or Pedi Dosage 2002 00:00:00 Completed [facility] Polio (IPV/OPV) 2002 00:00:00 Completed [facility] DTaP, Unspecified Formulation 2002 00:00:00 Completed [facility] Hib-HbOC 2002 00:00:00 Completed [facility] Pneumococcal 7 Conjugate, PCV7 (Prevnar7) 2002 00:00:00 Completed [facility] IPV 2002 00:00:00 Completed [facility] DTAP 2002 00:00:00 Completed [facility] HIB 4 Dose Schedule 2002 00:00:00 Completed [facility] Hep B, Adol or Pedi Dosage 2002 00:00:00 Completed [facility] Polio (IPV/OPV) 2002 00:00:00 Completed [facility] DTaP, Unspecified Formulation 2002 00:00:00 Completed [facility] Hib-HbOC 2002 00:00:00 Completed [facility] Pneumococcal 7 Conjugate, PCV7 (Prevnar7) 2002 00:00:00 Completed [facility] IPV 2002 00:00:00 Completed [facility] DTAP 2002 00:00:00 Completed [facility] HIB 4 Dose Schedule 2002 00:00:00 Completed [facility] Hep B, Adol or Pedi Dosage 2002 00:00:00 Completed [facility] Polio (IPV/OPV) 2002 00:00:00 Completed [facility] DTaP, Unspecified Formulation 2002 00:00:00 Completed [facility] Hib-HbOC 2002 00:00:00 Completed [facility] Pneumococcal 7 Conjugate, PCV7 (Prevnar7) 2002 00:00:00 Completed [facility] IPV 2002 00:00:00 Completed [facility] DTAP 2002 00:00:00 Completed [facility] HIB 4 Dose Schedule 2002 00:00:00 Completed [facility] Hep B, Adol or Pedi Dosage 2002 00:00:00 Completed [facility] Polio (IPV/OPV) 2002 00:00:00 Completed [facility] DTaP, Unspecified Formulation 2002 00:00:00 Completed [facility] Hib-HbOC 2002 00:00:00 Completed [facility] Pneumococcal 7 Conjugate, PCV7 (Prevnar7) 2002 00:00:00 Completed [facility] IPV 2002 00:00:00 Completed [facility] DTAP 2002 00:00:00 Completed [facility] HIB 4 Dose Schedule 2002 00:00:00 Completed [facility] Hep B, Adol or Pedi Dosage 2002 00:00:00 Completed [facility] Polio (IPV/OPV) 2002 00:00:00 Completed [facility] DTaP, Unspecified Formulation 2002 00:00:00 Completed [facility] Hib-HbOC 2002 00:00:00 Completed [facility] Pneumococcal 7 Conjugate, PCV7 (Prevnar7) 2002 00:00:00 Completed [facility] IPV 2002 00:00:00 Completed [facility] DTAP 2002 00:00:00 Completed [facility] HIB 4 Dose Schedule 2002 00:00:00 Completed [facility] Hep B, Adol or Pedi Dosage 2002 00:00:00 Completed [facility] Polio (IPV/OPV) 2002 00:00:00 Completed [facility] DTaP, Unspecified Formulation 2002 00:00:00 Completed [facility] Hib-HbOC 2002 00:00:00 Completed [facility] Pneumococcal 7 Conjugate, PCV7 (Prevnar7) 2002 00:00:00 Completed [facility] IPV 2002 00:00:00 Completed [facility] DTAP 2002 00:00:00 Completed [facility] HIB 4 Dose Schedule 2002 00:00:00 Completed [facility] Hep B, Adol or Pedi Dosage 2002 00:00:00 Completed [facility] Polio (IPV/OPV) 2002 00:00:00 Completed [facility] DTaP, Unspecified Formulation 2002 00:00:00 Completed [facility] Hib-HbOC 2002 00:00:00 Completed [facility] Pneumococcal 7 Conjugate, PCV7 (Prevnar7) 2002 00:00:00 Completed [facility] IPV 2002 00:00:00 Completed [facility] Hep B, Adol or Pedi Dosage 2002 00:00:00 Completed [facility] Hep B, Adol or Pedi Dosage 2002 00:00:00 Completed [facility] Hep B, Adol or Pedi Dosage 2002 00:00:00 Completed [facility] Hep B, Adol or Pedi Dosage 2002 00:00:00 Completed [facility] Hep B, Adol or Pedi Dosage 2002 00:00:00 Completed [facility] Hep B, Adol or Pedi Dosage 2002 00:00:00 Completed [facility] Hep B, Adol or Pedi Dosage 2002 00:00:00 Completed [facility] Hep B, Adol or Pedi Dosage 2002 00:00:00 Completed [facility] Hep B, Adol or Pedi Dosage 2002 00:00:00 Completed [facility] Hep B, Adol or Pedi Dosage 2002 00:00:00 Completed [facility] Hep B, Adol or Pedi Dosage 2002 00:00:00 Completed [facility] Hep B, Adol or Pedi Dosage 2002 00:00:00 Completed [facility] Tetanus Toxoid/HIB Unknown Completed [facility] hui Seybold - External DTaP Unknown Completed [facility] Sey bold - External DTaP Unknown Completed [facility] Sey bold - External DTaP Unknown Completed [facility] Sey bold - External DTaP Unknown Completed [facility] Sey bold - External DTaP Unknown Completed [facility] Sey bold - External DTaP,5 pertussis antigens- Diphtheria,Tetanus& [...] (age < 7 years) Unknown Completed [facility] Ferrarashoshana ld - External Influenza Virus Vaccine, No Preserv, age 6 months and up Unknown Completed [facility] Gregg eybold - External Influenza Virus Vaccine, No Preserv, age 6 months and up Unknown Completed [facility] manbold - External Influenza Virus Vaccine, No Preserv, age 6 months and up Unknown Completed [facility] Gregg donovanbogrady - External HIB- Haemophilus Influenzae Type B Unknown Completed [facility] Shook yvonne - External HPV9 Unknown Completed [facility] Influenza Virus Vaccine Quad .5 mL IM 6+ MO (FLUZONE/FLULAVAL/FL UARIX) Unknown Completed [facility] HIB- Haemophilus Influenzae Type B Unknown Completed [facility] Ferraracristela urssell - External DTAP Unknown Completed [facility] HPV Unknown Completed [facility] TDAP (ADACEL) VACCINE Unknown Completed [facility] DTAP Unknown Completed [facility] DTAP Unknown Completed [facility] DTAP Unknown Completed [facility] DTAP Unknown Completed [facility] HIB 4 Dose Schedule Unknown Completed [facility] HIB 4 Dose Schedule Unknown Completed [facility] HIB 4 Dose Schedule Unknown Completed [facility] HIB- Haemophilus Influenzae Type B Unknown Completed [facility] Amaya External HIB 4 Dose Schedule Unknown Completed [facility] HEPATITIS A Unknown Completed [facility] Hep B, Adol or Pedi Dosage Unknown Completed [facility] Hep B, Adol or Pedi Dosage Unknown Completed [facility] Hep B, Adol or Pedi Dosage Unknown Completed [facility] Influenza Virus Vaccine Unknown Completed [facility] Influenza Virus Vaccine Unknown Completed [facility] Influenza Virus Vaccine Unknown Completed [facility] Influenza Virus Vaccine Unknown Completed [facility] Influenza Virus Vaccine Unknown Completed [facility] Td (adult) Unknown Completed [facility] Ferrara andraold - External Influenza Virus Vaccine Unknown Completed [facility] Meningococcal Vaccine Unknown Completed [facility] MMR Unknown Completed [facility] MMR Unknown Completed [facility] Polio (IPV/OPV) Unknown Completed [facility] Polio (IPV/OPV) Unknown Completed [facility] Polio (IPV/OPV) Unknown Completed [facility] Polio (IPV/OPV) Unknown Completed [facility] Varicella (varivax)(chicken pox) Unknown Completed [facility] Varicella (varivax)(chicken pox) Unknown Completed [facility] HPV 4 (Human Papillomavirus) Unknown Completed [facility] Oleary [facility] - External DTaP, Unspecified Formulation Unknown Completed [facility] DTaP, Unspecified Formulation Unknown Completed [facility] DTaP, Unspecified Formulation Unknown Completed [facility] DTaP, Unspecified Formulation Unknown Completed [facility] DTaP, Unspecified Formulation Unknown Completed [facility] Influenza Virus Vaccine Quad .5 mL IM 6+ MO (FLUZONE/FLULAVAL/FL UARIX) Unknown Completed [facility] Flu Trivalent Unknown Completed [facility] Influenza Virus Vaccine - Whole Unknown Completed [facility] Influenza Virus Vaccine - Whole Unknown Completed [facility] Influenza Virus Vaccine - Whole Unknown Completed [facility] HPV 9 (Human Papillomavirus) Unknown Completed [facility] - External Hib-HbOC Unknown Completed [facility] Hib-HbOC Unknown Completed [facility] Hib-HbOC Unknown Completed [facility] HPV9 Unknown Completed [facility] Meningococcal Polysaccharide (groups A, C, Y and W-135) conjugate vaccine (MCV4P) Unknown Completed [facility] Proquad (MMR/VARICELLA) Unknown Completed [facility] Pneumococcal 7 Conjugate, PCV7 (Prevnar7) Unknown Completed [facility] Pneumococcal 7 Conjugate, PCV7 (Prevnar7) Unknown Completed [facility] Pneumococcal 7 Conjugate, PCV7 (Prevnar7) Unknown Completed [facility] Pneumococcal 7 Conjugate, PCV7 (Prevnar7) Unknown Completed [facility] HPV 9 (Human Papillomavirus) Unknown Completed [facility] - External IPV Unknown Completed [facility] IPV Unknown Completed [facility] IPV Unknown Completed [facility] [facility] IPV Unknown Completed [facility] Influenza Virus Vaccine, Unspecified Formulation Unknown Completed [facility] Ferraraybold - External Influenza Virus Vaccine, Unspecified Formulation Unknown Completed [facility] Ferraraybold - External Influenza Virus Vaccine, Unspecified Formulation Unknown Completed [facility] Ferraraybold - External Influenza Virus Vaccine, Unspecified Formulation Unknown Completed [facility] Seybold - External Influenza Virus Vaccine, Unspecified Formulation Unknown Completed [facility] Seybold - External Influenza Virus Vaccine, Unspecified Formulation Unknown Completed [facility] Seybold - External Influenza, Seasonal, Injectable Unknown Completed [facility] Seybold - External Influenza, Seasonal, Injectable Unknown [facility] Influenza, Seasonal, Injectable Unknown Completed [facility] Seybold - External IPV- Inactivated Polio Vaccine Unknown Completed [facility] Seybold - External IPV- Inactivated Polio Vaccine Unknown Completed [facility] Seybold - External IPV- Inactivated Polio Vaccine Unknown Completed [facility] Seybold - External IPV- Inactivated Polio Vaccine Unknown Completed [facility] Meningococcal Vaccine- Conjugate(Menactra) Unknown Completed [facility] eybold - External Meningococcal Vaccine Polysaccharide Unknown Completed [facility] - External MMR- Measles, Mumps, Rubella Unknown [facility]- Measles, Mumps, Rubella Unknown [facility] External Pneumococcal Vaccine, Conjugate [address] [facility] [facility] - External Pneumococcal Vaccine, Conjugate 7 Unknown [facility] Pneumococcal Vaccine, Conjugate 7 Unknown Completed [facility] - External Pneumococcal Vaccine, Conjugate [address] [facility] - External Polio Vaccine Unknown [facility] - External Polio Vaccine Unknown [facility] External Polio Vacc[facility] Unknown [facility] - External Polio Vaccine Unknown [facility] - External MMR/Varicella (ProQuad) Unknown Com[facility] External Tdap- (Boostrix, Adacel) Unknown Completed [facility] - External Varicella Vaccine Unknown Completed lsey Seybold - External Varicella Vaccine Unknown Completed lsey Seybold - External Hepatitis B, Adolescent Or Pediatric Unknown Completed [facility] Seybold - External Hepatitis B, Adolescent Or Pediatric Unknown Completed [facility] Seybold - External Hepatitis B, Adolescent Or Pediatric Unknown Completed [facility] Seybold - External HEPATITIS A- PEDI/ADOL Unknown Completed [facility] Seybold - External Tetanus Toxoid/HIB Unknown Completed Samir elsey Seybold - External Tetanus Toxoid/HIB Unknown Completed K elsey Seybold - External Tetanus Toxoid/HIB Unknown Completed K elsey Seybold - External Tetanus Toxoid/HIB Unknown Completed K elsey Seybold - External DTaP Unknown Completed [facility] Ferraray bold - External DTaP Unknown Completed [facility] Ferraray bold - External DTaP Unknown Completed [facility] Ferraray bold - External DTaP Unknown Completed [facility] Sey bold - External DTaP Unknown Completed [facility] Sey bold - External DTaP,5 pertussis antigens- Diphtheria,Tetanus& [...] Unknown Completed [facility] Shook bold - External Td (adult) Unknown Completed [facility] Ferrara ybold - External HPV 4 (Human Papillomavirus) [...] - External Influenza, Seasonal, Injectable Unknown Completed [facility] Seybold - External Influenza, Seasonal, Injectable Unknown Completed [facility] Seybold - External IPV- Inactivated Polio Vaccine Unknown Completed [facility] Seybold - External IPV- Inactivated Polio Vaccine Unknown Completed [facility] Seybold - External IPV- Inactivated Polio Vaccine Unknown Completed [facility] Seybold - External IPV- Inactivated Polio Vaccine Unknown [facility] - External Meningococcal Vaccine- Conjugate(Menactra) Unknown Completed [facility] eybold - External Meningococcal Vaccine Polysaccharide Unknown Completed [facility] - External MMR- Measles, Mumps, Rubella Unknown [facility] - External MMR- Measles, Mumps, Rubella Unknown Com[facility] - External Pneumococcal Vaccine, Conjugate [address] [facility] - External Pneumococcal Vaccine, Conjugate 7 Unknown Completed [facility] - External Pneumococcal Vaccine, Conjugate [address] [facility] - External Pneumococcal Vaccine, Conjugate [address] [facility] - External Polio Vaccine Unknown [facility] - External Polio Vaccine Unknown Com[facility] - External Polio Vaccine Unknown Com[facility] - External Polio Vaccine Unknown Com[facility] - External MMR/Varicella (ProQuad) Unknown Com[facility] - External Tdap- (Boostrix, Adacel) Unknown Com[facility] - External Varicella Vaccine Unknown Completed [facility] Seybold - External Varicella Vaccine Unknown [facility] - External Hepatitis B, Adolescent Or Pediatric Unknown Completed [facility] Seybold - External Hepatitis B, Adolescent Or Pediatric Unknown Completed [facility] Seybold - External Hepatitis B, Adolescent Or Pediatric Unknown [facility] - External HEPATITIS A- PEDI/ADOL Unknown Completed [facility] Seybold - External Tetanus Toxoid/HIB Unknown Completed Samir elsey Seybold - External Tetanus Toxoid/HIB Unknown Completed Samir elsey Seybold - External Tetanus Toxoid/HIB Unknown Completed Samir elsey Seybold - External Tetanus Toxoid/HIB Unknown Completed Samir elsey Seybold - External DTaP Unknown Completed [facility] Sey bold - External DTaP Unknown Completed [facility] Sey bold - External DTaP Unknown Completed [facility] Sey bold - External DTaP Unknown Completed [facility] Sey bold - External DTaP Unknown Completed [facility] Sey bold - External DTaP,5 pertussis antigens- Diphtheria,Tetanus& Acellular Pertussis (age < 7 years) Unknown Completed [facility] Collinso ld - External DTaP,5 pertussis antigens- Diphtheria,Tetanus& Acellular Pertussis (age < 7 years) Unknown Completed [facility] Collinso ld - External DTaP,5 pertussis antigens- Diphtheria,Tetanus& Acellular Pertussis (age < 7 years) Unknown Completed [facility] Collinso ld - External DTaP,5 pertussis antigens- Diphtheria,Tetanus& Acellular Pertussis (age < 7 years) Unknown Completed [facility] Collinso ld - External DTaP,5 pertussis antigens- Diphtheria,Tetanus& [...] Unknown Completed [facility] Shook bold - External Td (adult) Unknown Completed [facility] Se ybold - External HPV 4 (Human Papillomavirus) Unknown Completed [facility] Collinso ld - External HPV 9 (Human Papillomavirus) Unknown Completed [facility] Collinso ld - External HPV 9 (Human Papillomavirus) Unknown Completed [facility] Collinso ld - External Influenza Virus Vaccine, Unspecified [...] External Meningococcal Vaccine- Conjugate(Menactra) Unknown Completed [facility] Marysol eybold - External Meningococcal Vaccine Polysaccharide Unknown Completed [facility] - External MMR- Measles, Mumps, Rubella [...] Seybold - External Polio Vaccine Unknown Completed [facility] Seybold - External Polio Vaccine Unknown Completed [facility] Seybold - External Polio Vaccine Unknown Completed [facility] Seybold - External MMR/Varicella (ProQuad) Unknown Com[facility] - External Tdap- (Boostrix, Adacel) Unknown Completed [facility] Seybold - External Varicella Vaccine Unknown Completed lsey Seybold - External Varicella Vaccine Unknown Completed lsey Seybold - External Hepatitis B, Adolescent Or Pediatric Unknown Completed [facility] Seybold - External Hepatitis B, Adolescent Or Pediatric Unknown Completed [facility] Seybold - External Hepatitis B, Adolescent Or Pediatric Unknown Completed [facility] Seybold - External HEPATITIS A- PEDI/ADOL Unknown Completed [facility] Seybold - External Tetanus Toxoid/HIB Unknown Completed Samir elsey Seybold - External Tetanus Toxoid/HIB Unknown Completed Samir elsey Seybold - External Tetanus Toxoid/HIB Unknown Completed Samir elsey Seybold - External Tetanus Toxoid/HIB Unknown Completed Samir elsey Seybold - External DTaP Unknown Completed [facility] Sey bold - External DTaP Unknown Completed [facility] Sey bold - External DTaP Unknown Completed [facility] Sey bold - External DTaP Unknown Completed [facility] Sey bold - External DTaP Unknown Completed [facility] Ferraray bold - External DTaP,5 pertussis antigens- Diphtheria,Tetanus& Acellular Pertussis (age < 7 years) Unknown Completed [facility] Collinso ld - External DTaP,5 pertussis antigens- Diphtheria,Tetanus& [...] Seybo ld - External Influenza Virus Vaccine, No Preserv, age 6 months and up Unknown Completed [facility] S eybold - External Influenza Virus Vaccine, No Preserv, age 6 months and up Unknown Completed [facility] S eybold - External Influenza Virus Vaccine, No Preserv, age 6 months and up Unknown Completed [facility] S eybold - External Tetanus Toxoid/HIB Unknown Completed Samir elsey Seybold - External Tetanus Toxoid/HIB Unknown Completed Samir elsey Seybold - External Tetanus Toxoid/HIB Unknown Completed Samir elsey Seybold - External Td (adult) Unknown Completed [facility] [...] Influenza Virus Vaccine, Unspecified Formulation Unknown Completed Glneis Seybold - External Influenza, Seasonal, Injectable Unknown [...] External Meningococcal Vaccine- Conjugate(Menactra) Unknown Completed [facility] S eybold - External Meningococcal Vaccine Polysaccharide Unknown Completed [facility] ol d - External MMR- Measles, Mumps, Rubella Unknown [facility] MMR- Measles, Mumps, Rubella Unknown [facility] - External Pneumococcal Vaccine, Conjugate [address] [facility] - External Pneumococcal Vaccine, Conjugate [address] [facility] - External Pneumococcal Vaccine, Conjugate [address] Unknown [facility] - External Pneumococcal Vaccine, Conjugate 7 Unknown Completed [facility] Seybold - External Polio Vaccine Unknown Completed [facility] Seybold - External Polio Vaccine Unknown Completed Glneis Seybold - External Polio Vaccine Unknown Completed [facility] Seybold - External Polio Vaccine Unknown Completed Glneis Seybold - External MMR/Varicella (ProQuad) Unknown [facility] - External Tdap- (Boostrix, Adacel) Unknown Completed [facility] Seybold - External Varicella Vaccine Unknown Completed lsey Seybold - External Varicella Vaccine Unknown [facility] - External Hepatitis B, Adolescent Or Pediatric Unknown Completed [facility] Seybold - External Hepatitis B, Adolescent Or Pediatric Unknown Completed [facility] Seybold - External Hepatitis B, Adolescent Or Pediatric Unknown Completed [facility] Seybold - External HEPATITIS A- PEDI/ADOL Unknown Completed [facility] Seybold - External Tetanus Toxoid/HIB Unknown Completed Samir chavezy Seybold - External DTaP Unknown Completed [facility] y bold - External DTaP Unknown Completed [facility] Sey bold - External DTaP Unknown [facility] Completed [facility] - External DTaP Unknown Completed [facility] bold - External DTaP,5 pertussis antigens- Diphtheria,Tetanus& Acellular Pertussis (age < 7 years) Unknown [facility] D[facility]P,5 pertussis antigens- Diphtheria,Tetanus& Acellular Pertussis (age < 7 years) Unknown [facility] DTaP,5 pertussis antigens- Diphtheria,Tetanus& Acellular Pertussis (age < 7 years) Unknown [facility] - External DTaP,5 pertussis antigens- Diphtheria,Tetanus& Acellular Pertussis (age < 7 years) Unknown [facility] - External DTaP,5 pertussis antigens- Diphtheria,Tetanus& Acellular Pertussis (age < 7 years) Unknown Completed [facility] Seybo ld - External Influenza Virus Vaccine, No [...] Haemophilus Influenzae Type B Unknown Completed [facility] Sey bold - External HIB- Haemophilus Influenzae Type B Unknown Completed [facility] Sey bold - External Td (adult) Unknown Completed [...] External Meningococcal Vaccine- Conjugate(Menactra) Unknown Completed [facility] S eybold - External Meningococcal Vaccine Polysaccharide Unknown Completed [facility] Ferraraybol d - External MMR- Measles, Mumps, Rubella Unknown Completed [facility] Seybold - External MMR- Measles, Mumps, Rubella Unknown Completed [facility] Seybold - External Pneumococcal Vaccine, Conjugate 7 Unknown Completed [facility] Seybold - External Pneumococcal Vaccine, Conjugate 7 Unknown Completed [facility] Seybold - External Pneumococcal Vaccine, Conjugate 7 Unknown Completed [facility] Seybold - External Pneumococcal Vaccine, Conjugate 7 Unknown Completed [facility] Collinsold - External Polio Vaccine Unknown Completed [facility] Collinsold - External Polio Vaccine Unknown Completed [facility] Tucker - External Polio Vaccine Unknown Completed [facility] Collinsold - External Polio Vaccine Unknown Completed [facility] Collinsold - External MMR/Varicella (ProQuad) Unknown Completed [facility] Collinsold - External Tdap- (Boostrix, Adacel) Unknown Completed [facility] Collinsold - External Varicella Vaccine Unknown Completed Jovanny dimas Seybold - External Varicella Vaccine Unknown Completed Jovanny dimas Seybold - External Hepatitis B, Adolescent Or Pediatric Unknown Completed [facility] Collinsold - External Hepatitis B, Adolescent Or Pediatric Unknown Completed [facility] Collinsold - External Hepatitis B, Adolescent Or Pediatric Unknown Completed [facility] Tucker - External HEPATITIS A- PEDI/ADOL Unknown Completed [facility] Collinsold - External Tetanus Toxoid/HIB Unknown Completed Samir hui Seandraold - External Tetanus Toxoid/HIB Unknown Completed Samir hui Seandraold - External Tetanus Toxoid/HIB Unknown Completed Samir hui Seybold - External Vital Signs Vital Name Observation Time Observation Value Comments S ource Systolic blood pressure 2023-11-24 20:42:00 112 mm[Hg] [facility] Collinso ld - External Diastolic blood pressure 2023-11-24 20:42:00 62 mm[Hg] [facility] Collinso ld - External Heart rate 2023-11-24 20:42:00 71 /min Fox archibald Seybold - External Body temperature 2023-11-24 20:42:00 36.78 Gladis [facility] Ferraraybold - External Respiratory rate 2023-11-24 20:42:00 15 /min [facility] Ferraraybold - External Body height 2023-11-24 20:42:00 185.4 cm [place] man Seybold - External Body weight 2023-11-24 20:42:00 90.719 kg [place] man Seybold - External BMI 2023-11-24 20:42:00 26.39 kg/m2 [place] ey Seybold - External Heart rate 2023-07-25 16:21:00 95 /min Fox y Seybold - External Body temperature 2023-07-25 16:21:00 36.33 Gladis [facility] Seybold - External Respiratory rate 2023-07-25 16:21:00 14 /min [facility] Tucker - External Body height 2023-07-25 16:21:00 185.4 cm [place] Tucker - External Body weight 2023-07-25 16:21:00 82.555 kg [place] Tucker - External BMI 2023-07-25 16:21:00 24.01 kg/m2 [place] Collinsold - External Systolic blood pressure 2023-07-25 16:21:00 112 mm[Hg] [facility] Oleary ld - External Diastolic blood pressure 2023-07-25 16:21:00 52 mm[Hg] [facility] Collinso ld - External Systolic blood pressure 2023-01-24 00:57:00 142 mm[Hg] [facility] Diastolic blood pressure 2023-01-24 00:57:00 80 mm[Hg] [facility] Heart rate 2023-01-24 00:57:00 87 /min [facility] Body temperature 2023-01-24 00:57:00 37.72 Gladis [facility] Respiratory rate 2023-01-24 00:57:00 16 /min [facility] Body height 2023-01-24 00:57:00 185.4 cm [facility] Body weight 2023-01-24 00:57:00 80.287 kg [facility] BMI 2023-01-24 00:57:00 23.35 kg/m2 [facility] Oxygen saturation in Arterial blood by Pulse oximetry 2023-01-24 00:57:00 100 /min [facility] Systolic blood pressure 2022-11-22 19:01:00 129 mm[Hg] [facility] Diastolic blood pressure 2022-11-22 19:01:00 77 mm[Hg] [facility] Heart rate 2022-11-22 19:01:00 57 /min [facility] Body temperature 2022-11-22 19:01:00 36.78 Gladis [facility] Respiratory rate 2022-11-22 19:01:00 20 /min [facility] Body height 2022-11-22 19:01:00 182.9 cm [facility] Body weight 2022-11-22 19:01:00 80.151 kg [facility] BMI 2022-11-22 19:01:00 23.96 kg/m2 [facility] Oxygen saturation in Arterial blood by Pulse oximetry 2022-11-22 19:01:00 100 /min [facility] Systolic blood pressure 2022-08-24 01:00:00 117 mm[Hg] [facility] Diastolic blood pressure 2022-08-24 01:00:00 69 mm[Hg] [facility] Heart rate 2022-08-24 01:00:00 58 /min [facility] Respiratory rate 2022-08-24 01:00:00 18 /min [facility] Oxygen saturation in Arterial blood by Pulse oximetry 2022-08-24 01:00:00 100 /min [facility] Body temperature 2022-08-23 22:09:00 37.22 Gladis [facility] Body height 2022-08-23 22:09:00 182.9 cm [facility] Body weight 2022-08-23 22:09:00 83.915 kg [facility] BMI 2022-08-23 22:09:00 25.09 kg/m2 [facility] Systolic blood pressure 2022-05-30 19:05:00 115 mm[Hg] [facility] Diastolic blood pressure 2022-05-30 19:05:00 68 mm[Hg] [facility] Heart rate 2022-05-30 19:05:00 64 /min [facility] Body height 2022-05-30 19:05:00 185.4 cm [facility] Body weight 2022-05-30 19:05:00 85.866 kg [facility] BMI 2022-05-30 19:05:00 24.98 kg/m2 [facility] Oxygen saturation in Arterial blood by Pulse oximetry 2022-05-30 19:05:00 99 /min [facility] Systolic blood pressure 2022-05-18 00:43:00 142 mm[Hg] [facility] Diastolic blood pressure 2022-05-18 00:43:00 84 mm[Hg] [facility] Heart rate 2022-05-18 00:43:00 71 /min [facility] Body temperature 2022-05-18 00:43:00 37.39 Gladis [facility] Respiratory rate 2022-05-18 00:43:00 16 /min [facility] Body height 2022-05-18 00:43:00 185.4 cm [facility] Body weight 2022-05-18 00:43:00 86.183 kg [facility] BMI 2022-05-18 00:43:00 25.07 kg/m2 [facility] Oxygen saturation in Arterial blood by Pulse oximetry 2022-05-18 00:43:00 96 /min [facility] Systolic blood pressure 2021-02-28 18:32:00 111 mm[Hg] [facility] Diastolic blood pressure 2021-02-28 18:32:00 71 mm[Hg] [facility] Heart rate 2021-02-28 18:32:00 61 /min [facility] Body temperature 2021-02-28 18:32:00 36.33 Gladis [facility] Respiratory rate 2021-02-28 18:32:00 17 /min [facility] Body weight 2021-02-28 18:32:00 107.502 kg [facility] Oxygen saturation in Arterial blood by Pulse oximetry 2021-02-28 18:32:00 99 /min [facility] Procedures Procedure Date / Time Performed Performing Clinicia n Source LS RAPID STREP ASSAY-LAB TEST 2023-07-25 17:06:00 Migdalia Strong - External NOTICE OF PRIVACY PRACTICES 2023-01-24 00:53:33 Doctor Unassigned, [place] [facility] CONSENT/REFUSAL FOR DIAGNOSIS AND TREATMENT 2023-01-24 00:52:38 Doctor Unassigned, [place] [facility] CONSENT/REFUSAL FOR DIAGNOSIS AND TREATMENT 2022-11-22 18:48:45 Doctor Unassigned, [place] [facility] CT ABDOMEN PELVIS W CONTRAST 2022-08-23 23:34:41 Tali Hamilton [facility] LIPASE 2022-08-23 23:04:00 Tali Hamilton [facility] COMP. METABOLIC PANEL ([id number]) 2022-08-23 23:04:00 Tali Hamilton [facility] CBC WITH DIFF 2022-08-23 23:04:00 Tali Hamilton [facility] CONSENT/REFUSAL FOR DIAGNOSIS AND TREATMENT 2022-08-23 22:05:15 Doctor Unassigned, [place] [facility] US ABDOMEN LIMITED 2022-06-10 19:33:16 Gale Winchester [facility] ASSIGNMENT OF BENEFITS 2022-05-30 18:53:18 Docto r Unassigned, [place] [facility] XR ANKLE 3+ VW LEFT 2022-05-18 02:08:06 Ricardo Monreal [facility] NOTICE OF PRIVACY PRACTICES 2022-05-18 00:23:38 Doctor Unassigned, [place] [facility] CONSENT/REFUSAL FOR DIAGNOSIS AND TREATMENT 2022-05-18 00:23:11 Doctor Unassigned, [place] [facility] Encounters Start Date/Time End Date/Time Encounter Type Admission Type Attending Clinicians Care Facility Care Department Encounter ID Source 2021-04-02 09:17:37 Emergency [facility] [id number] [facility] 2021-04-02 06:42:54 Emergency [facility] [id number] [facility] 2023-12-24 13:30:00 2023-12-24 13:30:00 Outpatient MIGDALIA STRONG [id number] [facility] Tucker 2023-12-15 00:00:00 2023-12-15 00:00:00 Outpatient HILARY CASTILLO [id number] [facility] Tucker 2023-11-28 00:00:00 2023-11-28 00:00:00 Outpatient MIGDALIA STRONG [id number] [facility] Tucker 2023-11-24 16:00:00 2023-11-24 16:00:00 Outpatient [facility]IGDALIA STRONG [id number] [facility] 2023-[facility]-01 00:00:00 2023-11-01 00:00:00 Outpatient UNIQUE HUANG [id number] [facility] Seybold 2023-10-30 15:30:00 2023-10-30 15:30:00 Outpatient LEAH JARRETT [place] [id number] [facility] ybold 2023-10-30 14:30:00 2023-10-30 14:30:00 Outpatient ROSEMARY PRO [place] [id number] [facility] 2023-10-24 13:00:00 2023-10-24 13:00:00 Outpatient MIGDALIA STRONG [id number] [facility] 2023-10-24 13:00:00 2023-10-24 13:00:00 Outpatient MIGDALIA STRONG [id number] [facility] 2023-10-20 09:00:00 2023-10-20 09:00:00 Outpatient ALYSSA TRAN [place] [id number] [facility] Seybold 2023-10-20 07:45:00 2023-10-20 07:45:00 Outpatient MCKINLEY ENGELSARI HILL [id number] [facility] Seybold 2023-10-04 00:00:00 2023-10-04 00:00:00 Outpatient UNIQUE HUANG [id number] [facility] Seybold 2023-10-03 19:15:00 2023-10-03 19:15:00 Outpatient JAY DENG [id number] [facility] Seybold 2023-10-03 19:00:00 2023-10-03 19:00:00 Outpatient GLENIS HILL [id number] Glen[facility] Seybold 2023-10-02 00:00:00 2023-10-02 00:00:00 Outpatient UNIQUE HUANG [id number] [facility] Seybold 2023-08-20 11:00:00 2023-08-20 11:00:00 Outpatient MIGDALIA STRONG [id number] [facility] 2023-08-14 00:00:00 2023-08-14 00:00:00 Outpatient MIGDALIA STRONG GLENIS [id number] [facility] 2023-08-14 00:00:00 2023-08-14 00:00:00 Outpatient HILARY CASTILLO GL[facility] [id number] [facility] 2023-08-11 00:00:00 2023-08-11 00:00:00 Outpatient MIGDALIA STRONG [facility] [id number] [facility] 2023-07-25 10:30:00 2023-07-25 10:30:00 Outpatient MIGDALIA STRONG GLENIS GLENIS [id number] [facility] 2023-07-14 14:15:00 2023-07-14 14:15:00 Outpatient SALUNIQUE [facility] HILL [id number] [facility] 2023-01-23 20:01:00 2023-01-23 21:14:00 Emergency X LAURY CHAVEZ [facility] ERT [id number] [facility] 2023-01-23 20:01:00 2023-01-23 21:14:00 Emergency Laury Chavez [facility] 1.2.840.114 350.1.13.10 4.2.7.2.[id number] [facility] 2022-11-29 11:30:00 2022-11-29 11:30:00 Outpatient GALE GARCIA [facility] [id number] [facility] 2022-11-22 14:03:00 2022-11-22 17:17:00 Emergency X YOLY CARRASCO [facility] ERT [id number] [facility] 2022-11-22 14:03:00 2022-11-22 17:17:00 Emergency Yoly Carrasco [facility] 1.2.840.114 350.1.13.10 4.2.7.2.[id number] [facility] 2022-10-16 14:39:30 2022-10-16 14:39:30 Outpatient [facility] [id number] Price Vergara 2022-08-23 17:11:00 2022-08-23 21:25:00 Emergency X TALI HAMILTON [facility] ERT [id number] [facility] 2022-08-23 17:11:00 2022-08-23 21:25:00 Emergency Tali Hamilton [facility] 1.2840.114 350.1.13.10 4.2.7.2.[id number] [facility] 2022-06-21 00:00:00 2022-06-21 00:00:00 [facility] 1.840.114 350.1.13.10 4.2.7.2.[id number] [facility] 2022-06-10 12:23:58 2022-06-10 23:59:00 Outpatient R ANNABELLA GALE [facility] [id number] [facility] 2022-06-10 12:23:58 2022-06-10 23:59:00 Hospital Encounter Veronica Winchesterthia [facility] 1.284.114 350.1.13.10 4.2.7.2.[id number] [facility] 2022-05-30 14:00:00 2022-05-30 14:15:00 Sharebroker Visit Lab, Braden Winchester [facility] 1.284.114 350.1.13.10 4.2.7.2.[id number] [facility] 2022-05-30 13:00:00 2022-05-30 13:56:17 [id number] 2022-05-30 13:00:00 2022-05-30 13:56:17 Office Visit [facility] 1.2840.114 350.1.13.10 4.2.7.2.[id number] [facility] 2022-05-30 00:00:00 2022-05-30 00:00:00 Orders Only Doctor Unassigned, [place] [facility] 1.20.114 350.1.13.10 4.2.7.2.[id number] [facility] 2022-05-17 18:45:00 2022-05-17 21:00:00 Emergency X JACINTOLOUISBETTYRICARDO [facility] ERT [id number] [facility] 2022-05-17 18:45:00 2022-05-17 21:00:00 Emergency Greta Monrealbrooks [facility] 1.0.114 350.1.13.10 4.2.7.2.[id number] [facility] 2021-02-28 13:30:00 2021-02-28 14:18:46 Outpatient R LATIA GATES [facility] [id number] [facility] 2021-02-28 13:26:24 2021-02-28 14:18:46 Office Visit Latia Gates [facility] 1.20.114 350.1.13.10 4.2.7.2.[id number] [facility] 2021-02-06 12:52:59 2021-02-06 13:41:58 Office Visit Latia Gates [facility] 1.2840.114 350.1.13.10 4.2.7.2.[id number] [facility] 2021-02-06 12:50:00 2021-02-06 12:50:00 Outpatient LATIA AREVALO [facility] [id number] [facility] 2021-01-02 09:33:54 2021-01-02 10:28:19 Office Visit Latia Gates [facility] 1..114 350.1.13.10 4.2.7.2.[id number] [facility] 2021-01-02 09:50:00 2021-01-02 09:50:00 Outpatient LATIA AREVALO [facility] [id number] [facility] 2020-12-26 00:00:00 2020-12-26 00:00:00 Patient Secure Msg Doctor Unassigned, [place] [facility] 1..114 350.1.13.10 4.2.7.2.[id number] [facility] 2020-12-19 01:54:00 2020-12-21 15:30:00 Hospital Encounter Samir Suh, Tyler Aviles, Augusto Boles [facility] 1..114 350.1.13.10 4.2.7.2.[id number] [facility] 2020-12-19 09:20:00 2020-12-19 09:20:00 Outpatient ANDRAE MAURICE [facility] [id number] [facility] 2020-12-17 00:00:00 2020-12-17 00:00:00 Telephone Danii Gonzalez [facility] Alex wong [facility] 1..114 350.1.13.10 4.2.7.2.[id number] [facility] 2020-12-17 00:00:00 2020-12-17 00:00:00 Telephone Davon Ferrari [facility] 1.840.114 350.1.13.10 4.2.7.2.[id number] [facility] 2020-12-17 00:00:00 2020-12-17 00:00:00 Refill Doctor Unassigned, [place] [facility] 1.0.114 350.1.13.10 4.2.7.2.[id number] [facility] 2020-12-17 00:00:00 2020-12-17 00:00:00 Refill Landy Bowman [facility] 1.0.114 350.1.13.10 4.2.7.2.[id number] [facility] 2020-12-16 00:00:00 2020-12-16 00:00:00 Telephone Danii Gonzalez [facility] 1..114 350.1.13.10 4.2.7.2.[id number] [facility] 2020-12-16 00:00:00 2020-12-16 00:00:00 Refill Latia Gates [facility] 1.0.114 350.1.13.10 4.2.7.2.[id number] [facility] 2020-12-15 16:47:03 2020-12-15 17:07:03 Urgent Care Danii Gonzalez Amanda [facility] 1..114 350.1.13.10 4.2.7.2.[id number] [facility] 2020-12-15 17:00:00 2020-12-15 17:00:00 Outpatient R [facility] [id number] [facility] 2020-12-15 00:00:00 2020-12-15 00:00:00 Orders Only Doctor Unassigned, [place] [facility] 1.2840.114 350.1.13.10 4.2.7.2.[id number] [facility] 2020-12-06 20:21:00 2020-12-06 22:35:00 Emergency Aj Maldonado [facility] 1.840.114 350.1.13.10 4.2.7.2.[id number] [facility] 2020-10-10 10:00:00 2020-10-10 10:00:00 Outpatient CHERYLE MARTINEZ [facility] [id number] [facility] 2020-09-17 16:43:20 2020-09-17 17:20:29 Urgent Care Provider, [facility] Col[facility] 1.0.114 350.1.13.10 4.2.7.2.[id number] [facility] 2020-09-17 16:40:00 2020-09-17 16:40:00 Outpatient Geri BOWMAN LANDY [facility] [id number] [facility] 2020-09-17 00:00:00 2020-09-17 00:00:00 Letter (Out) Provider, Urgent Care Day [facility] 1.0.114 350.1.13.10 4.2.7.2.[id number] [facility] 2020-09-12 00:00:00 2020-09-12 00:00:00 Telephone Latia Gates [facility] 1..114 350.1.13.10 4.2.7.2.[id number] [facility] 2020-09-08 13:30:00 2020-09-08 13:30:00 Outpatient LATIA AREVALO [facility] [id number] [facility] 2020-09-08 12:55:40 2020-09-08 13:10:40 Sharebroker Visit Pob, Adc Lab Main Latia Gates [facility] 1.2840.114 350.1.13.10 4.2.7.2.[id number] [facility] 2020-09-08 00:00:00 2020-09-08 00:00:00 Orders Only Doctor Unassigned, [place] [facility] 1.20.114 350.1.13.10 4.2.7.2.[id number] [facility] 2020-09-06 15:12:55 2020-09-06 16:13:47 Office Visit Latia Gates [facility] 1..114 350.1.13.10 4.2.7.2.[id number] [facility] 2020-09-06 14:50:00 2020-09-06 14:50:00 Outpatient LATIA AREVALO [facility] [id number] [facility] 2020-09-06 00:00:00 2020-09-06 00:00:00 Letter (Out) Latia Gates [facility] 1..114 350.1.13.10 4.2.7.2.[id number] [facility] 2020-08-25 15:30:00 2020-08-25 15:30:00 Outpatient LIANA MCELROY [facility] [id number] [facility] 2020-06-16 13:30:00 2020-06-16 13:30:00 Outpatient LIANA MCELROY [facility] [id number] [facility] 2020-04-14 14:35:00 2020-04-14 23:59:00 Hospital Encounter Liana Oconnor [facility] 1.114 350.1.13.10 4.2.7.2.[id number] [facility] 2020-04-14 13:00:00 2020-04-14 13:00:00 Outpatient ADDY MCELROYGeri [facility] [id number] [facility] 2020-04-14 00:00:00 2020-04-14 00:00:00 [facility] [id number] [facility] 2020-04-14 00:00:00 2020-04-14 00:00:00 Orders Only Doctor Unassigned, [place] [facility] 1.114 350.1.13.10 4.2.7.2.[id number] [facility] 2020-04-07 14:00:00 2020-04-07 14:00:00 Out[facility] [id number] [facility] 2020-03-10 15:04:54 2020-03-10 15:45:36 Office Visit Elvin [facility] 1..114 350.1.13.10 4.2.7.2.[id number] [facility] 2020-03-10 15:00:00 2020-03-10 15:00:00 Outpatient Geri OCONNOR [facility] [id number] [facility] 2020-03-10 00:00:00 2020-03-10 00:00:00 Letter (Out) Elvin [facility] IALTY [facility] 1..114 350.1.13.10 4.2.7.2.[id number] [facility] 2020-03-01 13:10:02 2020-03-01 14:00:30 Office Visit Latia Gates [facility] 1.114 350.1.13.10 4.2.7.2.[id number] [facility] 2020-03-01 13:10:00 2020-03-01 13:10:00 Outpatient R LATIA GATES [facility] [id number] [facility] 2020-02-16 14:00:12 2020-02-16 15:05:02 Office Visit Latia Gates [facility] 1.114 350.1.13.10 4.2.7.2.[id number] [facility] 2020-02-16 13:50:00 2020-02-16 13:50:00 Outpatient R LATIA GATES [facility] [id number] [facility] 2020-01-24 12:59:13 2020-01-24 13:25:38 [facility] 1.84.114 350.1.13.10 4.2.7.2.[id number] [facility] 2020-01-24 13:00:00 2020-01-24 13:00:00 Out[facility] [id number] [facility] 2020-01-18 00:00:00 2020-01-18 00:00:00 Telephone Latia Gates [facility] 1..114 350.1.13.10 4.2.7.2.[id number] [facility] 2020-01-18 00:00:00 2020-01-18 00:00:00 Latia Babin [facility] 1.2.840.114 350.1.13.10 4.2.7.2.[id number] [facility] 2019-12-27 00:00:00 2019-12-27 00:00:00 Telephone WolffKwadwo [facility] 1.2.840.114 350.1.13.10 4.2.7.2.[id number] [facility] 2019-12-24 00:00:00 2019-12-24 00:00:00 Telephone Sandra Jarrett [facility] 1.2.840.114 350.1.13.10 4.2.7.2.[id number] [facility] 2019-12-24 00:00:00 2019-12-24 00:00:00 Telephone Latia Gates [facility] 1.2.840.114 350.1.13.10 4.2.7.2.[id number] [facility] 2019-12-22 15:38:07 2019-12-22 16:29:51 Urgent Care Pob1, Acute Care Clinic Jerez [facility] 1.2.840.114 350.1.13.10 4.2.7.2.[id number] [facility] 2019-12-22 14:14:46 2019-12-22 14:34:46 Office Visit Jerez [facility] 1.2.840.114 350.1.13.10 4.2.7.2.[id number] [facility] 2019-12-22 14:00:00 2019-12-22 14:00:00 Outpatient R J[facility] [id number] [facility] 2019-11-19 13:00:00 2019-11-19 13:00:00 Outpatient Geri BAUMAN NINA [facility] [id number] [facility] 2019-11-05 00:00:00 2019-11-05 00:00:00 Telephone Latia Gates [facility] 1.840.114 350.1.13.10 4.2.7.2.[id number] [facility] 2019-08-23 13:10:00 2019-08-23 13:10:00 Outpatient R LATIA GATES [facility] [id number] [facility] 2019-08-05 15:00:00 2019-08-05 15:00:00 Outpatient ANDRAE MAURICE [facility] [id number] [facility] 2019-08-02 14:30:00 2019-08-02 14:30:00 Outpatient R LATIA GATES [facility] [id number] [facility] 2019-07-19 15:23:01 2019-07-19 16:03:09 Office Visit Latia Gates [facility] 1.0.114 350.1.13.10 4.2.7.2.[id number] [facility] 2019-07-19 00:00:00 2019-07-19 00:00:00 Orders Only Doctor Unassigned, [place] [facility] 1.0.114 350.1.13.10 4.2.7.2.[id number] [facility] 2019-07-06 00:00:00 2019-07-06 00:00:00 Telephone Latia Gates [facility] 1..114 350.1.13.10 4.2.7.2.[id number] [facility] 2019-07-05 12:30:00 2019-07-05 23:59:00 Hospital Encounter Latia Gates [facility] 1.2.840.114 350.1.13.10 4.2.7.2.[id number] [facility] 2019-07-05 12:28:35 2019-07-05 12:43:35 Sharebroker Visit Pob, Adc Lab Main Latia Gates [facility] 1.2.840.114 350.1.13.10 4.2.7.2.[id number] [facility] 2019-07-05 00:00:00 2019-07-05 00:00:00 Orders Only Doctor Unassigned, [place] [facility] 1.2840.114 350.1.13.10 4.2.7.2.[id number] [facility] 2019-06-18 19:26:54 2019-06-18 21:07:00 Emergency Samir Suh [facility] 1.2.840.114 350.1.13.10 4.2.7.2.[id number] [facility] 2019-06-15 11:04:09 2019-06-15 11:50:23 Office Visit Latia Gates [facility] 1.2.840.114 350.1.13.10 4.2.7.2.[id number] [facility] 2019-06-15 00:00:00 2019-06-15 00:00:00 Letter (Out) Latia Gates [facility] 1.2.840.114 350.1.13.10 4.2.7.2.[id number] [facility] 2019-05-31 00:00:00 2019-05-31 00:00:00 Orders Only Doctor Unassigned, [place] [facility] 1.2840.114 350.1.13.10 4.2.7.2.[id number] [facility] 2019-02-09 14:51:32 2019-02-09 15:56:10 Office Visit Norisne Latia [facility] 1.2.840.114 350.1.13.10 4.2.7.2.[id number] [facility] 2019-02-09 00:00:00 2019-02-09 00:00:00 Telephone EdgarAlbarado Latia [facility] 1.2.840.114 350.1.13.10 4.2.7.2.[id number] [facility] 2019-02-09 00:00:00 2019-02-09 00:00:00 Orders Only Doctor Unassigned, [place] [facility] 1.2.840.114 350.1.13.10 4.2.7.2.[id number] [facility] 2019-02-09 00:00:00 2019-02-09 00:00:00 Letter (Out) Kody Latia Bermudez [facility] 1.2.840.114 350.1.13.10 4.2.7.2.[id number] [facility] 2019-01-14 00:00:00 2019-01-14 00:00:00 Telephone Kody Latia Aidan [facility] 1.2.840.114 350.1.13.10 4.2.7.2.[id number] [facility] 2019-01-01 00:00:00 2019-01-01 00:00:00 Telephone [place] Latia [facility] 1.2.840.114 350.1.13.10 4.2.7.2.[id number] [facility] Results Test Description Test Time Test Comments Results Result Co m[facility]:47[facility]26* Test Item Value Reference Range Interpretation Comme nts LIPASE (test code = 9953598406) 60 U/L 0-220 Lab Interpretation (test cod e = 54315-7) Normal [facility] WITH IDAF3784-84-45 23:29:23* Test Item Value Reference Range Interpretation [...] 32.6 g/dL 31.2-35.0 RDW-SD (test code = 41287-7) 42.5 fL 38.5-51.6 RDW-CV (test code = 788-0) 13.6 % 12.1-15.4 PLT (test code = 777-3) 269 See_Comment [Automated messa ge] The system which generated this result transmitted reference range: 150 - 328 10*3/?L. The reference range was not used to interpret this result as normal/abnormal. MPV (test code = 05515-5) 10.3 fL 9.8-13.0 NRBC/100 WBC (test code = 7973335985) 0.0 See_Comment [Automated me ssage] The system which generated this result transmitted reference range: 0.0 - 10.0 /100 WBCs. The reference range was not used to interpret this result as normal/abnormal. NRBC x10^3 (test code = 3655960596) See_Comment [Automated messa ge] The system which generated this result transmitted reference range: 10*3/?L. The reference range was not used to interpret this result as normal/abnormal. GRAN MAT (NEUT) % (test code = 770-8) 72.2 % IMM GRAN % (test code = 3504640952) 0.70 % LYMPH % (test code = 736-9) 18.6 % MONO % (test code = 5905-5) 6.9 % EOS % (test code = 713-8) 1.3 % BASO % (test code = 706-2) 0.3 % GRAN MAT x10^3(ANC) (test code = 7024157893) 8.67 10*3/uL 1.99-6.95 H IMM GRAN x10^3 (test code = 9517954454) 0.08 10*3/uL 0.00-0.06 H LYMPH x10^3 (test code = 731-0) 2.23 10*3/uL 1.09-3.23 MONO x10^3 (test code = 742-7) 0.83 10*3/uL 0.36-1.02 EOS x10^3 (test code = 711-2) 0.16 10*3/uL 0.06-0.53 BASO x10^3 (test code = 704-7) 0.03 10*3/uL 0.01-0.09 Lab Interpretation (test code = 35544-9) Abnormal [facility] Notes Date/Time Note Provider Source 2023-11-24 15:47:16 5292-46-30D87:47:16F ormatting of this note is different from the original.Chief ComplaintPatient presents withREFILLS-NURSE/MDRefill Rizatriptan, Albuterol, [place] [address]-7Ukrch UtlrXW6332-05-97P62:47:50Nurse NoteTXT1.2.840.079992.1.13.131.2.7 .2.031817|[id number] for patient szik36084-3Sndgq NoteLNNARRATIVEFormatted C-CDA narrative textScott [place]ille [id number] [id number] BUL1374-32-71J51:47:501.2.840.1143 50.1.72.3.15|1.2.840.834279.1.13.1 31.2.7.2.727879_[id number] [facility] 2023-10-20 08:37:38 4202-34-24M29:37:38F ormatting of this note is different from the original.Chief ComplaintPatient presents withSinus ProblemTELEMED:No vitals taken.Started "a few days ago".Sinus pressure, sore throat, "felt warm" yesterday. (No thermometer), cough, stuffy/runny nose.Omaira Lynne 84194-6Yvikk NcmfIU9456-05-61T21:40:48Nurse NoteTXT1.2.840.457536.1.13.131.2.7 .2.213430|[id number] for patient abop14083-7Jfojt NoteLNNARRATIVEFormatted C-CDA narrative text[id number] PLH5519-28-55O05:40:481.2.840.1143 50.1.72.3.15|1.2.840.526654.1.13.1 31.2.7.2.727879_[id number] [facility] 2023-07-25 12:57:17 3654-17-26J56:57:17F ormatting of this note might be different from the original.Results reviewed and released to [facility]. Please let the patient know his strep test was positive. Previously given Augmentin 16721-8Mehsxlhv oiskVP4705-97-02L23:57:17Progress noteTXT1.2.840.764436.1.13.131.2.7 .2.294564|[id number] for patient pzyy61252-2GtudXKQHJPAWBHKWugzicen d C-CDA narrative [id number] SJR7625-91-74S80:57:171.2.840.1143 50.1.72.3.15|1.2.840.462137.1.13.1 31.2.7.2.727879_[id number] [facility] 2023-07-25 10:26:51 0482-24-26T05:26:51F ormatting of this note is different from the original.Chief ComplaintPatient presents withEstablish CareLast wellness over a year ago.Sinus ProblemGreen sinus drainage with some blood, sore throat, [place] [address]-9Zabxw OkkpCO0033-14-21A50:29:33Nurse NoteTXT1.2.840.477780.1.13.131.2.7 .2.217386|[id number] for patient ftmz67476-0Huimo NoteLNNARRATIVEFormatted C-CDA narrative text[id number] WOT3198-80-68R65:29:331.2.840.1143 50.1.72.3.15|1.2.840.882393.1.13.1 31.2.7.2.727879_[id number] [facility] 2023-01-23 21:11:57 2851-70-67T83:11:57F ormatting of this note might be different from the original.Patient leaving AMA/without final disposition/eloped.Dr. Laury Chavez MD aware and notified of patient's decision. Patient encouraged to seek medical attention for any new/prolonged/worsening of symptoms and stressed importance of follow up with a medical provider as soon as possible.Patient leaving ambulatory with steady gait, appears in good condition. 060[address]-5Sshgamfsl department JgvjUQ7228-57-97X95:13:49[facility] department NoteTXT1.2.840.137447.1.13.104.2.7 .2.285508|[id number] for patient [id number] L Williams RN[id number] 35XULVPLCJAGGOXVCMRLCYWK1431-00-01 T21:13:491.2.840.297068.1.72.3.15| [id number] Latoya Drake RN [facility] 2023-01-23 19:56:08 [id number] ormatting of this note might be different from the original.Pt presents with headache after head butting a dog [place] the [place]. Pt c/o right forehead pain. Pt reports Dog was a large Miner/lab mix.No meds taken [employer]. [id number] department Triage [id number] department Triage [id number] for patient [id number] department [id number] E Linkes RN[address] [id number]| [id number] Tarsha Montez RN [facility]
--- NOTE | 2023-12-21 12:11 | RAD REPORT ---
EXAM DESCRIPTION: RAD - Chest Single View - 12/21/2023 12:03 pm CLINICAL HISTORY: CHEST PAIN COMPARISON: <Comparisons> FINDINGS: Lines: None. Lungs: No evidence of edema or pneumonia. Pleural: No significant pleural effusions or pneumothorax. Cardiac: The heart size is within normal limits. Mediastinum: Within normal limits. Bones: No acute fractures. Other: None IMPRESSION: No acute cardiopulmonary disease.
[2023-12-21 12:20] LABS: Absolute Eosinophils 0.1 K/uL (0-0.5); Absolute Lymphocytes (CBC) 1.7 K/uL (0.7-4.9); Absolute Monocytes 0.4 K/uL (0.1-1.3); Absolute Neutrophil 4.3 K/uL (1.8-8.0); Basophils % 0.4 % (0-1.3); Eosinophils % 2.1 % (0-4.4); Hematocrit 45.3 % (39.6-49.0); Hemoglobin 14.9 g/dL (13.6-17.9); Lymphocytes % 26.2 % (15.3-44.8); MCH 28.4 pg (27.0-35.0); MCHC 32.9 g/dL (32.0-36.0); MCV 86.5 fL (80-100); Monocytes % 6.1 % (3.3-12.3); Neutrophils % 65.2 % (41.7-73.7); Platelets 211 thou/uL (152-406); RBC Red Blood Cell Count 5.23 M/uL (4.33-5.43); Red Cell Distribution Width 15.1 % (12.1-15.2)
[2023-12-21 13:45] LABS: Troponin High Sensitivity 6.9 pg/mL (<58.9)
[2023-12-21] MEDS ORDERED: POTASSIUM CL SA 10 MEQ TAB PO ONE (13:52)
--- NOTE | 2023-12-21 14:40 | ER ---
Nurse's Notes [facility] Name: Yoni Perry Age: 23 yrs Sex: Male : 2000 Arrival Date: 12/21/2023 Time: 11:27 Bed 13 Private MD: Diagnosis: Atypical chest pain;Hypokalemia;Hypocalcemia;Hypomagnesemia Presentation: 12/20 11:37 Chief complaint: Patient states: Intermittent R sided CP for 1 month, worse this week. ll1 Some coughing and SOB at times. Notices palpitations when he smokes cigarettes. No fever. Coronavirus screen: Client denies travel out of the [place] in the last 14 days. cough unrelated to allergies, difficulty breathing, fatigue, muscle pain, shortness of breath, Client presents with at least one sign or symptom that may indicate coronavirus-19. Standard/surgical mask placed on the client. Ebola Screen: Patient denies travel to an Ebola-affected area in the 21 days before illness onset. Initial Sepsis Screen: Does the patient meet any 2 criteria? No. Patient's initial sepsis screen is negative. Does the patient have a suspected source of infection? No. Patient's initial sepsis screen is negative. Risk Assessment: Do you want to hurt yourself or someone else? Patient reports no desire to harm self or others. Onset of symptoms was November 21, 2023. 11:37 Method Of Arrival: Ambulatory ll1 11:37 Acuity: MARIANA 4 ll1 Triage Assessment: 11:41 General: Appears in no apparent distress. Behavior is calm, cooperative, appropriate ll1 for age. Pain: Denies pain. Cardiovascular: Reports chest pain, palpitations, shortness of breath. Respiratory: Reports shortness of breath cough that is pain with cough. Historical: - Allergies: 11:40 No Known Allergies; ll1 - Home Meds: 11:40 Abilify oral [Active]; ll1 - PMHx: 11:40 Asthma; scoliosis; ll1 - PSHx: 11:40 None; ll1 - Immunization history:: Adult Immunizations up to date. - Infectious Disease History:: Denies. - Social history:: Smoking status: Patient reports the use of cigarette tobacco products, denies chronic smoking, but will smoke occasionally, smokes one pack cigarettes per day. Reported history of juuling and/or vaping. Screenin:06 [facility] ED Fall Risk Assessment (Adult) History of falling in the last 3 months, rs5 including since admission No falls in past 3 months (0 pts) Confusion or Disorientation No (0 pts) Intoxicated or Sedated No (0 pts) Impaired Gait No (0 pts) Mobility Assist Device Used No (0 pt) Altered Elimination No (0 pt) Score/Fall Risk Level 0 - 2 = Low Risk Oriented to surroundings, Maintained a safe environment. Abuse screen: Denies threats or abuse. Nutritional screening: No deficits noted. Tuberculosis screening: No symptoms or risk factors identified. Assessment: 11:31 General: Appears in no apparent distress. uncomfortable, Behavior is calm, cooperative. rs5 Pain: Complains of pain in chest Pain does not radiate. Pain currently is 3 out of 10 on a pain scale. Quality of pain is described as aching, Is continuous. Neuro: Level of Consciousness is awake, alert, obeys commands, Oriented to person, place, time, situation. Cardiovascular: Patient's skin is warm and dry. Respiratory: Reports cough that is Airway is patent Respiratory effort is even, unlabored, Respiratory pattern is regular, symmetrical. GI: Abdomen is round non-distended, Abd is soft and non tender X 4 quads. : No signs and/or symptoms were reported regarding the genitourinary system. EENT: No signs and/or symptoms were reported regarding the EENT system. Derm: Skin is intact, Skin is pink, warm \T\ dry. Musculoskeletal: Range of motion: intact in all extremities. 12:23 Reassessment: Patient and/or family updated on plan of care and expected duration. Pain rs5 level reassessed. Patient is alert, oriented x 3, equal unlabored respirations, skin warm/dry/pink. 13:44 Reassessment: No changes from previously documented assessment. rs5 14:37 Reassessment: Patient and/or family updated on plan of care and expected duration. Pain rs5 level reassessed. Patient is alert, oriented x 3, equal unlabored respirations, skin warm/dry/pink. Patient denies pain at this time. Vital Signs: 11:37 BP 126 / 80; Pulse 72; Resp 16; Temp 98.5(O); Pulse Ox 100% on R/A; Weight 86.18 kg; ll1 Height 6 ft. 1 in. ; Pain 0/10; 13:44 BP 122 / 77; Pulse 70; Resp 16; Pulse Ox 99% ; rs5 14:30 BP 128 / 74; Pulse 76; Resp 17; Pulse Ox 99% on R/A; rs5 11:37 Body Mass Index 25.07 (86.18 kg, 185.42 cm) ll1 11:37 Pain Scale: Adult ll1 ED Course: 11:06 Patient has correct armband on for positive identification. Placed in gown. Bed in low rs5 position. Call light in reach. Side rails up X2. Client placed on continuous cardiac and pulse oximetry monitoring. NIBP monitoring applied. 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 11:06 No provider procedures requiring assistance completed. rs5 11:10 Inserted saline lock: 22 gauge in left antecubital area, using aseptic technique. Blood rs5 collected. Flushed with 10 mL NS. 11:30 Patient arrived in ED. im 11:32 Janice Bowman MD is Attending Physician. sd2 11:40 Triage completed. ll1 11:41 Arm band placed on. ll1 11:43 Jerry Means, SHAUN is Primary Nurse. rs5 12:03 XRAY Chest (1 view) In Process Unspecified. EDMS 14:40 IV discontinued, intact, bleeding controlled, No redness/swelling at site. Pressure rs5 dressing applied. Administered Medications: 13:55 Drug: Potassium Chloride PO 40 mEq PO once Route: PO; rs5 14:40 Follow up: Response: No adverse reaction rs5 17:57 Not Given (Patient Refused): magnesium sulfate2 grams IVPB once over 2 hrs rs5 Medication: 12:22 VIS not applicable for this client. rs5 Outcome: 14:40 Discharge ordered by . sd2 14:40 Discharged to home ambulatory, rs5 14:40 Condition: stable rs5 14:40 Discharge instructions given to patient, family, Instructed on discharge instructions, follow up and referral plans. Demonstrated understanding of instructions, follow-up care, 14:45 Patient left the ED. zm Signatures: Dispatcher [employer] EDMS Moris Garza RN RN ll1 Karmen Kelly Janice Bowman MD MD sd2 Jerry Means, RN RN rs5 Macias, Mell im Corrections: (The following items were deleted from the chart) 12: 11:31 Respiratory: Airway is patent Respiratory effort is even, unlabored, Respiratory rs5 pattern is regular, symmetrical, rs5 12: 11:31 Pain: Complains of pain in chest Pain does not radiate. Pain currently is 3 out rs5 of 10 on a pain scale. Quality of pain is described as aching, Pain began 2 hours ago. Is continuous, rs5
--- NOTE | 2023-12-21 14:40 | EDPHYS ---
Physician Documentation [facility] Name: Yoni Perry Age: 23 yrs Sex: Male : 2000 Arrival Date: 12/21/2023 Time: 11:27 Bed 13 Private MD: ED Physician Janice Bowman HPI: 12/20 11:48 This 23 yrs old Black Male presents to ER via Ambulatory with complaints of Chest Pain, sd2 Painful Cough. 11:48 23 yo M presents with CC of 1 month hx of intermittent R sided chest pain that comes sd2 and lasts for about 30 second episodes. Reports associated SOB intermittently but no diaphoresis. Had 1 episode of cough that caused vomiting 2 nights ago and then had a painful episode thereafter. No further episodes since then. No prior hx of heart problems. Hx of asthma. Last attack he ended up in the ICU approximately 3 years ago. No issues since then. No family hx of heart attacks at a young age. CV disease in his grandmother only. No prior hx of blood clots in his family or personally and no recent travel or leg edema. Reports also having a near syncopal episode approximately 1 week ago while boxing with a friend.. Historical: - Allergies: 11:40 No Known Allergies; ll1 - Home Meds: 11:40 Abilify oral [Active]; ll1 - PMHx: 11:40 Asthma; scoliosis; ll1 - PSHx: 11:40 None; ll1 - Immunization history:: Adult Immunizations up to date. - Infectious Disease History:: Denies. - Social history:: Smoking status: Patient reports the use of cigarette tobacco products, denies chronic smoking, but will smoke occasionally, smokes one pack cigarettes per day. Reported history of juuling and/or vaping. ROS: 11:48 Constitutional: Negative for fever, chills, and weight loss, Eyes: Negative for injury, sd2 pain, redness, and discharge, 11:48 MS/Extremity: Negative for injury and deformity, Skin: Negative for injury, rash, and discoloration, Neuro: Negative for headache, numbness and tingling. 11:48 Cardiovascular: Positive for chest pain, Negative for edema, palpitations, 11:48 Respiratory: Positive for cough, shortness of breath, Negative for wheezing, 11:48 Abdomen/GI: Positive for vomiting, Negative for abdominal pain, nausea, diarrhea, Exam: 11:48 Constitutional: This is a well developed, well nourished patient who is awake, alert, sd2 and in no acute distress. Head/Face: Normocephalic, atraumatic. Eyes: EOMI, normal conjunctiva bilaterally Chest/axilla: Normal chest wall appearance and motion. Nontender with no deformity. Cardiovascular: Regular rate and rhythm with a normal S1 and S2. No gallops, murmurs, or rubs. 2+ distal pulses. Respiratory: Lungs have equal breath sounds bilaterally, clear to auscultation and percussion. No rales, rhonchi or wheezes noted. No increased work of breathing, no retractions or nasal flaring. Abdomen/GI: Soft, non-tender, with normal bowel sounds. No guarding or rebound. No evidence of tenderness throughout. Skin: Warm, dry with normal turgor. Normal color with no rashes, no lesions, and no evidence of cellulitis. MS/ Extremity: Pulses equal, no cyanosis. Neurovascular intact. Full, normal range of motion. Psych: Awake, alert, with orientation to person, place and time. Behavior, mood, and affect are within normal limits. 12:14 ECG was reviewed by the Attending Physician. NSR, rate 66, sinus arrhythmia, no STEMI, sd2 TWI in inferior leads Vital Signs: 11:37 BP 126 / 80; Pulse 72; Resp 16; Temp 98.5(O); Pulse Ox 100% on R/A; Weight 86.18 kg; ll1 Height 6 ft. 1 in. ; Pain 0/10; 13:44 BP 122 / 77; Pulse 70; Resp 16; Pulse Ox 99% ; rs5 14:30 BP 128 / 74; Pulse 76; Resp 17; Pulse Ox 99% on R/A; rs5 11:37 Body Mass Index 25.07 (86.18 kg, 185.42 cm) ll1 11:37 Pain Scale: Adult ll1 MDM: 11:32 Patient medically screened. sd2 11:48 Differential diagnosis: acute myocardial infarction, anxiety, costochondritis, sd2 esophagitis, gastritis, gastroesophageal reflux disease (GERD), pericarditis, pleurisy, pneumonia, pneumothorax, pulmonary embolus, among others. Data reviewed: vital signs, nurses notes. 14:37 HEART Score: History: Slightly Suspicious (0), ECG: Normal (0), Age: < or = 45 years sd2 (0), Risk Factors: No Risk Factors Known (0), Troponin: < or = 1 x Normal Limit (0), Total Score = 0. Counseling: I had a detailed discussion with the patient and/or guardian regarding the historical points, exam findings, and any diagnostic results supporting the discharge/admit diagnosis, lab results, radiology results, the need for outpatient follow up, to return to the emergency department if symptoms worsen or persist or if there are any questions or concerns that arise at home. Refusal of service: The patient/guardian displays adequate decision making capability and despite a detailed discussion of alternatives, benefits, risks, and consequences refuses: repeat labs to verify values. ED course: Labs and imaging reviewed. Labs with low potassium, magnesium and calcium. Concerned for lab error. Recommended repeat labs to verify but pt declines. He is reassured by the negative trop and EKG and would like to go home and follow up with his PCP. He is comfortable with plan for discharge and outpatient follow up and verbalizes understanding of strict return precautions.. 12/20 11:48 Order name: CBC with Diff; Complete Time: 13:02 2 12/20 11:48 Order name: BMP; Complete Time: 13:48 2 12/20 11:48 Order name: Troponin High Sensitivity; Complete Time: 13:48 2 12/20 13:49 Order name: Magnesium; Complete Time: 14:12 12/20 11:48 Order name: XRAY Chest (1 view); Complete Time: 12:13 12/20 11:48 Order name: EKG - Nurse/Tech; Complete Time: 12:21 12/20 11:48 Order name: Cardiac monitoring; Complete Time: 12:20 sd2 Administered Medications: 13:55 Drug: Potassium Chloride PO 40 mEq PO once Route: PO; rs5 14:40 Follow up: Response: No adverse reaction rs5 17:57 Not Given (Patient Refused): magnesium sulfate2 grams IVPB once over 2 hrs rs5 Disposition Summary: 12/21/23 14:40 Discharge Ordered Problem: new sd2 Symptoms: have improved sd2 Condition: Stable sd2 Diagnosis - Atypical chest pain sd2 - Hypokalemia sd2 - Hypocalcemia sd2 - Hypomagnesemia sd2 Followup: sd2 - With: Private Physician - When: 2 - 3 days - Reason: Recheck today's complaints, Continuance of care, Re-evaluation by your physician Discharge Instructions: - Discharge Summary Sheet sd2 - Nonspecific Chest Pain, Adult sd2 - Hypomagnesemia sd2 - Hypocalcemia, Adult sd2 - Hypokalemia sd2 Forms: - Medication Reconciliation Form sd2 - Antibiotic Education sd2 - Prescription Opioid Use sd2 - Patient Portal Instructions sd2 - Leadership Thank You Letter sd2 Signatures: Dispatcher [employer] EDMS Moris Garza, SHAUN RN ll1 Janice Bowman MD MD sd2 Jerry Means RN RN rs5 Corrections: (The following items were deleted from the chart) 14:02 13:49 CALCIUM+C.LAB.BRZ ordered. EDMS EDMS
--- NOTE | 2023-12-22 16:32 | EKG ---
Test Date: 2023-12-21 Test Time: 12:08:24 [employer] [place]: BERYL MEASUREMENT RESULTS: Intervals: Rate: 66 LA: 164 QRSD: 94 QT: 360 QTc: 377 [place]: P: 36 LA: 164 QRS: 81 T: -4 INTERPRETIVE STATEMENTS: Normal sinus rhythm with sinus arrhythmia Nonspecific ST abnormality Abnormal ECG Compared to ECG 08/29/2008 12:52:46 ST (T wave) deviation now present Electronically Signed On 12-22-23 16:29:02 CDT by Abraham Gilman
[2023-12-25 14:37] VITALS: BP 122/77; TEMP 98.5; O2SAT 99
== END 2023-12-21 14:45 | disposition home or self-care (01) ==
LOC: ER 11:27
DX: R07.89 Other chest pain (principal); E87.6 Hypokalemia; E83.51 Hypocalcemia; E83.42 Hypomagnesemia; J45.909 Unspecified asthma, uncomplicated; F17.210 Nicotine dependence, cigarettes, uncomplicated
CPT/HCPCS: 36415; 71045; 80048; 83735; 84484; 85025; 93005; 99284

== ENCOUNTER 2024-02-06 21:46 | Emergency (ER) | payer OTHER ==
--- OUTSIDE RECORDS SUMMARY | 2024-02-06 21:55 | XMS REPORT | Continuity of Care Document ---
Author Name Unknown Address [address] [facility] [address]. [address] [place] [address] [facility] Address [address] [facility]. [address] [place] [address] Care Team Providers Care Desk Officer Name Role Phone Latia Gates PA-C Primary Care Physician + PURVI GOYAL Attending Clinician Unavailable MIGDALIA STRONG Attending Clinician Unavailable HILARY CASTILLO Attending Clinician Unavailable UNIQUE HUANG Attending Clinician Unavailable LEAH JARRETT Attending Clinician Unavailable ROSEMARY PRO Attending Clinician Unavailable ALYSSA TRAN Attending Clinician Unavailab ADEOLA Cortes Attending Clinician Unavailable JAY DENG Attending Clinician Unavailable LAURY CHAVEZ Attending Clinician Unavailable Laury Chavez MD Attending Clinician [phone] GALE WINCHESTER Attending Clinician Unavailable Carrasco PAC, Yoly S Attending Clinician [phone] CARRASCOYOLY S Attending Clinician Unavailable TALI HAMILTON Attending Clinician Unavailable Tali Hamilton NP Attending Clinician [phone] Annabella KEYBOARD OPERATOR, Gale Attending Clinician [phone] Lab, Ang - Db Attending Clinician Unavailable Doctor Unassigned, [place] Attending Clinician U navailRICARDO Hughes Attending Clinician Unavailable Ricardo Monreal MD Attending Clinician [phone] LATIA GATES Attending Clinician Unavailab Latia Martell PA-C Attending Clinician Vikashalessia SHEFFIELD, K Soo Attending Clinician [phone] Tyler Sanders MD Attending Clinician Augusto Aviles DO Attending Clinician ANDRAE THOMAS Attending Clinician Unavail able Danii Stringer Attending Clinician [phone] Davon Ferrari MD Attending Clinician [phone] Landy Wilkinson Attending Clinician [phone] Latoya Pacheco MD Attending Clinician [phone] Aj Maldonado DO Attending Clinician [phone] CHERYLE ALVAREZ Attending Clinician Unavailable Provider, [facility] Attending Clinician Un available LANDY BOWMAN Attending Clinician Unavailable Provider, Urgent Care Day Attending Clinician Un available Pob, Ad[facility] Lab Main Attending Clinician UnavailLIANA Webb Attending Clinician UnavailLiana Webb MD Attending Clinician [phone] [facility], Acute [facility] Attending Clinician Josefa Wolff RN, Kwadwo Attending Clinician Unavailab birdie Jarrett PA-C, Sandra Matson Attending Clinician [phone] María Davis Attending Clinician [phone] MARÍA JEREZ Attending Clinician Unavail able NINA BAUMAN Attending Clinician Unavailable TALI HAMILTON Admitting Clinician Unavailable GALE WINCHESTER Admitting Clinician Unavailable RICARDO MONREAL Admitting Clinician Unavailable Tyler Sanders MD Admitting Clinician [phone] Payers Payer Name Policy Type Policy Number Effective Date Expirati on Date Source [facility] [id number] 2019 00:00:00 [employer] 5 O [employer] 94 ON 9 [id number] 2023 00:00:00 Problems Condition Name Condition Details [...] HCC) Disease Active 07-14 00:00: 00 [facility] Seybold - Externa l Irritable bowel syndrome, unspecifie d type Irritable bowel syndrome, unspecifie d type Disease Active 2021-06 00:00: 00 [facility] Pneumomedi astinum Pneumomedi astinum Disease Active 12-20 00:00: 00 [facility] Obesity (BMI 30-39.9) Obesity (BMI 30-39.9) Disease Active 12-19 00:00: 00 [facility] Smoker Smoker Disease Active 12-21 00:00: 00 Overview: Formattin g of this note might be different from the original. Smokes cigarette s and vapes [facility] Asthma Asthma Disease Active 08-22 00:00: 00 [facility] GERD (gastroeso phageal reflux disease) GERD (gastroeso phageal reflux disease) Disease Active 08-22 00:00: 00 [facility] Constipati on Constipati on Disease Active 08-22 00:00: 00 [facility] Allergic rhinitis Allergic rhinitis Disease Active 08-22 00:00: 00 [facility] ADHD (attention deficit hyperactiv ity disorder), combined type ADHD (attention deficit hyperactiv ity disorder), combined type Disease Active 08-22 00:00: 00 [facility] Allergies, Adverse Reactions, Alerts Allergy Name Allergy Type Status Severity Reaction(s) Onset Date Inactive Date Treating Clinician Comments Source NO KNOWN ALLERGIE S Drug Class Active [facility] Social History Social Habit Start Date Stop Date Quantity Comments Source History of tobacco use Cigarette Smoker [facility] shahid - External Sexual orientation K korina Tucker - External History SDOH Alcohol Binge [facility] Gender identity [facility] Alcoholic beverage intake 2024-02-02 00:00:00 2024-02-02 00:00:00 Current drinker of alcohol (finding) [facility] Tucker - External Alcohol intake 2023-07-25 00:00:00 2023-07-25 00:00:00 Current drinker of alcohol (finding) [facility] Tucker - External History of Social function 2023-07-25 00:00:00 2023-07-25 00:00:00 [facility] Tucker - External Alcohol Comment 2023-07-25 00:00:00 2023-07-25 00:00:00 socially [facility] Tucker - External Exposure to SARS-CoV-2 (event) 2022-08-13 00:00:00 2022-08-23 19:38:[address] [facility] Cigarettes smoked current (pack per day) - Reported 2020-12-19 00:00:00 2020-12-19 00:00:00 [facility] Tobacco use and exposure 2020-12-19 00:00:00 2020-12-19 00:00:00 Smokeless tobacco non-user [facility] History SDOH Alcohol Frequency 2020-12-19 00:00:00 2020-12-19 00:00:[address] [facility] History SDOH Alcohol Std Drinks 2020-12-19 00:00:00 2020-12-19 00:00:[address] [facility] Education 2020-12-19 00:00:00 2020-12-19 00:00:[address] [facility] Sex assigned at 2002 00:00:00 2000 00:00:00 [facility] Amaya External Smoking Status Start Date Stop Date Source Smokes tobacco daily 2023-07-25 00:00:00 [facility] Tucker - External Tobacco smoking consumption unknown [facility] Tucker - Ext ernal Medications Ordered Medication Name Filled Medication Name Start Date Stop Date Current Medication? Ordering Clinician Indication Dosage Frequency Signature (SIG) Comments Components Source Azithromyci n 250 MG oral Tablet 02-01 00:00: 00 Yes [id number] Take 2 tablets by mouth on day 1 then 1 tablet by mouth daily for 4 days thereafter .. [facility] gordillo Ibuprofen (MOTRIN) 600 MG oral Tablet 02-01 00:00: 00 02-12 04:59 :00 Yes [id number] 600mg Q.[id number] 3D Take 1 tablet (600 mg total) by mouth every 8 hours as needed for pain or fever (take with food, stop if upset stomach) for up to 10 days. [facility] gordillo Benzonatate (Tessalon Perles) 100 MG oral Capsule 02-01 00:00: 00 02-12 04:59 :00 Yes [id number] 100mg Q.[id number] 3D Take 1 capsule (100 mg total) by mouth 3 times daily as needed for cough for up to 10 days. [facility] gordillo Rizatriptan Benzoate 10 MG oral TABLET DISPERSIBLE 12-23 00:00: 00 Yes [id number] 10mg Take 1 tablet (10 mg total) by mouth once as needed for migraine (May repeat in 2 hours if unresolved . Do not exceed 30 mg in 24 hours.). [facility] gordillo Amphetamine -Dextroamph etamine 5 MG oral Tablet 12-22 00:00: 00 Yes [id number] [facility] gordillo Aripiprazol e 5 MG oral Tablet 15 00:00: 00 Yes [id number] 5mg QD Take 1 tablet (5 mg total) by mouth daily. [facility] gordillo Albuterol HFA 108 (90 Base) MCG/ACT IN AERS 11-23 00:00: 00 Yes [id number] 2{puff} Q4H Inhale 2 puffs into the lungs every 4 hours as needed for wheezing. [facility] gordillo Dicyclomine HCl 10 MG oral Capsule 11-23 00:00: 00 Yes [id number] 20mg Take 2 capsules (20 mg total) by mouth 4 times daily (before meals and nightly). [facility] gordillo hydrOXYzine HCl 50 MG oral Tablet 11-23 00:00: 00 Yes [id number] TAKE 1 TABLET BY MOUTH EVERY NIGHT AT BEDTIME AND TAKE 1/2 TO 1 TABLET EVERY 8 HOURS NEEDED FOR ANXIETY. [facility] gordillo Aripiprazol e 5 MG oral Tablet 11-23 00:00: 00 Yes [id number] 10mg Take 2 tablets (10 mg total) by mouth daily. [facility] gordillo Rizatriptan Benzoate 10 MG oral TABLET DISPERSIBLE 11-23 00:00: 00 12-23 00:00 :00 No [id number] 10mg Take 1 tablet (10 mg total) by mouth once as needed for migraine (May repeat in 2 hours if unresolved . Do not exceed 30 mg in 24 hours.). Glenis gordillo hydrOXYzine HCl 50 MG oral Tablet 04 00:00: 00 11-23 00:00 :00 No [id number] TAKE 1 TABLET BY MOUTH EVERY NIGHT AT BEDTIME AND TAKE 1/2 TO 1 TABLET EVERY 8 HOURS NEEDED FOR ANXIETY. [facility] gordillo Amoxicillin -Pot Clavulanate 875-125 MG oral Tablet 10-29 00:00: 00 12-23 00:00 :00 No [id number] 1{tbl} Q.5D Take 1 tablet by mouth 2 times daily. [facility] gordillo Cetirizine HCl (ZyrTEC Allergy) 10 MG oral TABLET DISPERSIBLE 10-19 00:00: 00 Yes [id number] 1{tbl} QD Take 1 tablet by mouth daily. [facility] gordillo Azelastine HCl 0.1 % nasal Solution 10-19 00:00: 00 11-23 00:00 :00 No [id number] One or two sprays in each nostril twice daily. [facility] gordillo Pseudoeph-B romphen-DM 30-2-10 MG/5ML oral Syrup 10-19 00:00: 00 11-23 00:00 :00 No [id number] 10mL Take 10 mL by mouth 4 times daily. [facility] gordillo Ipratropium Spicer 0.03 % nasal Solution 10-19 00:00: 00 11-23 00:00 :00 No [id number] 2{spray } Use 2 sprays in each nostril every 12 hours. [facility] gordillo hydrOXYzine HCl 50 MG oral Tablet 10-03 00:00: 00 Yes [id number] Take 1 pill at bedtime and 1/2-1 pill every 8 hours as needed for anxiety.. [facility] gordillo Rizatriptan Benzoate 10 MG oral TABLET DISPERSIBLE 08-13 00:00: 00 11-23 00:00 :00 No [id number] TAKE 1 TABLET BY MOUTH AT ONSET OF HEADACHE; MAY REPEAT 1 TABLET IN 2 HOURS IF NEEDED. NOT TO EXCEED 30 MG IN 24 HOURS [facility] gordillo Aripiprazol e 5 MG oral Tablet 08-13 00:00: 00 11-23 00:00 :00 No [id number] 5mg Take 1 tablet (5 mg total) by mouth daily. [facility] gordillo Cetirizine HCl (ZyrTEC Allergy) 10 MG oral TABLET DISPERSIBLE 3-14 00:00: 00 10-19 00:00 :00 No [id number] 1{tbl} Take 1 tablet by mouth daily. [facility] gordillo Cetirizine HCl (ZyrTEC Allergy) 10 MG oral TABLET DISPERSIBLE 223 00:00: 00 Yes [id number] 1{tbl} Take 1 tablet by mouth daily. [facility] gordillo Guaifenesin (Mucinex) 600 MG oral Tablet 12 Hour Sustained Release 07-25 00:00: 00 11-23 00:00 :00 No [id number] 1200mg Take 2 tablets (1,200 mg total) by mouth 2 times daily. Glenis gordillo Amoxicillin -Pot Clavulanate 875-125 MG oral Tablet 07-25 00:00: 00 10-19 00:00 :00 No [id number] 1{tbl} Take 1 tablet by mouth 2 times daily. Glenis gordillo Rizatriptan Benzoate 10 MG oral TABLET DISPERSIBLE 07-25 00:00: 00 07-25 00:00 :00 No [id number] 10mg Take 1 tablet (10 mg total) by mouth once as needed for migraine (May repeat in 2 hours if unresolved . Do not exceed 30 mg in 24 hours.). Glenis gordillo Rizatriptan Benzoate 10 MG oral TABLET DISPERSIBLE 2-12 00:00: 00 Yes [id number] 10mg Take 1 tablet (10 mg total) by mouth once as needed for migraine (May repeat in 2 hours if unresolved . Do not exceed 30 mg in 24 hours.). Glenis gordillo Aripiprazol e 5 MG oral Tablet 2-12 00:00: 00 Yes [id number] 5mg Take 1 tablet (5 mg total) by mouth daily. [facility] gordillo Dicyclomine HCl 10 MG oral Capsule 212 00:00: 00 11-23 00:00 :00 No [id number] 20mg Take 2 capsules (20 mg total) by mouth 4 times daily (before meals and nightly). Glenis gordillo Albuterol HFA 108 (90 Base) MCG/ACT IN AERS 07-14 00:00: 00 11-23 00:00 :00 No [id number] 2{puff} Q4H Inhale 2 puffs into the lungs every 4 hours as needed for wheezing. Glenis gordillo NaCl 0.9% (NS) IV infusion 1,000 mL 08-24 01:45: 00 08-24 02:20 :00 No 1000mL at 999 mL/hr, Intravenou s, ONCE, 1 dose, On Fri08/23/22 at 2045, CATHERINE [facility] iopamidol (ISOVUE 370-500 mL) injection 100 mL 08-24 00:30: 00 08-23 23:22 :00 No [id number] 100mL 100 mL, Intravenou s, ONCE, 1 dose, On Fri08/23/22 at 1930, Routine [facility] ketorolac (TORADOL) injection 30 mg 08-23 23:45: 00 08-23 23:05 :00 No 30mg 30 mg, Slow IV Push, ONCE, 1 dose, On Fri08/23/22 at 1845, Routine [facility] dicyclomine (BENTYL) injection 20 mg 08-23 23:45: 00 08-23 23:14 :00 No 20mg 20 mg, Intramuscu lar, ONCE, 1 dose, On Fri08/23/22 at 1845, Routine [facility] pantoprazol e (PROTONIX) injection 40 mg 08-23 22:45: 00 08-23 23:06 :00 No 40mg 40 mg, Slow IV Push, ONCE, 1 dose, On Fri08/23/22 at 1745 [facility] ondansetron 4 mg disintegrat ing tablet 08-23 00:00: 00 Yes [id number] 4mg Take 1 tablet by mouth every 8 (eight) hours as needed for Nausea and Vomiting (N/V). [facility] Dicyclomine HCl 20 MG oral Tablet 08-23 00:00: 00 07-14 00:00 :00 No 20mg Q.25D Take 1 tablet (20 mg total) by mouth 4 times daily as needed (IBS flare). Glenis gordillo dicyclomine 10 mg capsule 06-25 00:00: 00 Yes [id number] 10mg Take 1 capsule by mouth in the morning and 1 capsule at noon and 1 capsule in the evening. [facility] cetirizine (ZYRTEC) 10 mg tablet 2021-06 00:00: 00 Yes [id number] 10mg Take 1 tablet by mouth in the morning. [facility] albuterol 90 mcg/actuati on inhaler 2021-06 00:00: 00 Yes [id number] 2{puff} Inhale 2 Puffs every 6 (six) hours as needed for Wheezing or Shortness of Breath. [facility] fluticasone propionate 110 mcg/actuati on inhaler 2021-06 00:00: 00 Yes [id number] 2{puff} Inhale 2 Puffs every 12 (twelve) hours. [facility] hydrOXYzine 50 mg tablet 2021-06 00:00: 00 Yes [id number] 50mg Take 1 tablet by mouth 3 (three) times daily as needed for Itching. [facility] amoxicillin -clavulanat e (AUGMENTIN) 875-125 mg per tablet 1 tablet 2021-06 02:45: 00 05-18 02:13 :00 No 1{tbl} 1 tablet, Oral, ONCE NOW, 1 dose, On Fri05/17/22 at 2045, Routine
Reason for Anti-Infec tive: Empiric Non-Surgic al Prophylaxi s
Durat ion of therapy: 72 hours [facility] ibuprofen (IBU) tablet 800 mg 2021-06 02:00: 00 05-18 02:13 :00 No 800mg 800 mg, Oral, ONCE, 1 dose, On Fri05/17/22 at 2000, CATHERINE [facility] ibuprofen 800 mg tablet 2021-06 00:00: 00 Yes [id number] 800mg Take 1 tablet by mouth every 8 (eight) hours as needed for Pain (scale 4-6). [facility] amoxicillin -clavulanat e 875-125 mg per tablet 2021-06 00:00: 00 05-30 00:00 :00 No [id number] 1{tbl} Take 1 tablet by mouth every 12 (twelve) hours. [facility] dicyclomine 10 mg capsule 02-28 00:00: 00 06-25 00:00 :00 No [id number] 10mg Take 1 capsule by mouth 3 (three) times daily. [facility] fluticasone propionate 110 mcg/actuati on inhaler 02-28 00:00: 00 05-30 00:00 :00 No [id number] 2{puff} Inhale 2 Puffs every 12 (twelve) hours. [facility] albuterol 90 mcg/actuati on inhaler 02-28 00:00: 00 05-30 00:00 :00 No [id number] 2{puff} Inhale 2 Puffs every 6 (six) hours as needed for Wheezing or Shortness of Breath. [facility] cetirizine (ZYRTEC) 10 mg tablet 02-28 00:00: 00 05-30 00:00 :00 No [id number] 10mg Take 1 tablet by mouth daily. [facility] polyethylen e glycol 3350 (MIRALAX) 17 gram/dose powder 02-06 00:00: 00 Yes [id number] Give 1-2 capfuls once to twice daily with 8-16 oz of water to produce soft BM [facility] fluticasone propionate 110 mcg/actuati on inhaler 02-06 00:00: 00 02-28 00:00 :00 No [id number] 2{puff} Inhale 2 Puffs every 12 (twelve) hours. [facility] dicyclomine 10 mg capsule 02-06 00:00: 00 02-28 00:00 :00 No [id number] 10mg Take 1 capsule by mouth 3 (three) times daily. [facility] cetirizine (ZYRTEC) 10 mg tablet 02-06 00:00: 00 02-28 00:00 :00 No [id number] 10mg Take 1 tablet by mouth daily. [facility] albuterol 90 mcg/actuati on inhaler 02-06 00:00: 00 02-28 00:00 :00 No [id number] 2{puff} Inhale 2 Puffs every 6 (six) hours as needed for Wheezing or Shortness of Breath. [facility] bisacodyL (DULCOLAX, BISACODYL,) 5 mg EC tablet 12-21 00:00: 00 Yes [id number] Take 1-2 tabs once to twice daily for constipati on [facility] Immunizations Ordered Immunization Name Filled Immunization Name Date Status Comments Source Td 2022-05-17 00:00:[address] [facility] TD, NOS 2022-05-17 00:00:[address] [facility] TD, NOS 2022-05-17 00:00:[address] [facility] TD, NOS 2022-05-17 00:00:[address] [facility] TD, NOS 2022-05-17 00:00:[address] [facility] TD, NOS 2022-05-17 00:00:[address] [facility] TD, NOS 2022-05-17 00:00:[address] [facility] TD, NOS 2022-05-17 00:00:[address] [facility] TD, NOS 2022-05-17 00:00:[address] [facility] TD, NOS 2022-05-17 00:00:[address] [facility] Influenza Virus Vaccine Quad .5 mL IM 6+ MO 2018-03-16 00:00:[address] [facility] Influenza Virus Vaccine 2018-03-16 00:00:[address] [facility] Influenza Virus Vaccine Quad .5 mL IM 6+ MO 2018-03-16 00:00:[address] [facility] Influenza Virus Vaccine 2018-03-16 00:00:[address] [facility] Influenza Virus Vaccine Quad .5 mL IM 6+ MO 2018-03-16 00:00:[address] [facility] Influenza Virus Vaccine 2018-03-16 00:00:[address] [facility] Influenza Virus Vaccine Quad .5 mL IM 6+ MO 2018-03-16 00:00:[address] [facility] Influenza Virus Vaccine 2018-03-16 00:00:[address] [facility] Influenza Virus Vaccine Quad .5 mL IM 6+ MO 2018-03-16 00:00:[address] [facility] Influenza Virus Vaccine 2018-03-16 00:00:[address] [facility] Influenza Virus Vaccine Quad .5 mL IM 6+ MO 2018-03-16 00:00:[address] [facility] Influenza Virus Vaccine 2018-03-16 00:00:[address] [facility] Influenza Virus Vaccine Quad .5 mL IM 6+ MO 2018-03-16 00:00:[address] [facility] Influenza Virus Vaccine 2018-03-16 00:00:[address] [facility] Influenza Virus Vaccine Quad .5 mL IM 6+ MO 2018-03-16 00:00:[address] [facility] Influenza Virus Vaccine 2018-03-16 00:00:[address] [facility] Influenza Virus Vaccine Quad .5 mL IM 6+ MO 2018-03-16 00:00:[address] [facility] Influenza Virus Vaccine 2018-03-16 00:00:[address] [facility] Influenza Virus Vaccine Quad .5 mL IM 6+ MO 2018-03-16 00:00:[address] [facility] Influenza Virus Vaccine 2018-03-16 00:00:[address] [facility] Influenza Virus Vaccine Quad .5 mL IM 6+ MO 2018-03-16 00:00:[address] [facility] Influenza Virus Vaccine 2018-03-16 00:00:[address] [facility] Influenza Virus Vaccine Quad .5 mL IM 6+ MO 2018-03-16 00:00:[address] [facility] Influenza Virus Vaccine 2018-03-16 00:00:[address] [facility] HPV9 2017-11-03 00:00:[address] [facility] HPV9 2017-11-03 00:00:[address] [facility] HPV9 2017-11-03 00:00:[address] [facility] HPV9 2017-11-03 00:00:[address] [facility] HPV9 2017-11-03 00:00:[address] [facility] HPV9 2017-11-03 00:00:[address] [facility] HPV9 2017-11-03 00:00:[address] [facility] HPV9 2017-11-03 00:00:[address] [facility] HPV9 2017-11-03 00:00:[address] [facility] HPV9 2017-11-03 00:00:[address] [facility] HPV9 2017-11-03 00:00:[address] [facility] HPV9 2017-11-03 00:00:[address] [facility] HPV 2017-01-16 00:00:[address] [facility] HPV 2017-01-16 00:00:[address] [facility] HPV 2017-01-16 00:00:[address] [facility] HPV 2017-01-16 00:00:[address] [facility] HPV 2017-01-16 00:00:[address] [facility] HPV9 2017-01-16 00:00:[address] [facility] HPV 2017-01-16 00:00:[address] [facility] HPV9 2017-01-16 00:00:[address] [facility] HPV 2017-01-16 00:00:[address] [facility] HPV9 2017-01-16 00:00:[address] [facility] HPV 2017-01-16 00:00:[address] [facility] HPV9 2017-01-16 00:00:[address] [facility] HPV 2017-01-16 00:00:[address] [facility] HPV9 2017-01-16 00:00:[address] [facility] HPV 2017-01-16 00:00:[address] [facility] HPV9 2017-01-16 00:00:[address] [facility] HPV 2017-01-16 00:00:[address] [facility] HPV9 2017-01-16 00:00:[address] [facility] HPV 2017-01-16 00:00:[address] [facility] HPV9 2017-01-16 00:00:[address] [facility] Meningococcal Vaccine 2015-01-16 00:00:[address] [facility] Meningococcal Vaccine 2015-01-16 00:00:[address] [facility] Meningococcal Vaccine 2015-01-16 00:00:[address] [facility] Meningococcal Vaccine 2015-01-16 00:00:[address] [facility] Meningococcal Vaccine 2015-01-16 00:00:[address] [facility] Meningococcal Polysaccharide (groups A, C, Y and W-135) conjugate vaccine (MCV4P) 2015-01-16 00:00:[address] [facility] Meningococcal Vaccine 2015-01-16 00:00:[address] [facility] Meningococcal Polysaccharide (groups A, C, Y and W-135) conjugate vaccine (MCV4P) 2015-01-16 00:00:[address] [facility] Meningococcal Vaccine 2015-01-16 00:00:[address] [facility] Meningococcal Polysaccharide (groups A, C, Y and W-135) conjugate vaccine (MCV4P) 2015-01-16 00:00:[address] [facility] Meningococcal Vaccine 2015-01-16 00:00:[address] [facility] Meningococcal Polysaccharide (groups A, C, Y and W-135) conjugate vaccine (MCV4P) 2015-01-16 00:00:[address] [facility] Meningococcal Vaccine 2015-01-16 00:00:[address] [facility] Meningococcal Polysaccharide (groups A, C, Y and W-135) conjugate vaccine (MCV4P) 2015-01-16 00:00:[address] [facility] Meningococcal Vaccine 2015-01-16 00:00:[address] [facility] Meningococcal Polysaccharide (groups A, C, Y and W-135) conjugate vaccine (MCV4P) 2015-01-16 00:00:[address] [facility] Meningococcal Vaccine 2015-01-16 00:00:[address] [facility] Meningococcal Polysaccharide (groups A, C, Y and W-135) conjugate vaccine (MCV4P) 2015-01-16 00:00:[address] [facility] Meningococcal Vaccine 2015-01-16 00:00:[address] [facility] Meningococcal Polysaccharide (groups A, C, Y and W-135) conjugate vaccine (MCV4P) 2015-01-16 00:00:[address] [facility] TDAP (ADACEL) VACCINE 2014-06-08 00:00:[address] [facility] TDAP (ADACEL) VACCINE 2014-06-08 00:00:[address] [facility] TDAP (ADACEL) VACCINE 2014-06-08 00:00:[address] [facility] TDAP (ADACEL) VACCINE 2014-06-08 00:00:[address] [facility] TDAP (ADACEL) VACCINE 2014-06-08 00:00:[address] [facility] TDAP (ADACEL) VACCINE 2014-06-08 00:00:[address] [facility] TDAP (ADACEL) VACCINE 2014-06-08 00:00:00 Completed [facility] TDAP (ADACEL) VACCINE 2014-06-08 00:00:[address] [facility] TDAP (ADACEL) VACCINE 2014-06-08 00:00:[address] [facility] TDAP (ADACEL) VACCINE 2014-06-08 00:00:[address] [facility] TDAP (ADACEL) VACCINE 2014-06-08 00:00:[address] [facility] TDAP (ADACEL) VACCINE 2014-06-08 00:00:[address] [facility] Influenza Virus Vaccine Quad .5 mL IM 6+ MO 2013-03-31 00:00:[address] [facility] Influenza Virus Vaccine 2013-03-31 00:00:[address] [facility] Influenza Virus Vaccine Quad .5 mL IM 6+ MO 2013-03-31 00:00:[address] [facility] Influenza Virus Vaccine 2013-03-31 00:00:[address] [facility] Influenza Virus Vaccine Quad .5 mL IM 6+ MO 2013-03-31 00:00:[address] [facility] Influenza Virus Vaccine 2013-03-31 00:00:[address] [facility] Influenza Virus Vaccine Quad .5 mL IM 6+ MO 2013-03-31 00:00:[address] [facility] Influenza Virus Vaccine 2013-03-31 00:00:[address] [facility] Influenza Virus Vaccine 2013-03-31 00:00:[address] [facility] Influenza Virus Vaccine 2013-03-31 00:00:[address] [facility] Influenza Virus Vaccine 2013-03-31 00:00:[address] [facility] Influenza Virus Vaccine 2013-03-31 00:00:[address] [facility] Influenza Virus Vaccine Quad .5 mL IM 6+ MO 2013-03-31 00:00:[address] [facility] Influenza Virus Vaccine 2013-03-31 00:00:[address] [facility] Influenza Virus Vaccine Quad .5 mL IM 6+ MO 2013-03-31 00:00:[address] [facility] Influenza Virus Vaccine 2013-03-31 00:00:[address] [facility] Influenza Virus Vaccine Quad .5 mL IM 6+ MO 2013-03-31 00:00:[address] [facility] Influenza Virus Vaccine 2013-03-31 00:00:[address] [facility] Influenza Virus Vaccine Quad .5 mL IM 6+ MO 2013-03-31 00:00:[address] [facility] Influenza Virus Vaccine 2013-03-31 00:00:[address] [facility] Influenza Virus Vaccine 2012-05-04 00:00:[address] [facility] Influenza Virus Vaccine 2012-05-04 00:00:[address] [facility] Influenza Virus Vaccine 2012-05-04 00:00:[address] [facility] Influenza Virus Vaccine 2012-05-04 00:00:[address] [facility] Influenza Virus Vaccine 2012-05-04 00:00:[address] [facility] Influenza Virus Vaccine - Whole 2012-05-04 00:00:[address] [facility] Influenza Virus Vaccine 2012-05-04 00:00:[address] [facility] Influenza Virus Vaccine - Whole 2012-05-04 00:00:[address] [facility] Influenza Virus Vaccine 2012-05-04 00:00:[address] [facility] Influenza Virus Vaccine - Whole 2012-05-04 00:00:[address] [facility] Influenza Virus Vaccine 2012-05-04 00:00:[address] [facility] Influenza Virus Vaccine - Whole 2012-05-04 00:00:[address] [facility] Influenza Virus Vaccine 2012-05-04 00:00:[address] [facility] Influenza Virus Vaccine - Whole 2012-05-04 00:00:[address] [facility] Influenza Virus Vaccine 2012-05-04 00:00:[address] [facility] Influenza Virus Vaccine - Whole 2012-05-04 00:00:[address] [facility] Influenza Virus Vaccine 2012-05-04 00:00:[address] [facility] Influenza Virus Vaccine - Whole 2012-05-04 00:00:[address] [facility] Influenza Virus Vaccine 2012-05-04 00:00:[address] [facility] Influenza Virus Vaccine - Whole 2012-05-04 00:00:[address] [facility] Influenza Virus Vaccine 2008-03-16 00:00:[address] [facility] Influenza Virus Vaccine 2008-03-16 00:00:[address] [facility] Influenza Virus Vaccine 2008-03-16 00:00:[address] [facility] Influenza Virus Vaccine 2008-03-16 00:00:[address] [facility] Influenza Virus Vaccine 2008-03-16 00:00:[address] [facility] Influenza Virus Vaccine - Whole 2008-03-16 00:00:[address] [facility] Influenza Virus Vaccine 2008-03-16 00:00:[address] [facility] Influenza Virus Vaccine - Whole 2008-03-16 00:00:[address] [facility] Influenza Virus Vaccine 2008-03-16 00:00:[address] [facility] Influenza Virus Vaccine - Whole 2008-03-16 00:00:[address] [facility] Influenza Virus Vaccine 2008-03-16 00:00:[address] [facility] Influenza Virus Vaccine - Whole 2008-03-16 00:00:[address] [facility] Influenza Virus Vaccine 2008-03-16 00:00:[address] [facility] Influenza Virus Vaccine - Whole 2008-03-16 00:00:[address] [facility] Influenza Virus Vaccine 2008-03-16 00:00:[address] [facility] Influenza Virus Vaccine - Whole 2008-03-16 00:00:[address] [facility] Influenza Virus Vaccine 2008-03-16 00:00:[address] [facility] Influenza Virus Vaccine - Whole 2008-03-16 00:00:[address] [facility] Influenza Virus Vaccine 2008-03-16 00:00:[address] [facility] Influenza Virus Vaccine - Whole 2008-03-16 00:00:[address] [facility] DTAP 2006-09-22 00:00:[address] [facility] MMR 2006-09-22 00:00:[address] [facility] Polio (IPV/OPV) 2006-09-22 00:00:[address] [facility] Varicella (varivax)(chicken pox) 2006-09-22 00:00:[address] [facility] DTAP 2006-09-22 00:00:[address] [facility] MMR 2006-09-22 00:00:[address] [facility] Polio (IPV/OPV) 2006-09-22 00:00:[address] [facility] Varicella (varivax)(chicken pox) 2006-09-22 00:00:[address] [facility] DTAP 2006-09-22 00:00:[address] [facility] MMR 2006-09-22 00:00:[address] [facility] Polio (IPV/OPV) 2006-09-22 00:00:[address] [facility] Varicella (varivax)(chicken pox) 2006-09-22 00:00:[address] [facility] DTAP 2006-09-22 00:00:[address] [facility] MMR 2006-09-22 00:00:[address] [facility] Polio (IPV/OPV) 2006-09-22 00:00:[address] [facility] Varicella (varivax)(chicken pox) 2006-09-22 00:00:[address] [facility] DTAP 2006-09-22 00:00:[address] [facility] MMR 2006-09-22 00:00:[address] [facility] Polio (IPV/OPV) 2006-09-22 00:00:[address] [facility] Varicella (varivax)(chicken pox) 2006-09-22 00:00:[address] [facility] DTaP, Unspecified Formulation 2006-09-22 00:00:[address] [facility] Proquad (MMR/VARICELLA) 2006-09-22 00:00:[address] [facility] IPV 2006-09-22 00:00:[address] [facility] DTAP 2006-09-22 00:00:[address] [facility] MMR 2006-09-22 00:00:[address] [facility] Polio (IPV/OPV) 2006-09-22 00:00:[address] [facility] Varicella (varivax)(chicken pox) 2006-09-22 00:00:[address] [facility] DTaP, Unspecified Formulation 2006-09-22 00:00:[address] [facility] Proquad (MMR/VARICELLA) 2006-09-22 00:00:[address] [facility] IPV 2006-09-22 00:00:[address] [facility] DTAP 2006-09-22 00:00:[address] [facility] MMR 2006-09-22 00:00:[address] [facility] Polio (IPV/OPV) 2006-09-22 00:00:[address] [facility] Varicella (varivax)(chicken pox) 2006-09-22 00:00:[address] [facility] DTaP, Unspecified Formulation 2006-09-22 00:00:[address] [facility] Proquad (MMR/VARICELLA) 2006-09-22 00:00:[address] [facility] IPV 2006-09-22 00:00:[address] [facility] DTAP 2006-09-22 00:00:[address] [facility] MMR 2006-09-22 00:00:[address] [facility] Polio (IPV/OPV) 2006-09-22 00:00:[address] [facility] Varicella (varivax)(chicken pox) 2006-09-22 00:00:[address] [facility] DTaP, Unspecified Formulation 2006-09-22 00:00:[address] [facility] Proquad (MMR/VARICELLA) 2006-09-22 00:00:[address] [facility] IPV 2006-09-22 00:00:[address] [facility] DTAP 2006-09-22 00:00:[address] [facility] MMR 2006-09-22 00:00:[address] [facility] Polio (IPV/OPV) 2006-09-22 00:00:[address] [facility] Varicella (varivax)(chicken pox) 2006-09-22 00:00:[address] [facility] DTaP, Unspecified Formulation 2006-09-22 00:00:[address] [facility] Proquad (MMR/VARICELLA) 2006-09-22 00:00:[address] [facility] IPV 2006-09-22 00:00:[address] [facility] DTAP 2006-09-22 00:00:[address] [facility] MMR 2006-09-22 00:00:[address] [facility] Polio (IPV/OPV) 2006-09-22 00:00:[address] [facility] Varicella (varivax)(chicken pox) 2006-09-22 00:00:[address] [facility] DTaP, Unspecified Formulation 2006-09-22 00:00:[address] [facility] Proquad (MMR/VARICELLA) 2006-09-22 00:00:[address] [facility] IPV 2006-09-22 00:00:[address] [facility] DTAP 2006-09-22 00:00:[address] [facility] MMR 2006-09-22 00:00:[address] [facility] Polio (IPV/OPV) 2006-09-22 00:00:[address] [facility] Varicella (varivax)(chicken pox) 2006-09-22 00:00:[address] [facility] DTaP, Unspecified Formulation 2006-09-22 00:00:[address] [facility] Proquad (MMR/VARICELLA) 2006-09-22 00:00:[address] [facility] IPV 2006-09-22 00:00:[address] [facility] DTAP 2006-09-22 00:00:[address] [facility] MMR 2006-09-22 00:00:[address] [facility] Polio (IPV/OPV) 2006-09-22 00:00:[address] [facility] Varicella (varivax)(chicken pox) 2006-09-22 00:00:[address] [facility] DTaP, Unspecified Formulation 2006-09-22 00:00:[address] [facility] Proquad (MMR/VARICELLA) 2006-09-22 00:00:[address] [facility] IPV 2006-09-22 00:00:[address] [facility] HEPATITIS A 2005-01-28 00:00:[address] [facility] HEPATITIS A 2005-01-28 00:00:[address] [facility] HEPATITIS A 2005-01-28 00:00:[address] [facility] HEPATITIS A 2005-01-28 00:00:[address] [facility] HEPATITIS A 2005-01-28 00:00:[address] [facility] HEPATITIS A 2005-01-28 00:00:[address] [facility] HEPATITIS A 2005-01-28 00:00:[address] [facility] HEPATITIS A 2005-01-28 00:00:[address] [facility] HEPATITIS A 2005-01-28 00:00:[address] [facility] HEPATITIS A 2005-01-28 00:00:[address] [facility] HEPATITIS A 2005-01-28 00:00:[address] [facility] HEPATITIS A 2005-01-28 00:00:[address] [facility] DTAP 2004-03-05 00:00:[address] [facility] HIB 4 Dose Schedule 2004-03-05 00:00:[address] [facility] Polio (IPV/OPV) 2004-03-05 00:00:[address] [facility] DTAP 2004-03-05 00:00:[address] [facility] HIB 4 Dose Schedule 2004-03-05 00:00:[address] [facility] Polio (IPV/OPV) 2004-03-05 00:00:[address] [facility] DTAP 2004-03-05 00:00:[address] [facility] HIB 4 Dose Schedule 2004-03-05 00:00:[address] [facility] Polio (IPV/OPV) 2004-03-05 00:00:[address] [facility] DTAP 2004-03-05 00:00:[address] [facility] HIB 4 Dose Schedule 2004-03-05 00:00:[address] [facility] Polio (IPV/OPV) 2004-03-05 00:00:[address] [facility] DTAP 2004-03-05 00:00:[address] [facility] HIB 4 Dose Schedule 2004-03-05 00:00:[address] [facility] Polio (IPV/OPV) 2004-03-05 00:00:[address] [facility] DTaP, Unspecified Formulation 2004-03-05 00:00:[address] [facility] IPV 2004-03-05 00:00:[address] [facility] DTAP 2004-03-05 00:00:[address] [facility] HIB 4 Dose Schedule 2004-03-05 00:00:[address] [facility] Polio (IPV/OPV) 2004-03-05 00:00:[address] [facility] DTaP, Unspecified Formulation 2004-03-05 00:00:[address] [facility] IPV 2004-03-05 00:00:[address] [facility] DTAP 2004-03-05 00:00:[address] [facility] HIB 4 Dose Schedule 2004-03-05 00:00:[address] [facility] Polio (IPV/OPV) 2004-03-05 00:00:[address] [facility] DTaP, Unspecified Formulation 2004-03-05 00:00:[address] [facility] IPV 2004-03-05 00:00:[address] [facility] DTAP 2004-03-05 00:00:[address] [facility] HIB 4 Dose Schedule 2004-03-05 00:00:[address] [facility] Polio (IPV/OPV) 2004-03-05 00:00:[address] [facility] DTaP, Unspecified Formulation 2004-03-05 00:00:[address] [facility] IPV 2004-03-05 00:00:[address] [facility] DTAP 2004-03-05 00:00:[address] [facility] HIB 4 Dose Schedule 2004-03-05 00:00:[address] [facility] Polio (IPV/OPV) 2004-03-05 00:00:[address] [facility] DTaP, Unspecified Formulation 2004-03-05 00:00:[address] [facility] IPV 2004-03-05 00:00:[address] [facility] DTAP 2004-03-05 00:00:[address] [facility] HIB 4 Dose Schedule 2004-03-05 00:00:[address] [facility] Polio (IPV/OPV) 2004-03-05 00:00:[address] [facility] DTaP, Unspecified Formulation 2004-03-05 00:00:[address] [facility] IPV 2004-03-05 00:00:[address] [facility] DTAP 2004-03-05 00:00:[address] [facility] HIB 4 Dose Schedule 2004-03-05 00:00:[address] [facility] Polio (IPV/OPV) 2004-03-05 00:00:[address] [facility] DTaP, Unspecified Formulation 2004-03-05 00:00:[address] [facility] IPV 2004-03-05 00:00:[address] [facility] DTAP 2004-03-05 00:00:[address] [facility] HIB 4 Dose Schedule 2004-03-05 00:00:[address] [facility] Polio (IPV/OPV) 2004-03-05 00:00:[address] [facility] DTaP, Unspecified Formulation 2004-03-05 00:00:[address] [facility] IPV 2004-03-05 00:00:[address] [facility] Influenza Virus Vaccine 2003-05-04 00:00:[address] [facility] Influenza Virus Vaccine 2003-05-04 00:00:[address] [facility] Influenza Virus Vaccine 2003-05-04 00:00:[address] [facility] Influenza Virus Vaccine 2003-05-04 00:00:[address] [facility] Influenza Virus Vaccine 2003-05-04 00:00:[address] [facility] Influenza Virus Vaccine - Whole 2003-05-04 00:00:[address] [facility] Influenza Virus Vaccine 2003-05-04 00:00:[address] [facility] Influenza Virus Vaccine - Whole 2003-05-04 00:00:[address] [facility] Influenza Virus Vaccine 2003-05-04 00:00:[address] [facility] Influenza Virus Vaccine - Whole 2003-05-04 00:00:[address] [facility] Influenza Virus Vaccine 2003-05-04 00:00:[address] [facility] Influenza Virus Vaccine - Whole 2003-05-04 00:00:[address] [facility] Influenza Virus Vaccine 2003-05-04 00:00:[address] [facility] Influenza Virus Vaccine - Whole 2003-05-04 00:00:[address] [facility] Influenza Virus Vaccine 2003-05-04 00:00:[address] [facility] Influenza Virus Vaccine - Whole 2003-05-04 00:00:[address] [facility] Influenza Virus Vaccine 2003-05-04 00:00:[address] [facility] Influenza Virus Vaccine - Whole 2003-05-04 00:00:[address] [facility] Influenza Virus Vaccine 2003-05-04 00:00:[address] [facility] Influenza Virus Vaccine - Whole 2003-05-04 00:00:[address] [facility] Influenza Virus Vaccine 2003-04-07 00:00:[address] [facility] MMR 2003-04-07 00:00:[address] [facility] Varicella (varivax)(chicken pox) 2003-04-07 00:00:[address] [facility] Influenza Virus Vaccine 2003-04-07 00:00:[address] [facility] MMR 2003-04-07 00:00:[address] [facility] Varicella (varivax)(chicken pox) 2003-04-07 00:00:[address] [facility] Influenza Virus Vaccine 2003-04-07 00:00:[address] [facility] MMR 2003-04-07 00:00:[address] [facility] Varicella (varivax)(chicken pox) 2003-04-07 00:00:[address] [facility] Influenza Virus Vaccine 2003-04-07 00:00:[address] [facility] MMR 2003-04-07 00:00:[address] [facility] Varicella (varivax)(chicken pox) 2003-04-07 00:00:[address] [facility] Influenza Virus Vaccine 2003-04-07 00:00:[address] [facility] MMR 2003-04-07 00:00:[address] [facility] Varicella (varivax)(chicken pox) 2003-04-07 00:00:[address] [facility] Flu Trivalent 2003-04-07 00:00:[address] [facility] Pneumococcal 7 Conjugate, PCV7 (Prevnar7) 2003-04-07 00:00:[address] [facility] Influenza Virus Vaccine 2003-04-07 00:00:[address] [facility] MMR 2003-04-07 00:00:[address] [facility] Varicella (varivax)(chicken pox) 2003-04-07 00:00:[address] [facility] Flu Trivalent 2003-04-07 00:00:[address] [facility] Pneumococcal 7 Conjugate, PCV7 (Prevnar7) 2003-04-07 00:00:[address] [facility] Influenza Virus Vaccine 2003-04-07 00:00:[address] [facility] MMR 2003-04-07 00:00:[address] [facility] Varicella (varivax)(chicken pox) 2003-04-07 00:00:[address] [facility] Flu Trivalent 2003-04-07 00:00:[address] [facility] Pneumococcal 7 Conjugate, PCV7 (Prevnar7) 2003-04-07 00:00:[address] [facility] Influenza Virus Vaccine 2003-04-07 00:00:[address] [facility] MMR 2003-04-07 00:00:[address] [facility] Varicella (varivax)(chicken pox) 2003-04-07 00:00:[address] [facility] Flu Trivalent 2003-04-07 00:00:[address] [facility] Pneumococcal 7 Conjugate, PCV7 (Prevnar7) 2003-04-07 00:00:[address] [facility] Influenza Virus Vaccine 2003-04-07 00:00:[address] [facility] MMR 2003-04-07 00:00:[address] [facility] Varicella (varivax)(chicken pox) 2003-04-07 00:00:[address] [facility] Flu Trivalent 2003-04-07 00:00:[address] [facility] Pneumococcal 7 Conjugate, PCV7 (Prevnar7) 2003-04-07 00:00:[address] [facility] Influenza Virus Vaccine 2003-04-07 00:00:[address] [facility] MMR 2003-04-07 00:00:[address] [facility] Varicella (varivax)(chicken pox) 2003-04-07 00:00:[address] [facility] Flu Trivalent 2003-04-07 00:00:[address] [facility] Pneumococcal 7 Conjugate, PCV7 (Prevnar7) 2003-04-07 00:00:[address] [facility] Influenza Virus Vaccine 2003-04-07 00:00:[address] [facility] MMR 2003-04-07 00:00:[address] [facility] Varicella (varivax)(chicken pox) 2003-04-07 00:00:[address] [facility] Flu Trivalent 2003-04-07 00:00:[address] [facility] Pneumococcal 7 Conjugate, PCV7 (Prevnar7) 2003-04-07 00:00:[address] [facility] Influenza Virus Vaccine 2003-04-07 00:00:[address] [facility] MMR 2003-04-07 00:00:[address] [facility] Varicella (varivax)(chicken pox) 2003-04-07 00:00:[address] [facility] Flu Trivalent 2003-04-07 00:00:[address] [facility] Pneumococcal 7 Conjugate, PCV7 (Prevnar7) 2003-04-07 00:00:[address] [facility] DTAP 2002 00:00:[address] [facility] HIB 4 Dose Schedule 2002 00:00:[address] [facility] Hep B, Adol or Pedi Dosage 2002 00:00:[address] [facility] DTAP 2002 00:00:[address] [facility] HIB 4 Dose Schedule 2002 00:00:[address] [facility] Hep B, Adol or Pedi Dosage 2002 00:00:[address] [facility] DTAP 2002 00:00:[address] [facility] HIB 4 Dose Schedule 2002 00:00:[address] [facility] Hep B, Adol or Pedi Dosage 2002 00:00:[address] [facility] DTAP 2002 00:00:[address] [facility] HIB 4 Dose Schedule 2002 00:00:[address] [facility] Hep B, Adol or Pedi Dosage 2002 00:00:[address] [facility] DTAP 2002 00:00:[address] [facility] HIB 4 Dose Schedule 2002 00:00:[address] [facility] Hep B, Adol or Pedi Dosage 2002 00:00:[address] [facility] DTaP, Unspecified Formulation 2002 00:00:[address] [facility] Hib-HbOC 2002 00:00:[address] [facility] Pneumococcal 7 Conjugate, PCV7 (Prevnar7) 2002 00:00:[address] [facility] DTAP 2002 00:00:[address] [facility] [facility] 4 Dose Schedule 2002 00:00:[address] [facility] Hep B, Adol or Pedi Dosage 2002 00:00:[address] [facility] DTaP, Unspecified Formulation 2002 00:00:[address] [facility] Hib-HbOC 2002 00:00:[address] [facility] Pneumococcal 7 Conjugate, PCV7 (Prevnar7) 2002 00:00:[address] [facility] DTAP 2002 00:00:[address] [facility] HIB 4 Dose Schedule 2002 00:00:[address] [facility] Hep B, Adol or Pedi Dosage 2002 00:00:[address] [facility] DTaP, Unspecified Formulation 2002 00:00:[address] [facility] Hib-HbOC 2002 00:00:[address] [facility] Pneumococcal 7 Conjugate, PCV7 (Prevnar7) 2002 00:00:[address] [facility] DTAP 2002 00:00:[address] [facility] HIB 4 Dose Schedule 2002 00:00:[address] [facility] Hep B, Adol or Pedi Dosage 2002 00:00:[address] [facility] DTaP, Unspecified Formulation 2002 00:00:[address] [facility] Hib-HbOC 2002 00:00:[address] [facility] Pneumococcal 7 Conjugate, PCV7 (Prevnar7) 2002 00:00:[address] [facility] DTAP 2002 00:00:[address] [facility] HIB 4 Dose Schedule 2002 00:00:[address] [facility] Hep B, Adol or Pedi Dosage 2002 00:00:[address] [facility] DTaP, Unspecified Formulation 2002 00:00:[address] [facility] Hib-HbOC 2002 00:00:[address] [facility] Pneumococcal 7 Conjugate, PCV7 (Prevnar7) 2002 00:00:[address] [facility] DTAP 2002 00:00:[address] [facility] HIB 4 Dose Schedule 2002 00:00:[address] [facility] Hep B, Adol or Pedi Dosage 2002 00:00:[address] [facility] DTaP, Unspecified Formulation 2002 00:00:[address] [facility] Hib-HbOC 2002 00:00:[address] [facility] Pneumococcal 7 Conjugate, PCV7 (Prevnar7) 2002 00:00:[address] [facility] DTAP 2002 00:00:[address] [facility] HIB 4 Dose Schedule 2002 00:00:[address] [facility] Hep B, Adol or Pedi Dosage 2002 00:00:[address] [facility] DTaP, Unspecified Formulation 2002 00:00:[address] [facility] Hib-HbOC 2002 00:00:[address] [facility] Pneumococcal 7 Conjugate, PCV7 (Prevnar7) 2002 00:00:[address] [facility] DTAP 2002 00:00:[address] [facility] HIB 4 Dose Schedule 2002 00:00:[address] [facility] Hep B, Adol or Pedi Dosage 2002 00:00:[address] [facility] DTaP, Unspecified Formulation 2002 00:00:[address] [facility] Hib-HbOC 2002 00:00:[address] [facility] Pneumococcal 7 Conjugate, PCV7 (Prevnar7) 2002 00:00:[address] [facility] DTAP 2002 00:00:[address] [facility] HIB 4 Dose Schedule 2002 00:00:[address] [facility] Polio (IPV/OPV) 2002 00:00:[address] [facility] DTAP 2002 00:00:[address] [facility] HIB 4 Dose Schedule 2002 00:00:[address] [facility] Polio (IPV/OPV) 2002 00:00:[address] [facility] DTAP 2002 00:00:[address] [facility] HIB 4 Dose Schedule 2002 00:00:[address] [facility] Polio (IPV/OPV) 2002 00:00:[address] [facility] DTAP 2002 00:00:[address] [facility] HIB 4 Dose Schedule 2002 00:00:[address] [facility] Polio (IPV/OPV) 2002 00:00:[address] [facility] DTAP 2002 00:00:[address] [facility] HIB 4 Dose Schedule 2002 00:00:[address] [facility] Polio (IPV/OPV) 2002 00:00:[address] [facility] DTaP, Unspecified Formulation 2002 00:00:[address] [facility] Hib-HbOC 2002 00:00:[address] [facility] Pneumococcal 7 Conjugate, PCV7 (Prevnar7) 2002 00:00:[address] [facility] IPV 2002 00:00:[address] [facility] DTAP 2002 00:00:[address] [facility] HIB 4 Dose Schedule 2002 00:00:[address] [facility] Polio (IPV/OPV) 2002 00:00:[address] [facility] DTaP, Unspecified Formulation 2002 00:00:[address] [facility] Hib-HbOC 2002 00:00:[address] [facility] Pneumococcal 7 Conjugate, PCV7 (Prevnar7) 2002 00:00:[address] [facility] IPV 2002 00:00:[address] [facility] DTAP 2002 00:00:[address] [facility] HIB 4 Dose Schedule 2002 00:00:[address] [facility] Polio (IPV/OPV) 2002 00:00:[address] [facility] DTaP, Unspecified Formulation 2002 00:00:[address] [facility] Hib-HbOC 2002 00:00:[address] [facility] Pneumococcal 7 Conjugate, PCV7 (Prevnar7) 2002 00:00:[address] [facility] IPV 2002 00:00:[address] [facility] DTAP 2002 00:00:[address] [facility] HIB 4 Dose Schedule 2002 00:00:[address] [facility] Polio (IPV/OPV) 2002 00:00:[address] [facility] DTaP, Unspecified Formulation 2002 00:00:[address] [facility] Hib-HbOC 2002 00:00:[address] [facility] Pneumococcal 7 Conjugate, PCV7 (Prevnar7) 2002 00:00:[address] [facility] IPV 2002 00:00:[address] [facility] DTAP 2002 00:00:[address] [facility] HIB 4 Dose Schedule 2002 00:00:[address] [facility] Polio (IPV/OPV) 2002 00:00:[address] [facility] DTaP, Unspecified Formulation 2002 00:00:[address] [facility] Hib-HbOC 2002 00:00:[address] [facility] Pneumococcal 7 Conjugate, PCV7 (Prevnar7) 2002 00:00:[address] [facility] IPV 2002 00:00:[address] [facility] DTAP 2002 00:00:[address] [facility] HIB 4 Dose Schedule 2002 00:00:[address] [facility] Polio (IPV/OPV) 2002 00:00:[address] [facility] DTaP, Unspecified Formulation 2002 00:00:[address] [facility] Hib-HbOC 2002 00:00:[address] [facility] Pneumococcal 7 Conjugate, PCV7 (Prevnar7) 2002 00:00:[address] [facility] IPV 2002 00:00:[address] [facility] DTAP 2002 00:00:[address] [facility] HIB 4 Dose Schedule 2002 00:00:[address] [facility] Polio (IPV/OPV) 2002 00:00:[address] [facility] DTaP, Unspecified Formulation 2002 00:00:[address] [facility] Hib-HbOC 2002 00:00:[address] [facility] Pneumococcal 7 Conjugate, PCV7 (Prevnar7) 2002 00:00:[address] [facility] IPV 2002 00:00:[address] [facility] DTAP 2002 00:00:[address] [facility] HIB 4 Dose Schedule 2002 00:00:[address] [facility] Polio (IPV/OPV) 2002 00:00:[address] [facility] DTaP, Unspecified Formulation 2002 00:00:[address] [facility] Hib-HbOC 2002 00:00:[address] [facility] Pneumococcal 7 Conjugate, PCV7 (Prevnar7) 2002 00:00:[address] [facility] IPV 2002 00:00:[address] [facility] DTAP 2002 00:00:[address] [facility] HIB 4 Dose Schedule 2002 00:00:[address] [facility] Hep B, Adol or Pedi Dosage 2002 00:00:[address] [facility] Polio (IPV/OPV) 2002 00:00:[address] [facility] DTAP 2002 00:00:[address] [facility] HIB 4 Dose Schedule 2002 00:00:[address] [facility] Hep B, Adol or Pedi Dosage 2002 00:00:[address] [facility] Polio (IPV/OPV) 2002 00:00:[address] [facility] DTAP 2002 00:00:[address] [facility] HIB 4 Dose Schedule 2002 00:00:[address] [facility] Hep B, Adol or Pedi Dosage 2002 00:00:[address] [facility] Polio (IPV/OPV) 2002 00:00:[address] [facility] DTAP 2002 00:00:[address] [facility] HIB 4 Dose Schedule 2002 00:00:[address] [facility] Hep B, Adol or Pedi Dosage 2002 00:00:[address] [facility] Polio (IPV/OPV) 2002 00:00:[address] [facility] DTAP 2002 00:00:[address] [facility] HIB 4 Dose Schedule 2002 00:00:[address] [facility] Hep B, Adol or Pedi Dosage 2002 00:00:[address] [facility] Polio (IPV/OPV) 2002 00:00:[address] [facility] DTaP, Unspecified Formulation 2002 00:00:[address] [facility] Hib-HbOC 2002 00:00:[address] [facility] Pneumococcal 7 Conjugate, PCV7 (Prevnar7) 2002 00:00:[address] [facility] IPV 2002 00:00:[address] [facility] DTAP 2002 00:00:[address] [facility] HIB 4 Dose Schedule 2002 00:00:[address] [facility] Hep B, Adol or Pedi Dosage 2002 00:00:[address] [facility] Polio (IPV/OPV) 2002 00:00:[address] [facility] DTaP, Unspecified Formulation 2002 00:00:[address] [facility] Hib-HbOC 2002 00:00:[address] [facility] Pneumococcal 7 Conjugate, PCV7 (Prevnar7) 2002 00:00:[address] [facility] IPV 2002 00:00:[address] [facility] DTAP 2002 00:00:[address] [facility] HIB 4 Dose Schedule 2002 00:00:[address] [facility] Hep B, Adol or Pedi Dosage 2002 00:00:[address] [facility] Polio (IPV/OPV) 2002 00:00:[address] [facility] DTaP, Unspecified Formulation 2002 00:00:[address] [facility] Hib-HbOC 2002 00:00:[address] [facility] Pneumococcal 7 Conjugate, PCV7 (Prevnar7) 2002 00:00:[address] [facility] IPV 2002 00:00:[address] [facility] DTAP 2002 00:00:[address] [facility] HIB 4 Dose Schedule 2002 00:00:[address] [facility] Hep B, Adol or Pedi Dosage 2002 00:00:[address] [facility] Polio (IPV/OPV) 2002 00:00:[address] [facility] DTaP, Unspecified Formulation 2002 00:00:[address] [facility] Hib-HbOC 2002 00:00:[address] [facility] Pneumococcal 7 Conjugate, PCV7 (Prevnar7) 2002 00:00:[address] [facility] IPV 2002 00:00:[address] [facility] DTAP 2002 00:00:[address] [facility] HIB 4 Dose Schedule 2002 00:00:[address] [facility] Hep B, Adol or Pedi Dosage 2002 00:00:[address] [facility] Polio (IPV/OPV) 2002 00:00:[address] [facility] DTaP, Unspecified Formulation 2002 00:00:[address] [facility] Hib-HbOC 2002 00:00:[address] [facility] Pneumococcal 7 Conjugate, PCV7 (Prevnar7) 2002 00:00:[address] [facility] IPV 2002 00:00:[address] [facility] DTAP 2002 00:00:[address] [facility] HIB 4 Dose Schedule 2002 00:00:[address] [facility] Hep B, Adol or Pedi Dosage 2002 00:00:[address] [facility] Polio (IPV/OPV) 2002 00:00:[address] [facility] DTaP, Unspecified Formulation 2002 00:00:[address] [facility] Hib-HbOC 2002 00:00:[address] [facility] Pneumococcal 7 Conjugate, PCV7 (Prevnar7) 2002 00:00:[address] [facility] IPV 2002 00:00:[address] [facility] DTAP 2002 00:00:[address] [facility] HIB 4 Dose Schedule 2002 00:00:[address] [facility] Hep B, Adol or Pedi Dosage 2002 00:00:[address] [facility] Polio (IPV/OPV) 2002 00:00:[address] [facility] DTaP, Unspecified Formulation 2002 00:00:[address] [facility] Hib-HbOC 2002 00:00:[address] [facility] Pneumococcal 7 Conjugate, PCV7 (Prevnar7) 2002 00:00:[address] [facility] IPV 2002 00:00:[address] [facility] DTAP 2002 00:00:[address] [facility] HIB 4 Dose Schedule 2002 00:00:[address] [facility] Hep B, Adol or Pedi Dosage 2002 00:00:[address] [facility] Polio (IPV/OPV) 2002 00:00:[address] [facility] DTaP, Unspecified Formulation 2002 00:00:[address] [facility] Hib-HbOC 2002 00:00:[address] [facility] Pneumococcal 7 Conjugate, PCV7 (Prevnar7) 2002 00:00:[address] [facility] IPV 2002 00:00:[address] [facility] Hep B, Adol or Pedi Dosage 2002 00:00:[address] [facility] Hep B, Adol or Pedi Dosage 2002 00:00:[address] [facility] Hep B, Adol or Pedi Dosage 2002 00:00:[address] [facility] Hep B, Adol or Pedi Dosage 2002 00:00:[address] [facility] Hep B, Adol or Pedi Dosage 2002 00:00:[address] [facility] Hep B, Adol or Pedi Dosage 2002 00:00:[address] [facility] Hep B, Adol or Pedi Dosage 2002 00:00:[address] [facility] Hep B, Adol or Pedi Dosage 2002 00:00:[address] [facility] Hep B, Adol or Pedi Dosage 2002 00:00:[address] [facility] Hep B, Adol or Pedi Dosage 2002 00:00:[address] [facility] Hep B, Adol or Pedi Dosage 2002 00:00:[address] [facility] Hep B, Adol or Pedi Dosage 2002 00:00:[address] [facility] HPV9 [address] [facility] Influenza Virus Vaccine Quad .5 mL IM 6+ MO (FLUZONE/FLULAVAL/FL UARIX) Unknown Completed [facility] DTAP Unknown Completed [facility] HPV Unknown Completed [facility] TDAP (ADACEL) VACCINE Unknown Completed [facility] DTAP Unknown Completed [facility] DTAP Unknown Completed [facility] DTAP Unknown Completed [facility] DTAP Unknown Completed [facility] HIB 4 Dose Schedule Unknown Completed [facility] HIB 4 Dose Schedule Unknown Completed [facility] HIB 4 Dose Schedule Unknown Completed [facility] HIB 4 Dose Schedule Unknown Completed [facility] HEPATITIS A Unknown Completed [facility] Hep B, Adol or Pedi Dosage Unknown Completed [facility] Hep B, Adol or Pedi Dosage Unknown Completed [facility] Hep B, Adol or Pedi Dosage Unknown Completed [facility] Influenza Virus Vaccine Unknown Completed [facility] Influenza Virus Vaccine Unknown Completed [facility] Influenza Virus Vaccine Unknown Completed [facility] Influenza Virus Vaccine Unknown Completed [facility] Influenza Virus Vaccine Unknown Completed [facility] Influenza Virus Vaccine Unknown Completed [facility] Meningococcal Vaccine Unknown Completed [facility] MMR Unknown Completed [facility] MMR Unknown Completed [facility] Polio (IPV/OPV) Unknown Completed [facility] Polio (IPV/OPV) Unknown Completed [facility] Polio (IPV/OPV) Unknown Completed [facility] Polio (IPV/OPV) Unknown Completed [facility] Varicella (varivax)(chicken pox) Unknown Completed [facility] Varicella (varivax)(chicken pox) Unknown Completed [facility] DTaP, Unspecified Formulation Unknown Completed [facility] DTaP, Unspecified Formulation Unknown Completed [facility] DTaP, Unspecified Formulation Unknown Completed [facility] DTaP, Unspecified Formulation Unknown Completed [facility] DTaP, Unspecified Formulation Unknown Completed [facility] Influenza Virus Vaccine Quad .5 mL IM 6+ MO (FLUZONE/FLULAVAL/FL UARIX) Unknown Completed [facility] Flu Trivalent Unknown Completed [facility] Influenza Virus Vaccine - Whole Unknown Completed [facility] Influenza Virus Vaccine - Whole Unknown Completed [facility] Influenza Virus Vaccine - Whole Unknown Completed [facility] Hib-HbOC Unknown Completed [facility] Hib-HbOC Unknown Completed [facility] Hib-HbOC Unknown Completed [facility] HPV9 [address] [facility] Meningococcal Polysaccharide (groups A, C, Y and W-135) conjugate vaccine (MCV4P) Unknown Completed [facility] Proquad (MMR/VARICELLA) Unknown Completed [facility] Pneumococcal 7 Conjugate, PCV7 (Prevnar7) Unknown Completed [facility] Pneumococcal 7 Conjugate, PCV7 (Prevnar7) Unknown Completed [facility] Pneumococcal 7 Conjugate, PCV7 (Prevnar7) Unknown Completed [facility] Pneumococcal 7 Conjugate, PCV7 (Prevnar7) Unknown Completed [facility] IPV Unknown Completed [facility] IPV Unknown Completed [facility] IPV Unknown Completed [facility] IPV Unknown Completed [facility] Tetanus Toxoid/HIB Unknown Completed [facility] [...] HPV 9 (Human Papillomavirus) Unknown Completed [facility] - External Influenza Virus Vaccine, Unspecified [...] - External Meningococcal Vaccine- Conjugate(Menactra) Unknown Completed [facility] - External Meningococcal Vaccine Polysaccharide Unknown Completed [facility] d - External MMR- Measles, Mumps, Rubella [facility], Mumps, Rubella [facility] Pneumococcal Vaccine, Conjugate 7 Unknown [facility] Pneum[facility] Vaccine, Conjugate 7 [facility], [facility] 7 [facility] Pneumococcal Vaccine, Conjugate 7 Unknown [facility] Polio Vaccine Unknown Completed [facility] - External Polio Vaccine Unknown [facility] Pol[facility] Unknown Completed [facility] - External Polio Vaccine Unknown [facility]/Varicella (ProQuad) Unknown [facility] Tdap- (Boostrix, Adacel) Unknown [facility] Var[facility]ella [facility]ine [facility] - External [facility]icella Vaccine [facility] Hepatitis B, Adolescent Or [...] External Meningococcal Vaccine- Conjugate(Menactra) Unknown Completed [facility] - External Meningococcal Vaccine Polysaccharide Unknown Completed [facility] - External MMR- Measles, Mumps, Rubella [...] [facility] - External Polio Vaccine Unknown Completed [facility] - External Polio Vaccine Unknown Completed [facility] - External Polio Vaccine Unknown Completed [facility] - External MMR/Varicella (ProQuad) Unknown Completed [facility] - External Tdap- (Boostrix, Adacel) Unknown Completed [...] - External Tetanus Toxoid/HIB Unknown Completed [facility] - External Tetanus Toxoid/HIB Unknown Completed [...] bold - External DTaP Unknown Completed [facility] - External DTaP,5 pertussis antigens- Diphtheria,Tetanus& Acellular Pertussis (age < 7 years) Unknown Completed [facility] - External DTaP,5 pertussis antigens- Diphtheria,Tetanus& [...] Unknown Completed [facility] - External Influenza Virus Vaccine, No [...] HPV 9 (Human Papillomavirus) Unknown Completed [facility] - External Influenza Virus Vaccine, Unspecified [...] - External Meningococcal Vaccine- Conjugate(Menactra) Unknown Completed [facility] - External Meningococcal Vaccine Polysaccharide Unknown Completed [facility] d - External MMR- Measles, Mumps, Rubella Unknown Completed [facility] - External MMR- Measles, Mumps, Rubella Unknown Completed [facility] - External Pneumococcal Vaccine, Conjugate 7 Unknown [facility] Pneum[facility]ine, Conjugate 7 [facility], [facility], Conjugate 7 [facility] Pol[facility] Completed [facility] - External Polio Vaccine Unknown Completed [facility] - External Polio Vaccine Unknown Completed [facility] - External MMR/Varicella (ProQuad) Unknown Completed [facility] - External Tdap- (Boostrix, Adacel) Unknown Completed [facility] - External Varicella Vaccine Unknown Completed [facility] - External Varicella Vaccine Unknown [facility] Hepatitis B, Adolescent Or Pediatric Unknown Completed [facility] - External Hepatitis B, Adolescent Or Pediatric Unknown Completed [facility] - External Hepatitis B, Adolescent Or Pediatric Unknown Completed [facility] - External HEPATITIS A- PEDI/ADOL Unknown Completed [facility] - External Tetanus Toxoid/HIB Unknown Completed [facility] - External Tetanus Toxoid/HIB Unknown Completed [facility] hui Seybold - External Tetanus Toxoid/HIB Unknown Completed Samir elsey Seybold - External Tetanus Toxoid/HIB Unknown Completed Samir chavezy Seybold - External DTaP Unknown Completed [facility] cristela bold - External DTaP Unknown Completed [facility] bold - External DTaP Unknown Completed [facility] bold - External [facility]P Unknown [facility] Com[facility] bold - External DTaP,5 pertussis antigens- Diphtheria,Tetanus& Acellular Pertussis (age < 7 years) Unknown [facility],5 pertussis antigens- Diphtheria,Tetanus& Acellular Pertussis (age < 7 years) Unknown Completed [facility] ld - External DTaP,5 pertussis antigens- Diphtheria,Tetanus& Acellular Pertussis (age < 7 years) Unknown Completed [facility] ld - External DTaP,5 pertussis antigens- Diphtheria,Tetanus& Acellular Pertussis (age < 7 years) Unknown Completed [facility] Seybo ld - External DTaP,5 pertussis antigens- Diphtheria,Tetanus& Acellular Pertussis (age < 7 years) Unknown Completed [facility] Ferraraybo ld - External Influenza Virus Vaccine, No [...] HPV 9 (Human Papillomavirus) Unknown Completed [facility] Ferraraybo ld - External Influenza Virus Vaccine, Unspecified [...] External Meningococcal Vaccine- Conjugate(Menactra) Unknown Completed [facility] Lou eybold - External Meningococcal Vaccine Polysaccharide Unknown Completed [facility] d - External MMR- Measles, Mumps, Rubella Unknown Completed [facility] Seybold - External MMR- Measles, Mumps, Rubella Unknown Completed [facility] Seybold - External Pneumococcal Vaccine, Conjugate 7 Unknown [facility] Pneumococcal Vaccine, Conjugate 7 Unknown [facility] Pneumococcal Vaccine, Conjugate 7 Unknown [facility] Pneumococcal Vaccine, Conjugate 7 Unknown Completed [facility] Seybold - External Polio Vaccine Unknown [facility] Pol[facility]ine Unknown [facility] Unknown [facility] Pol[facility] Unknown [facility] - [facility] MMR/Varicella (ProQuad) Unknown [facility] Tdap- (Boostrix, Adacel) Unknown [facility] Varicella Vaccine Unknown Completed [facility] Seybold - External Varicella Vaccine Unknown Completed [facility] Seybold - External Hepatitis B, Adolescent Or Pediatric Unknown Completed [facility] Seybold - External Hepatitis B, Adolescent Or Pediatric Unknown Completed [facility] Seybold - External Hepatitis B, Adolescent Or Pediatric Unknown [facility] External HEPATITIS A- PEDI/ADOL Unknown [facility] - [facility] Tetanus Toxoid/HIB Unknown Completed Samir elsey Seybold - External DTaP Unknown Completed [facility] y bold - External DTaP Unknown Completed [facility] Sey bold - External DTaP Unknown [facility] - [facility]P Unknown [facility] - [facility] D[facility]P Unknown [facility] - External DTaP,5 pertussis antigens- Diphtheria,Tetanus& Acellular Pertussis (age < 7 years) Unknown Completed [facility] ld - External DTaP,5 pertussis antigens- Diphtheria,Tetanus& Acellular Pertussis (age < 7 years) Unknown [facility],5 pertussis antigens- Diphtheria,Tetanus& Acellular Pertussis (age < 7 years) Unknown [facility] - [facility] DTaP,5 pertussis antigens- Diphtheria,Tetanus& Acellular Pertussis (age < 7 years) Unknown [facility] - [facility] DTaP,5 pertussis antigens- Diphtheria,Tetanus& Acellular Pertussis (age < 7 years) Unknown Completed [facility] ld - External Influenza Virus Vaccine, No Preserv, age 6 months and up Unknown Completed [facility] eybold - External Influenza Virus Vaccine, No [...] External Meningococcal Vaccine Polysaccharide Unknown Completed [facility] Seybol d - External MMR- Measles, Mumps, Rubella [...] Seybold - External MMR/Varicella (ProQuad) [facility]- (Boostrix, Adacel) Unknown [facility] Varicella Vaccine Unknown Completed [facility] Seybold - External Varicella Vaccine Unknown Completed [facility] Seybold - External Hepatitis B, Adolescent Or Pediatric Unknown [facility] Hepatitis B, Adolescent Or Pediatric Unknown [facility] - External Hepatitis B, Adolescent Or Pediatric Unknown [facility] - External HEPATITIS A- PEDI/ADOL Unknown [facility] - External Tetanus Toxoid/HIB Unknown Completed Samir hui Seybold - External DTaP Unknown Completed [facility] bold - External DTaP Unknown Completed [facility] bold - External DTaP Unknown Completed [facility] bold - External DTaP Unknown Completed [facility] bold - External DTaP Unknown Completed [facility] bold - External DTaP,5 pertussis antigens- Diphtheria,Tetanus& Acellular Pertussis (age < 7 years) Unknown Completed [facility] ld - External DTaP,5 pertussis antigens- Diphtheria,Tetanus& Acellular Pertussis (age < 7 years) Unknown Completed [facility] ld - External DTaP,5 pertussis antigens- Diphtheria,Tetanus& Acellular Pertussis (age < 7 years) Unknown Completed [facility] ld - External DTaP,5 pertussis antigens- Diphtheria,Tetanus& Acellular Pertussis (age < 7 years) Unknown Completed [facility] ld - External DTaP,5 pertussis antigens- Diphtheria,Tetanus& Acellular Pertussis (age < 7 years) Unknown Completed [facility] ld - External DTaP,5 pertussis antigens- Diphtheria,Tetanus& Acellular Pertussis (age < 7 years) Unknown Completed [facility] ld - External Influenza Virus Vaccine, No Preserv, age 6 months and up Unknown Completed [facility] eybold - External Influenza Virus Vaccine, No Preserv, age 6 months and up Unknown Completed [facility] eybold - External Influenza Virus Vaccine, No Preserv, age 6 months and up Unknown Completed [facility] eybold - External Tetanus Toxoid/HIB Unknown Completed Samir chavezy Seybold - External Tetanus Toxoid/HIB Unknown Completed Samir elsey Seybold - External Tetanus Toxoid/HIB Unknown Completed K elsey Seybold - External Td (adult) Unknown Completed [facility] Se ybold - External HPV 4 (Human Papillomavirus) Unknown Completed [facility] ybo ld - External HPV 9 (Human Papillomavirus) [...] Formulation Unknown Completed [facility] Seybold - External AFLURIA TRIVALENT MDV Unknown Completed [facility] Seybold - External AFLURIA TRIVALENT MDV Unknown Completed [facility] Seybold - External AFLURIA TRIVALENT MDV Unknown Completed [facility] Seybold - External DTaP,5 pertussis antigens- Diphtheria,Tetanus& Acellular Pertussis (age < 7 years) Unknown Completed [facility] Ferraraybo ld - External IPV- Inactivated Polio Vaccine Unknown Completed [facility] Seybold - External IPV- Inactivated Polio Vaccine Unknown Completed [facility] Seybold - External IPV- Inactivated Polio Vaccine Unknown Completed [facility] Seybold - External IPV- Inactivated Polio Vaccine Unknown Completed [facility] Seybold - External Meningococcal Vaccine- Conjugate(Menactra) Unknown Completed [facility] eybold - External Meningococcal Vaccine Polysaccharide Unknown Completed [facility] ybol d - External MMR- Measles, Mumps, Rubella Unknown Completed [facility] Seybold - External MMR- Measles, Mumps, Rubella Unknown Completed [facility] Seybold - External Pneumococcal Vaccine, Conjugate 7 Unknown Completed [facility] Seybold - External Pneumococcal Vaccine, Conjugate 7 Unknown Completed [facility] Seybold - External DTaP,5 pertussis antigens- Diphtheria,Tetanus& Acellular Pertussis (age < 7 years) Unknown Completed [facility] Seybo ld - External Pneumococcal Vaccine, Conjugate 7 Unknown Completed [facility] Seybold - External Pneumococcal Vaccine, Conjugate 7 Unknown Completed [facility] Seybold - External Polio Vaccine Unknown Completed [facility] Seybold - External Polio Vaccine Unknown Completed [facility] Seybold - External Polio Vaccine Unknown Completed [facility] Seybold - External Polio Vaccine Unknown Completed [facility] Seybold - External MMR/Varicella (ProQuad) Unknown Completed [facility] Seybold - External Tdap- (Boostrix, Adacel) Unknown Completed [facility] Seybold - External Varicella Vaccine Unknown [facility] Com[facility] Seybold - External DTaP,5 pertussis antigens- Diphtheria,Tetanus& Acellular Pertussis (age < 7 years) Unknown Completed [facility] Ferraraybo ld - External Hepatitis B, Adolescent Or Pediatric Unknown Completed [facility] Seybold - External Hepatitis B, Adolescent Or Pediatric Unknown Completed [facility] Seybold - External Hepatitis B, Adolescent Or Pediatric Unknown Completed [facility] Seybold - External HEPATITIS A- PEDI/ADOL Unknown Completed [facility] Ferraraybold - External Tetanus Toxoid/HIB Unknown Completed Samir hui Seybold - External DTaP Unknown Completed [facility] Freraray bold - External DTaP Unknown Completed [facility] Ferraray bold - External DTaP Unknown Completed [facility] y bold - External DTaP Unknown Completed [facility] y bold - External DTaP Unknown Completed [facility] Ferraray bold - External Influenza Virus Vaccine, No Preserv, age 6 months and up Unknown Completed [facility] eybold - External Influenza Virus Vaccine, No Preserv, age 6 months and up Unknown Completed [facility] eybold - External Influenza Virus Vaccine, No Preserv, age 6 months and up Unknown Completed [facility] eybold - External HIB- Haemophilus Influenzae Type B Unknown Completed [facility] Ferraray bold - External HIB- Haemophilus Influenzae Type B Unknown Completed [facility] Ferraray bold - External HIB- Haemophilus Influenzae Type B Unknown Completed [facility] Ferraray bold - External Td (adult) Unknown Completed [facility] Se ybold - External HPV 4 (Human Papillomavirus) Unknown Completed [facility] Ferraraybo ld - External HPV 9 (Human Papillomavirus) Unknown Completed [facility] Ferraraybo ld - External HPV 9 (Human Papillomavirus) Unknown Completed [facility] Ferraraybo ld - External Influenza Virus Vaccine, Unspecified Formulation Unknown Completed [facility] Seybold - External Influenza Virus Vaccine, Unspecified Formulation Unknown Completed [facility] Seybold - External Influenza Virus Vaccine, Unspecified Formulation Unknown Completed [facility] Seybold - External Influenza Virus Vaccine, Unspecified Formulation Unknown Completed [facility] Seybold - External Influenza Virus Vaccine, Unspecified Formulation Unknown Completed [facility] Seold - External Influenza Virus Vaccine, Unspecified Formulation Unknown Completed [facility] Seybold - External Influenza, Seasonal, Injectable Unknown [facility] Influenza, Seasonal, Injectable Unknown [facility] - External Influenza, Seasonal, Injectable Unknown [facility] - External IPV- Inactivated Polio Vaccine Unknown Completed [facility] Seybold - External IPV- Inactivated Polio Vaccine Unknown Completed [facility] Seybold - External IPV- Inactivated Polio Vaccine Unknown [facility] IPV- Inactivated Polio Vaccine Unknown [facility] - External Meningococcal Vaccine- Conjugate(Menactra) Unknown Completed [facility] eybold - External Meningococcal Vaccine Polysaccharide Unknown Completed [facility] d - External MMR- Measles, Mumps, Rubella Unknown Completed [facility] - External MMR- Measles, Mumps, Rubella Unknown [facility] - External Pneumococcal Vaccine, Conjugate 7 Unknown Completed [facility] - External Pneumococcal Vaccine, Conjugate 7 Unknown Completed [facility] - External Pneumococcal Vaccine, Conjugate 7 Unknown Completed [facility] - External Pneumococcal Vaccine, Conjugate 7 Unknown [facility] Polio Vaccine Unknown [facility] Polio Vaccine Unknown [facility] - External Polio Vaccine Unknown [facility] - [facility] Polio Vaccine Unknown Completed [facility] Seybold - External MMR/Varicella (ProQuad) Unknown [facility] - External Tdap- (Boostrix, Adacel) Unknown Completed [facility] External Varicella Vaccine Unknown Completed lsey Seybold - External Varicella Vaccine Unknown Completed lsey Seybold - External Hepatitis B, Adolescent Or Pediatric Unknown Completed [facility] Seybold - External Hepatitis B, Adolescent Or Pediatric Unknown Completed [facility] Seybold - External Hepatitis B, Adolescent Or Pediatric Unknown [facility] - External HEPATITIS A- PEDI/ADOL Unknown Completed [facility] Seybold - External Tetanus Toxoid/HIB Unknown Completed Samir chavezcristela Seybold - External Tetanus Toxoid/HIB Unknown Completed Samir chavezcristela Seybold - External Tetanus Toxoid/HIB Unknown Completed Samir chavezcristela Seybold - External Vital Signs Vital Name Observation Time Observation Value Comments S ource Systolic blood pressure 2023-11-24 20:42:00 112 mm[Hg] [facility] Ferraraybo ld - External Diastolic blood pressure 2023-11-24 20:42:00 62 mm[Hg] [facility] Seybo ld - External Heart rate 2023-11-24 20:42:00 71 /min Jemse y Seybold - External Body temperature 2023-11-24 20:42:00 36.78 Gladis [facility] Seybold - External Respiratory rate 2023-11-24 20:42:00 15 /min [facility] Seybold - External Body height 2023-11-24 20:42:00 185.4 cm [place] ey Seybold - External Body weight 2023-11-24 20:42:00 90.719 kg [place] ey Seybold - External BMI 2023-11-24 20:42:00 26.39 kg/m2 [place] ey Seybold - External Systolic blood pressure 2023-07-25 16:21:00 112 mm[Hg] [facility] Seybo ld - External Diastolic blood pressure 2023-07-25 16:21:00 52 mm[Hg] [facility] Seybo ld - External Heart rate 2023-07-25 16:21:00 95 /min Jemse y Seybold - External Body temperature 2023-07-25 16:21:00 36.33 Gladis [facility] Seybold - External Respiratory rate 2023-07-25 16:21:00 14 /min [facility] Seybold - External Body height 2023-07-25 16:21:00 185.4 cm [place] ey Seybold - External Body weight 2023-07-25 16:21:00 82.555 kg [place] ey Seybold - External BMI 2023-07-25 16:21:00 24.01 kg/m2 [place] ey Seybold - External Systolic blood pressure 2023-01-24 00:57:00 142 mm[Hg] [facility] Diastolic blood pressure 2023-01-24 00:57:00 80 mm[Hg] [facility] Heart rate 2023-01-24 00:57:00 87 [facility] 2023-01-24 00:57:[address] [facility] Respiratory rate 2023-01-24 00:57:00 16 /min [facility] Body height 2023-01-24 00:57:00 185.4 cm [facility] Body weight 2023-01-24 00:57:00 80.287 kg [facility] BMI 2023-01-24 00:57:00 23.35 kg/m2 [facility] Oxygen saturation in Arterial blood by Pulse oximetry 2023-01-24 00:57:00 100 /min [facility] Systolic blood pressure 2022-11-22 19:01:00 129 mm[Hg] [facility] Diastolic blood pressure 2022-11-22 19:01:00 77 mm[Hg] [facility] Heart rate 2022-11-22 19:01:00 57 /min [facility] Body temperature 2022-11-22 19:01:[address] [facility] Respiratory rate 2022-11-22 19:01:00 20 /min [facility] Body height 2022-11-22 19:01:00 182.9 cm [facility] Body weight 2022-11-22 19:01:00 80.151 kg [facility] BMI 2022-11-22 19:01:00 23.96 kg/m2 [facility] Oxygen saturation in Arterial blood by Pulse oximetry 2022-11-22 19:01:00 100 /min [facility] Systolic blood pressure 2022-08-24 01:00:00 117 mm[Hg] [facility] Diastolic blood pressure 2022-08-24 01:00:00 69 mm[Hg] [facility] Heart rate 2022-08-24 01:00:00 58 /min [facility] Respiratory rate 2022-08-24 01:00:00 18 /min [facility] Oxygen saturation in Arterial blood by Pulse oximetry 2022-08-24 01:00:00 100 /min [facility] Body temperature 2022-08-23 22:09:[address] [facility] Body height 2022-08-23 22:09:00 182.9 cm [facility] Body weight 2022-08-23 22:09:00 83.915 kg [facility] BMI 2022-08-23 22:09:00 25.09 kg/m2 [facility] Systolic blood pressure 2022-05-30 19:05:00 115 mm[Hg] [facility] Diastolic blood pressure 2022-05-30 19:05:00 68 mm[Hg] [facility] Heart rate 2022-05-30 19:05:00 64 /min [facility] Body height 2022-05-30 19:05:00 185.4 cm [facility] Body weight 2022-05-30 19:05:00 85.866 kg [facility] BMI 2022-05-30 19:05:00 24.98 kg/m2 [facility] Oxygen saturation in Arterial blood by Pulse oximetry 2022-05-30 19:05:00 99 /min [facility] Systolic blood pressure 2022-05-18 00:43:00 142 mm[Hg] [facility] Diastolic blood pressure 2022-05-18 00:43:00 84 mm[Hg] [facility] Heart rate 2022-05-18 00:43:00 71 /min [facility] Body temperature 2022-05-18 00:43:[address] [facility] Respiratory rate 2022-05-18 00:43:00 16 /min [facility] Body height 2022-05-18 00:43:00 185.4 cm [facility] Body weight 2022-05-18 00:43:00 86.183 kg [facility] BMI 2022-05-18 00:43:00 25.07 kg/m2 [facility] Oxygen saturation in Arterial blood by Pulse oximetry 2022-05-18 00:43:00 96 /min [facility] Systolic blood pressure 2021-02-28 18:32:00 111 mm[Hg] [facility] Diastolic blood pressure 2021-02-28 18:32:00 71 mm[Hg] [facility] Heart rate 2021-02-28 18:32:00 61 /min [facility] Body temperature 2021-02-28 18:32:[address] [facility] Respiratory rate 2021-02-28 18:32:00 17 /min [facility] Body weight 2021-02-28 18:32:00 107.502 kg [facility] Oxygen saturation in Arterial blood by Pulse oximetry 2021-02-28 18:32:00 99 /min [facility] Procedures Procedure Date / Time Performed Performing Clinicia n Source LS RAPID STREP ASSAY-LAB TEST 2023-07-25 17:06:00 Migdalia Strong - External NOTICE OF PRIVACY PRACTICES 2023-01-24 00:53:33 Doctor Unassigned, [facility] CONSENT/REFUSAL FOR DIAGNOSIS AND TREATMENT 2023-01-24 00:52:38 Doctor Unassigned, [facility] CONSENT/REFUSAL FOR DIAGNOSIS AND TREATMENT 2022-11-22 18:48:45 Doctor Unassigned, [facility] CT ABDOMEN PELVIS W CONTRAST 2022-08-23 23:34:[address] [facility] LIPASE 2022-08-23 23:04:00 Tali [facility] COMP. METABOLIC PANEL (59004) 2022-08-23 23:04:[address] [facility] CBC WITH DIFF 2022-08-23 23:04:00 Tali Hamilton [facility] CONSENT/REFUSAL FOR DIAGNOSIS AND TREATMENT 2022-08-23 22:05:15 Doctor Unassigned, [facility] US ABDOMEN LIMITED 2022-06-10 19:33:[address] [facility] ASSIGNMENT OF BENEFITS 2022-05-30 18:53:18 Docto r Unassigned, [facility] XR ANKLE 3+ VW LEFT 2022-05-18 02:08:[address] [facility] NOTICE OF PRIVACY PRACTICES 2022-05-18 00:23:38 Doctor Unassigned, [facility] CONSENT/REFUSAL FOR DIAGNOSIS AND TREATMENT 2022-05-18 00:23:11 Doctor Unassigned, [facility] Encounters Start Date/Time End Date/Time Encounter Type Admission Type Attending [facility] Care Facility Care Department Encounter ID Source 2021-04-02 09:17:37 Emergency [facility] [id number] [facility] 2021-04-02 06:42:54 Emergency [facility] [id number] [facility] 2024-02-02 15:15:00 2024-02-02 15:15:00 Outpatient JYOTSNAPURVI [facility] [id number] [facility] 2024-02-01 00:00:00 2024-02-01 00:00:00 Outpatient MIGDALIA STRONG [id number] [facility] 2023-12-24 13:30:00 2023-12-24 13:30:00 Outpatient [facility]ALIA STRONG [id number] [facility] 2023-12-15 00:00:00 2023-12-15 00:00:00 Outpatient HILARY CASTILLO [id number] [facility] 2023-11-28 00:00:00 2023-11-28 00:00:00 Outpatient MIGDALIA STRONG [id number] [facility] 2023-11-24 16:00:00 2023-11-24 16:00:00 Outpatient [facility]DALIA STRONG [id number] [facility] 2023-11-01 00:00:00 2023-11-01 00:00:00 Outpatient UNIQUE HUANG [id number] [facility] 2023-10-30 15:30:00 2023-10-30 15:30:00 Outpatient LEAH JARRETT [id number] [facility] 2023-10-30 14:30:00 2023-10-30 14:30:00 Outpatient ROSEMARY PRO [id number] [facility] 2023-10-24 13:00:00 2023-10-24 13:00:00 Outpatient TAE MIGDALIA [place] [id number] [facility] Seybold 2023-10-24 13:00:00 2023-10-24 13:00:00 Outpatient TAE MIGDALIA [place] [id number] [facility] Seybold 2023-10-20 09:00:00 2023-10-20 09:00:00 Outpatient ALYSSA TRAN [id number] [facility] Seybold 2023-10-20 07:45:00 2023-10-20 07:45:00 Outpatient ADEOLA ENGEL [place] [id number] [facility] Seybold 2023-10-04 00:00:00 2023-10-04 00:00:00 Outpatient UNIQUE HUANG [id number] [facility] Seybold 2023-10-03 19:15:00 2023-10-03 19:15:00 Outpatient JAY DENG [id number] [facility] Seybold 2023-10-03 19:00:00 2023-10-03 19:00:00 Outpatient [place] [place] [id number] [facility] Seybold 2023-10-02 00:00:00 2023-10-02 00:00:00 Outpatient UNIQUE HUANG [id number] [facility] Seybold 2023-08-20 11:00:00 2023-08-20 11:00:00 Outpatient TONYKiet [place] [id number] [facility] Seybold 2023-08-14 00:00:00 2023-08-14 00:00:00 Outpatient TAE M[place]DALIA H[place] [id number] [facility] Seybold 2023-08-14 00:00:00 2023-08-14 00:00:00 Outpatient HILARY CASTILLO [id number] [facility] Seybold 2023-08-11 00:00:00 2023-08-11 00:00:00 Outpatient MIGDALIA STRONG [id number] [facility] Seybold 2023-07-25 10:30:00 2023-07-25 10:30:00 Outpatient MIGDALIA STRONG [id number] [facility] Tucker 2023-07-14 14:15:00 2023-07-14 14:15:00 Outpatient UNIQUE HUANG [facility] [id number] [facility] Tucker 2023-01-23 20:01:00 2023-01-23 21:14:00 Emergency X LAURY CHAVEZ [facility] ERT [id number] [facility] 2023-01-23 20:01:00 2023-01-23 21:14:00 Emergency SarahlouLaury C [facility] [id number] [facility] [facility] 2022-11-29 11:30:00 2022-11-29 11:30:00 Outpatient GALE GARCIA [facility] [id number] [facility] 2022-11-22 14:03:00 2022-11-22 17:17:00 Emergency Yoly Carrasco [facility] 1.2.840.114 350.1.13.10 4.2.7.2.686 [id number] [facility] 2022-11-22 14:03:00 2022-11-22 17:17:00 Emergency X YOLY CARRASCO [facility] ERT [id number] [facility] 2022-10-16 14:39:30 2022-10-16 14:39:30 Outpatient [facility] MERLE [id number] 0517 Price Vergara 2022-08-23 17:11:00 2022-08-23 21:25:00 Emergency X TALI HAMILTON [facility] ERT [id number] [facility] 2022-08-23 17:11:00 2022-08-23 21:25:00 Emergency Tali Hamilton [facility] 1.2.840.114 350.1.13.10 4.2.7.2.686 [id number] [facility] 2022-06-21 00:00:00 2022-06-21 00:00:00 [facility] 1.284.114 350.1.13.10 4.2.7.2.686 [id number] [facility] 2022-06-10 12:23:58 2022-06-10 23:59:00 Outpatient R GALE WINCHESTER [facility] [id number] [facility] 2022-06-10 12:23:58 2022-06-10 23:59:00 Hospital Encounter Gale Winchester [facility] 1..114 350.1.13.10 4.2.7.2.686 [id number] [facility] 2022-05-30 14:00:00 2022-05-30 14:15:00 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, [place] [facility] 1.84.114 350.1.13.10 4.2.7.2.686 [id number] [facility] 2022-05-30 13:00:00 2022-05-30 13:56:17 Outpatient R GALE WINCHESTER [facility] [id number] [facility] 2022-05-30 13:00:00 2022-05-30 13:56:17 [facility] 1.84.114 350.1.13.10 4.2.7.2.686 [id number] [facility] 2022-05-30 00:00:00 2022-05-30 00:00:00 Orders Only Doctor Unassigned, [place] [facility] 1..114 350.1.13.10 4.2.7.2.686 [id number] [facility] 2022-05-17 18:45:00 2022-05-17 21:00:00 Emergency X RICARDO MONREAL [facility] ERT [id number] [facility] 2022-05-17 18:45:00 2022-05-17 21:00:00 Emergency Ricardo Monreal [facility] 1.2.840.114 350.1.13.10 4.2.7.2.686 [id number] [facility] 2021-02-28 13:30:00 2021-02-28 14:18:46 Outpatient LATIA AREVALO [facility] [id number] [facility] 2021-02-28 13:26:24 2021-02-28 14:18:46 Office Visit Latia Gates [facility] 1.2.840.114 350.1.13.10 4.2.7.2.686 [id number] [facility] 2021-02-06 12:52:59 2021-02-06 13:41:58 Office Visit Latia Gates [facility] 1.2.840.114 350.1.13.10 4.2.7.2.686 [id number] [facility] 2021-02-06 12:50:00 2021-02-06 12:50:00 Outpatient LATIA AREVALO [facility] [id number] [facility] 2021-01-02 09:33:54 2021-01-02 10:28:19 Office Visit Latia Gates [facility] 1.2.840.114 350.1.13.10 4.2.7.2.686 [id number] [facility] 2021-01-02 09:50:00 2021-01-02 09:50:00 Outpatient LATIA AREVALO [facility] [id number] [facility] 2020-12-26 00:00:00 2020-12-26 00:00:00 Patient Secure Msg Doctor Unassigned, [place] [facility] 1..114 350.1.13.10 4.2.7.2.686 [id number] [facility] 2020-12-19 01:54:00 2020-12-21 15:30:00 Hospital Encounter Samir Suh, Tyler Aviles, Augusto Boles [facility] 1.114 350.1.13.10 4.2.7.2.686 [id number] [facility] 2020-12-19 09:20:00 2020-12-19 09:20:00 Outpatient ANDRAE MAURICE [facility] [id number] [facility] 2020-12-17 00:00:00 2020-12-17 00:00:00 Telephone Danii Gonzalez [facility] Samia [facility] Office Building One 1.114 350.1.13.10 4.2.7.2.686 [id number] [facility] 2020-12-17 00:00:00 2020-12-17 00:00:00 Telephone Davon Ferrari [facility] 1.114 350.1.13.10 4.2.7.2.686 [id number] [facility] 2020-12-17 00:00:00 2020-12-17 00:00:00 Refill Doctor Unassigned, [place] [facility] 1.114 350.1.13.10 4.2.7.2.686 [id number] [facility] 2020-12-17 00:00:00 2020-12-17 00:00:00 Refill Landy Bowman [facility] 1.840.114 350.1.13.10 4.2.7.2.686 [id number] [facility] 2020-12-16 00:00:00 2020-12-16 00:00:00 Telephone LisaDanii [facility] 1.0.114 350.1.13.10 4.2.7.2.686 [id number] 044 [id number] [facility] 2020-12-16 00:00:00 2020-12-16 00:00:00 Latia Babin [facility] 1.0.114 350.1.13.10 4.2.7.2.686 [id number] [facility] 2020-12-15 16:47:03 2020-12-15 17:07:03 Urgent Care Danii Gonzalez Amanda [facility] 1.0.114 350.1.13.10 4.2.7.2.686 [id number] [facility] 2020-12-15 17:00:00 2020-12-15 17:00:00 Outpatient R [facility] [id number] [facility] 2020-12-15 00:00:00 2020-12-15 00:00:00 Orders Only Doctor Unassigned, [place] [facility] 1.2840.114 350.1.13.10 4.2.7.2.686 [id number] [facility] 2020-12-06 20:21:00 2020-12-06 22:35:00 Emergency Aj Maldonado [facility] 1.2840.114 350.1.13.10 4.2.7.2.686 [id number] [facility] 2020-10-10 10:00:00 2020-10-10 10:00:00 Outpatient R CHERYLE ALVAREZ [facility] [id number] [facility] 2020-09-17 16:43:20 2020-09-17 17:20:29 Urgent Care Provider, [facility] Office Building One 1.840.114 350.1.13.10 4.2.7.2.686 [id number] [facility] 2020-09-17 16:40:00 2020-09-17 16:40:00 Outpatient R [facility] [id number] [facility] 2020-09-17 00:00:00 2020-09-17 00:00:00 Letter (Out) Provider, Urgent Care Day [facility] 1.84.114 350.1.13.10 4.2.7.2.686 [id number] [facility] 2020-09-12 00:00:00 2020-09-12 00:00:00 Telephone Latia Gates [facility] 1.84.114 350.1.13.10 4.2.7.2.686 [id number] [facility] 2020-09-08 13:30:00 2020-09-08 13:30:00 Outpatient LATIA AREVALO [facility] [id number] [facility] 2020-09-08 12:55:40 2020-09-08 13:10:40 Furniture Finisher Visit Pob, Adc Lab Main Latia Gates [facility] 1.84.114 350.1.13.10 4.2.7.2.686 [id number] [facility] 2020-09-08 00:00:00 2020-09-08 00:00:00 Orders Only Doctor Unassigned, [place] [facility] 1.2840.114 350.1.13.10 4.2.7.2.686 [id number] [facility] 2020-09-06 15:12:55 2020-09-06 16:13:47 Office Visit Latia Gates [facility] 1.2840.114 350.1.13.10 4.2.7.2.686 [id number] [facility] 2020-09-06 14:50:00 2020-09-06 14:50:00 Outpatient LATIA AREVALO [facility] [id number] [facility] 2020-09-06 00:00:00 2020-09-06 00:00:00 Letter (Out) Latia Gates [facility] 1.284.114 350.1.13.10 4.2.7.2.686 [id number] [facility] 2020-08-25 15:30:00 2020-08-25 15:30:00 Outpatient LIANA MCELROY [facility] [id number] [facility] 2020-06-16 13:30:00 2020-06-16 13:30:00 Outpatient LIANA MCELROY [facility] [id number] [facility] 2020-04-14 14:35:00 2020-04-14 23:59:00 Hospital Encounter Liana Oconnor [facility] 1.284.114 350.1.13.10 4.2.7.2.686 [id number] [facility] 2020-04-14 13:00:00 2020-04-14 13:00:00 Outpatient LIANA MCELROY [facility] [id number] [facility] 2020-04-14 00:00:00 2020-04-14 00:00:00 Outpatient R ADDY OCONNORGeri [facility] [id number] [facility] 2020-04-14 00:00:00 2020-04-14 00:00:00 Orders Only Doctor Unassigned, [place] [facility] 1.20.114 350.1.13.10 4.2.7.2.686 [id number] [facility] 2020-04-07 14:00:00 2020-04-07 14:00:00 Outpatient R [facility]VIN [facility] [id number] [facility] 2020-03-10 15:04:54 2020-03-10 15:45:36 [facility] 1..114 350.1.13.10 4.2.7.2.686 [id number] [facility] 2020-03-10 15:00:00 2020-03-10 15:00:00 Outpatient R [facility] [id number] [facility] 2020-03-10 00:00:00 2020-03-10 00:00:00 Letter (Out) [facility] 1..114 350.1.13.10 4.2.7.2.686 [id number] [facility] 2020-03-01 13:10:02 2020-03-01 14:00:30 Office Visit Latia Gates [facility] 1..114 350.1.13.10 4.2.7.2.686 [id number] [facility] 2020-03-01 13:10:00 2020-03-01 13:10:00 Outpatient LATIA AREVALO [facility] [id number] [facility] 2020-02-16 14:00:12 2020-02-16 15:05:02 Office Visit Latia Gates [facility] 1.2.114 350.1.13.10 4.2.7.2.686 [id number] [facility] 2020-02-16 13:50:00 2020-02-16 13:50:00 Outpatient R LATIA GATES [facility] [id number] [facility] 2020-01-24 12:59:13 2020-01-24 13:25:38 [facility] 1.20.114 350.1.13.10 4.2.7.2.686 [id number] [facility] 2020-01-24 13:00:00 2020-01-24 13:00:00 Outpatient R ANNABELLA [facility] [id number] [facility] 2020-01-18 00:00:00 2020-01-18 00:00:00 Telephone Latia Gates [facility] 1.20.114 350.1.13.10 4.2.7.2.686 [id number] [facility] 2020-01-18 00:00:00 2020-01-18 00:00:00 Refill Latia Gates [facility] 1.20.114 350.1.13.10 4.2.7.2.686 [id number] [facility] 2019-12-27 00:00:00 2019-12-27 00:00:00 Telephone Kwadwo Wolff [facility] 1.20.114 350.1.13.10 4.2.7.2.686 [id number] [facility] 2019-12-24 00:00:00 2019-12-24 00:00:00 Telephone Sandra Jarrett [facility] 1.2.840.114 350.1.13.10 4.2.7.2.686 [id number] [facility] 2019-12-24 00:00:00 2019-12-24 00:00:00 Telephone Latia Gates [facility] 1.2.840.114 350.1.13.10 4.2.7.2.686 [id number] [facility] 2019-12-22 15:38:07 2019-12-22 16:29:51 Urgent Care Pob1, [facility] 1.2.840.114 350.1.13.10 4.2.7.2.686 [id number] [facility] 2019-12-22 14:14:46 2019-12-22 14:34:46 Office Visit [facility] 1.2.840.114 350.1.13.10 4.2.7.2.686 [id number] [facility] 2019-12-22 14:00:00 2019-12-22 14:00:00 Outpatient Geri JEREZ [facility] [id number] [facility] 2019-11-19 13:00:00 2019-11-19 13:00:00 Outpatient NINA CHAMPION [facility] [id number] [facility] 2019-11-05 00:00:00 2019-11-05 00:00:00 Telephone Latia Gates [facility] 1.2.840.114 350.1.13.10 4.2.7.2.686 [id number] [facility] 2019-08-23 13:10:00 2019-08-23 13:10:00 Outpatient LATIA AREVALO [facility] [id number] [facility] 2019-08-05 15:00:00 2019-08-05 15:00:00 Outpatient Geri WILLIAM ANDRAE [facility] [id number] [facility] 2019-08-02 14:30:00 2019-08-02 14:30:00 Outpatient R MARSLATIA JOHNSON [facility] [id number] [facility] 2019-07-19 15:23:01 2019-07-19 16:03:09 Office Visit Latia Gates [facility] 1.2840.114 350.1.13.10 4.2.7.2.686 [id number] [facility] 2019-07-19 00:00:00 2019-07-19 00:00:00 Orders Only Doctor Unassigned, [place] [facility] 1.2840.114 350.1.13.10 4.2.7.2.686 [id number] [facility] 2019-07-06 00:00:00 2019-07-06 00:00:00 Telephone Latia Gates [facility] 1.2840.114 350.1.13.10 4.2.7.2.686 [id number] [facility] 2019-07-05 12:30:00 2019-07-05 23:59:00 Hospital Encounter Latia Gates [facility] 1.840.114 350.1.13.10 4.2.7.2.686 [id number] [facility] 2019-07-05 12:28:35 2019-07-05 12:43:35 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 Visit Pob, Adc Lab Main [facility] 1.2840.114 350.1.13.10 4.2.7.2.686 [id number] [facility] 2019-07-05 00:00:00 2019-07-05 00:00:00 Orders Only Doctor Unassigned, [place] [facility] 1.2.840.114 350.1.13.10 4.2.7.2.686 [id number] [facility] 2019-06-18 19:26:54 2019-06-18 21:07:00 Emergency Samir Suh [facility] 1.2.840.114 350.1.13.10 4.2.7.2.686 [id number] [facility] 2019-06-15 11:04:09 2019-06-15 11:50:23 Office Visit Latia Gates [facility] 1.2.840.114 350.1.13.10 4.2.7.2.686 [id number] [facility] 2019-06-15 00:00:00 2019-06-15 00:00:00 Letter (Out) Latia Gates [facility] 1.2.840.114 350.1.13.10 4.2.7.2.686 [id number] [facility] 2019-05-31 00:00:00 2019-05-31 00:00:00 Orders Only Doctor Unassigned, [place] [facility] 1.2.840.114 350.1.13.10 4.2.7.2.686 [id number] [facility] 2019-02-09 14:51:32 2019-02-09 15:56:10 Office Visit Latia Gates [facility] 1.2.840.114 350.1.13.10 4.2.7.2.686 [id number] [facility] 2019-02-09 00:00:00 2019-02-09 00:00:00 Telephone Latia Gates [facility] 1.2.840.114 350.1.13.10 4.2.7.2.686 [id number] [facility] 2019-02-09 00:00:00 2019-02-09 00:00:00 Orders Only Doctor Unassigned, [place] [facility] 1.2.840.114 350.1.13.10 4.2.7.2.686 [id number] [facility] 2019-02-09 00:00:00 2019-02-09 00:00:00 Letter (Out) Latia Gates [facility] 1.2.840.114 350.1.13.10 4.2.7.2.686 [id number] [facility] 2019-01-14 00:00:00 2019-01-14 00:00:00 Telephone Latia Gates [facility] 1.2.840.114 350.1.13.10 4.2.7.2.686 [id number] [facility] 2019-01-01 00:00:00 2019-01-01 00:00:00 Telephone Latia Gates [facility] 1.2.840.114 350.1.13.10 4.2.7.2.686 [id number] [facility] Results Test Description Test Time Test Comments Results Result Co mments Source [facility]* Test Item Value Reference Range Interpretation Comme nts LIPASE (test code = 1142210617) 60 U/L 0-220 Lab Interpretation (test cod e = 01834-0) Normal [facility] [id number] 23:29:23* Test Item Value Reference Range Interpretation Comme nts WBC (test code = 6690-2) 12.00 See_Comment H [Automated messa ge] The system which generated this result transmitted reference range: 4.20 - 10.70 10*3/?L. The reference range was not used to interpret this result as normal/abnormal. RBC (test code = 789-8) 5.31 See_Comment [Automated [employer] ge] The system which generated this result [...] 32.6 g/dL 31.2-35.0 RDW-SD (test code = 72261-0) 42.5 fL 38.5-51.6 RDW-CV (test code = 788-0) 13.6 % 12.1-15.4 PLT (test code = 777-3) 269 See_Comment [Automated [employer] ge] The system which generated this result transmitted reference range: 150 - 328 10*3/?L. The reference range was not used to interpret this result as normal/abnormal. MPV (test code = 02341-0) 10.3 fL 9.8-13.0 NRBC/100 WBC (test code = 0426484858) 0.0 See_Comment [Automated [employer] ssage] The system which generated this result transmitted reference range: 0.0 - 10.0 /100 WBCs. The reference range was not used to interpret this result as normal/abnormal. NRBC x10^3 (test code = 8700326817) See_Comment [Automated [employer] ge] The system which generated this result transmitted reference range: 10*3/?L. The reference range was not used to interpret this result as normal/abnormal. GRAN MAT (NEUT) % (test code = 770-8) 72.2 % IMM GRAN % (test code = 7772922299) 0.70 % LYMPH % (test code = 736-9) 18.6 % MONO % (test code = 5905-5) 6.9 % EOS % (test code = 713-8) 1.3 % BASO % (test code = 706-2) 0.3 % GRAN MAT x10^3(ANC) (test code = 5344270967) 8.67 10*3/uL 1.99-6.95 H IMM GRAN x10^3 (test code = 3978406842) 0.08 10*3/uL 0.00-0.06 H LYMPH x10^3 (test code = 731-0) 2.23 10*3/uL 1.09-3.23 MONO x10^3 (test code = 742-7) 0.83 10*3/uL 0.36-1.02 EOS x10^3 (test code = 711-2) 0.16 10*3/uL 0.06-0.53 BASO x10^3 (test code = 704-7) 0.03 10*3/uL 0.01-0.09 Lab Interpretation (test code = 34704-3) Abnormal [facility] Notes Date/Time Note Provider Source 2023-11-24 15:47:16 Chief Complaint Patient presents with REFILLS-NURSE/MD Refill Rizatriptan, Albuterol, Dicyclomine Abiola Akhtar MA II [facility] 2023-10-20 08:37:38 Chief Complaint Patient presents with Sinus Problem TELEMED: No vitals taken. Started "a few days ago". Sinus pressure, sore throat, "felt warm" yesterday. (No thermometer), cough, stuffy/runny nose. Omaira Lynne T [facility] 2023-07-25 12:57:17 Results reviewed and released to [facility]. Please let the patient know his strep test was positive. Previously given Augmentin [facility] 2023-07-25 10:26:51 Chief Complaint Patient presents with Establish Care Last wellness over a year ago. Sinus Problem Green sinus drainage with some blood, sore throat, headaches. Abiola Akhtar MA II [facility] 2023-01-23 21:11:57 Formatting of this n ote might be different from the original. Patient leaving AMA/without final disposition/eloped. Dr. Laury Chavez MD aware and notified of patient's decision. Patient encouraged to seek medical attention for any new/prolonged/worsening of symptoms and stressed importance of follow up with a medical provider as soon as possible. Patient leaving ambulatory with steady gait, appears in good condition. Latoya Drake RN [facility] 2023-01-23 19:56:08 Formatting of this n ote might be different from the original. Pt presents with headache after head but[place] a dog [place] the [employer]. Pt c/o right forehead pain. Pt reports Dog was a large [place]/lab mix. 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 Tarsha Montez RN [facility]
[2024-02-06] MEDS ORDERED: ONDANSETRON 4 MG/2 ML VIAL ONE (22:29)
[2024-02-06] MEDS ORDERED: NA CHLORIDE 0.9% 1,000 ML ONE (22:29)
[2024-02-06] MEDS ORDERED: KETOROLAC 30 MG/ML INJ ONE (22:29)
[2024-02-06 22:33] LABS: Absolute Eosinophils 0.1 K/uL (0-0.5); Absolute Lymphocytes (CBC) 1.9 K/uL (0.7-4.9); Absolute Monocytes 0.9 K/uL (0.1-1.3); Absolute Neutrophil 7.3 K/uL (1.8-8.0); Basophils % 0.3 % (0-1.3); Eosinophils % 1.2 % (0-4.4); Hematocrit 40.1 % (39.6-49.0); Hemoglobin 13.4 g/dL (13.6-17.9); Lymphocytes % 18.9 % (15.3-44.8); MCH 28.4 pg (27.0-35.0); MCHC 33.5 g/dL (32.0-36.0); MCV 84.8 fL (80-100); MPV 7.8 fL (7.6-11.3); Monocytes % 8.5 % (3.3-12.3); Neutrophils % 71.1 % (41.7-73.7); Nucleated Red Blood Cells % 0.1 % (0-0); Platelets 216 thou/uL (152-406); RBC Red Blood Cell Count 4.73 M/uL (4.33-5.43); Red Cell Distribution Width 14.8 % (12.1-15.2)
[2024-02-06 22:48] LABS: Albumin 3.9 g/dL (3.4-5.0); Anion Gap 8.6 mEq/L (5.0-15.0); Bilirubin Total 0.5 mg/dL (0.2-1.0); Magnesium 2.1 mg/dL (1.6-2.4); Potassium 3.6 mEq/L (3.5-5.1); Protein, Total 7.9 g/dL (6.4-8.2)
[2024-02-06 23:18] LABS: Specific Gravity 1.012 (1.005-1.030); Sqamous Epithelial None Seen /HPF (None Seen); Urine Bacteria None Seen /HPF (<20); Urine Bilirubin NEGATIVE (Negative); Urine Blood Trace (Negative); Urine Clarity Clear (Clear); Urine Color Light-Yellow (Yellow); Urine Culture Reflex Order NOT NEEDED; Urine Glucose NEGATIVE (Negative); Urine Ketones 1+ (Negative); Urine Microscopic Reflex YN ORDER UMIC; Urine Mucus Slight /HPF (None Seen); Urine Nitrite NEGATIVE (Negative); Urine Protein TRACE (Negative); Urine RBC <5 /HPF (None Seen); Urine Urobilinogen Normal (Normal); Urine WBC <5 /HPF (<5); Urine pH 5.5 (5.0-7.0)
[2024-02-06 23:24] LABS: Barbiturates NEGATIVE (NEGATIVE); Benzodiazepines NEGATIVE (NEGATIVE); Cocaine NEGATIVE (NEGATIVE); METHAMPHETAM NEGATIVE (NEGATIVE); Methadone NEGATIVE (NEGATIVE); Opiates NEGATIVE (NEGATIVE); Phencyclidine NEGATIVE (NEGATIVE); THC Cannibis NEGATIVE (NEGATIVE)
--- NOTE | 2024-02-06 23:39 | RAD REPORT ---
EXAM DESCRIPTION: CTAbdomen Pelvis W Contrast - 02/06/2024 11:28 pm CLINICAL HISTORY: ABD PAIN COMPARISON: Abdomen Pelvis W Contrast dated 04/15/2023 TECHNIQUE: CT of the abdomen and pelvis was performed with IV contrast. All CT scans are performed using dose optimization technique as appropriate and may include automated exposure control or mA/KV adjustment according to patient size. FINDINGS: Lower chest: Trace pleural effusions bilaterally. Circumferential thickened distal esophag us which could reflect mild esophagitis. Liver: No acute abnormality or suspicious lesions. Biliary: No biliary ductal dilatation. Stomach: No significant focal abnormality. Duodenum: No significant focal abnormality. Pancreas: No significant abnormality. Spleen: No significant abnormality. Adrenal: No suspicious lesions. Kidney/ureter: No hydronephrosis. No renal calculi. Mild heterogeneity enhancement of the kidneys lavinia aterally. Retroperitoneum: No retroperitoneal adenopathy. Vascular: No aneurysm. Bowel: Normal appendix.. Peritoneum: No ascites or free air. Bladder: Grossly unremarkable. Reproductive: No adnexal masses. Bones: No acute fracture. Other: n/a IMPRESSION: No acute intra-abdominal or pelvic finding. The renal cortices have a mild heterogeneous appearance bilaterally which could indicate acute renal failure, bilateral pyelonephritis, or may be of no clinical significance. Correlate with urinalysis. Normal appendix. No hydronephrosis. Trace bi lateral pleural effusions.
--- NOTE | 2024-02-07 00:11 | EDPHYS ---
Physician Documentation [facility] Name: Yoni Perry Age: 23 yrs Sex: Male : 2000 Arrival Date: 02/06/2024 Time: 21:46 Bed 5 Private MD: ED Physician Giles Gtz HPI: 02/05 22:23 This 23 yrs old Black Male presents to ER via Ambulatory with complaints of Abdominal sb4 Pain. 22:23 The patient presents with abdominal pain in the lower abdomen. Onset: The sb4 symptoms/episode began/occurred this morning. The symptoms do not radiate. Associated signs and symptoms: Pertinent positives: nausea. The symptoms are described as sharp. Modifying factors: The symptoms are alleviated by nothing, the symptoms are aggravated by nothing. Severity of pain: in the emergency department the pain is unchanged is a 7 / 10. The patient has not experienced similar symptoms in the past. The patient has not recently seen a physician. Historical: - Allergies: 22:18 No Known Allergies; ha1 - Home Meds: 22:18 Abilify oral [Active]; ha1 - PMHx: 22:18 Asthma; scoliosis; Bipolar disorder; Irritable bowel syndrome; ha1 - PSHx: 22:18 None; ha1 - Immunization history:: Adult Immunizations up to date. - Infectious Disease History:: Denies. - Social history:: Smoking status: Patient reports the use of cigarette tobacco products, smokes one-half pack cigarettes per day, Reported history of juuling and/or vaping. ROS: 22:23 Constitutional: Negative for fever, chills, and weight loss, sb4 22:23 Abdomen/GI: Positive for abdominal pain, nausea, 22:23 All other systems are negative, Exam: 22:23 Head/Face: Normocephalic, atraumatic. Eyes: Extra-ocular motions intact. Periorbital sb4 areas with no swelling, redness, or edema. ENT: Mucous membranes moist. Cardiovascular: Regular rate and rhythm with a normal S1 and S2. Respiratory: Lungs have equal breath sounds bilaterally, clear to auscultation and percussion. No rales, rhonchi or wheezes noted. No increased work of breathing, no retractions or nasal flaring. Abdomen/GI: Soft, non-tender, no distension. Skin: Warm, dry with normal turgor. Normal color with no rashes, no lesions, and no evidence of cellulitis. 22:23 Constitutional: The patient appears in no acute distress, alert, awake, 22:23 Psych: Affect is flat, Vital Signs: 22:09 BP 153 / 84; Pulse 71; Resp 17 S; Temp 97.5; Pulse Ox 100% on R/A; Weight 83.91 kg; ha1 Height 6 ft. 1 in. ; 23:00 BP 139 / 79; Pulse 61; Resp 17 S; Pulse Ox 100% on R/A; ha1 02/06 00:00 BP 134 / 85; Pulse 59; Resp 17 S; Pulse Ox 100% on R/A; ha1 00:20 Temp 98.8(O); kd4 02/05 22:09 Body Mass Index 24.41 (83.91 kg, 185.42 cm) ha1 MDM: 02/05 21:51 Patient medically screened. sb4 02/06 00:10 Data reviewed: vital signs, nurses notes, lab test result(s), radiologic studies, and sb4 as a result, I will discharge patient. Counseling: I had a detailed discussion with the patient and/or guardian regarding the historical points, exam findings, and any diagnostic results supporting the discharge/admit diagnosis, lab results, radiology results, to return to the emergency department if symptoms worsen or persist or if there are any questions or concerns that arise at home. 02/05 22:13 Order name: CBC with Diff; Complete Time: 22:58 sb4 02/05 22:13 Order name: CMP; Complete Time: 22:55 sb4 02/05 22:13 Order name: Lipase; Complete Time: 22:55 sb4 02/05 22:13 Order name: Urinalysis w/ reflexes; Complete Time: 23:20 sb4 02/05 22:14 Order name: Magnesium; Complete Time: 22:55 sb4 02/05 22:14 Order name: UDS; Complete Time: 23:25 sb4 02/05 22:13 Order name: CT Abd/Pelvis - IV Contrast Only; Complete Time: 23:41 sb4 02/05 22:13 Order name: IV Saline Lock; Complete Time: 22:26 sb4 02/05 22:13 Order name: Labs collected and sent; Complete Time: 22:26 sb4 02/05 23:42 Order name: PO challenge; Complete Time: 23:53 sb4 Administered Medications: 02/05 22:28 Drug: NS 0.9% IV 1000 ml IV at 1 bolus Per protocol; 1000 mL bolus Route: IV; Rate: 1 ha1 bolus; Site: right antecubital; 02/06 00:20 Follow up: Response: No adverse reaction; IV Status: Completed infusion; IV Intake: ha1 1000ml 02/05 22:30 Drug: Ondansetron IVP 4 mg IVP once; over 2 minutes Route: IVP; Site: right antecubital;ha1 23:00 Follow up: Response: No adverse reaction; Nausea is decreased ha1 22:32 Drug: TORadol - Ketorolac IVP 15 mg IVP once Route: IVP; Site: right antecubital; ha1 23:00 Follow up: Response: No adverse reaction; Marked relief of symptoms; Pain is decreased ha1 23:50 Drug: NS 0.9% IV 1000 ml IV at 1 bolus Per protocol; 1000 mL bolus Route: IV; Rate: 1 kd4 bolus; Site: right antecubital; 02/06 00:20 Follow up: Response: No adverse reaction; IV Status: Completed infusion; IV Intake: ha1 1000ml 00:21 Follow up: Response: No adverse reaction kd4 Disposition: 03:24 Co-signature as Attending Physician, Giles Gtz MD I agree with the assessment sp4 and plan of care. I reviewed the patient's care provided by the Advanced Practice Provider and agree with the diagnosis and treatment plan. Disposition Summary: 02/07/24 00:10 Discharge Ordered Notes: Location: Home sb4 Problem: new sb4 Symptoms: have improved sb4 Condition: Stable sb4 Diagnosis - Lower abdominal pain, unspecified sb4 Followup: sb4 - With: Grady De Paz MD - When: 1 week - Reason: Further diagnostic work-up, Recheck today's complaints, Re-evaluation by your physician Discharge Instructions: - Discharge Summary Sheet sb4 - Abdominal Pain, Adult, [id number] sb4 Forms: - Patient Portal Instructions sb4 - Leadership Thank You Letter sb4 Signatures: Dispatcher [employer] Yi Bower RN RN ha1 Sandy Dougherty PA-C PA-C sb4 Giles Gtz MD MD sp4 Ethan, Nick, RN RN kd4
--- NOTE | 2024-02-07 00:11 | ER ---
Nurse's Notes [facility] Name: Yoni Perry Age: 23 yrs Sex: Male : 2000 Arrival Date: 02/06/2024 Time: 21:46 Bed 5 Private MD: Diagnosis: Lower abdominal pain, unspecified Presentation: 02/05 22:09 Chief complaint: Patient states: ABDOMINAL PAIN AND NAUSEA SINCE THIS MORNING. ha1 22:09 Coronavirus screen: Vaccine status: Patient reports being unvaccinated. Ebola Screen: ha1 No symptoms or risks identified at this time. Initial Sepsis Screen: Does the patient meet any 2 criteria? No. Patient's initial sepsis screen is negative. Does the patient have a suspected source of infection? No. Patient's initial sepsis screen is negative. Risk Assessment: Do you want to hurt yourself or someone else? Patient reports no desire to harm self or others. Onset of symptoms was February 06, 2024. 22:09 Method Of Arrival: Ambulatory ha1 22:09 Acuity: MARIANA 3 ha1 Triage Assessment: 22:09 General: Appears uncomfortable, Behavior is calm, cooperative. Pain: Complains of pain ha1 in right lower quadrant Pain radiates to umbilical area Pain currently is 7 out of 10 on a pain scale. Quality of pain is described as aching, sharp, Pain began suddenly, THIS MORNING Is intermittent. Neuro: Level of Consciousness is awake, alert, obeys commands, Oriented to person, place, time, situation. Cardiovascular: Reports Heart tones S1 S2 present. Respiratory: Airway is patent Respiratory effort is even, unlabored, Respiratory pattern is regular, symmetrical, Breath sounds are clear bilaterally. GI: Abdomen is flat, non-distended, Last BM was February 07, 2024. Bowel sounds present X 4 quads. Reports lower abdominal pain, nausea. Historical: - Allergies: 22:18 No Known Allergies; ha1 - Home Meds: 22:18 Abilify oral [Active]; ha1 - PMHx: 22:18 Asthma; scoliosis; Bipolar disorder; Irritable bowel syndrome; ha1 - PSHx: 22:18 None; ha1 - Immunization history:: Adult Immunizations up to date. - Infectious Disease History:: Denies. - Social history:: Smoking status: Patient reports the use of cigarette tobacco products, smokes one-half pack cigarettes per day, Reported history of juuling and/or vaping. Screenin:09 [facility] ED Fall Risk Assessment (Adult) History of falling in the last 3 months, ha1 including since admission No falls in past 3 months (0 pts) Confusion or Disorientation No (0 pts) Intoxicated or Sedated No (0 pts) Impaired Gait No (0 pts) Mobility Assist Device Used No (0 pt) Altered Elimination No (0 pt) Score/Fall Risk Level 0 - 2 = Low Risk Oriented to surroundings, Maintained a safe environment, Educated pt \T\ family on fall prevention, incl call for assistance when getting out of bed, Hourly rounding (assess needs \T\ fall precautionary measures) done. Abuse screen: Denies threats or abuse. Denies injuries from another. Nutritional screening: No deficits noted. Tuberculosis screening: No symptoms or risk factors identified. Assessment: 22:09 Reassessment: SEE TRIAGE ASSESSMENT. ha1 23:00 Reassessment: Patient and/or family updated on plan of care and expected duration. Pain ha1 level reassessed. Patient is alert, oriented x 3, equal unlabored respirations, skin warm/dry/pink. PAIN 1/10 Patient states feeling better. Patient states symptoms have improved. 23:10 GI: Abd is soft and non tender X 4 quads. ha1 02/06 00:00 Reassessment: Patient and/or family updated on plan of care and expected duration. Pain ha1 level reassessed. Patient is alert, oriented x 3, equal unlabored respirations, skin warm/dry/pink. Patient states feeling better. Patient states symptoms have improved. 00:22 General: d/c instruction given to patient, vss, follow up care explained, patient kd4 verbalized understanding.. Vital Signs: 02/05 22:09 BP 153 / 84; Pulse 71; Resp 17 S; Temp 97.5; Pulse Ox 100% on R/A; Weight 83.91 kg; ha1 Height 6 ft. 1 in. ; 23:00 BP 139 / 79; Pulse 61; Resp 17 S; Pulse Ox 100% on R/A; ha1 02/06 00:00 BP 134 / 85; Pulse 59; Resp 17 S; Pulse Ox 100% on R/A; ha1 00:20 Temp 98.8(O); kd4 02/05 22:09 Body Mass Index 24.41 (83.91 kg, 185.42 cm) ha1 ED Course: 02/05 21:50 Patient arrived in ED. jj6 21:50 Sandy Dougherty [facility] sb4 21:50 Giles Gtz MD is Attending Physician. sb4 22:09 Patient has correct armband on for positive identification. Placed in gown. Bed in low ha1 position. Call light in reach. Side rails up X 1. Adult w/ patient. 22:09 Provided Education on: PLAN OF CARE . ha1 22:09 Arm band placed on right wrist. ha1 22:18 Triage completed. ha1 22:24 Inserted saline lock: 20 gauge in right antecubital area, using aseptic technique. sa1 Blood collected. Flushed with 10 mL NS. 22:26 CBC with Diff Sent. ha1 22:26 CMP Sent. ha1 22:26 Lipase Sent. ha1 22:26 Magnesium Sent. ha1 23:28 CT Abd/Pelvis - IV Contrast Only In Process Unspecified. EDMS 02/06 00:10 Grady De Paz MD is Referral Physician. sb4 00:20 IV discontinued. kd4 00:21 No provider procedures requiring assistance completed. kd4 Administered Medications: 02/05 22:28 Drug: NS 0.9% IV 1000 ml IV at 1 bolus Per protocol; 1000 mL bolus Route: IV; Rate: 1 ha1 bolus; Site: right antecubital; 02/06 00:20 Follow up: Response: No adverse reaction; IV Status: Completed infusion; IV Intake: ha1 1000ml 02/05 22:30 Drug: Ondansetron IVP 4 mg IVP once; over 2 minutes Route: IVP; Site: right antecubital;ha1 23:00 Follow up: Response: No adverse reaction; Nausea is decreased ha1 22:32 Drug: TORadol - Ketorolac IVP 15 mg IVP once Route: IVP; Site: right antecubital; ha1 23:00 Follow up: Response: No adverse reaction; Marked relief of symptoms; Pain is decreased ha1 23:50 Drug: NS 0.9% IV 1000 ml IV at 1 bolus Per protocol; 1000 mL bolus Route: IV; Rate: 1 kd4 bolus; Site: right antecubital; 02/06 00:20 Follow up: Response: No adverse reaction; IV Status: Completed infusion; IV Intake: ha1 1000ml 00:21 Follow up: Response: No adverse reaction kd4 Medication: 02/05 22:23 VIS not applicable for this client. ha1 Intake: 02/06 00:20 IV: 1000ml; Total: 1000ml. ha1 00:20 IV: 1000ml; Total: 2000ml. ha1 Output: 00:20 Urine: 300ml; Total: 300ml. kd4 Outcome: 00:10 Discharge ordered by . sb4 00:21 Discharged to home ambulatory, with friend, kd4 00:21 Condition: good 00:21 Discharge instructions given to patient, 00:23 Patient left the ED. kd4 Signatures: Dispatcher [employer] EDMS Laureen [id number] Yi Castillo RN RN ha1 Sandy Dougherty, PAMoniqueC PANick Valle RN RN kd4 Sultan Aimee 1 Corrections: (The following items were deleted from the chart) :02/05 23:10 Reassessment: Patient and/or family updated on plan of care and expected ha1 duration. Pain level reassessed. Patient is alert, oriented x 3, equal unlabored respirations, skin warm/dry/pink. Patient states feeling better. Patient states symptoms have improved. ha1
[2024-02-07 01:01] VITALS: O2SAT 100
[2024-02-07 01:04] VITALS: BP 134/85
[2024-02-07 01:06] VITALS: TEMP 98.8
== END 2024-02-07 00:23 | disposition home or self-care (01) ==
LOC: ER 21:46
DX: R10.30 Lower abdominal pain, unspecified (principal)
CPT/HCPCS: 96361; 85025; 81001; 36415; 83735; 83690; 80053; 80307; 74177; 96375; 96374; 99284; Q9967; J2405; J7030